=== PATIENT | female | born 1985 | race Caucasian/White ===

== ENCOUNTER 2023-08-25 20:13 | Outpatient (REF) | payer MEDICAID, SELFPAY ==
[2023-09-01 22:07] LABS: Age Gdln ACOG Testing Note (.); HPV Aptima Positive (Negative); HPV Genotype 16 Negative (Negative); HPV Genotype 18,45 Negative (Negative); IGP, Aptima HPV, rfx 16/18,45 Note (.)
== END 2023-08-25 20:14 | disposition home or self-care (01) ==
LOC: LAB 20:13
PROVIDERS: PCP Family Medicine; Visit Provider Physician Assistant
DX: Z12.4 Encounter for screening for malignant neoplasm of cervix (principal)
CPT/HCPCS: 87624; 87625; G0145

== ENCOUNTER 2023-11-19 10:16 | Outpatient (REF) | payer MEDICAID, SELFPAY ==
[2023-11-19 10:47] LABS: SARS-CoV-2 Ag POSITIVE (NEGATIVE)
== END 2023-11-19 10:17 | disposition home or self-care (01) ==
LOC: LAB 10:16
PROVIDERS: PCP Family Medicine; Visit Provider Family Medicine
DX: R09.81 Nasal congestion (principal)
CPT/HCPCS: 87811

== ENCOUNTER 2024-09-13 06:59 | Outpatient (OUT) | payer MEDICAID, SELFPAY ==
--- OUTSIDE RECORDS SUMMARY | 2024-09-13 07:02 | XMS_ITS | CCD ---
Author Organization [facility] Care Team Providers Care Mechanic Sound Technician Name Role Phone EDEL ., DR JUNE Elizabeth Admitting Unavailable HOLLINGSWORTH ., DR JUNE Elizabeth Attending Unavailable HOY ., DR ROLAND Primary Care Unavailable GARRIDO ., MESSI Consulting Unavailable HOLLINGSWORTH ., DR JUNE Elizabeth Admitting Unavailable HOLLINGSWORTH ., DR JUNE Elizabeth Attending Unavailable HOY ., DR ROLAND Primary Care Unavailable HOY ., DR ROLAND Consulting Unavailable GARRIDO ., MESSI Consulting Unavailable MARIE, JACLYN Admitting Unavailable MARIE, JACLYN Attending Unavailable HOY ., DR ROLAND Primary Care Unavailable MARIE, JACLYN Consulting Unavailable MARIE, JACLYN Admitting Unavailable MARIE, JACLYN Attending Unavailable HOY ., DR ROLAND Primary Care Unavailable MARIE, JACLYN Consulting Unavailable MARIE, JACLYN Admitting Unavailable MARIE, JACLYN Attending Unavailable HOY ., DR ROLAND Primary Care Unavailable MARIE, JACLYN Consulting Unavailable MIKESTACIEGENEVIEVE Consulting Unavailable KUCHIPUDI, LOUISE Consulting Unavailable MARIE, JACLYN Admitting Unavailable MARIE, JACLYN Attending Unavailable HOY ., DR ROLAND Primary Care Unavailable MARIE, JACLYN Consulting Unavailable Ricardo Roland Admitting Unavailable Ricardo Roland Attending Unavailable HOY ., DR ROLAND Primary Care Unavailable MARILIAY ., DR ROLAND Primary Care Unavailable ALICIA TAPIA Admitting Unavailable ALICIA TAPIA Attending Unavailable SVITLANA WRIGHT Consulting Unavailable CORINA SIDDIQUI Consulting Unavailable MD Francisco Sanches Primary Care Provider MD Tomás Rojo Emergency Provider [phone] Tomás Rojo Attending Unavailable Tomás Rojo Admitting Unavailable Francisco Sanches Primary Care Unavailable Allergies Allergy Classification Reported Allergen(s) Allergy Type Date of Onset Reaction(s) Facility (2 sources) Acetaminophen / oxyCODONE Drug Allergy [facility] Repository Medications Current Medications Medication Drug Class(es) Dates Sig (Normalized) Sig (Original) acetaminophen 325 mg / HYDROcodone bitartrate 5 mg oral tablet (2 sources) Opioid Agonist Start: 10-13-2019 take 1 tablet by mouth every six hours Hydrocodone-Aceta minophen ([place]) 5-325 mg tablet Active 1 TAB PO Q6H 8 2 October 13, 2019 Start: 06-08-2019 End: 10-13-2019 take 1 tablet by mouth every four to six hours Hydrocodone-Acetaminophen Discontinued 1 TAB PO EVERY 4-6 HOURS June 08, 2019 12:00am October 13, 2019 7:53pm cephalexin 500 mg oral capsule (1 source) Cephalosporin Antibacterial Start: 10-13-2019 take 1 capsule by mouth four times daily Cephalexin (Keflex) 500 mg capsule Active 500 MG PO Four times daily 40 October 13, 2019 1:00am Problems Active Problems Problem Classification Problem Date Documented Date Episodic/Chronic Nonspecific chest pain (2 sources) Musculoskeletal chest pain; Translations: [Other chest pain] Onset: 05-04-2023 05-04-2023 Episodic Open wounds of head; neck; and trunk (1 source) Laceration - injury; Translations: [Laceration] 10-13-2019 Episodic Spondylosis; intervertebral disc disorders; other back problems (4 sources) Spondylosis without myelopathy or radiculopathy, lumbar region; Translations: [SPONDYLS W/O MYELO-/RADICULOP LUMB] Onset: 06-13-2022 Chronic Substance-related disorders (1 source) Nicotine dependence, cigarettes, uncomplicated; Translations: [NICOTINE DEPEND CIGARETTES UNCOMP] Onset: 10-17-2022 Chronic Superficial injury; contusion (1 source) Contusion of rib; Translations: [Contusion of right front wall of thorax, initial encounter] 06-08-2019 Episodic Unclassified (1 source) CONTACT W/AND (SUSP) EXPOS COVID-19; Translations: [CONTACT W/AND (SUSP) EXPOS COVID-19] Onset: 10-07-2022 Past or Other Problems Problem Classification Problem Date Documented Da te Episodic/Chronic Abdominal pain (5 sources) Pelvic and perineal pain; Translations: [Unspecified abdominal pain] Onset: 08-18-2022 Episodic Complication of device; implant or graft (1 source) Other specified complication of genitourinary prosthetic devices, implants and grafts, initial encounter; Translations: [OTH COMP PROS DEVC IMPL GFT INIT] Onset: 08-20-2022 Episodic Contraceptive and procreative management (5 sources) Encounter for sterilization; Translations: [ENCOUNTER FOR STERILIZATION] Onset: 10-02-2022 Episodic Immunizations and screening for infectious disease (4 sources) Encounter for screening for infections with a predominantly sexual mode of transmission; Translations: [ENC SCREEN INFECTIONS SEXL TRANSMS] Onset: 08-28-2022 Episodic Other female genital disorders (1 source) Other specified conditions associated with female genital organs and menstrual cycle; Translations: [OTH SPEC COND FE GEN ORG MENST CYCL] Onset: 10-17-2022 Episodic Other female genital disorders (1 source) Other specified noninflammatory disorders of vagina; Translations: [OTH SPEC NONINFLAMMATORY D/O VAGINA] Onset: 08-29-2022 Episodic Other gastrointestinal disorders (1 source) Other ascites; Translations: [OTHER ASCITES] Onset: 08-20-2022 Episodic Spondylosis; intervertebral disc disorders; other back problems (1 source) Muscle spasm of back; Translations: [MUSCLE SPASM OF BACK] Onset: 06-19-2022 Episodic Results Test Name Value Interpretation Reference Range Facility Activated partial thrombopla stin time (aPTT) in platelet poor plasma by coagulation aOrdered By: Tomás Rojo on 05-04-2023 aPTT Coag (PPP) [Time] 29.4 s 25.1-36.5 [facility] Basic Metabolic Panelon 04-17 Anion gap [Moles/Vol] 12.1 mmol/L Normal 6.0-15.0 [facility] Comment on above: Performed By: #### C BC, CK, DDIMER, HS TROP, PT, BMP, PTT #### [facility] [address] Calcium [Mass/Vol] 9.4 mg/dL Normal 8.6-10.3 [facility] Comment on above: Performed By: #### C BC, CK, DDIMER, HS TROP, PT, BMP, PTT #### [facility] [address] Chloride [Moles/Vol] 105 mmol/L Normal 98-107 [facility] Comment on above: Performed By: #### C BC, CK, DDIMER, HS TROP, PT, BMP, PTT #### [facility] [address] CO2 [Moles/Vol] 23.5 mmol/L Normal 21.0-31.0 [facility] Comment on above: Performed By: #### C BC, CK, DDIMER, HS TROP, PT, BMP, PTT #### [facility] [address] Creatinine [Mass/Vol] 0.64 mg/dL Normal 0.60-1.20 [facility] Comment on above: Performed By: #### C BC, CK, DDIMER, HS TROP, PT, BMP, PTT #### [facility] [address] [place] [address] [place] Creatinine Clr Calc Pharmacy 120.69 [facility] Comment on above: Result Comment: PERF ORMED BY: [place] [address] PATHOLOGIST BOOM WORKER JULIETH MEJIA M.D. Performed By: #### C BC, CK, DDIMER, HS TROP, PT, BMP, PTT #### [facility] [address] GFR/1.73 sq M.predicted MDRD (S/P/Bld) [Vol rate/Area] mL/min/{1.73_m2} [facility] Comment on above: Performed By: #### C BC, CK, DDIMER, HS TROP, PT, BMP, PTT #### [facility] [address] Glucose [Mass/Vol] 90 mg/dL Normal 70-100 [facility] Comment on above: Result Comment: [place] Glucose Reference Range is dependent on time and content of last meal. Glucose of more than 200 mg/dL in a nonstressed, ambulatory subject supports the diagnosis of Diabetes Mellitus. ADA recommended reference range Performed By: #### C BC, CK, DDIMER, HS TROP, PT, BMP, PTT #### [facility] [address] Potassium [Moles/Vol] 3.6 mmol/L Normal 3.5-5.1 [facility] Comment on above: Performed By: #### C BC, CK, DDIMER, HS TROP, PT, BMP, PTT #### [facility] [address] Sodium [Moles/Vol] 137 mmol/L Normal 136-145 [facility] Comment on above: Performed By: #### C BC, CK, DDIMER, HS TROP, PT, BMP, PTT #### [facility] [address] Urea nitrogen [Mass/Vol] 14 mg/dL Normal 7-25 [facility] Comment on above: Performed By: #### C BC, CK, DDIMER, HS TROP, PT, BMP, PTT #### [facility] [address] Basophils Auto (Bld) [#/Vol] Ordered By: Tomás Rojo on 05-04-2023 Basophils (Bld) [#/Vol] 0.1 10*3/uL 0.0-0.2 [facility] Basophils/100 WBC Auto (Bld) Ordered By: Tomás Rojo on 05-04-2023 Basophils/100 WBC (Bld) 1.0 % . [facility] Calcium [Mass/volume] in Ser um or PlasmaOrdered By: Tomás Rojo on 05-04-2023 Calcium [Mass/Vol] 9.4 mg/dL 8.6-10.3 [facility] Carbon dioxide, total [Moles /volume] in Serum or PlasmaOrdered By: Tomás Rojo on 05-04-2023 CO2 [Moles/Vol] 23.5 mmol/L 21.0-31.0 [facility] Chloride [Moles/volume] in S jose or PlasmaOrdered By: Tomás Rojo on 05-04-2023 Chloride [Moles/Vol] 105 mmol/L 98-107 [facility] Complete Blood Count Auto Di ffon 05-04-2023 Basophils (Bld) [#/Vol] 0.1 10*3/uL Normal 0.0-0.2 [facility] Comment on above: Result Comment: PERF ORMED BY: [place] [address] PATHOLOGIST BOOM WORKER JULIETH MEJIA M.D. Performed By: #### C BC, CK, DDIMER, HS TROP, PT, BMP, PTT #### [address] Basophils/100 WBC (Bld) 1.0 % Normal . [facility] Comment on above: Performed By: #### C BC, CK, DDIMER, HS TROP, PT, BMP, PTT #### [address] Eosinophils (Bld) [#/Vol] 0.1 10*3/uL Normal 0.0-0.45 [facility] Comment on above: Performed By: #### C BC, CK, DDIMER, HS TROP, PT, BMP, PTT #### [address] Eosinophils/100 WBC (Bld) 0.8 % Normal . [facility] Comment on above: Performed By: #### C BC, CK, DDIMER, HS TROP, PT, BMP, PTT #### [address] Erythrocyte distribution width (RBC) [Ratio] 13.2 % Normal 11.9-15.3 [facility] Comment on above: Performed By: #### C BC, CK, DDIMER, HS TROP, PT, BMP, PTT #### [address] Hematocrit (Bld) [Volume fraction] 38.3 % Normal 34.0-46.4 [facility] Comment on above: Performed By: #### C BC, CK, DDIMER, HS TROP, PT, BMP, PTT #### [address] Hemoglobin (Bld) [Mass/Vol] 13.0 g/dL Normal 11.8-15.4 [facility] Comment on above: Performed By: #### C BC, CK, DDIMER, HS TROP, PT, BMP, PTT #### [address] Lymphocytes (Bld) [#/Vol] 2.4 10*3/uL Normal 1.00-4.8 [facility] Comment on above: Performed By: #### C BC, CK, DDIMER, HS TROP, PT, BMP, PTT #### [address] Lymphocytes/100 WBC (Bld) 22.4 % Normal . [facility] Comment on above: Performed By: #### C BC, CK, DDIMER, HS TROP, PT, BMP, PTT #### [address] MCH (RBC) [Entitic mass] 31.5 pg Normal 24.7-34.3 [facility] Comment on above: Performed By: #### C BC, CK, DDIMER, HS TROP, PT, BMP, PTT #### [address] MCV (RBC) [Entitic vol] 92.7 fL Normal 80-100 [facility] Comment on above: Performed By: #### C BC, CK, DDIMER, HS TROP, PT, BMP, PTT #### [address] Mean Corpuscular HGB Conc 33.9 g/dL Normal 32.0-35.0 [facility] Comment on above: Performed By: #### C BC, CK, DDIMER, HS TROP, PT, BMP, PTT #### [address] Monocytes (Bld) [#/Vol] 0.5 10*3/uL Normal 0.0-0.8 [facility] Comment on above: Performed By: #### C BC, CK, DDIMER, HS TROP, PT, BMP, PTT #### [address] Monocytes/100 WBC (Bld) 16.86 % Normal 0.00-20.00 [facility] Comment on above: Performed By: #### C BC, CK, DDIMER, HS TROP, PT, BMP, PTT #### [address] Monocytes/100 WBC (Bld) 4.6 % Normal . [facility] Comment on above: Performed By: #### C BC, CK, DDIMER, HS TROP, PT, BMP, PTT #### [address] Neutrophils (Bld) [#/Vol] 7.5 10*3/uL Normal 1.8-7.7 [facility] Comment on above: Performed By: #### C BC, CK, DDIMER, HS TROP, PT, BMP, PTT #### [address] Neutrophils/100 WBC (Bld) 71.2 % Normal . [facility] Comment on above: Performed By: #### C BC, CK, DDIMER, HS TROP, PT, BMP, PTT #### [address] NRBC% 0.1 /100{WBC} Normal 0-0.5 [facility] Comment on above: Performed By: #### C BC, CK, DDIMER, HS TROP, PT, BMP, PTT #### [address] Platelet mean volume (Bld) [Entitic vol] 9.3 fL Normal 6.3-10.7 [facility] Comment on above: Performed By: #### C BC, CK, DDIMER, HS TROP, PT, BMP, PTT #### [address] Platelets (Bld) [#/Vol] 188 10*3/uL Normal 150-450 [facility] Comment on above: Performed By: #### C BC, CK, DDIMER, HS TROP, PT, BMP, PTT #### [facility] [address] RBC (Bld) [#/Vol] 4.13 10*6/uL Normal 3.60-5.00 [facility] Comment on above: Performed By: #### C BC, CK, DDIMER, HS TROP, PT, BMP, PTT #### [facility] [address] WBC (Bld) [#/Vol] 10.5 10*3/uL Normal 3.8-11.6 [facility] Comment on above: Performed By: #### C BC, CK, DDIMER, HS TROP, PT, BMP, PTT #### [facility] [address] Creatine Kinaseon 05-04-2023 CK [Catalytic activity/Vol] 93 U/L Normal 30-223 [facility] Comment on above: Performed By: #### C BC, CK, DDIMER, HS TROP, PT, BMP, PTT #### [facility] [address] Creatine kinase [Enzymatic a ctivity/volume] in Serum or PlasmaOrdered By: Tomás Rojo on 05-04-2023 CK [Catalytic activity/Vol] 93 U/L 30 [facility] Creatinine [Mass/volume] in Serum or PlasmaOrdered By: Tomás Rojo on 05-04-2023 Creatinine [Mass/Vol] 0.64 mg/dL 0.60-1.20 [facility] D-Dimer High Sensitivityon 0 05-04-2023 D-Dimer High Sensitivity < 200 Normal 0-243 [facility] Comment on above: Result Comment: The reference range for D-dimer is <243 ng/mL D-dimer units. D-dimer results must be used in conjunction with a clinical pretest probability (PTP) assessment model for deep vein thrombosis (DVT) and pulmonary embolism (PE). Results <230 ng/mL d-dimer units can be used as a negative predictor in patients with low or moderate probability for DVT/PE. Results above the exclusion threshold of 230 ng/ml D-dimer units for DVT/PE may indicate the need for further diagnostic testing. D-Dimer can be increased in hospitalized patients due to co-morbid conditions. PERFORMED BY: [place] [address] PATHOLOGIST BOOM WORKER JULIETH MEJIA M.D. Performed By: #### C BC, CK, DDIMER, HS TROP, PT, BMP, PTT #### [address] ECG 12 lead ECGon 05-04-2023 ECG 12 lead ECG [facility] Main [place] [address] [place] [address] Electrocardiograph Report Signed Patient: Cynthia Wilder MR#: [id number] 432 : 1985 Acct:[id number] Age/Sex: 37 / F ADM Date: 05/04/23 Loc: ER Room: Type: [facility] ER Attending Dr: Ordering Provider: Tomás Rojo MD Date of Service: 05/04/23 ECG/ECG 12 lead ECG: Chest Pain Copies to: Test Reason : Blood Pressure : / mmHG Vent. Rate : 076 BPM Atrial Rate : 076 BPM P-R Int : 168 ms QRS Dur : 082 ms QT Int : 410 ms P-R-T Axes : 055 077 031 degrees QTc Int : 461 ms Normal sinus rhythm Normal ECG When compared with ECG of 12-JUL-2017 23:19, No significant change was found Confirmed by TOMÁS ROJO MD ([id number]) on 05/04/2023 3:45:09 PM Referred By: Electronically Signed By:TOMÁS ROJO MD Transcribed By: MUS Signed By Tomás Rojo MD 04/17 07/09 1545 Normal [facility] Eosinophils Auto (Bld) [#/Vo l]Ordered By: Tomás Rojo on 05-04-2023 Eosinophils (Bld) [#/Vol] 0.1 10*3/uL 0.0-0.45 [facility] Eosinophils/100 WBC Auto (Bl d)Ordered By: Tomás Rojo on 05-04-2023 Eosinophils/100 WBC (Bld) 0.8 % . [facility] Erythrocyte distribution wid th Auto (RBC) [Ratio]Ordered By: Tomás Rojo on 05-04-2023 Erythrocyte distribution width (RBC) [Ratio] 13.2 % 11.9-15.3 [facility] Glucose [Mass/volume] in Ser um or PlasmaOrdered By: Tomás Rojo on 05-04-2023 Glucose [Mass/Vol] 90 mg/dL 70-100 [facility] Comment on above: ADA recommended refe rence rangeRandom Glucose Reference Range is dependent on time and content of last meal. Glucose of more than 200 mg/dL in a nonstressed, ambulatory subject supports the diagnosis of Diabetes Mellitus. Hematocrit Auto (Bld) [Volum e fraction]Ordered By: Tomás Rojo on 05-04-2023 Hematocrit (Bld) [Volume fraction] 38.3 % 34.0-46.4 [facility] Hemoglobin [Mass/volume] in BloodOrdered By: Tomás Rojo on 05-04-2023 Hemoglobin (Bld) [Mass/Vol] 13.0 g/dL 11.8-15.4 [facility] Laboratory - CoagulationOrde red By: Tomás Rojo on 05-04-2023 PT Coag (PPP) [Time] 14.5 s 9.0-12.9 [facility] Leukocytes [#/volume] correc reynaldo for nucleated erythrocytes in Blood by Automated counOrdered By: Tomás Rojo on 05-04-2023 WBC corrected for nucl RBC Auto (Bld) [#/Vol] 10.5 10*3/uL 3.8-11.6 [facility] Lymphocytes Auto (Bld) [#/Vo l]Ordered By: Tomás Rojo on 05-04-2023 Lymphocytes (Bld) [#/Vol] 2.4 10*3/uL 1.00-4.8 [facility] Lymphocytes/100 WBC Auto (Bl d)Ordered By: Tomás Rojo on 05-04-2023 Lymphocytes/100 WBC (Bld) 22.4 % . [facility] MCH Auto (RBC) [Entitic mass ]Ordered By: Tomás Rojo on 05-04-2023 MCH (RBC) [Entitic mass] 31.5 pg 24.7-34.3 [facility] MCHC Auto (RBC) [Mass/Vol]Or dered By: Tomás Rojo on 05-04-2023 MCHC (RBC) [Mass/Vol] 33.9 g/dL 32.0-35.0 [facility] MCV Auto (RBC) [Entitic vol] Ordered By: Tomás Rojo on 05-04-2023 MCV (RBC) [Entitic vol] 92.7 fL 80-100 [facility] Monocyte distribution width [Entitic volume] in Blood by AutomatedOrdered By: Tomás Rojo on 05-04-2023 Monocyte distribution width Auto (Bld) [Entitic vol] 16.86 % 0.00-20.00 [facility] Monocytes Auto (Bld) [#/Vol] Ordered By: Tomás Rojo on 05-04-2023 Monocytes (Bld) [#/Vol] 0.5 10*3/uL 0.0-0.8 [facility] Monocytes/100 WBC Auto (Bld) Ordered By: Tomás Rojo on 05-04-2023 Monocytes/100 WBC (Bld) 4.6 % . [facility] Neutrophils Auto (Bld) [#/Vo l]Ordered By: Tomás Rojo on 05-04-2023 Neutrophils (Bld) [#/Vol] 7.5 10*3/uL 1.8-7.7 [facility] Neutrophils/100 WBC Auto (Bl d)Ordered By: Tomás Rojo on 05-04-2023 Neutrophils/100 WBC (Bld) 71.2 % . [facility] No Panel InformationOrdered By: Tomás Rojo on 05-04-2023 D-Dimer Quantitative (PE/DVT) < 200 ng/mL 0-243 [facility] Comment on above: The reference range for D-dimer is <243 ng/mL D-dimer units.D-dimer results must be used in conjunction with a clinicalpretest probability (PTP) assessment model for deep veinthrombosis (DVT) and pulmonary embolism (PE). Results <230ng/mL d-dimer units can be used as a negative predictor inpatients with low or moderate probability for DVT/PE.Results above the exclusion threshold of 230 ng/ml D-dimerunits for DVT/PE may indicate the need for furtherdiagnostic testing.D-Dimer can be increased in hospitalized patients due toco-morbid conditions. Estimated GFR (CKD-EPI) > 60.0 mL/Min [facility] Creatinine Clearance (Chem 120.69 [facility] Nucleated erythrocytes [Pres ence] in Blood by Automated countOrdered By: Tomás Rojo on 05-04-2023 Nucleated RBC Auto Ql (Bld) 0.1 /100{WBC} 0-0.5 [facility] Partial Thromboplastin Timeo n 05-04-2023 aPTT Coag (Bld) [Time] 29.4 s Normal 25.1-36.5 [facility] Comment on above: Performed By: #### C BC, CK, DDIMER, HS TROP, PT, BMP, PTT #### [facility] [address] Platelet mean volume Auto (B ld) [Entitic vol]Ordered By: Tomás Rojo on 05-04-2023 Platelet mean volume (Bld) [Entitic vol] 9.3 fL 6.3-10.7 [facility] Platelet poor plasma interna tional normalized ratio (INR) by coagulation assay (relatOrdered By: Tomás Rojo on 05-04-2023 INR Coag (PPP) [Relative time] 1.3 {INR} [facility] Comment on above: INR Therapeutic Rang e A) Pre- and Peroperative OAT started two weeks before surgery. NOT HIP SURGERY: 1.5 - 2.5 HIP SURGERY: 2 - 3B) Primary and secondary prevention of venous THROMBOSIS: 2 - 3C) Active venous thrombosis, pulmonary embolismand prevention of recurrent venous thrombosis: 2 - 3D) Prevention of arterial thromboembolismincluding patients with mechanical heart valves: 3 - 4.5 Platelets Auto (Bld) [#/Vol] Ordered By: Tomás Rojo on 05-04-2023 Platelets (Bld) [#/Vol] 188 10*3/uL 150-450 [facility] Potassium [Moles/volume] in Serum or PlasmaOrdered By: Tomás Rojo on 05-04-2023 Potassium [Moles/Vol] 3.6 mmol/L 3.5-5.1 [facility] Prothrombin Time INRon 05-04 INR Coag (PPP) [Relative time] 1.3 {INR} Normal [facility] Comment on above: Result Comment: INR Therapeutic Range A) Pre- and Peroperative OAT started two weeks before surgery. NOT HIP SURGERY: 1.5 - 2.5 HIP SURGERY: 2 - 3 B) Primary and secondary prevention of venous THROMBOSIS: 2 - 3 C) Active venous thrombosis, pulmonary embolism and prevention of recurrent venous thrombosis: 2 - 3 D) Prevention of arterial thromboembolism including patients with mechanical heart valves: 3 - 4.5 Performed By: #### C BC, CK, DDIMER, HS TROP, PT, BMP, PTT #### [facility] [address] PT Coag (PPP) [Time] 14.5 s High 9.0-12.9 [facility] Comment on above: Performed By: #### C BC, CK, DDIMER, HS TROP, PT, BMP, PTT #### [facility] [address] RBC Auto (Bld) [#/Vol]Ordere d By: Tomás Rojo on 05-04-2023 RBC (Bld) [#/Vol] 4.13 10*6/uL 3.60-5.00 [facility] Serum or plasma anion gap de terminationOrdered By: Tomás Rojo on 05-04-2023 Anion gap [Moles/Vol] 12.1 mmol/L 6.0-15.0 [facility] Sodium [Moles/volume] in Ser um or PlasmaOrdered By: Tomás Rojo on 05-04-2023 Sodium [Moles/Vol] 137 mmol/L 136-145 [facility] Troponin I High Sensitivityo n 05-04-2023 Troponin I High Sensitivity 4.3 pg/mL Normal 0.0-15.0 [facility] Comment on above: Result Comment: PERF ORMED BY: [place] [address] PATHOLOGIST BOOM WORKER JULIETH MEJIA M.D. Performed By: #### C BC, CK, DDIMER, HS TROP, PT, BMP, PTT #### [address] Troponin I.cardiac [Mass/vol ume] in Serum or Plasma by Detection limit <= 0.01 ng/Ordered By: Tomás Rojo on 05-04-2023 Troponin I.cardiac DL <= 0.01 ng/mL [Mass/Vol] 4.3 pg/mL 0.0-15.0 [facility] Urea nitrogen [Mass/volume] in Serum or PlasmaOrdered By: Tomás Rojo on 05-04-2023 Urea nitrogen [Mass/Vol] 14 mg/dL 06-10 [facility] WBC Auto (Bld) [#/Vol]Ordere d By: Tomás Rojo on 05-04-2023 WBC (Bld) [#/Vol] 10.5 10*3/uL 3.8-11.6 [facility] XR chest 1V portableon 05-04 XR chest 1V portable [facility] [place] [address] XRay Report Signed Patient: Cynthia Wilder MR#: [id number] 432 : 1985 Acct:[id number] Age/Sex: 37 / F ADM Date: 05/04/23 Loc: ER Room: Type: [facility] ER Attending Dr: Copies to: Tomás Rojo MD Ordering Provider: Tomás Rojo MD Date of Service: 05/04/23 XR/XR chest 1V portable: Chest Pain PORTABLE AP ERECT CHEST 2034 hours CLINICAL HISTORY: Chest pain COMPARISON: 06/08/2019 The heart is within normal limits. There is no vascular congestion. The lungs, as visualized, are clear. There is no effusion or pneumothorax. An old left rib fractures again noted. XR/XR chest 1V portable IMPRESSION: NO ACUTE FINDINGS Impression dictated by: Corina Sotelo M.D.05/04/2023 2:37 PM Dictation Location: [place] [address] Transcribed By: [facility] 05/04/23 143 Dictated By: Corina Sotelo MD 05/04/23 1437 Signed By: 05/04/23 1437 Normal [facility] CBC AUTO DIFFon 10-02-2022 BASO # 0.0 103/ul Normal 0.0-0.1 [facility] Comment on above: Performed By: #### C BC ####[facility] [address] [place] [address]Dr. Colleen Marshall Basophils/100 WBC (Bld) 0.3 % Normal 0.2-2.0 [facility] Comment on above: Performed By: #### C BC ####[facility] [address] [place], [place] [address]Dr. Colleen Marshall EO # 0.1 103/ul Normal 0.0-0.7 [facility] Comment on above: Performed By: #### C BC ####[facility] Pelbbec[address] [place], [place] [address]Dr. Colleen Marshall Eosinophils/100 WBC (Bld) 1.2 % Normal 0.9-7.0 [facility] Comment on above: Performed By: #### C BC ####[facility] [address]vq[address] [place], [place] [address]Dr. Colleen Marshall Erythrocyte distribution width (RBC) [Ratio] 12.7 % Normal 11.0-15.0 [facility] Comment on above: Performed By: #### C BC ####[facility] [address]we[address] [place], [place] [address]Dr. Colleen Marshall Hematocrit (Bld) [Volume fraction] 41.1 % Normal 36.0-48.0 [facility] Comment on above: Performed By: #### C BC ####[facility] X[address] [place], [place] [address]Dr. Colleen Marshall Hemoglobin (Bld) [Mass/Vol] 13.8 g/dL Normal 12.0-16.0 [facility] Comment on above: Performed By: #### C BC ####[facility] Bl[address]em[address] [place], [place] [address]Dr. Colleen Marshall IG # 0.02 10e3/ul Normal 0.00-0.03 [facility] Comment on above: Performed By: #### C BC ####[facility] [address] [place], [place] [address]Dr. Colleen Marshall IG % 0.3 % Normal 0.0-0.5 [facility] Comment on above: Performed By: #### C BC ####[facility] X[address] [place], [place] [address]DrLiset Marshall LYMPH # 2.2 103/ul Normal 1.2-3.8 [facility] Comment on above: Performed By: #### C BC ####[facility] [address] [place] [address]DrLiset Solgael Marshall Lymphocytes/100 WBC (Bld) 29.6 % Normal 20.5-60.0 [facility] Comment on above: Performed By: #### C BC ####[facility] [address]xx[address] [place] [address]DrLiset Marshall MANUAL DIFF REQ NO Normal [facility] Comment on above: Performed By: #### C BC ####[facility] [address]zl[address] [place] [address]DrLiset Marshall MCH (RBC) [Entitic mass] 31.3 pg Normal 26.7-34.0 [facility] Comment on above: Performed By: #### C BC ####[facility] [address] [place], [place] [address]DrLiset Marshall MCHC (RBC) [Mass/Vol] 33.6 g/dL Normal 29.9-35.2 [facility] Comment on above: Performed By: #### C BC ####[facility] Zhktejehzy[address] [place], [place] [address]DrLiset Marshall MCV (RBC) [Entitic vol] 93.2 fL Normal 81.0-99.0 [facility] Comment on above: Performed By: #### C BC ####[facility] [address] [place], [place]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 9095324, 17150744, 72593531, 46504059, 1943269, 36301466, 9578751, 9497591, 75681107 #### [facility] [address] [place] [address] Glucose mass conc 80 mg/dL Normal 55-199 [facility] Comment on above: Result Comment: If t his glucose result represents a fasting glucose, interpretation should refer to the following reference range: 55-99 mg/dL Performed By: #### 2 060332, 1720878, 98183511, 28403299, 82783995, 3203409, 56910595, 6332492, 9189121, 49402912 #### [facility] [address] [place] [address] Potassium molar conc 3.7 mmol/L Normal 3.5-5.3 [facility] Comment on above: Performed By: #### 2 571109, 5785273, 12390772, 06073321, 00299671, 9970406, 58550479, 0849587, 3917274, 05515473 #### [facility] [address] [place] [address] Sodium molar conc 138 mmol/L Normal 135-145 [facility] Comment on above: Performed By: #### 2 362544, 6875491, 91652315, 46702429, 62432109, 6241187, 97201282, 4598684, 6388259, 27353490 #### [facility] [address] [place] [address] ED Clinical Summaryon 2017 ED Clinical Summary (Inserted Image. Astrid ble to display) [address] [address] ED Clinical Summary Person Information Name: CYNTHIA WILDER [place] Age: 32 Years : 1985 12:00 AM Sex: Female Language: Cuban PCP: Luan Guerra MD Marital Status: Single Visit Id: Visit Reason: Back pain; Chest pain; CHEST PAIN Speciality: Acuity: 3 Enc Type: Emergency Med Service: Emergency Arrival: 05/28/2018 10:11 PM Discharge: 05/29/2018 12:01 AM LOS: 000 01:50 Checkin: 05/28/2018 10:11 PM Checkout: 05/29/2018 12:01 AM Dispo Type: Home (Routine DC) EVENTS: Event Name Event Status Request Date/Time Start Date/Time Complete Date/Time Arrive Complete 05/28/2018 10:11 PM 05/28/2018 10:11 PM 05/28/2018 10:11 PM Document Home Meds Complete 05/28/2018 10:11 PM 05/28/2018 11:23 PM 05/28/2018 11:23 PM Triage Complete 05/28/2018 10:11 PM 05/28/2018 10:24 PM 05/28/2018 10:24 PM Bed Assign Complete 05/28/2018 10:15 PM 05/28/2018 10:15 PM 05/28/2018 10:[address] Exam Complete 05/28/2018 10:15 PM 05/28/2018 10:16 PM 05/28/2018 10:16 PM RN Exam Complete 05/28/2018 10:15 PM 05/28/2018 10:50 PM 05/28/2018 10:50 PM EKG Complete 05/28/2018 10:15 PM 05/28/2018 10:26 PM X-Ray Cancel 05/28/2018 10:15 PM 05/28/2018 11:01 PM Registration Complete 05/28/2018 10:16 PM 05/28/2018 10:26 PM 05/28/2018 10:26 PM Pending Labs Complete 05/28/2018 10:22 PM 05/28/2018 11:16 PM Lab Complete 05/28/2018 10:22 PM 05/28/2018 11:[address] Complete 05/28/2018 10:22 PM 05/28/2018 11:15 PM 05/28/2018 11:16 PM Meds Admin Request 05/28/2018 10:24 PM Reg Complete Request 05/28/2018 10:26 PM Reg Bed Request Complete 05/28/2018 10:26 PM 05/28/2018 10:26 PM 05/28/2018 10:26 PM Pending Labs Complete 05/28/2018 10:39 PM 05/28/2018 10:39 PM 05/28/2018 11:16 PM Lab Complete 05/28/2018 10:39 PM 05/28/2018 10:39 PM 05/28/2018 11:16 PM Pending Labs Complete 05/28/2018 10:40 PM 05/28/2018 10:40 PM 05/28/2018 11:08 PM Lab Complete 05/28/2018 10:40 PM 05/28/2018 10:40 PM 05/28/2018 11:08 PM Pending Labs Complete 05/28/2018 10:44 PM 05/28/2018 10:44 PM 05/28/2018 10:44 PM Lab Complete 05/28/2018 10:44 PM 05/28/2018 10:44 PM 05/28/2018 10:44 PM Pending Labs Complete 05/28/2018 10:44 PM 05/28/2018 10:44 PM 05/28/2018 11:07 PM Discharge Complete 05/28/2018 11:46 PM 05/29/2018 12:01 AM 05/29/2018 12:01 AM Transfer Complete 05/29/2018 12:01 AM 05/29/2018 12:01 AM 05/29/2018 12:01 AM ADDRESS: [address] [place] [id number] PHYS DOC NOTES: MEDICAL INFORMATION: Prescriptions Given: PATIENT EDUCATION INFORMATION: Instructions: Chest Pain (Nonspecific) Follow up: With: Address: When: Luan Guerra [address] [place] [address], [facility] [place] [address] Business (1) In 3 days 05/31/2018 Comments: Current Diagnosis - Chest pain Results - All testing was unremarkable. Your evaluation was currently not consistent with a blood clot in the lungs, a tear in a major blood vessel, collapsed lung, heart failure, or heart attack. Given your risk factors and testing, your Heart Score is less than 4 which places you at less than a 1.8% risk of Major Adverse Cardiac Event in the next 6 weeks. Treatment - Currently the [employer] recommends that all patients who present complaining of chest pain should receive a stress test within 48-72 hours. Avoid strenuous activity while still having pain and until you see your doctor. Return to ED for - Worsening or continuing pain, shortness of breath, passing out, lightheadedness, dizzy, neck pain, sweating, fever, cough Follow up - With your primary care physician within 48-72 hours if no better or worse and for a stress test within 48-72 hours as directed by the AHA You have been seen, evaluated, treated, and reevaluated in the emergency department. Your test results and diagnoses have been explained to you . You have expressed understanding of the results, your diagnosis, and its implications. All of your questions have been answered. Please read your discharge instructions carefully and follow them as directed. You have been provided access to your imaging and lab results and had any abnormalities explained, please take them to your doctor as they may require follow up as we discussed. It is important to remember that your care does not end here and you must continue to monitor your condition closely. Please return to the emergency department for any worsening or concerning signs or symptoms as directed by our conversations and the discharge instructions. Otherwise please follow up with your doctor in 2 days if no better or worse. If you do not have a doctor please contact the hospital of your choice. Please contact any physician specialists provided in your discharge notes as it is very important to follow up with them regarding your condition. If you are unable to reach the physicians provided, please come back to the Emergency Department at any time. As always, please take medications as directed. If you have any questions at all regarding your medications, please contact the pharmacist, the emergency department, or your doctor. Before taking any medication prescribed in the Emergency Department, please review the medication side effects and drug interactions (http://www.rxlist.com/scr ipt/main/hp.asp) as they may interact with your home medications. Having trouble affording medications? Try [employer]! (This is not a hospital endorsed website, merely a recommendation based on my own personal experiences with [employer]) Questions? Contact me anytime. Saul Tate MD, TAL DIAGNOSIS: Chest pain Normal [facility] ED Note-Physicianon 05-29-20 ED Note-Physician Basic Information Time Seen: Saul Tate MD 05/28/2018 22:16 HISTORY OF PRESENT ILLNESS: Past medical history of previous CVA presents for chief complaint of left-sided chest pain and hemoptysis for the past day. Patient states she's had blood-streaked sputum. Denies any lightheadedness or dizziness or passing out. The left-sided chest pain is sharp pleuritic. Atypical Chest pain. No PE/DVT risk factors. No leg swelling. Chest pain was not of maximal intensity at onset, does not radiate to the back, is not associated with focal neurological deficits, is not of tearing sensation. Chest pain is non-exertional, not associated with diaphoresis, nausea, or significant shortness of breath. Severity is moderate. Worse with coughing. No relieving factors. Timing is one day. Course is constant. Context is no trauma ED Caveat: [none] ROS *see ED Caveat Gen: No fever, no chills CV: no palpitations Resp: No SOB, no respiratory distress GI: No V/D, no abd pain : No dysuria, no increased frequency Skin: No rash, no purulent lesions Eyes: No blurry vision, No double vision MSK: No back pain, no joint pain Neuro: No PERRY, no sensation changes Psych: No SI/HI Allergies -reviewed PMH -See HPI Social History -No daily drinking, no IV drugs PHYSICAL EXAM Gen: Alert, no acute distress Skin: Warm, no rashes Head: Normocephalic, atraumatic Neck: No midline tenderness, no nuchal rigidity Eye: EOMI, PERRLA, normal conjunctiva ENT: Mucous membranes moist, no pharyngeal erythema CV: Normal rate, no rubs Resp: Respirations unlabored, lungs clear to auscultation, bronchospastic cough GI: Soft, non distended, no large abdominal masses, non tender MSK: No midline back pain, no large joint effusions Neuro: Alert and oriented, no focal neurological deficits observed Psych: Cooperative, appropriate mood and affect MEDICAL DECISION MAKING Differential Diagnosis: - Consideration given for ACS, Dissection, Pneumothorax, Pulmonary Embolism, Impression/Plan: -Clinically patient's presentation is most consistent with bronchitis. However given her previous pulmonary embolism will evaluate for pulmonary embolus here. Patient has a bronchospastic cough on exam and bronchitis is the #1 reason for hemoptysis. Therefore think that's what's most likely at this time. However given patient's history was expand her workup. If all workup is unremarkable patient will be discharged home. We'll get two troponins. Reevaluation/Conversations on care: - I have independently reviewed and interpreted any ordered labs and/or imaging available during my shift. - w/u neg pt feeling better Dx -Chest pain Saul Tate MD, TAL Emergency Medicine Attending Questions? Please contact my cell phone anytime. *This charting supersedes any ED resident or staff charting and was written using speech recognition software Chief Complaint C/o right sided chest pain radiating to alexander that started at 1200 today progressievly getting worse. Pt sts 2 days ago she was coughing up blood. Pt reports pain in worse when taking a deep breath. Pt denies any nausea or vomiting. Pt deneis any further c Physical Exam Vitals & Measurements T: 36.4 ?C (Oral) HR: 69(Peripheral) RR: 18 BP: 124/80 SpO2: 100% Assessment/Plan Ordered: B-Type Natriuretic Peptide Beta hCG Quantitative CBC w/ Auto Diff Comprehensive Metabolic Panel CTA Chest Magnesium Level PT & PTT Troponin 0 Hr. XR Chest 2 Views Disposition Plan Discharge Prescription List Prescriptions No active prescription medications Follow-up No qualifying data available Problem List/Past Medical History Ongoing Smoker Historical DDD (degenerative disc disease) Medications Inpatient No active inpatient medications Home Naprosyn 500 mg Tab, 500 mg= 1 tab(s), Oral, BID Tylenol with Codeine #3 oral tablet, 1 tab(s), Oral, q6hr, PRN Allergies Percocet 5/325 Social History Alcohol - Denies Alcohol Use, 04/18/2014 Substance Abuse - Denies Substance Abuse, 04/18/2014 Tobacco Current Every Day Smoker, Cigarettes, 04/18/2014 Cigarettes, 07/30/2013 Lab Results No qualifying data available. Diagnostic Results No qualifying data available. Normal [facility] Comment on above: Result Comment: Elec tronically Signed By: Lea LINARES, Saul Albert\.br\Date and Time Signed: 05/29/18 00:30 EDT ED Patient Education Noteon 05-29-2018 ED Patient Education Note Family Medicine Chest Pain (Nonspecific) It is often hard to give a specific diagnosis for the cause of chest pain. There is always a chance that your pain could be related to something serious, such as a heart attack or a blood clot in the lungs. You need to follow up with your health care provider for further evaluation. CAUSES ? Heartburn. ? Pneumonia or bronchitis. ? Anxiety or stress. ? Inflammation around your heart (pericarditis) or lung (pleuritis or pleurisy). ? A blood clot in the lung. ? A collapsed lung (pneumothorax). It can develop suddenly on its own (spontaneous pneumothorax) or from trauma to the chest. ? Shingles infection (herpes zoster virus). The chest wall is composed of bones, muscles, and cartilage. Any of these can be the source of the pain. ? The bones can be bruised by injury. ? The muscles or cartilage can be strained by coughing or overwork. ? The cartilage can be affected by inflammation and become sore (costochondritis). DIAGNOSIS Lab tests or other studies may be needed to find the cause of your pain. Your health care provider may have you take a test called an ambulatory electrocardiogram (ECG). An ECG records your heartbeat patterns over a 24-hour period. You may also have other tests, such as: ? Transthoracic echocardiogram (TTE). During echocardiography, sound waves are used to evaluate how blood flows through your heart. ? Transesophageal echocardiogram (CLARISSE). ? Cardiac monitoring. This allows your health care provider to monitor your heart rate and rhythm in real time. ? Holter monitor. This is a portable device that records your heartbeat and can help diagnose heart arrhythmias. It allows your health care provider to track your heart activity for several days, if needed. ? Stress tests by exercise or by giving medicine that makes the heart beat faster. TREATMENT ? Treatment depends on what may be causing your chest pain. Treatment may include: ? Acid blockers for heartburn. ? Anti-inflammatory medicine. ? Pain medicine for inflammatory conditions. ? Antibiotics if an infection is present. ? You may be advised to change lifestyle habits. This includes stopping smoking and avoiding alcohol, caffeine, and chocolate. ? You may be advised to keep your head raised (elevated) when sleeping. This reduces the chance of acid going backward from your stomach into your esophagus. Most of the time, nonspecific chest pain will improve within 2?3 days with rest and mild pain medicine. HOME CARE INSTRUCTIONS ? If antibiotics were prescribed, take them as directed. Finish them even if you start to feel better. ? For the next few days, avoid physical activities that bring on chest pain. Continue physical activities as directed. ? Do not use any tobacco products, including cigarettes, chewing tobacco, or electronic cigarettes. ? Avoid drinking alcohol. ? Only take medicine as directed by your health care provider. ? Follow your health care provider's suggestions for further testing if your chest pain does not go away. ? Keep any follow-up appointments you made. If you do not go to an appointment, you could develop lasting (chronic) problems with pain. If there is any problem keeping an appointment, call to reschedule. SEEK MEDICAL CARE IF: ? Your chest pain does not go away, even after treatment. ? You have a rash with blisters on your chest. ? You have a fever. SEEK IMMEDIATE MEDICAL CARE IF: ? You have increased chest pain or pain that spreads to your arm, neck, jaw, back, or abdomen. ? You have shortness of breath. ? You have an increasing cough, or you cough up blood. ? You have severe back or abdominal pain. ? You feel nauseous or vomit. ? You have severe weakness. ? You faint. ? You have chills. This is an emergency. Do not wait to see if the pain will go away. Get medical help at once. Call your local emergency services (911 in [place] Do not drive yourself to the hospital. MAKE SURE YOU: ? Understand these instructions. ? Will watch your condition. ? Will get help right away if you are not doing well or get worse. Document Released: 08/13/2006 Document Revised: 11/08/2014 Document Reviewed: 06/08/2009 ExitCare? Patient Information ?2015 GLSS. This information is not intended to replace advice given to you by your health care provider. Make sure you discuss any questions you have with your health care provider. Normal [facility] ED Patient Summaryon 018 ED Patient Summary (Inserted Image. Astrid ble to display) [place] [id number] Patient Discharge Instructions Person Information Name: CYNTHIA WILDER Age: 32 Years Arrival Date: 05/28/2018 10:11 PM Discharge Diagnosis: Chest pain Primary Care Physician: Luan Guerra MD Provider Information Primary Provider: Saul Tate MD Advanced Faculty Administrator:None The exam and treatment you received in the Emergency Department were for an urgent problem and are not intended as complete care. It is important that you follow up with a doctor, nurse practitioner, or physician?s orthopedic physician assistant for ongoing care. If your symptoms become worse or you do not improve as expected and you are unable to reach your usual health care provider, you should return to the Emergency Department. We are available 24 hours a day. CYNTHIA WILDER has been given the following list of patient education materials, prescriptions and follow-up instructions: Follow-up Instructions: With: Address: When: Luan Mari [address] [place] [address], [facility] [place] [id number] [facility] () In 3 days 05/31/2018 Comments: Current Diagnosis - Chest pain Results - All testing was unremarkable. Your evaluation was currently not consistent with a blood clot in the lungs, a tear in a major blood vessel, collapsed lung, heart failure, or heart attack. Given your risk factors and testing, your Heart Score is less than 4 which places you at less than a 1.8% risk of Major Adverse Cardiac Event in the next 6 weeks. Treatment - Currently the [place] [employer] recommends that all patients who present complaining of chest pain should receive a stress test within 48-72 hours. Avoid strenuous activity while still having pain and until you see your doctor. Return to ED for - Worsening or continuing pain, shortness of breath, passing out, lightheadedness, dizzy, neck pain, sweating, fever, cough Follow up - With your primary care physician within 48-72 hours if no better or worse and for a stress test within 48-72 hours as directed by the AHA You have been seen, evaluated, treated, and reevaluated in the emergency department. Your test results and diagnoses have been explained to you . You have expressed understanding of the results, your diagnosis, and its implications. All of your questions have been answered. Please read your discharge instructions carefully and follow them as directed. You have been provided access to your imaging and lab results and had any abnormalities explained, please take them to your doctor as they may require follow up as we discussed. It is important to remember that your care does not end here and you must continue to monitor your condition closely. Please return to the emergency department for any worsening or concerning signs or symptoms as directed by our conversations and the discharge instructions. Otherwise please follow up with your doctor in 2 days if no better or worse. If you do not have a doctor please contact the hospital of your choice. Please contact any physician specialists provided in your discharge notes as it is very important to follow up with them regarding your condition. If you are unable to reach the physicians provided, please come back to the Emergency Department at any time. As always, please take medications as directed. If you have any questions at all regarding your medications, please contact the pharmacist, the emergency department, or your doctor. Before taking any medication prescribed in the Emergency Department, please review the medication side effects and drug interactions (http://www.rxlist.com/scr ipt/main/hp.asp) as they may interact with your home medications. Having trouble affording medications? Try [employer]! (This is not a hospital endorsed website, merely a recommendation based on my own personal experiences with [employer]) Questions? Contact me anytime. Saul Tate MD, TAL In the event that this physician does not participate in your insurance network, please consult with your insurance company to find a nearby participating provider. Patient Education Materials: Chest Pain (Nonspecific) A MESSAGE TO ALL PATIENTS REGARDING OPIOIDS PRESCRIPTION OPIOIDS: WHAT YOU NEED TO KNOW Prescription opioids can be used to help relieve bkxbhvpo-xc-hralsu pain and are often prescribed following a surgery or injury, or for certain health conditions. These medications can be an important part of the treatment but also come with serious risks. It is important to work with your healthcare provider to make sure you are getting the safest, most effective care. WHAT ARE THE RISKS AND SIDE EFFECTS OF OPIOID USE? Prescription opioids carry serious risks of addiction and overdose, especially with prolonged use. An opioid overdose, often marked by slowed breathing, can cause sudden . The use of prescription opioids can have a number of side effects as well, even when taken as directed: ? Tolerance?meaning you might need to take more of the medication for the same pain relief ? Physical dependence?meaning you have symptoms of withdrawal when a medication is stopped ? Increased sensitivity to pain ? Constipation ? Nausea, vomiting, and dry mouth ? Sleepiness and dizziness ? Confusion ? Depression ? Low levels of testosterone that can result in lower sex drive, energy, and strength ? Itching and sweating RISKS ARE GREATER WITH: ? History of drug misuse, substance use disorder, or overdose ? Mental health conditions (such as depression or anxiety) ? Sleep apnea ? Older age (65 years and older) ? Avoid alcohol while taking prescription opioids. Also, unless specifically advised by your health care provider, medications to avoid include: ? Benzodiazepines (such as Xanax or Valium) ? Muscle relaxants (such as Soma or Flexeril) ? Hypnotics (such as Ambien or Lunesta) ? Other prescription opioids KNOW YOUR OPTIONS Talk to your health care provider about ways to manage your pain that don?t involve prescription opioids. Some of these options may actually work better and have fewer risks and side effects. Options may include: ? Pain relievers such as acetaminophen, ibuprofen, and naproxen ? Some medication that are also used for depression or seizures ? Physical therapy and exercise ? Cognitive behavioral therapy, a psychological, goal-directed approach, in which patients learn how to modify physical, behavioral, and emotional triggers of pain and stress. IF YOU ARE PRESCRIBED OPIOIDS FOR PAIN: ? Never take opioids in greater amounts or more often than prescribed. ? Follow up with your primary health care provider. o Work together to create a plan on how to manage your pain. o Talk about ways to help manage your pain that don?t involve prescription opioids. o Talk about any and all concerns and side effects. ? Help prevent misuse and abuse o Never sell or share prescription opioids. o Never use another person?s prescription opioids. ? Store prescription opioids in a secure place and out of reach of others (this may include visitors, children, friends, and family). ? Safely dispose of unused prescription opioids: Find your community drug take-back program or your pharmacy mail-back program, or flush them down the toilet, following guidance from the Food and Drug Administration (www.fda.gov/Drugs/Resourc esForYou). ? Visit www.cdc.gov/drugoverdose to learn about the risks of opioids abuse and overdose. ? If you believe you may be struggling with addiction, tell your health cattle care worker and ask for guidance or call [facility]?S National Helpline at 4-165-441-HELP. v Source: US Department of Health and Human Services/Center for Disease Control & Prevention [facility] Medications Given: Medication Dose Route hydromorphone 0.50 mg IV Push Left Antecubital Loc Medication Information: Comment: Pharmacy Information: Thank you for choosing [facility] Patient Education Materials: Chest Pain (Nonspecific) It is often hard to give a specific diagnosis for the cause of chest pain. There is always a chance that your pain could be related to something serious, such as a heart attack or a blood clot in the lungs. You need to follow up with your health care provider for further evaluation. CAUSES ? Heartburn. ? Pneumonia or bronchitis. ? Anxiety or stress. ? Inflammation around your heart (pericarditis) or lung (pleuritis or pleurisy). ? A blood clot in the lung. ? A collapsed lung (pneumothorax). It can develop suddenly on its own (spontaneous pneumothorax) or from trauma to the chest. ? Shingles infection (herpes zoster virus). The chest wall is composed of bones, muscles, and cartilage. Any of these can be the source of the pain. ? The bones can be bruised by injury. ? The muscles or cartilage can be strained by coughing or overwork. ? The cartilage can be affected by inflammation and become sore (costochondritis). DIAGNOSIS Lab tests or other studies may be needed to find the cause of your pain. Your health care provider may have you take a test called an ambulatory electrocardiogram (ECG). An ECG records your heartbeat patterns over a 24-hour period. You may also have other tests, such as: ? Transthoracic echocardiogram (TTE). During echocardiography, sound waves are used to evaluate how blood flows through your heart. ? Transesophageal echocardiogram (CLARISSE). ? Cardiac monitoring. This allows your health care provider to monitor your heart rate and rhythm in real time. ? Holter monitor. This is a portable device that records your heartbeat and can help diagnose heart arrhythmias. It allows your health care provider to track your heart activity for several days, if needed. ? Stress tests by exercise or by giving medicine that makes the heart beat faster. TREATMENT ? Treatment depends on what may be causing your chest pain. Treatment may include: ? Acid blockers for heartburn. ? Anti-inflammatory medicine. ? Pain medicine for inflammatory conditions. ? Antibiotics if an infection is present. ? You may be advised to change lifestyle habits. This includes stopping smoking and avoiding alcohol, caffeine, and chocolate. ? You may be advised to keep your head raised (elevated) when sleeping. This reduces the chance of acid going backward from your stomach into your esophagus. Most of the time, nonspecific chest pain will improve within 2?3 days with rest and mild pain medicine. HOME CARE INSTRUCTIONS ? If antibiotics were prescribed, take them as directed. Finish them even if you start to feel better. ? For the next few days, avoid physical activities that bring on chest pain. Continue physical activities as directed. ? Do not use any tobacco products, including cigarettes, chewing tobacco, or electronic cigarettes. ? Avoid drinking alcohol. ? Only take medicine as directed by your health care provider. ? Follow your health care provider's suggestions for further testing if your chest pain does not go away. ? Keep any follow-up appointments you made. If you do not go to an appointment, you could develop lasting (chronic) problems with pain. If there is any problem keeping an appointment, call to reschedule. SEEK MEDICAL CARE IF: ? Your chest pain does not go away, even after treatment. ? You have a rash with blisters on your chest. ? You have a fever. SEEK IMMEDIATE MEDICAL CARE IF: ? You have increased chest pain or pain that spreads to your arm, neck, jaw, back, or abdomen. ? You have shortness of breath. ? You have an increasing cough, or you cough up blood. ? You have severe back or abdominal pain. ? You feel nauseous or vomit. ? You have severe weakness. ? You faint. ? You have chills. This is an emergency. Do not wait to see if the pain will go away. Get medical help at once. Call your local emergency services (911 in [place] Do not drive yourself to the hospital. MAKE SURE YOU: ? Understand these instructions. ? Will watch your condition. ? Will get help right away if you are not doing well or get worse. Document Released: 08/13/2006 Document Revised: 11/08/2014 Document Reviewed: 06/08/2009 ExitCare? Patient Information ?2014 GLSS. This information is not intended to replace advice given to you by your health care provider. Make sure you discuss any questions you have with your health care provider. TINA Odell TIFFANY B , have received the following patient education materials/instructions and have verbalized understanding: Patient Education Materials: Chest Pain (Nonspecific) Follow-up Instructions: With: Address: When: Luan Guerra [address] [place] [address], [facility] [place] [id number] [employer] () In 3 days 05/31/2018 Comments: Current Diagnosis - Chest pain Results - All testing was unremarkable. Your evaluation was currently not consistent with a blood clot in the lungs, a tear in a major blood vessel, collapsed lung, heart failure, or heart attack. Given your risk factors and testing, your Heart Score is less than 4 which places you at less than a 1.8% risk of Major Adverse Cardiac Event in the next 6 weeks. Treatment - Currently the [place] [employer] recommends that all patients who present complaining of chest pain should receive a stress test within 48-72 hours. Avoid strenuous activity while still having pain and until you see your doctor. Return to ED for - Worsening or continuing pain, shortness of breath, passing out, lightheadedness, dizzy, neck pain, sweating, fever, cough Follow up - With your primary care physician within 48-72 hours if no better or worse and for a stress test within 48-72 hours as directed by the AHA You have been seen, evaluated, treated, and reevaluated in the emergency department. Your test results and diagnoses have been explained to you . You have expressed understanding of the results, your diagnosis, and its implications. All of your questions have been answered. Please read your discharge instructions carefully and follow them as directed. You have been provided access to your imaging and lab results and had any abnormalities explained, please take them to your doctor as they may require follow up as we discussed. It is important to remember that your care does not end here and you must continue to monitor your condition closely. Please return to the emergency department for any worsening or concerning signs or symptoms as directed by our conversations and the discharge instructions. Otherwise please follow up with your doctor in 2 days if no better or worse. If you do not have a doctor please contact the hospital of your choice. Please contact any physician specialists provided in your discharge notes as it is very important to follow up with them regarding your condition. If you are unable to reach the physicians provided, please come back to the Emergency Department at any time. As always, please take medications as directed. If you have any questions at all regarding your medications, please contact the pharmacist, the emergency department, or your doctor. Before taking any medication prescribed in the Emergency Department, please review the medication side effects and drug interactions (http://www.rxlist.com/scr ipt/main/hp.asp) as they may interact with your home medications. Having trouble affording medications? Try [employer]! (This is not a hospital endorsed website, merely a recommendation based on my own personal experiences with [employer]) Questions? Contact me anytime. Saul Tate MD, TAL Prescriptions: Patient Signature __ Date Clinician/Nurse Signature Date 05/29/18 00:01:41 Normal [facility] Magnesiumon 05-29-2018 Magnesium mass conc 2.0 mg/dL Normal 1.3-2.4 [facility] Comment on above: Performed By: #### 2 [id number], [id number], [id number], 35971882, 40005571, 9176225, 22378104, 0736291, 0165772, [id number] #### [facility] [address] [place] [address] Morphon 05-29-2018 Anisocytosis Ql (Bld) Present Normal [facility] Comment on above: Order Comment: Order Added by Discern Expert. Performed By: #### 2 836247, 9123860, 56153844, [id number], 07819053, 9896675, 95647785, 4830037, 8180089, 10105954 #### [facility] [address] [place] [address] Hypochromia Auto Ql (Bld) Present Normal [facility] Comment on above: Order Comment: Order Added by Discern Expert. Performed By: #### 2 704451, 9848602, 52124368, 37530939, 61471809, 9789378, 92021280, 7620388, 8957665, [id number] #### [facility] [address] [place] [address] Microcytes Ql (Bld) Present Normal [facility] Comment on above: Order Comment: Order Added by Discern Expert. Performed By: #### 2 295501, 7065666, 34576019, 60072813, 64480063, 2551999, 91418485, 6640013, 4175840, 33200249 #### [facility] [address] [place] [address] Morphology Interp Godfrey (Bld) See Morphology Normal [facility] Comment on above: Order Comment: Order Added by Discern Expert. Performed By: #### 2 972015, 9202031, 36584353, 22633597, 95640933, 9868456, 90918051, 9281525, 3452536, 35536363 #### [facility] [address] [place] [address] Polychromasia LM Ql (Bld) Present Normal [facility] Comment on above: Order Comment: Order Added by Discern Expert. Performed By: #### 2 715176, 6006796, 31686959, 03710985, 86879075, 7201981, 56875348, 4809485, 7788260, 69335508 #### [facility] [address] [place] [address] PT & PTTon 05-29-2018 aPTT Coag time (PPP) 27.5 second(s) Normal 25.1-36.5 [facility] Comment on above: Result Comment: Hepa rin therapeutic range (represented by Anti-Factor Xa activity of 0.2 - 0.4 U/mL) corresponds to PTT of 53.9 - 87.4 sec. Performed By: #### 2 534768, 2137829, 15015145, 01457878, 53981915, 1278153, 40282823, 3929184, 1894530, 64517434 #### [facility] [address] [place] [address] INR Coag RelTime (PPP) 1.3 {INR} [facility] Comment on above: Result Comment: INR results are specifically intended to assess patients stabilized on long-term Anticoagulation therapy suggested INR?s ?Less Intensive Anticoagulation? 2.0 ? 3.0 Conventional Range 3.0 ? 4.5 Performed By: #### 2 820109, 0736062, 53870491, 39959562, 28781245, 7399738, 05114347, 8466574, 5268029, 01505457 #### [facility] [address] [place] [address] Prothrombin time (PT) Coag time (PPP) 14.4 second(s) High 10.2-12.9 [facility] Comment on above: Performed By: #### 2 404081, 3320478, 10344097, 61618501, 70934551, 3742152, 09818803, 0475643, 2205100, 05183189 #### [facility] [address] [place] [address] Troponin 0 Hr.on 05-29-2018 Troponin I.cardiac mass conc ng/mL Normal <=0.03 [facility] Comment on above: Result Comment: New Troponin Assay 03/31/14 [place]FF[place] Cutoff value > or = 0.03 ng/mL in conjunction with clinical conditions of myocardial infarction. (www.escardio.org/guidelines) Performed By: #### 2 231161, 8615585, 08385440, 68090463, 21867638, 7280313, 78664292, 7473121, 4875925, 19022684 #### [facility] [address] [place] [address] eGFRon 05-29-2018 GFR/1.73 sq M predicted among blacks MDRD vol rate/area (S/P/Bld) mL/min/{1.73_m2} Normal >=59 [facility] Comment on above: Order Comment: Order added by Discern Expert. Result Comment: eGFR is race adjusted. AA=. Performed By: #### 2 113016, 0760441, 90646769, 09783411, 46006536, 8435596, 93354859, 1090412, 9283013, 76300201 #### [facility] [address] [place] [address] GFR/1.73 sq M predicted among non-blacks MDRD vol rate/area (S/P/Bld) mL/min/{1.73_m2} Normal >=59 [facility] Comment on above: Order Comment: Order added by Discern Expert. 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 Kidney failure is indicated at less than 15 mL/min/1.73m2. Performed By: #### 2 300223, 2406314, 88784192, 68772007, 16799291, 8731688, 06996787, 2594466, 2540848, 59856568 #### [facility] [address] [place] [address] Vital Signs Date Time Vital Sign Value Performing Clinician Binta henderson 05-04-2023 15:35-0400 Diastolic blood pressure 63 mm[Hg] MD Francisco Sanches Work Phone: [facility] 05-04-2023 15:35-0400 Heart rate 63 /min MD Francisco Sanches Work Phone: [facility] 05-04-2023 15:35-0400 Respiratory rate 20 /min MD Francisco Sanches Work Phone: [facility] 05-04-2023 15:35-0400 SaO2% (BldA) [Mass fraction] 97 % MD Francisco Sanches Work Phone: [facility] 05-04-2023 15:35-0400 Systolic blood pressure 99 mm[Hg] MD Francisco Sanches Work Phone: [facility] 05-04-2023 14:10-0400 Body height 168.91 cm MD Francisco Sanches Work Phone: [facility] 05-04-2023 14:10-0400 Body temperature 97.6 [degF] MD Francisco Sanches Work Phone: [facility] 05-04-2023 14:10-0400 Body weight 73 kg MD Francisco Sanches Work Phone: [facility] Encounters Encounter Date Encounter Type Care Provider Facility Start: 05-04-2023 End: 05-04-2023 Emergency department patient visit Tomás Rojo Facility:[facility] Start: 05-04-2023 End: 05-04-2023 Emergency department patient visit MD Francisco Sanches Work Phone: [facility] Work Phone: Start: 10-07-2022 Encounter for preprocedural laboratory examination JACLYN MARIE [facility] Start: 10-02-2022 End: 10-02-2022 ambulatory JACLYN MARIE Facility:[facility] Start: 09-30-2022 ambulatory JACLYN MARIE Facility:[facility] Start: 09-25-2022 End: 09-26-2022 ambulatory JACLYN MARIE Facility:[facility] Start: 09-25-2022 End: 09-26-2022 [facility]cedural [facility] Start: 08-28-2022 End: 08-28-2022 ambulatory JACLYN MARIE Facility:[facility] Start: 08-18-2022 End: 08-18-[address] LUAN GUERRA . Facility:[facility] Start: 06-20-[address] JUNE HOLLINGSWORTH . Faci lity:[facility] Start: 06-13-2022 End: 06-14-[address] JUNE HOLLINGSWORTH . Facility:[facility] Start: 04-08-[address] [facility] Facility:[facility] Procedures Date Procedure Procedure Detail Performing Clinician Start: 05-04-2023 Plain chest X-ray MD Candido Sanches Work Phone: Plan of Treatment Date Care Activity Detail Author Patient Education Muscle and Bone Pain (D C) [facility] Work Phone: Patient referral [facility] Work Phone: Payers Date Payer Category Payer Medicaid [id number] 2023 Self-pay [id number] 1985 Unknown [id number] 2.16.84 0.1.608012.3.579.2.593 1983 Unknown [id number] 2.16.84 0.1.891199.3.579.2.593 1983 Unknown [id number] 2.16.84 0.1.784397.3.579.2.593 1983 Unknown [id number] 2.16.84 0.1.807215.3.579.2.593 1983 Unknown [id number] 2.16.84 0.1.661238.3.579.2.593 1983 Unknown [id number] 2.16.84 0.1.701080.3.579.2.593 1983 Unknown [id number] 2.16.84 0.1.742077.3.579.2.593 1983 Unknown [id number] 2.16.84 0.1.737855.3.579.2.593 1959 Unknown [id number] Medicaid [place] [employer] [id number] Unknown [id number] 2.16.8 40.1.374083.3.579.2.531 Social History Date Type Detail Facility Start: 05-04-2023 [facility] Start: 1985 Sex Assigned At Female [facility] Clinical Note 10-02-2022 Note Date & Type Note Facility 10-02-2022 Note OPERATIVE NOTE OPERATION DATE: 10/02/2022 PROCEDURE: Bilateral laparoscopic salpingectomy with removal of Filshie clip. PREOPERATIVE DIAGNOSIS: Pelvic pain, desires removal of tubes. POSTOPERATIVE DIAGNOSIS: Pelvic pain, desires removal of tubes, pelvic vascular congestion. ANESTHESIA: General. SURGEON: Jaclyn Soriano D.O. ELECTRICAL INSTRUMENTATION TECHNICIAN: JOSEY Brown URINE OUTPUT: Yellow and clear. BLOOD LOSS: 5 mL. SPECIMEN: Bilateral tubes along with Filshie clip. FINDINGS: Normal appearing uterus and ovaries. Evidence of bilateral ligation with Filshie clips; however, only one Filshie clip could be found. Normal appearing appendix. PROCEDURE: The patient was taken back to the Operating Room where she was given general anesthesia without difficulty. She was then prepped and draped in the normal sterile fashion after being placed in a dorsal lithotomy position. A wet sponge stick was placed into the patient's vagina. Attention was then turned to the patient's abdomen, where a scalpel was used to make a small infraumbilical incision. The S retractors were then used to dissect the underlying layers until the fascia could be seen. The fascia was then grasped with Lisa clamps and tented up. A knife was then used to make a small incision to the fascia. The muscle was identified, at that time two sutures of #0 Vicryl on a GI needle was then used and placed through the fascia. The peritoneum was then identified and entered bluntly. The 10-4 Deepali was then placed into the patient's abdomen. This was confirmed with direct visualization of the bowel, using the laparoscope. The patient's abdomen was then insufflated using approximately 4 liters of CO2 gas. Survey of the patient's abdomen demonstrated ovaries were normal in appearance as well as both tubes and uterus. A second and third rt and lt lateral ports which were 7-8 and 5 mm in size, was then placed after the skin incision was made under direct visualization The patient's tube on the patient's right side was identified and tented up using a grasper, the LigaSure apparatus was then used to come across the mesosalpinx from the fimbriated end to the insertion site at the uterus, the tube was then amputated and removed in its entirety. This was done on the contralateral side. The tubes were the removed from the patient's abdomen. Excellent hemostasis was noted. The lateral ports were then moved under direct visualization with excellent hemostasis. All instruments were removed from the patient's abdomen. The fascia was closed using the #0 Vicryl on GI needle. The skin was closed using 4-0 Vicryl subcuticularly. All instruments were removed from the patient's vagina as well. The patient was taken out of the dorsal lithotomy position and placed in the supine position and taken to recovery in stable condition. Sponge, lap and needle counts were correct x2. [facility] Consultation note 06-13-2022 Note Date & Type Note Facility 06-13-2022 Note CONSULTATION CONSULTATION DATE: 06/13/2022 HISTORY OF PRESENT ILLNESS: This is a 36-year-old female who requested this appointment for increased lower back pain. She had bilateral lower lumbar RFAs in January of 2022. Overall, they have decreased her pain, but as of two weeks ago, she denies injury, but she has been having increased lower back pain, described as pulling and burning. She had areas of swelling over her lower paravertebral area, to the point that her shorts were tight on her. Due to no one being in the office last week, she called her PCP, Dr. Guerra, and he did a Kenalog injection bilaterally. The patient states it slightly decreased the pain and took the edge off, but is still having a significant amount of pain. She needs help getting out of bed and her functionality is decreased in lateral rotation to her back. Medications include Mobic 15 mg daily, Zanaflex 8 mg q.h. s. and she does use Icy Hot. She has been using thermal patches and heat which very minimally help the pain. Twisting, turning, pushing, pulling, walking, transitioning positions and stairs greatly aggravate her pain. Patient's REVIEW OF SYSTEMS / PAST MEDICAL HISTORY / ALLERGIES and IMAGES have been reviewed and they are noted on the chart. PHYSICAL EXAM: VITAL SIGNS: Blood pressure 113/71, heart rate is 76. Temperature is 98.2. She is 5'7 and weighs 74 kg. GENERAL APPEARANCE: Pleasant, appropriate, in no acute distress, but uncomfortable in certain sitting positions in the room. FOCUSED EXAM - BACK: Range of motion is guarded in lateral rotation and flexion/extension. Paravertebral muscles are taut with trigger points identified to bilateral lower lumbar area. Upon compression of the lumbar facets, no spinal axial pain reproduces, concordant with successful RFA. Alisha's point is non-tender. Significant anterior gluteal spasming as well. MUSCULOSKELETAL: Motor is intact to bilateral lower extremities, 5/5. NEUROLOGICAL: Allodynia present diffusely across her lower back region. Radicular sensory is intact. IMPRESSION: Bilateral paravertebral spasms, allodynia and lumbar spondylosis. PLAN: Due to the increased level of patient's pain pattern and duration of it, I will give her a seven day course of Tylenol #3 to be taken b.i.d. No repeat trigger points will be done in the office today; however, I will put her on a course of oral prednisone to decrease her flare up. Following activity and long days at work, I instructed her to use ice instead of heat at this time. She will follow up in the clinic in one week's time with me for re-evaluation. Patient does agree with this plan of care. [facility] Evaluation note Note Date & Type Note Facility Evaluation note No assessment information availa [facility] Work Phone: Summary Purpose Family History No Family History Records FoundNo Family History Records FoundNo Family History Records FoundNo Family History Records Found Advance Directives No Advanced Directives Records Found Advance Directive Response Recorded Date/ Time Advance Directives No June 08 11:20am Chief Complaint and Reason for Visit Chief Complaint chest pain Additional Source Comments INFORMATION SOURCE (unrecogn ized section and content) DATE CREATED AUTHOR 04/07/2019 [employer] [facility] DATE CREATED AUTHOR AUTHOR'S ORGANIZ ATION 07/12/2021 [facility] DATE CREATED AUTHOR AUTHOR'S ORGANIZ ATION 04/01/2023 [facility] DATE CREATED AUTHOR AUTHOR'S ORGANIZ ATION 05/21/2023 [facility] Care Teams (unrecognized sec tion and content) Team Status: Active Member Role Status Dates Francisco Sanches MD Primary Care Provider Active Team Status: Inactive Member Role Status Dates Francisco Sanches MD Primary Care Provider Active Tomás Rojo MD Emergency Provider Active Goals (unrecognized section and content) Goals may be documented in a n alternate section FOR RECORDS PERTAINING TO PATIENTS WHO ARE OR HAVE BEEN ENROLLED IN A CHEMICAL DEPENDENCY/SUBSTANCEABUSE PROGRAM, SOME INFORMATION MAY BE OMITTED. This clinical summary was aggregated from multiple sources. Caution should be exercised in using it in the provision of clinical care. This summary normalizes information from multiple sources, and as a consequence, information in this document may materially change the coding, format and clinical context of patient data. In addition, data may be omitted in some cases. CLINICAL DECISIONS SHOULD BE BASED ON THE PRIMARY CLINICAL RECORDS. [employer] provides no warranty or guarantee of the accuracy or completeness of information in this document.
--- NOTE | 2024-09-13 07:03 | MR_ITS ---
The [place] [id number] Patient Name: BONILLA WILDER MRN: [facility]:[id number] date: 1985 Sex: F Assigned Patient Location: MRI Current Patient Location: MRI Accession/Order Number: [id number] Exam Date: 09/13/2024 07:10 Report Date: 09/13/2024 08:21 At the request of: LUAN CADE Procedure: MR lumbar spine wo con MR lumbar spine wo con, 09/13/2024 7:10 AM EDT INDICATION: lumbar radiculopathy M54.16 COMPARISON: Prior MRI of the lumbar spine dated 05/29/2021 TECHNIQUE: Multiplanar, multisequential MRI images of lumbar spine were obtained without contrast. FINDINGS: For dictation purposes, the lowest complete disc space in the lumbar spine considered as L5-S1. There is loss of normal physiologic lumbar lordosis. The vertebral height is preserved. The conus medullaris is at the level of L1. No signal abnormality within the visualized spinal cord is noted. Level of L1-L2 is unremarkable. At the level of L2-L3, there are disc bulge with superimposed left lateral annular fissure and protrusion with no neuroforaminal narrowing and no canal stenosis. At the level of L3-4, there are disc bulge with no neuroforaminal narrowing and no canal stenosis. At the level of L4-5, there are disc bulge with superimposed central protrusion with mild bilateral neuroforaminal narrowing and no canal stenosis. At the level of L5-S1, there are disc bulge with central and right lateral disc protrusion with mild right neuroforaminal narrowing and no canal stenosis. The paraspinal muscles show moderate atrophy at the level of L5-S1, otherwise it is unremarkable. MR/MR lumbar spine wo con IMPRESSION: Mild degenerative changes of lumbar spine in particular at L4-L5 and L5-S1. Electronically authenticated by: NOLAN MEDEIROS Date: 09/13/2024 08:21
--- NOTE | 2024-09-13 07:04 | XR_ITS ---
The [address] [address] Patient Name: BONILLA WILDER MRN: [id number] date: 1985 Sex: F Assigned Patient Location: MRI Current Patient Location: Accession/Order Number: [id number] Exam Date: 09/13/2024 07:45 Report Date: 09/14/2024 10:21 At the request of: LUAN CADE Procedure: XR lumbar spine min 4V EXAMINATION: XR lumbar spine min 4V HISTORY: lumbar radiculopathy M54.16 COMPARISON: No relevant comparison available. FINDINGS: BONES: Slight left convex curvature of lumbar spine and multilevel mild degenerative facet arthropathy. DISC SPACES: L4-5 moderate narrowing. L5-S1 marked narrowing. PARASPINOUS: Negative. No paraspinous abnormality is seen. OTHER: Negative. XR/XR lumbar spine min 4V IMPRESSION: 1. Moderate to marked degenerative disc disease of lower lumbar spine. 2. No appreciable acute abnormality. Electronically authenticated by: SATHISH STEINER Date: 09/14/2024 10:21
== END 2024-09-13 07:00 | disposition home or self-care (01) ==
LOC: MRI 07:00
PROVIDERS: PCP Family Medicine; Visit Provider Family Medicine
DX: M54.16 Radiculopathy, lumbar region (principal); M51.369 Other intervertebral disc degeneration, lumbar region without mention of lumbar back pain or lower extremity pain
CPT/HCPCS: 72110; 72148

== ENCOUNTER 2024-09-21 07:57 | Outpatient (OUT) | payer MEDICAID, SELFPAY ==
[2024-09-21 08:32] LABS: Basophils Percent Auto 0.4 % (0.2-2.0); Eosinophils Absolute Auto 0.1 10^3/uL (0.0-0.7); Hematocrit 42.7 % (36.0-48.0); Immature Granulocytes Abs Auto 0.07 10^3/uL (0.00-0.03); Immature Granulocytes Pct Auto 0.8 % (0.0-0.5); Lymphocytes Absolute Auto 2.4 10^3/uL (1.2-3.8); Lymphocytes Percent Auto 26.6 % (20.5-60.0); Mean Corpuscular HGB Conc 32.8 g/dL (29.9-35.2); Mean Corpuscular Volume 97.5 fL (81.0-99.0); Mean Platelet Volume 10.3 fL (9.5-13.5); Monocytes Absolute Auto 0.4 10^3/uL (0.3-0.8); Monocytes Percent Auto 4.6 % (1.7-12.0); Neutrophils Absolute Auto 6.1 10^3/uL (1.4-6.5); Neutrophils Percent Auto 66.6 % (43.0-75.0); Platelet Count 252 10^3/uL (150-450); Red Blood Count 4.38 10^6/uL (4.20-5.40); Red Cell Distribution Width 13.3 % (11.0-15.0); White Blood Count 9.2 10^3/uL (4.0-11.0)
[2024-09-21 12:03] LABS: Alanine Aminotransferase 32 U/L (14-59); Albumin Globulin Ratio 0.9; Albumin Level 3.6 g/dL (3.4-5.0); Alkaline Phosphatase 80 U/L (46-116); Anion Gap 14.9; Aspartate Amino Transferase 15 U/L (15-37); BUN Creatinine Ratio 16.4; Bilirubin Total 0.4 mg/dL (0.2-1.0); Calcium 9.4 mg/dL (8.5-10.1); Carbon Dioxide 24.7 mmol/L (21.0-32.0); Chloride 105 mmol/L (98-107); Chol HDL Ratio 3.5; Cholesterol 261 mg/dL (<=200); Estimated GFR (African America >60 (>=60 mL/min/1.73m^2); Estimated GFR (Non-African Ame >60 (>=60 mL/min/1.73m^2); Free T3 2.39 pg/mL (2.18-3.98); Globulin 4.2 g/dL; Glucose 75 mg/dL (74-106); HDL Cholesterol 75 mg/dL (40-60); Potassium 3.6 mmol/L (3.5-5.1); Sodium 141 mmol/L (136-145); Thyroid Stimulating Hormone 1.718 uIU/mL (0.358-3.740); Total Protein 7.8 g/dL (6.4-8.2); Triglycerides 113 mg/dL (<=150); VLDL CHOLESTEROL 22.6 mg/dL
[2024-09-22 02:15] LABS: Estimated Average Glucose 97 mg/dL
[2024-09-22 04:16] LABS: FSH 2.5 mIU/mL (.)
[2024-09-22 08:13] LABS: Insulin 13.4 uIU/mL (2.6-24.9)
== END 2024-09-21 07:58 | disposition home or self-care (01) ==
LOC: LAB 08:00
PROVIDERS: PCP Family Medicine; Visit Provider Family Medicine
DX: Z00.00 Encounter for general adult medical examination without abnormal findings (principal); M51.9 Unspecified thoracic, thoracolumbar and lumbosacral intervertebral disc disorder
CPT/HCPCS: 36415; 80053; 80061; 83001; 83036; 83525; 84436; 84443; 84481; 85025

== ENCOUNTER 2025-01-05 22:02 | Outpatient (REF) | payer MEDICAID, SELFPAY ==
--- OUTSIDE RECORDS SUMMARY | 2025-01-05 22:05 | XMS_ITS | CCD ---
Author Organization [facility] Care Team Providers Care Electric Meter Repairer Helper Name Role Phone EDEL ., DR JUNE [...] HOY ., DR ROLAND Primary Care Unavailable MRAIE, JACLYN Consulting Unavailable MARIE, JACLYN Admitting Unavailable MARIE, JACLYN Attending Unavailable HOY ., DR ROLAND Primary Care Unavailable MARIE, JACLYN Consulting Unavailable GENEVIEVE MCKEON Consulting Unavailable KUCHIPUDI, LOUISE Consulting Unavailable MARIE, JACLYN Admitting Unavailable MARIE, JACLYN Attending Unavailable HOY ., DR ROLAND Primary Care Unavailable MARIE, JACLYN Consulting Unavailable Ricardo Roland Admitting Unavailable Ricardo Roland Attending Unavailable HOY ., DR ROLAND Primary Care Unavailable HOY ., DR ROLAND Primary Care Unavailable ALICIA TAPIA Admitting Unavailable ALICIA TAPIA Attending Unavailable SVITLANA WRIGHT Consulting Unavailable CORINA SIDDIQUI Consulting Unavailable MD Francisco Sanches Primary Care Provider [phone] MD Tomás Rojo Emergency Provider Tomás Rojo Attending Unavailable Tomás Rojo Admitting Unavailable Francisco Sanches Primary Care Unavailable Luan Guerra MD Primary Care Provider [phone] SHARLENE COOK Attending Unavailable Allergies Allergy Classification Reported Allergen(s) Allergy Type Date of Onset Reaction(s) Facility (2 sources) Acetaminophen / oxyCODONE Drug Allergy [facility] Repository (3 sources) Acetaminophen / oxyCODONE Drug Allergy 08-05-2023 Unknown [facility] Healthcare (3 sources) levoFLOXacin Drug Allergy 08-07-2023 [facility] Work Phone: Medications Current Medications Medication Drug Class(es) Dates Sig (Normalized) Sig (Original) acetaminophen 325 mg / HYDROcodone bitartrate 5 mg oral tablet (2 sources) Opioid Agonist Start: 10-13-2019 take 1 tablet by mouth every six hours Hydrocodone-Aceta minophen ([place]) 5-325 mg tablet Active 1 TAB PO [...] times daily 40 October 13, 2019 1:00am methylPREDNISolone (3 sources) Corticosteroid Start: 08-28-2023 End: 11-23-2024 methylPREDNISolone (Medrol Dospak) 4 MG tablets Indications: Lateral epicondylitis of left elbow As directed 21 tablet 08/28/2023 11/23/2024 Discontinued (Therapy completed) Start: 08-28-2023 methylPREDNISo lone (Medrol Dospak) 4 MG tablets Indications: Lateral epicondylitis of left elbow As directed 21 tablet 08/28/2023 Active Problems Active Problems Problem Classification Problem Date Documented Date Episodic/Chronic Menstrual disorders (2 sources) Amenorrhea; Translations: [Amenorrhea, unspecified] 11-23-2024 Chronic Nonspecific chest pain (2 sources) Musculoskeletal chest pain; Translations: [Other chest pain] Onset: 05-04-2023 05-04-2023 Episodic Open wounds of head; neck; and trunk (1 source) Laceration - injury; Translations: [Laceration] 10-13-2019 Episodic Other endocrine disorders (4 sources) Disorder of endocrine system; Translations: [Endocrine disorder, unspecified] 11-23-2024 Episodic Other skin disorders (2 sources) Night sweats; Translations: [Generalized hyperhidrosis] 11-23-2024 Episodic Spondylosis; intervertebral disc disorders; other back [...] Test Name Value Interpretation Reference Range Facility HCG ( test) Ql (U)o n 11-23-2024 Interpretation and review of laboratory results Normal [facility] Preg Test, Ur Negative Negative [facility] Activated partial thrombopla stin time (aPTT) in platelet poor plasma by coagulation aOrdered By: Tomás Rojo on 05-04-2023 aPTT Coag (PPP) [Time] 29.4 s 25.1-36.5 [facility] Basic Metabolic Panelon 04-17 Anion gap [Moles/Vol] 12.1 mmol/L Normal 6.0-15.0 [facility] Comment on above: Performed By: #### C BC, CK, DDIMER, HS TROP, PT, BMP, PTT #### [facility] [address] Calcium [Mass/Vol] 9.4 mg/dL Normal 8.6-10.3 [facility] Comment on above: Performed By: #### C BC, CK, DDIMER, HS TROP, PT, BMP, PTT #### [facility] [address] Chloride [Moles/Vol] 105 mmol/L Normal 98-[address] [facility] Comment on above: Performed By: #### C BC, CK, DDIMER, HS TROP, PT, BMP, PTT #### [facility] [address] CO2 [Moles/Vol] 23.5 mmol/L Normal 21.0-31.0 [facility] Comment on above: Performed By: #### C BC, CK, DDIMER, HS TROP, PT, BMP, PTT #### [facility] [address] Creatinine [Mass/Vol] 0.64 mg/dL Normal 0.60-1.20 [facility] Comment on above: Performed By: #### C BC, CK, DDIMER, HS TROP, PT, BMP, PTT #### [facility] [address] [place] [address] [place] Creatinine Clr Calc Pharmacy 120.69 [facility] Comment on above: Result Comment: PERF ORMED BY: [place] [address] PATHOLOGIST METAL TANK BUILDER JULIETH MEJIA M.D. Performed By: #### C BC, CK, DDIMER, HS TROP, PT, BMP, PTT #### [facility] [address] [place] [address] [place] GFR/1.73 sq M.predicted MDRD (S/P/Bld) [Vol rate/Area] mL/min/{1.73_m2} [facility] Comment on above: Performed By: #### C BC, CK, DDIMER, HS TROP, PT, BMP, PTT #### [facility] [address] Glucose [Mass/Vol] 90 mg/dL Normal 70-100 [facility] Comment on above: Result Comment: [facility] Glucose Reference Range is dependent on time and content of last meal. Glucose of more than 200 mg/dL in a nonstressed, ambulatory subject supports the diagnosis of Diabetes Mellitus. ADA recommended reference range Performed By: #### C BC, CK, DDIMER, HS TROP, PT, BMP, PTT #### [facility] [address] [place] [address] [place] Potassium [Moles/Vol] 3.6 mmol/L Normal 3.5-5.1 [facility] Comment on above: Performed By: #### C BC, CK, DDIMER, HS TROP, PT, BMP, PTT #### [facility] [address] [place] [address] [place] Sodium [Moles/Vol] 137 mmol/L Normal 136-145 [facility] Comment on above: Performed By: #### C BC, CK, DDIMER, HS TROP, PT, BMP, PTT #### [facility] [address] [place] [address] [place] Urea nitrogen [Mass/Vol] 14 mg/dL Normal 7-25 [facility] Comment on above: Performed By: #### C BC, CK, DDIMER, HS TROP, PT, BMP, PTT #### [facility] [address] [place] [address] [place] Basophils Auto (Bld) [#/Vol] Ordered By: Tomás Rojo on 05-04-2023 Basophils (Bld) [#/Vol] 0.1 10*3/uL 0.0-0.2 [facility] Basophils/100 WBC Auto (Bld) Ordered By: Tomás Rojo on 05-04-2023 Basophils/100 WBC (Bld) 1.0 % . [facility] Calcium [Mass/volume] in Ser um or PlasmaOrdered By: Tomás Rojo on 05-04-2023 Calcium [Mass/Vol] 9.4 mg/dL 8.6-10.3 [facility] Carbon dioxide, total [Moles /volume] in Serum or PlasmaOrdered By: Tomás Rojo on 05-04-2023 CO2 [Moles/Vol] 23.5 mmol/L 21.0-31.0 [facility] Chloride [Moles/volume] in S jose or PlasmaOrdered By: Tomás Rojo on 05-04-2023 Chloride [Moles/Vol] 105 mmol/L 98-[address] [facility] Complete Blood Count Auto Di ffon 05-04-2023 Basophils (Bld) [#/Vol] 0.1 10*3/uL Normal 0.0-0.2 [facility] Comment on above: Result Comment: PERF ORMED BY: [facility] [address] [place] [address] PATHOLOGIST METAL TANK BUILDER JULIETH MEJIA M.D. Performed By: #### C BC, CK, DDIMER, HS TROP, PT, BMP, PTT #### [facility] [address] [place] [address] [place] Basophils/100 WBC (Bld) 1.0 % Normal . [facility] Comment on above: Performed By: #### C BC, CK, DDIMER, HS TROP, PT, BMP, PTT #### [facility] [address] [place] [address] [place] Eosinophils (Bld) [#/Vol] 0.1 10*3/uL Normal 0.0-0.45 [facility] Comment on above: Performed By: #### C BC, CK, DDIMER, HS TROP, PT, BMP, PTT #### [address] Eosinophils/100 WBC (Bld) 0.8 % Normal . [facility] Comment on above: Performed By: #### C BC, CK, DDIMER, HS TROP, PT, BMP, PTT #### [address] Erythrocyte distribution width (RBC) [Ratio] 13.2 % Normal 11.9-15.3 [facility] Comment on above: Performed By: #### C BC, CK, DDIMER, HS TROP, PT, BMP, PTT #### [address] Hematocrit (Bld) [Volume fraction] 38.3 % Normal 34.0-46.4 [facility] Comment on above: Performed By: #### C BC, CK, DDIMER, HS TROP, PT, BMP, PTT #### [address] Hemoglobin (Bld) [Mass/Vol] 13.0 g/dL Normal 11.8-15.4 [facility] Comment on above: Performed By: #### C BC, CK, DDIMER, HS TROP, PT, BMP, PTT #### [address] Lymphocytes (Bld) [#/Vol] 2.4 10*3/uL Normal 1.00-4.8 [facility] Comment on above: Performed By: #### C BC, CK, DDIMER, HS TROP, PT, BMP, PTT #### [address] Lymphocytes/100 WBC (Bld) 22.4 % Normal . [facility] Comment on above: Performed By: #### C BC, CK, DDIMER, HS TROP, PT, BMP, PTT #### [address] MCH (RBC) [Entitic mass] 31.5 pg Normal 24.7-34.3 [facility] Comment on above: Performed By: #### C BC, CK, DDIMER, HS TROP, PT, BMP, PTT #### [address] MCV (RBC) [Entitic vol] 92.7 fL Normal 80-100 [facility] Comment on above: Performed By: #### C BC, CK, DDIMER, HS TROP, PT, BMP, PTT #### [address] Mean Corpuscular HGB Conc 33.9 g/dL Normal 32.0-35.0 [facility] Comment on above: Performed By: #### C BC, CK, DDIMER, HS TROP, PT, BMP, PTT #### [address] Monocytes (Bld) [#/Vol] 0.5 10*3/uL Normal 0.0-0.8 [facility] Comment on above: Performed By: #### C BC, CK, DDIMER, HS TROP, PT, BMP, PTT #### [address] Monocytes/100 WBC (Bld) 16.86 % Normal 0.00-20.00 [facility] Comment on above: Performed By: #### C BC, CK, DDIMER, HS TROP, PT, BMP, PTT #### [address] Monocytes/100 WBC (Bld) 4.6 % Normal . [facility] Comment on above: Performed By: #### C BC, CK, DDIMER, HS TROP, PT, BMP, PTT #### [address] Neutrophils (Bld) [#/Vol] 7.5 10*3/uL Normal 1.8-7.7 [facility] Comment on above: Performed By: #### C BC, CK, DDIMER, HS TROP, PT, BMP, PTT #### [facility] [address] Neutrophils/100 WBC (Bld) 71.2 % Normal . [facility] Comment on above: Performed By: #### C BC, CK, DDIMER, HS TROP, PT, BMP, PTT #### [facility] [address] NRBC% 0.1 /100{WBC} Normal 0-0.5 [facility] Comment on above: Performed By: #### C BC, CK, DDIMER, HS TROP, PT, BMP, PTT #### [address] Platelet mean volume (Bld) [Entitic vol] 9.3 fL Normal 6.3-10.7 [facility] Comment on above: Performed By: #### C BC, CK, DDIMER, HS TROP, PT, BMP, PTT #### [address] Platelets (Bld) [#/Vol] 188 10*3/uL Normal 150-450 [facility] Comment on above: Performed By: #### C BC, CK, DDIMER, HS TROP, PT, BMP, PTT #### [address] RBC (Bld) [#/Vol] 4.13 10*6/uL Normal 3.60-5.00 [facility] Comment on above: Performed By: #### C BC, CK, DDIMER, HS TROP, PT, BMP, PTT #### [address] WBC (Bld) [#/Vol] 10.5 10*3/uL Normal 3.8-11.6 [facility] Comment on above: Performed By: #### C BC, CK, DDIMER, HS TROP, PT, BMP, PTT #### [address] Creatine Kinaseon 05-04-2023 CK [Catalytic activity/Vol] 93 U/L Normal 30-223 [facility] Comment on above: Performed By: #### C BC, CK, DDIMER, HS TROP, PT, BMP, PTT #### [facility] [address] [place], [place] [id number] [facility] Creatine kinase [Enzymatic a ctivity/volume] in Serum or PlasmaOrdered By: Tomás Rojo on 05-04-2023 CK [Catalytic activity/Vol] 93 U/L 30-223 [facility] Creatinine [Mass/volume] in Serum or PlasmaOrdered By: Tomás Rojo on 05-04-2023 Creatinine [Mass/Vol] 0.64 mg/dL 0.60-1.20 [facility] D-Dimer High Sensitivityon 0 05-04-2023 D-Dimer High Sensitivity < 200 Normal 0-243 [facility] Comment on above: Result Comment: The [...] patients due to co-morbid conditions. PERFORMED BY: [place] [address] PATHOLOGIST METAL TANK BUILDER JULIETH MEJIA M.D. Performed By: #### C BC, CK, DDIMER, HS TROP, PT, BMP, PTT #### [place] [id number] [facility] ECG 12 lead ECGon 05-04-2023 ECG 12 lead ECG [place] [address] Electrocardiograph Report Signed Patient: Cynthia Wilder MR#: [id number] 432 : 1985 Acct:[id number] Age/Sex: 37 / F ADM Date: 05/04/23 Loc: ER Room: Type: [facility] ER Attending Dr: Ordering Provider: Tomás Rojo [...] Tomás Rojo MD 04/17 07/09 1545 Normal [facility] Eosinophils Auto (Bld) [#/Vo l]Ordered By: Tomás Rojo on 05-04-2023 Eosinophils (Bld) [#/Vol] 0.1 10*3/uL 0.0-0.45 [facility] Eosinophils/100 WBC Auto (Bl d)Ordered By: Tomás Rojo on 05-04-2023 Eosinophils/100 WBC (Bld) 0.8 % . [facility] Erythrocyte distribution wid th Auto (RBC) [Ratio]Ordered By: Tomás Rojo on 05-04-2023 Erythrocyte distribution width (RBC) [Ratio] 13.2 % 11.9-15.3 [facility] Glucose [Mass/volume] in Ser um or PlasmaOrdered By: Tomás Rojo on 05-04-2023 Glucose [Mass/Vol] 90 mg/dL 70-100 [facility] Comment on above: ADA recommended refe rence rangeRandom Glucose Reference Range is dependent on time and content of last meal. Glucose of more than 200 mg/dL in a nonstressed, ambulatory subject supports the diagnosis of Diabetes Mellitus. Hematocrit Auto (Bld) [Volum e fraction]Ordered By: Tomás Rojo on 05-04-2023 Hematocrit (Bld) [Volume fraction] 38.3 % 34.0-46.4 [facility] Hemoglobin [Mass/volume] in BloodOrdered By: Tomás Rojo on 05-04-2023 Hemoglobin (Bld) [Mass/Vol] 13.0 g/dL 11.8-15.4 [facility] - CoagulationOrde red By: Tomás Rojo on 05-04-2023 PT Coag (PPP) [Time] 14.5 s 9.0-12.[address] [facility] Leukocytes [#/volume] correc reynaldo for nucleated erythrocytes in Blood by Automated counOrdered By: Tomás Rojo on 05-04-2023 WBC corrected for nucl RBC Auto (Bld) [#/Vol] 10.5 10*3/uL 3.8-11.6 [facility] Lymphocytes Auto (Bld) [#/Vo l]Ordered By: Tomás Rojo on 05-04-2023 Lymphocytes (Bld) [#/Vol] 2.4 10*3/uL 1.00-4.8 [facility] Lymphocytes/100 WBC Auto (Bl d)Ordered By: Tomás Rojo on 05-04-2023 Lymphocytes/100 WBC (Bld) 22.4 % . [facility] MCH Auto (RBC) [Entitic mass ]Ordered By: Tomás Rojo on 05-04-2023 MCH (RBC) [Entitic mass] 31.5 pg 24.7-34.3 [facility] MCHC Auto (RBC) [Mass/Vol]Or dered By: Tomás Rojo on 05-04-2023 MCHC (RBC) [Mass/Vol] 33.9 g/dL 32.0-35.0 [facility] MCV Auto (RBC) [Entitic vol] Ordered By: Tomás Rojo on 05-04-2023 MCV (RBC) [Entitic vol] 92.7 fL 80-100 [facility] Monocyte distribution width [Entitic volume] in Blood by AutomatedOrdered By: Tomás Rojo on 05-04-2023 Monocyte distribution width Auto (Bld) [Entitic vol] 16.86 % 0.00-20.00 [facility] Monocytes Auto (Bld) [#/Vol] Ordered By: Tomás Rojo on 05-04-2023 Monocytes (Bld) [#/Vol] 0.5 10*3/uL 0.0-0.8 [facility] Monocytes/100 WBC Auto (Bld) Ordered By: Tomás Rojo on 05-04-2023 Monocytes/100 WBC (Bld) 4.6 % . [facility] Neutrophils Auto (Bld) [#/Vo l]Ordered By: Tomás Rojo on 05-04-2023 Neutrophils (Bld) [#/Vol] 7.5 10*3/uL 1.8-7.7 [facility] Neutrophils/100 WBC Auto (Bl d)Ordered By: Tomás Rojo on 05-04-2023 Neutrophils/100 WBC (Bld) 71.2 % . [facility] No Panel InformationOrdered By: Tomás Rojo on 05-04-2023 D-Dimer Quantitative (PE/DVT) < 200 ng/mL 0-243 [facility] Comment on above: The reference range [...] conditions. Estimated GFR (CKD-EPI) > 60.0 mL/Min [facility] Creatinine Clearance (Chem 120.69 [facility] Nucleated erythrocytes [Pres ence] in Blood by Automated countOrdered By: Tomás Rojo on 05-04-2023 Nucleated RBC Auto Ql (Bld) 0.1 /100{WBC} 0-0.5 [facility] Partial Thromboplastin Timeo n 05-04-2023 aPTT Coag (Bld) [Time] 29.4 s Normal 25.1-36.5 [facility] Comment on above: Performed By: #### C BC, CK, DDIMER, HS TROP, PT, BMP, PTT #### [facility] [address] Platelet mean volume Auto (B ld) [Entitic vol]Ordered By: Tomás Rojo on 05-04-2023 Platelet mean volume (Bld) [Entitic vol] 9.3 fL 6.3-10.7 [facility] Platelet poor plasma interna tional normalized ratio (INR) by coagulation assay (relatOrdered By: Tomás Rojo on 05-04-2023 INR Coag (PPP) [Relative time] 1.3 {INR} [facility] Comment on above: INR Therapeutic Rang [...] 05-04-2023 Platelets (Bld) [#/Vol] 188 10*3/uL 150-450 [facility] Potassium [Moles/volume] in Serum or PlasmaOrdered By: Tomás Rojo on 05-04-2023 Potassium [Moles/Vol] 3.6 mmol/L 3.5-5.1 [facility] Prothrombin Time INRon 05-04 INR Coag (PPP) [Relative time] 1.3 {INR} Normal [facility] Comment on above: Result Comment: INR [...] DDIMER, HS TROP, PT, BMP, PTT #### [facility] [address] PT Coag (PPP) [Time] 14.5 s High 9.0-12.[address] [facility] Comment on above: Performed By: #### C BC, CK, DDIMER, HS TROP, PT, BMP, PTT #### [facility] [address] RBC Auto (Bld) [#/Vol]Ordere d By: Tomás Rojo on 05-04-2023 RBC (Bld) [#/Vol] 4.13 10*6/uL 3.60-5.00 [facility] Serum or plasma anion gap de terminationOrdered By: Tomás Rojo on 05-04-2023 Anion gap [Moles/Vol] 12.1 mmol/L 6.0-15.0 [facility] Sodium [Moles/volume] in Ser um or PlasmaOrdered By: Tomás Rooj on 05-04-2023 Sodium [Moles/Vol] 137 mmol/L 136-145 [facility] Troponin I High Sensitivityo n 05-04-2023 Troponin I High Sensitivity 4.3 pg/mL Normal 0.0-15.0 [facility] Comment on above: Result Comment: PERF ORMED BY: [place] [address] PATHOLOGIST [employer]AL TANK BUILDER JULIETH MEJIA M.D. Performed By: #### C BC, CK, DDIMER, HS TROP, PT, BMP, PTT #### [address] Troponin I.cardiac [Mass/vol ume] in Serum or Plasma by Detection limit <= 0.01 ng/Ordered By: Tomás Rojo on 05-04-2023 Troponin I.cardiac DL <= 0.01 ng/mL [Mass/Vol] 4.3 pg/mL 0.0-15.0 [facility] Urea nitrogen [Mass/volume] in Serum or PlasmaOrdered By: Tomás Rojo on 05-04-2023 Urea nitrogen [Mass/Vol] 14 mg/dL 7-25 [facility] WBC Auto (Bld) [#/Vol]Ordere d By: Tomás Rojo on 05-04-2023 WBC (Bld) [#/Vol] 10.5 10*3/uL 3.8-11.6 [facility] XR chest 1V portableon 05-04 XR chest 1V portable [facility] [place] [id number] XRay Report Signed Patient: Cynthia Wilder MR#: [id number] 432 : 1985 Acct:[id number] Age/Sex: 37 / F ADM Date: 05/04/23 Loc: ER Room: Type: [facility] ER Attending Dr: Copies to: Tomás Rojo [...] Corina Sotelo M.D.05/04/2023 2:37 PM Dictation Location: [place] [address] Transcribed By: [facility] 05/04/23 143 Dictated By: Corina Sotelo MD 05/04/231436 Signed By: 05/04/23 143 [facility] CBC AUTO DIFFon 10-02-2022 BASO # 0.0 103/ul Normal 0.0-0.1 [facility] Comment on above: Performed By: #### C BC ####[facility] [address] [place] [address]Dr. Colleen Marshall Basophils/100 WBC (Bld) 0.3 % Normal 0.2-2.0 [facility] Comment on above: Performed By: #### C BC ####[facility] [address] [place] [address]Dr. Colleen Marshall EO # 0.1 103/ul Normal 0.0-0.7 [facility] Comment on above: Performed By: #### C BC ####[facility] [address] [place] [id number]. Colleen Marshall Eosinophils/100 WBC (Bld) 1.2 % Normal 0.9-7.0 [facility] Comment on above: Performed By: #### C BC ####[facility] [address] [place] [address]Dr. Colleen Marshall Erythrocyte distribution width (RBC) [Ratio] 12.7 % Normal 11.0-15.0 [facility] Comment on above: Performed By: #### C BC ####[facility] [address] [place] [address]Dr. Colleen Marshall Hematocrit (Bld) [Volume fraction] 41.1 % Normal 36.0-48.0 [facility] Comment on above: Performed By: #### C BC ####[facility] [address] [place] [address]Dr. Colleen Marshall Hemoglobin (Bld) [Mass/Vol] 13.8 g/dL Normal 12.0-16.0 [facility] Comment on above: Performed By: #### C BC ####[facility] [address] [place], [place] [address]Dr. Colleen Marshall IG # 0.02 10e3/ul Normal 0.00-0.03 [facility] Comment on above: Performed By: #### C BC ####[facility] [address] [place], [place] [address]Dr. Solgael Marshall IG % 0.3 % Normal 0.0-0.5 [facility] Comment on above: Performed By: #### C BC ####[facility] [address] [place], [place] [address]DrLiset Colleen Rolando LYMPH # 2.2 103/ul Normal 1.2-3.8 [facility] Comment on above: Performed By: #### C BC ####[facility] [address] [place], [place] [address]DrLiset Solgael Marshall Lymphocytes/100 WBC (Bld) 29.6 % Normal 20.5-60.0 [facility] Comment on above: Performed By: #### C BC ####[facility] [address] [place], [place] [address]DrLiset Solgael Marshall MANUAL DIFF REQ NO Normal [facility] Comment on above: Performed By: #### C BC ####[facility] [address] [place], [place] [address]DrLiset Solgael Marshall MCH (RBC) [Entitic mass] 31.3 pg Normal 26.7-34.0 [facility] Comment on above: Performed By: #### C BC ####[facility] [address] [place] [id number]. Colleen Marshall MCHC (RBC) [Mass/Vol] 33.6 g/dL Normal 29.9-35.2 [facility] Comment on above: Performed By: #### C BC ####[facility] [address] [place] [id number]. Colleen Marshall MCV (RBC) [Entitic vol] 93.2 fL Normal 81.0-99.0 [facility] Comment on above: Performed By: #### C BC ####[facility] [address] [place], [place] [address]Dr. Colleen Marshall MONO # 0.3 103/ul Normal 0.3-0.8 [facility] Comment on above: Performed By: #### C BC ####[facility] [address] [place], [place] [address]Dr. Colleen Marshall Monocytes/100 WBC (Bld) 4.4 % Normal 1.7-12.0 [facility] Comment on above: Performed By: #### C BC ####[facility] [address] [place], [place] [address]Dr. Colleen Marshall NEUT # 4.7 103/ul Normal 1.4-6.5 [facility] Comment on above: Performed By: #### C BC ####[facility] [address] [place], [place] [address]Dr. Colleen Marshall Neutrophils/100 WBC (Bld) 64.2 % Normal 43.0-75.0 [facility] Comment on above: Performed By: #### C BC ####[facility] [address] [place], [place] [id number]. Colleen Marshall Platelet mean volume (Bld) [Entitic vol] 10.5 fL Normal 9.5-13.5 [facility] Comment on above: Performed By: #### C BC ####[facility] [address] [place], [place] [address]Dr. Colleen Marshall PLT 230 103/ul Normal 150-450 [facility] Comment on above: Performed By: #### C BC ####[facility] [address] [place], [place] [address]Sg. Colleen Marshall RBC 4.41 106/ul Normal 4.20-5.40 [facility] Comment on above: Performed By: #### C BC ####[facility] [address] [place], [place] [address]OmLiset Colleen Marshall WBC 7.3 103/ul Normal 4.0-11.0 [facility] Comment on above: Performed By: #### C BC ####[facility] [address] [place], [place] [address]RbLiset Colleen Rolando PREG HCG QUALon 10-02-2022 , QUAL Negative Normal NEGATIVE [facility] Comment on above: Performed By: #### P REG #### [facility] [address] [place], [place] [address] Dr. Colleen Marshall Covid-19 PCR (CVDTBH)on SARS-CoV-2 (COVID-19) RNA MARGOT+probe Ql (Unsp spec) Not detected Normal NOT DETECTED [facility] [facility] Comment on above: Result Comment: This test is not yet approved or cleared by the [place] FDA. When there are no FDA-approved or cleared tests available, and other criteria are met, FDA can make tests available under an emergency access mechanism called an Emergency Use Authorization (EUA). The EUA for this test is supported by the Building Contractor of Health and Human Service's (HHS's) declaration [...] with SARS-CoV-2. Performed By: #### C VDTBH ####[facility] [address] [place], [place] [address]KhLiset Marshall CHLAMYDIA/GONOCOCCUS MARGOT (SW AB/URINE/PAPon 08-31-2022 Chlamydia trachomatis, MARGOT Negative Normal Negative [facility] Comment on above: Performed By: #### C T/NGNA #### [facility] [address] [place] [address] Dr. Colleen Marshall Neisseria gonorrhoeae, MARGOT Negative Normal Negative [facility] Comment on above: Performed By: #### C T/NGNA #### [facility] [address] [address] [address] Colleen Marshall VAGINITIS/VAGINOSIS DNA PROB Dawson 08-30-2022 Reina species Negative Normal Negative [facility] Comment on above: Performed By: #### V AGINT ####[facility] [address] [place] [address]Dr. Colleen Marshall Gardnerella vaginalis Negative Normal Negative [facility] Comment on above: Performed By: #### V AGINT ####[facility] [address] [place] [address]Dr. Colleen Marshall Trichomonas vaginalis Negative Normal Negative [facility] Comment on above: Performed By: #### V AGINT ####[facility] [address] [place] [address]Dr. Colleen Marshall AMYLASEon 08-18-2022 Amylase [Catalytic activity/Vol] 47 U/L Normal 25-115 [facility] Comment on above: Performed By: #### C MP, SHARLENE, LIPA #### [facility] [address] [place] [address] Dr. Colleen Marshall CBC AUTO DIFFon 08-18-2022 BASO # 0.0 103/ul Normal 0.0-0.1 [facility] Comment on above: Performed By: #### C BC #### [facility] [address] [place] [address] Dr. Colleen Marshall Basophils/100 WBC (Bld) 0.4 % Normal 0.2-2.0 [facility] Comment on above: Performed By: #### C BC #### [facility] [address] [place] [address] Dr. Colleen Marshall EO # 0.1 103/ul Normal 0.0-0.7 [facility] Comment on above: Performed By: #### C BC #### [facility] [address] [place] [address] Dr. Colleen Marshall Eosinophils/100 WBC (Bld) 0.7 % Critically low 0.9-7.0 [facility] Comment on above: Performed By: #### C BC #### [facility] [address] [place] [address] Dr. Colleen Marshall Erythrocyte distribution width (RBC) [Ratio] 13.3 % Normal 11.0-15.0 [facility] Comment on above: Performed By: #### C BC #### [facility] [address] [place] [address] Dr. Colleen Marshall Hematocrit (Bld) [Volume fraction] 44.7 % Normal 36.0-48.0 [facility] Comment on above: Performed By: #### C BC #### [facility] [address] [place] [address] Dr. Colleen Marshall Hemoglobin (Bld) [Mass/Vol] 14.6 g/dL Normal 12.0-16.0 [facility] Comment on above: Performed By: #### C BC #### [facility] [address] [place] [address] Dr. Colleen Marshall IG # 0.03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 Performed By: #### 2 606026, 4241345, 73552354, 35614748, 53762563, 4071379, 72903148, 2789346, 4309408, 15593984 #### [facility] [address] [place] [address] ALT No additional P-5'-P enzyme act/vol 24 Int._Unit/L Normal 6-46 [facility] Comment on above: Performed By: #### 2 274225, 9048299, 74552196, 40571254, 95433064, 6800436, 72635475, 2717925, 0403293, 35494884 #### [facility] [address] [place] [address] AST enzyme act/vol 26 Int._Unit/L Normal 5-43 [facility] Comment on above: Performed By: #### 2 343774, 2405323, 93204918, 77766890, 57275591, 4783536, 31996924, 4921820, 8555188, 86585207 #### [facility] [address] [place] [address] Bilirubin mass conc 0.4 mg/dL Normal 0.0-1.1 [facility] Comment on above: Performed By: #### 2 715113, 4185803, 97519374, 00623266, 71144197, 4594379, 31162242, 8905060, 5666203, 39881955 #### [facility] [address] [place] [address] Creatinine mass conc 0.8 mg/dL Normal 0.5-1.3 [facility] Comment on above: Performed By: #### 2 574211, 4082757, 23021751, 49195305, 97970874, 4437869, 05440864, 6032773, 8865204, 18880175 #### [facility] [address] [place] [address] Globulin mass conc (S) 3.3 g/dL Normal 1.4-4.0 [facility] Comment on above: Performed By: #### 2 385178, 4708657, 83048119, 02271595, 32223805, 9024031, 05697586, 9668375, 6884082, 45769228 #### [facility] [address] [place] [address] Protein mass conc 7.7 g/dL Normal 6.0-7.8 [facility] Comment on above: Performed By: #### 2 075749, 3643706, 42843189, 39012062, 45886531, 5917107, 22862289, 5844964, 7126545, 19463438 #### [facility] [address] [place] [address] Urea nitrogen mass conc 17 mg/dL Normal 5-21 [facility] Comment on above: Performed By: #### 2 757330, 6159899, 31326297, 61021234, 01279590, 0278020, 19596746, 7212855, 0286515, 61206233 #### [facility] [address] [place] [address] Urea nitrogen/Creatinine mass ratio 21 No Units High 10-20 [facility] Comment on above: Performed By: #### 2 457076, 8711674, 58182506, 60450546, 12955557, 3826508, 91620398, 0488054, 0758025, 77180324 #### [facility] [address] [place] [address] Anion gap molar conc 14 mmol/L Normal 6-16 [facility] Comment on above: Performed By: #### 2 566321, 8490689, 84946995, 57868037, 00190710, 6339849, 15723460, 3691956, 2801968, 32739750 #### [facility] [address] [place] [address] Calcium mass conc 9.4 mg/dL Normal 8.9-11.1 [facility] Comment on above: Performed By: #### 2 942203, 8394504, 19748649, 68242557, 75288138, 0355119, 52157662, 8066179, 4303545, 42695352 #### [facility] [address] [place] [address] Chloride molar conc 104 mmol/L Normal 101-111 [facility] Comment on above: Performed By: #### 2 656658, 4241200, 49452194, 66612408, 71123591, 9686105, 78511445, 0101318, 8050854, 02661710 #### [facility] [address] [place] [address] CO2 molar conc 24 mmol/L Normal 21-31 [facility] Comment on above: Performed By: #### 2 129617, 5750270, 41609009, 66871311, 10039644, 5560150, 06476556, 7043454, 8822484, 12683033 #### [facility] [address] [place] [address] Glucose mass conc 80 mg/dL Normal 55-199 [facility] Comment on above: Result Comment: If t his glucose result represents a fasting glucose, interpretation should refer to the following reference range: 55-99 mg/dL Performed By: #### 2 325982, 3733138, 12945397, 98534702, 15976640, 2529447, 61680402, 2826636, 2745929, 70637556 #### [facility] [address] [place] [address] Potassium molar conc 3.7 mmol/L Normal 3.5-5.3 [facility] Comment on above: Performed By: #### 2 169341, 0481809, 48403319, 71113778, 16859373, 2973400, 74356223, 2398123, 6548366, 99111062 #### [facility] [address] [place] [address] Sodium molar conc 138 mmol/L Normal 135-145 [facility] Comment on above: Performed By: #### 2 606907, 3245059, 89614676, 85920304, 31615698, 2877527, 98264574, 7259618, 8291439, 85897528 #### [facility] [address] [place] [address] ED Clinical Summaryon 2017 ED Clinical Summary (Inserted Image. Astrid ble to display) [address] [address] ED Clinical Summary Person Information Name: CYNTHIA WILDER [facility] Age: 32 Years : 1985 12:00 AM Sex: Female Language: Mongolian PCP: Luan Guerra MD Marital Status: Single [...] 05/29/2018 12:01 AM 05/29/2018 12:01 AM ADDRESS: [address] [place] [id number] PHYS DOC NOTES: MEDICAL INFORMATION: Prescriptions Given: PATIENT EDUCATION INFORMATION: Instructions: Chest Pain (Nonspecific) Follow up: With: Address: When: Luan Guerra [address] [place] [address], [facility] [address] [place] [id number] evidanza (1) In 3 days 05/31/2018 Comments: Current [...] next 6 weeks. Treatment - Currently the [place] [employer] recommends that all patients who [...] home medications. Having trouble affording medications? Try [employer]! (This is not a hospital endorsed website, merely a recommendation based on my own personal experiences with [employer]) Questions? Contact me anytime. Saul Tate MD, TAL DIAGNOSIS: Chest pain Normal [facility] ED Note-Physicianon 05-29-20 18 ED Note-Physician Basic Information Time Seen: Saul [...] Diagnostic Results No qualifying data available. Normal [facility] Comment on above: Result Comment: Elec tronically Signed By: Lae LINARES, Saul Albert\.br\Date and Time Signed: 05/29/18 [...] Document Reviewed: 06/08/2009 ExitCare? Patient Information ?2015 [employer]. This information is not intended to replace advice given to you by your health care provider. Make sure you discuss any questions you have with your health care provider. Normal [facility] ED Patient Summaryon 018 ED Patient Summary (Inserted Image. Astrid ble to display) [place] [id number] Patient Discharge Instructions Person Information Name: CYNTHIA WILDER Age: 32 Years Arrival Date: 05/28/2018 10:11 PM Discharge Diagnosis: Chest pain Primary Care Physician: Luan Guerra MD Provider Information Primary Provider: Saul Tate MD Advanced Clinical Dental Technician:None The exam and treatment you received in the Emergency Department were for an urgent problem and are not intended as complete care. It is important that you follow up with a doctor, nurse practitioner, or physician?s administrative assistant front desk for ongoing care. If your symptoms become worse or you do not improve as expected and you are unable to reach your usual health care provider, you should return to the Emergency Department. We are available 24 hours a day. CYNTHIA WILDER has been given the following list of patient education materials, prescriptions and follow-up instructions: Follow-up Instructions: With: Address: When: Luan Guerra [address] [facility], [address] [place] [phone] Business (1) In 3 days 05/31/2018 Comments: [...] next 6 weeks. Treatment - Currently the [place] [employer] recommends that all patients who [...] home medications. Having trouble affording medications? Try [employer]! (This is not a hospital endorsed website, merely a recommendation based on my own personal experiences with [employer]) Questions? Contact me anytime. Saul Tate MD, TAL In the event that this physician does not participate in your insurance network, please consult with your insurance company to find a nearby participating provider. Patient Education Materials: Chest Pain (Nonspecific) A MESSAGE TO ALL PATIENTS REGARDING OPIOIDS PRESCRIPTION OPIOIDS: WHAT YOU NEED TO KNOW Prescription opioids can be used to help relieve xcmngaif-eg-wehjqi pain and are often prescribed following a [...] be struggling with addiction, tell your health career coordinator and ask for guidance or call [facility] National Helpline at 4-074-254-XCBT. v Source: [place] Department of Health and Human Services/Center for Disease Control & Prevention [facility] Medications Given: Medication Dose Route hydromorphone 0.50 mg IV Push Left Antecubital Reform Medication Information: Comment: Pharmacy Information: Thank you for choosing [facility] Patient Education Materials: Chest Pain (Nonspecific) [...] Document Reviewed: 06/08/2009 ExitCare? Patient Information ?2015 [employer]. This information is not intended to replace advice given to you by your health care provider. Make sure you discuss any questions you have with your health care provider. TINA Odell TIFFANY B , have received the following patient education materials/instructions and have verbalized understanding: Patient Education Materials: Chest Pain (Nonspecific) Follow-up Instructions: With: Address: When: Luan Guerra [address] [facility], [address] [place] [phone] Business (1) In 3 days 05/31/2018 Comments: [...] next 6 weeks. Treatment - Currently the [place] [employer] recommends that all patients who [...] home medications. Having trouble affording medications? Try [facility]! (This is not a hospital endorsed website, merely a recommendation based on my own personal experiences with [employer]) Questions? Contact me anytime. Saul Tate MD, TAL Prescriptions: Patient Signature __ Date Clinician/Nurse Signature Date 05/29/18 00:01:41 Normal [facility] Magnesiumon 05-29-2018 Magnesium mass conc 2.0 mg/dL Normal 1.3-2.4 [facility] Comment on above: Performed By: #### 2 431139, 7504471, 50061643, 07163138, 63261787, 2487891, 21349431, 5670265, 7032274, 29007175 #### [facility] [address] [place] [address] Morphon 05-29-2018 Anisocytosis Ql (Bld) Present Normal [facility] Comment on above: Order Comment: Order Added by Discern Expert. Performed By: #### 2 719800, 5513242, 22746040, 48264776, 60696575, 6816671, 12331174, 8999956, 5470513, 49130772 #### [facility] [address] [place] [address] Hypochromia Auto Ql (Bld) Present Normal [facility] Comment on above: Order Comment: Order Added by Discern Expert. Performed By: #### 2 057213, 9908224, 48570359, 32632546, 41282954, 7849321, 86373317, 0009936, 7740842, 06358883 #### [facility] [address] [place] [address] Microcytes Ql (Bld) Present Normal [facility] Comment on above: Order Comment: Order Added by Discern Expert. Performed By: #### 2 895493, 6386243, 82250271, 01592229, 37903588, 8695185, 15659065, 5529253, 3050140, 86138494 #### [facility] [address] [place] [address] Morphology Interp Godfrey (Bld) See Morphology Normal [facility] Comment on above: Order Comment: Order Added by Discern Expert. Performed By: #### 2 137604, 2371885, 79327590, 60926580, 78877509, 3402336, 78254174, 4926178, 4251428, 64455473 #### [facility] [address] [place] [address] Polychromasia LM Ql (Bld) Present Normal [facility] Comment on above: Order Comment: Order Added by Discern Expert. Performed By: #### 2 505781, 7282062, 28532476, 00512771, 78132168, 9277573, 64567186, 0722383, 3037629, 47306830 #### [facility] [address] [place] [address] PT & PTTon 05-29-2018 aPTT Coag time (PPP) 27.5 second(s) Normal 25.1-36.5 [facility] Comment on above: Result Comment: Hepa rin therapeutic range (represented by Anti-Factor Xa activity of 0.2 - 0.4 U/mL) corresponds to PTT of 53.9 - 87.4 sec. Performed By: #### 2 905554, 6211185, 80379674, 30729548, 95367285, 8866460, 16449552, 9799517, 6771776, 44961384 #### [facility] [address] [place] [address] INR Coag RelTime (PPP) 1.3 {INR} [facility] Comment on above: Result Comment: INR results are specifically intended to assess patients stabilized on long-term Anticoagulation therapy suggested INR?s ?Less Intensive Anticoagulation? 2.0 ? 3.0 Conventional Range 3.0 ? 4.5 Performed By: #### 2 540717, 9694667, 37041431, 72807022, 93027403, 6809515, 20134905, 7760393, 7366669, 24260676 #### [facility] [address] [place] [address] Prothrombin time (PT) Coag time (PPP) 14.4 second(s) High 10.2-12.9 [facility] Comment on above: Performed By: #### 2 819673, 9017041, 40815764, 08735306, 40929452, 9601623, 60169441, 6307382, 0644356, 10219207 #### [facility] [address] [place] [address] Troponin 0 Hr.on 05-29-2018 Troponin I.cardiac mass conc ng/mL Normal <=0.03 [facility] Comment on above: Result Comment: New Troponin Assay 03/31/14 [place] Cutoff value > or = 0.03 ng/mL in conjunction with clinical conditions of myocardial infarction. (www.[email or web address].org/guidelines) Performed By: #### 2 987224, 9628451, 61657437, 55443950, 36924665, 2938264, 35615642, 3504666, 5654612, 71763096 #### [facility] [address] [place] [address] eGFRon 05-29-2018 GFR/1.73 sq M predicted among blacks MDRD vol rate/area (S/P/Bld) mL/min/{1.73_m2} Normal >=59 [facility] Comment on above: Order Comment: Order added by Discern Expert. Result Comment: eGFR is race adjusted. AA=. Performed By: #### 2 381112, 2287291, 39555856, 31190569, 03592928, 9340145, 55998338, 8314734, 7308002, 14480348 #### [facility] [address] [place] [address] GFR/1.73 sq M predicted among non-blacks MDRD vol rate/area (S/P/Bld) mL/min/{1.73_m2} Normal >=59 [facility] Comment on above: Order Comment: Order added by Discern Expert. Result Comment: Wood Boat[employer] gina kidney disease could be indicated at eGFR's of less than 60 mL/min/1.73m2. Kidney failure is indicated at less than 15 mL/min/1.73m2. Performed By: #### 2 818499, 2908791, 41402083, 11252562, 20692236, 3686875, 96432069, 7244519, 7589963, 07568576 #### [facility] [address] [place] [address] Vital Signs Date Time Vital Sign Value Performing Clinician Facility 11-23-2024 10:16-0500 Body mass index (BMI) [Ratio] 25.77 kg/m2 Sharlene Cook PA Work Phone: [facility] 11-23-2024 10:16-0500 Body weight 75.75 kg Sharlene Springfield PA Work Phone: [facility] 11-23-2024 10:16-0500 Diastolic blood pressure 72 mm[Hg] Sharlene Alvarez PA Work Phone: [facility] 11-23-2024 10:16-0500 Systolic blood pressure 124 mm[Hg] Sharlene Alvarez PA Work Phone: [facility] 05-04-2023 15:35-0400 Diastolic blood pressure 63 mm[Hg] MD Francisco Sanches Work Phone: [facility] 05-04-2023 15:35-0400 Heart rate 63 /min MD Francisco Sanches Work Phone: [facility] 05-04-2023 15:35-0400 Respiratory rate 20 /min MD Francisco Sanches Work Phone: [facility] 05-04-2023 15:35-0400 SaO2% (BldA) [Mass fraction] 97 % MD Francisco Sanches Work Phone: [facility] 05-04-2023 15:35-0400 Systolic blood pressure 99 mm[Hg] MD Francisco Sanches Work Phone: [facility] 05-04-2023 14:10-0400 Body height 168.91 cm MD Francisco Sanches Work Phone: [facility] 05-04-2023 14:10-0400 Body temperature 97.6 [degF] MD Francisco Sanches Work Phone: [facility] 05-04-2023 14:10-0400 Body weight 73 kg MD Francisco Sanches Work Phone: [facility] Encounters Encounter Date Encounter Type Care Provider Facility Start: 11-23-2024 End: 11-23-2024 Bamboo flowsheet Sharlene CASTRO Work Phone: [facility] Start: 11-23-2024 End: 11-23-2024 Bamboo flowsheet Sharlene CASTRO Work Phone: [facility] Start: 11-23-2024 End: 11-23-2024 Office outpatient visit 15 minutes Sharlene CASTRO Work Phone: [facility] Comment on above: Amenorrhea; Hormone imbalance; Night sweats; Hormone disorder Start: 11-23-2024 End: 11-23-2024 ambulatory SHARLENE COOK Not Available Start: 05-04-2023 End: 05-04-2023 Emergency department patient visit Tomás Rojo Facility:[facility] Start: 05-04-2023 End: 05-04-2023 Emergency department patient visit MD Francisco Sanches Work Phone: [facility] Work Phone: Start: 10-07-2022 [facility]: 10-02-2022 End: 10-02-2022 ambulatory JACLYN SORIANO Facility:H1 Start: 09-30-2022 ambulatory JACLYN LANEO Facility:H 1 Start: 09-25-2022 End: 09-26-2022 ambulatory JACLYN LANEO Facility:H1 Start: 09-25-2022 End: 09-26-2022 Encounter for preprocedural laboratory examination JACLYN HERNANDEZZIO Facility:H1 Start: 08-28-2022 End: 08-28-2022 ambulatory JACLYN LANEO Facility:H1 Start: 08-18-2022 End: 08-18-[address] LUAN GUERRA . Facility:H1 Start: 06-20-[address] JUNE HOLLINGSWORTH . Faci lity:H1 Start: 06-13-2022 End: 06-14-[address] JUNE HOLLINGSWORTH . Facility: Start: 04-08-2022 ambulatory [facility] Facility:H 1 Procedures Date Procedure Procedure Detail Performing Clinician Start: 11-23-2024 Urine test visual color cmprsn meths Sharlene CASTRO Work Phone: Start: 05-04-2023 Plain chest X-ray MD Candido Sanches Work Phone: Plan of Treatment Date Care Activity Detail Author Start: 01-05-2025 End: 01-05-2025 Patient encounter procedure 01/05/2025 3:00 PM EST Office Visit [facility] [address] [place] [id number] Sharlene Cook PA [address] [place] [address] [facility] Start: 11-23-2024 End: 11-23-2025 C-peptide C-peptide Lab Routine Hormone disorder Expected: 11/23/2024 (Approximate), Expires: 11/23/2025 [facility] Comment on above: Expected: 11/23/2024 (Approximate), Expires: 11/23/2025 Start: 11-23-2024 End: 11-23-2025 Cortisol free Cortisol, free Lab Routine Hormone disorder Expected: 11/23/2024 (Approximate), Expires: 11/23/2025 [facility] Comment on above: Expected: 11/23/2024 (Approximate), Expires: 11/23/2025 Start: 11-23-2024 End: 11-23-2025 Glucose [Mass/volume] in Serum or Plasma Glucose, random Lab Routine Hormone disorder Expected: 11/23/2024 (Approximate), Expires: 11/23/2025 [facility] Comment on above: Expected: 11/23/2024 (Approximate), Expires: 11/23/2025 Start: 11-23-2024 End: 11-23-2025 Insulin, total Insulin, total Lab Routine Hormone disorder Expected: 11/23/2024 (Approximate), Expires: 11/23/2025 [facility] Comment on above: Expected: 11/23/2024 (Approximate), Expires: 11/23/2025 Start: 11-23-2024 End: 11-23-2025 Serotonin serum Serotonin serum Lab Routine Hormone disorder Expected: 11/23/2024 (Approximate), Expires: 11/23/2025 [facility] Comment on above: Expected: 11/23/2024 (Approximate), Expires: 11/23/2025 Start: 11-23-2024 End: 11-23-2025 Thyroglobulin Thyroglobulin Lab Routine Hormone disorder Expected: 11/23/2024 (Approximate), Expires: 11/23/2025 [facility] Comment on above: Expected: 11/23/2024 (Approximate), Expires: 11/23/2025 Start: 11-23-2024 End: 11-23-2025 Thyroglobulin Antibody Thyroglobulin Antibody Lab Routine Hormone disorder Expected: 11/23/2024 (Approximate), Expires: 11/23/2025 [facility] Comment on above: Expected: 11/23/2024 (Approximate), Expires: 11/23/2025 Start: 11-23-2024 End: 11-23-2025 Thyrotropin [Units/volume] in Serum or Plasma [facility] Comment on above: Ordered: 11/23/2024 Expected: 11/23/2024 (Approximate), Expires: 11/23/2025 Start: 11-23-2024 End: 11-23-2025 US Pelvis US Pelvis w/ TV Imaging Routine Amenorrhea Expected: 11/23/2024, Expires: 11/23/2025 [facility] Comment on above: Expected: 11/23/2024 , Expires: 11/23/2025 Start: 11-23-2024 End: 11-23-2024 Patient encounter procedure 11/23/2024 10:10 AM EST Office Visit [facility] [address] [place] [place] [phone] Sharlene Cook PA [address] [place] [address] Arrived [facility] Comment on above: Arrived CBC W Auto Different ial panel - Blood CBC and differential Lab Routine Amenorrhea Ordered: 11/23/2024 [facility] Work Phone: Comment on above: Ordered: 11/23/2024 DHEA-sulfate DHEA-sulfate Lab Routine Hormone disorder Ordered: 11/23/2024 [facility] Comment on above: Ordered: 11/23/2024 Estradiol Estradiol Lab Ro utine Hormone disorder Ordered: 11/23/2024 [facility] Comment on above: Ordered: 11/23/2024 Estrone Estrone Lab Rout ine Hormone disorder Ordered: 11/23/2024 [facility] Comment on above: Ordered: 11/23/2024 Ferritin [Mass/volum e] in Serum or Plasma Ferritin Lab Routine Hormone disorder Ordered: 11/23/2024 [facility] Comment on above: Ordered: 11/23/2024 Hemoglobin A1c/Hemoglobin.total in Blood Hemoglobin A1c Lab Routine Hormone disorder Ordered: 11/23/2024 [facility] Comment on above: Ordered: 11/23/2024 Patient Education Muscle and Bon e Pain (DC) [facility] Work Phone: Patient referral [facility] Work Phone: Progesterone Progesterone Lab Routine Hormone disorder Ordered: 11/23/2024 [facility] Comment on above: Ordered: 11/23/2024 Prolactin Prolactin Lab Ro utine Amenorrhea Ordered: 11/23/2024 [facility] Comment on above: Ordered: 11/23/2024 Sex hormone binding globulin Sex hormone binding globulin Lab Routine Hormone disorder Ordered: 11/23/2024 [facility] Comment on above: Ordered: 11/23/2024 T3, reverse T3, reverse Lab Routine Hormone disorder Ordered: 11/23/2024 [facility] Comment on above: Ordered: 11/23/2024 TESTOSTERONE, FREE TESTOSTERONE, FREE Lab Routine Hormone disorder Ordered: 11/23/2024 [facility] Comment on above: Ordered: 11/23/2024 Testosterone, free, total Testos terone, free, total Lab Routine Hormone disorder Ordered: 11/23/2024 [facility] Comment on above: Ordered: 11/23/2024 Thyroid peroxidase antibody Thyroid peroxidase antibody Lab Routine Hormone disorder Ordered: 11/23/2024 [facility] Comment on above: Ordered: 11/23/2024 Thyroxine (T4) free [Mass/volume] in Serum or Plasma T4, free Lab Routine Hormone disorder Ordered: 11/23/2024 [facility] Comment on above: Ordered: 11/23/2024 Triiodothyronine (T3 ) Free [Mass/volume] in Serum or Plasma T3, free Lab Routine Hormone disorder Ordered: 11/23/2024 [facility] Comment on above: Ordered: 11/23/2024 Vitamin D 1,25 dihydroxy Vitamin D 1,25 dihydroxy Lab Routine Hormone disorder Ordered: 11/23/2024 [facility] Comment on above: Ordered: 11/23/2024 Payers Date Payer Category Payer Self-pay [id number] 2022 Medicaid [employer] [place] [id number] 2022 Medicaid [id number] 1985 Unknown [id number] 1985 Unknown [id number] 1983 Unknown [id number] 1983 Unknown [id number] 1983 Unknown [id number] 1983 Unknown [id number] 1983 Unknown [id number] 1983 Unknown [id number] 1983 Unknown [id number] 1959 Unknown [id number] Medicaid [place] [employer] [id number] Unknown [id number] Social History Date Type Detail Facility Start: 05-04-2023 Tobacco smoking stat [facility] Smoker (finding) [facility] Start: 1985 Sex Assigned At Female F [facility] Start: 07-23-2023 [facility] History of tobacco use Cigarette Smoker [facility] Start: 08-25-2023 End: 11-23-2024 Alcoholic beverage intake Lifetime non-drinker (finding) [facility] Start: 08-25-2023 End: 11-23-2024 History of Social function [facility] Start: 08-25-2023 End: 11-23-2024 Tobacco use panel [facility] Start: 1985 Sex assigned at Not on file N [facility] History of Present illness Narrative 11-23-2024 GLORIA Campoverde - 11/23/2024 10:10 AM EST Note Date & Type Note Facility 11-23-2024 History of Presen t illness Narrative Reason for Appointment: Patient ID: Cynthia Wilder is a 38 y.o. female who presents for Menstrual Problem (Pt present today due to not having a menstrual cycle for 3 months. ) Patient presents today for Amenorrhea visit and hormonal imbalance issues. MEDICATIONS No current outpatient medications ALLERGIES Allergies Allergen Reactions Levofloxacin Other Reaction(s): Not available Oxycodone-Acetaminophen Unknown Other Reaction(s): Not available PROBLEMS Active Ambulatory Problems Diagnosis Date Noted No Active Ambulatory Problems Resolved Ambulatory Problems Diagnosis Date Noted No Resolved Ambulatory Problems Past Medical History: Diagnosis Date Depression ([facility]) Family history of breast cancer Genital warts Gonorrhea History of medical problems HPV (human papilloma virus) infection LGSIL on Pap smear of cervix Phlebitis HISTORY PAST MEDICAL HISTORY SOCIAL HISTORY Past Medical History: Diagnosis Date Depression ([facility]) Family history of breast cancer Genital warts Gonorrhea History of medical problems herniated disc HPV (human papilloma virus) infection LGSIL on Pap smear of cervix Phlebitis Social History Tobacco Use Smoking status: Every Day Types: Cigarettes Smokeless tobacco: Not on file Substance Use Topics Alcohol use: Never Drug use: Not on file FAMILY HISTORY Family History Problem Relation Name Age of Onset Hypertension Father SURGICAL HISTORY Past Surgical History: Procedure Laterality Date BREAST BIOPSY HM MAMMOGRAPHY 01/24/2017 negative OTHER SURGICAL HISTORY 2014 Discectomy - herniated disc PAP SMEAR 07/17/2021 negaitve TUBAL LIGATION 2019 REVIEW OF SYSTEMS Review of Systems: Review of Systems Constitutional: Negative. HENT: Negative. Eyes: Negative. Respiratory: Negative. Cardiovascular: Negative. Gastrointestinal: Negative. Genitourinary: Negative. Musculoskeletal: Negative. Skin: Negative. Neurological: Negative. All other systems reviewed and are negative. Hematological: Negative. Endocrine: Negative. Allergic/Immunologic: Negative. OBJECTIVE Objective: Physical Exam Constitutional: Appearance: Normal appearance. She is normal weight. HENT: Head: Normocephalic. Cardiovascular: Rate and Rhythm: Normal rate. Pulses: Normal pulses. Pulmonary: Effort: Pulmonary effort is normal. Breath sounds: Normal breath sounds. Abdominal: Palpations: Abdomen is soft. Musculoskeletal: General: Normal range of motion. Neurological: General: No focal deficit present. Mental Status: She is alert and oriented to person, place, and time. Psychiatric: Mood and Affect: Mood normal. Behavior: Behavior normal. Thought Content: Thought content normal. Judgment: Judgment normal. Vitals and nursing note reviewed. Vitals: Estimated body mass index is 25.77 kg/m as calculated from the following: Height as of 08/25/23: 5' 7.5 . Weight as of this encounter: 167 lb. BP: 124/72 No LMP recorded. (Menstrual status: No Periods). ASSESSMENT & PLAN ICD-10-CM 1. Amenorrhea N91.2 TSH CBC and differential Prolactin hCG, quantitative, Hemoglobin A1c US Pelvis w/ TV 2. Hormone imbalance E34.9 3. Night sweats R61 4. Hormone disorder E34.9 Estradiol Estrone Cortisol, free DHEA-sulfate Sex hormone binding globulin Insulin, total Serotonin serum TSH T4, free T3, reverse Progesterone Vitamin D 1,25 dihydroxy Ferritin T3, free Thyroglobulin Thyroglobulin Antibody Thyroid peroxidase antibody T4 TESTOSTERONE, FREE Testosterone, free, total Hemoglobin A1c Glucose, random C-peptide Cortisol, free Insulin, total Serotonin serum Thyroglobulin Thyroglobulin Antibody T4 Glucose, random C-peptide Patient presents for 3 months of abnormal cycles. She states she has had only spotting and no real cycle. Patient states she is also ortiz with night sweats, facial hair and weight gain. Patient given orders for hormone labs, ultrasound and samples of veozah. Patient to schedule follow up annual exam and will review labs at that time. Documented by Conchis Fair MA on behalf of: GLORIA Campoverde documented in this encounter [facility] Clinical Note 10-02-2022 Note Date & Type Note Facility 10-02-2022 Note OPERATIVE NOTE OPERATION DATE: 10/02/2022 PROCEDURE: Bilateral laparoscopic salpingectomy with removal of Filshie clip. PREOPERATIVE DIAGNOSIS: Pelvic pain, desires removal of tubes. POSTOPERATIVE DIAGNOSIS: Pelvic pain, desires removal of tubes, pelvic vascular congestion. ANESTHESIA: General. SURGEON: Jaclyn Soriano D.O. COMMERCIAL ELECTRICIAN: JOSEY Brown URINE OUTPUT: Yellow and clear. [...] and needle counts were correct x2. [facility] Consultation note 06-13-2022 Note Date & Type [...] agree with this plan of care. [facility] Evaluation note Note Date & Type Note Facility Evaluation note [facility] Work Phone: Evaluation note Note Date & Type Note Facility Evaluation note Diagnosis Amenorrhea Absence of menstruation Hormone imbalance Night sweats Generalized hyperhidrosis Hormone disorder Unspecified endocrine disorder documented in this encounter [facility] Summary Purpose Family History No Family History [...] section and content) DATE CREATED AUTHOR 04/07/[address] [facility] DATE CREATED AUTHOR AUTHOR'S ORGANIZ ATION 07/12/2021 [facility] DATE CREATED AUTHOR AUTHOR'S ORGANIZ ATION 04/01/2023 [facility] DATE CREATED AUTHOR AUTHOR'S ORGANIZ ATION 05/21/2023 [facility] DATE CREATED AUTHOR AUTHOR'S ORGANIZ ATION 11/29/2024 [facility] Care Teams (unrecognized sec tion and content) Team Status: Active Member Role Status Dates Francisco Sanches MD Primary Care Provider Active Team Status: Inactive Member Role Status Dates Francisco Sanches MD Primary Care Provider Active Tomás Rojo MD Emergency Provider Active Electric Meter Repairer Helper Relationship Specialty Start Date End Date Luan Guerra MD [address] [place] [phone] PCP - General Family Medicine 08/07/23 Electric Meter Repairer Helper Relationship Specialty Start Date End Date Luan Guerra MD [address] [facility] [place] [address] [phone] PCP - General Family Medicine 08/07/23 Goals (unrecognized section and content) Goals may be documented in a n alternate section Reason for Visit (unrecogniz ed section and content) Reason Comments Menstrual Problem Pt present today due to not having a menstrual cycle for 3 months. FOR RECORDS PERTAINING TO PATIENTS WHO ARE [...] BE BASED ON THE PRIMARY CLINICAL RECORDS. [facility] [employer] [facility]. provides no warranty or guarantee of the accuracy or completeness of information in this document.
== END 2025-01-05 22:03 | disposition home or self-care (01) ==
LOC: LAB 22:02
PROVIDERS: PCP Family Medicine; Visit Provider Physician Assistant
DX: Z01.419 Encounter for gynecological examination (general) (routine) without abnormal findings (principal)
CPT/HCPCS: 87624; 88175

== ENCOUNTER 2025-03-07 09:53 | Emergency (ER) | payer MEDICAID, SELFPAY ==
[2025-03-07 09:58] VITALS: BP 123/79; PULSE 70; TEMP 36.6; O2SAT 99; BMI 24.9
--- NOTE | 2025-03-07 10:06 | ED_ITS ---
HPI HPI - General Adult General Chief complaint: Upper Respiratory Infection Stated complaint: CHEST PAINS SOB CONJESTION Time Seen by Provider: 03/07/25 09:58 Source: patient Mode of arrival: walk-in History of Present Illness HPI narrative: 39-year-old female presents for cough that she has had for a week. She has been coughing up some green phlegm. She has not had hemoptysis or fever. She used her daughter's albuterol and then took some prednisone and took an antibiotic that was leftover. She ran out of the albuterol. Related Data Previous Rx's ?Medication ?Instructions ?Recorded albuterol sulfate 90 mcg/actuation 2 inh inhalation Q4H PRN shortness 03/07/25 aerosol inhaler of breath or wheezing #8.5 grams azithromycin 250 mg tablet See Rx Instructions PO .COMPLEX #6 03/07/25 (Zithromax Z-Kobi) tabs benzonatate 100 mg capsule 100 mg PO TID PRN cough #20 caps 03/07/25 prednisone 10 mg tablet See Rx Instructions .Route 03/07/25 .COMPLEX #30 tabs Allergies Allergy/AdvReac Type Severity Reaction Status Date / Time No Known Drug Allergies Allergy Verified 03/07/25 10:02 Opioid HPI Opioid Management Most Recent Opioid Data: No Data to Display Review of Systems ROS Narrative A ten point review of systems is negative except as noted above. PFSH PFSH Social History Little interest or pleasure in doing things: not at all Feeling down, depressed, or hopeless: not at all Exam Narrative Exam Narrative: Nurses note and vital signs reviewed and patient is not hypoxic. General: The patient appears in no acute respiratory distress. She coughs occasionally. Skin: Warm, dry, no pallor noted. There is no rash noted. Head: Normocephalic, atraumatic Eye: Normal conjunctiva, no drainage Ears, Nose, Mouth, and Throat: oral mucosa is moist. Nares patent. Cardiovascular: Regular Rate and Rhythm Respiratory: Some rhonchi present bilaterally. Breath sounds are equal Back: non-tender GI: Soft and nontender Musculoskeletal: The patient has no evidence of calf tenderness, no pitting edema, symmetrical pulses noted bilaterally Neurological: A&O, normal speech Psychiatric: Cooperative Constitutional Vital Signs, click to edit/add: Last Vital Signs Temp 97.8 F 03/07/25 09:58 Pulse 91 H 03/07/25 10:29 Resp 18 03/07/25 09:58 BP 123/79 03/07/25 09:58 Pulse Ox 97 03/07/25 10:29 O2 Del Method Room Air 03/07/25 10:29 Course Vital Signs Vital signs: Vital Signs Temperature 97.8 F 03/07/25 09:58 Pulse Rate 70 03/07/25 09:58 Respiratory Rate 18 03/07/25 09:58 Blood Pressure 123/79 03/07/25 09:58 Pulse Oximetry 99 03/07/25 09:58 Oxygen Delivery Method Room Air 03/07/25 09:58 Temperature 97.8 F 03/07/25 09:58 Pulse Rate 91 H 03/07/25 10:29 Respiratory Rate 18 03/07/25 09:58 Blood Pressure 123/79 03/07/25 09:58 Pulse Oximetry 97 03/07/25 10:29 Oxygen Delivery Method Room Air 03/07/25 10:29 Medical Decision Making MDM Narrative Medical decision making narrative: Chest x-ray does not show an infiltrate. She was offered COVID and influenza test but does not feel she needs them. She was given an albuterol treatment and prescribed albuterol, Tessalon, prednisone, and Zithromax. Treatment diagnosis and follow-up were discussed with the patient. Differential Diagnosis Differential Diagnosis: URI, pneumonia Imaging Data Chest x-ray: My impression: No infiltrate Discharge Plan Discharge Chief Complaint: Upper Respiratory Infection Clinical Impression: Upper respiratory infection Patient Disposition: Home, Self-Care Time of Disposition Decision: 10:58 Condition: Good Mode of Transportation: Private Vehicle Prescriptions / Home Meds: New prednisone 10 mg tablet See Rx Instructions .ROUTE .COMPLEX Qty: 30 0RF Rx Instructions: 4 by mouth daily for three days then 3 by mouth daily for three days then 2 by mouth daily for three days then 1 by mouth daily for three days azithromycin [Zithromax Z-Kobi] 250 mg tablet See Rx Instructions .ROUTE .COMPLEX Qty: 6 0RF Rx Instructions: For 250 mg dose pack: take 500 mg today (day 1), then 250 mg for 4 days (days 2-5) benzonatate 100 mg capsule 100 mg PO TID PRN (Reason: cough) Qty: 20 0RF albuterol sulfate 90 mcg/actuation HFA aerosol inhaler 2 inh inhalation Q4H PRN (Reason: shortness of breath or wheezing) Qty: 8.5 0RF Print Language: Vietnamese Instructions: Upper Respiratory Infection (ED) Referrals: Luis Daniel Guerra MD [Primary Care Provider] - 1 week
[2025-03-07] MEDS: ALBUTEROL SULFATE 2.5 MG/3 ML VIAL NEB IH (10:28)
[2025-03-07 10:29] VITALS: PULSE 91; O2SAT 97
== END 2025-03-07 11:06 | disposition home or self-care (01) ==
PROVIDERS: Emergency Provider Emergency Medicine; PCP Family Medicine
DX: J06.9 Acute upper respiratory infection, unspecified (principal)
CPT/HCPCS: 71045; 94640; 99283

== ENCOUNTER 2025-09-20 10:38 | Outpatient (OUT) | payer MEDICAID, SELFPAY ==
--- OUTSIDE RECORDS SUMMARY | 2025-09-20 10:45 | XMS_ITS | Clinical Summary ---
Author Organization [facility] Address [address] [place] [address] Care Team Providers Care Cosmetic Account Coordinator Name Role Phone Unavailable Primary Care Provider Unavailabl e Social History Tobacco UseTypesPacks/DayYears UsedDateSmoking Tobacco: Never Assessed CommentsUnknownSex and Gender InformationValueDate RecordedSex Assigned at Not on fileLegal MrrDixjgp37/30/2022 12:21 AM EDTGender IdentityNot on file Sexual OrientationNot on file Last Filed Vital Signs Vital SignReadingTime TakenCommentsBlood Efaivbyu651/7108 10:19 AM EDT Bkezz515507/10/2021 10:19 AM FBVYjlrannagwv26.9 ??C (98.5 ??F)07/10/2021 10:19 AM EDTRespiratory Rate--Oxygen Saturation--Inhaled Oxygen Concentration--Xgfgis58.5 kg (166 lb 6.4 oz)07/10/2021 10:12 AM JEIOamibe152.5 cm (5' 7.5 )07/10/2021 10:12 AM EDTBody Mass Index25.68007/10/2021 10:12 AM EDT Plan of Treatment Not on file
--- OUTSIDE RECORDS SUMMARY | 2025-09-20 10:45 | XMS_ITS | Clinical Summary ---
Author Organization [facility] Address [address] [place] [address] Care Team Providers Care Director Epidemiology Name Role Phone Luis Daniel Guerra MD Primary Care Provider [phone] Allergies Active AllergyReactionsCriticalityNoted SufgVcxjoxlaTqykoglkfcam78/21/2023 Other Reaction(s): Not available Oxycodone-ZonzlgpnguhnnGsbdmsp78/19/2023 Other Reaction(s): Not available Medications MedicationSigDispense QuantityRefillsLast FilledStart DateEnd DateStatus ibuprofen 800 MG tablet TAKE 1 TABLET BY MOUTH WITH FOOD OR MILK EVERY 8 HOURS [id number] tiZANidine (Zanaflex) 4 MG tablet 4 mg every 6 (six) hours if neededActive albuterol HFA 90 mcg/act inhaler INHALE 2 PUFFS BY MOUTH EVERY 4 HOURS NEEDED FOR SHORTNESS OF BREATH OR SVHJTRIG73/21/2025Active albuterol HFA (Ventolin HFA) 90 mcg/act inhaler Indications:Acute bronchitis, unspecified organismInhale 2 puffs every 6 (six) hours if needed for wheezing or shortness of breath 8 g 5Active predniSONE (Deltasone) 20 MG tablet Indications:Acute bronchitis, unspecified organismTake 2 tabs orally by mouth once daily for 5 days. 10 tablet 5Active Active Problems ProblemNoted DateDiagnosed DateSciatica of right side04/18/2025 Family History Medical HistoryRelationNameCommentsHypertensionFatherRelationNameStatusComments Daughter 1AliveDaughter 2AliveFatherAliveMaternal GrandfatherDeceasedMaternal GrandmotherDeceasedMotherAlivePaternal GrandfatherDeceasedPaternal Grandmother DeceasedSonAlive Social History Tobacco UseTypesPacks/DayYears UsedDateSmoking Tobacco: Every DayCigarettes Tobacco Cessation:Ready to Q uit: Not Asked; Counseling Given: Not Answered Alcohol UseStandard Drinks/WeekCommentsNever0 (1 standard drink = 0.6 oz pure alcohol)CommentsNoSex and Gender InformationValueDate RecordedSex Assigned at BirthNot on fileLegal WykDxkwgp94/15/2023 6:52 PM EDTGender Identity Not on fileSexual OrientationNot on file Last Filed Vital Signs Vital SignReadingTime TakenCommentsBlood Wzjfaffg687/76005/03/2025 11:54 AM EDT Nzemj930405/03/2025 11:54 AM LDMOovbqvwufrx06.4 ??C (97.6 ??F)05/03/2025 11:54 AM EDTRespiratory Rate--Oxygen Oznzfpkzve18%05/03/2025 11:54 AM EDTInhaled Oxygen Concentration--Oymqqi25.3 kg (166 lb)05/03/2025 11:54 AM CSIGeqatr196.5 cm (5' 7.5 )08/25/2023 2:09 PM EDTBody Mass Index25.6208/25/2023 2:09 PM EDT Plan of Treatment Not on file Insurance Care Teams Team MemberRelationshipSpecialtyStart DateEnd Luis Daniel Guerra MD PCP - GeneralFamily Medicine08/07/23
--- OUTSIDE RECORDS SUMMARY | 2025-09-20 10:53 | XMS_ITS | CCD ---
Author Organization [facility] Care Team Providers Care Newspaper Columnist Name Role Phone EDEL ., DR JUNE Elizabeth Admitting Unavailable HOLLINGSWORTH ., DR JUNE Elizabeth Attending Unavailable HOY ., DR ROLAND Primary Care Unavailable GARRIDO ., MESSI Consulting Unavailable HOLLINGSWORTH ., DR JUNE Elizabeth Admitting Unavailable HOLLINGSWORTH ., DR JUNE Elizabeth Attending Unavailable HOY ., DR ROLAND Primary Care Unavailable HOY ., DR ROLAND Consulting Unavailable GARRIDO ., MESSI Consulting Unavailable MARIE, ADEN Admitting Unavailable MARIE, ADEN Attending Unavailable HOY ., DR ROLAND Primary Care Unavailable MARIE, ADEN Consulting Unavailable MARIE, ADEN Admitting Unavailable MARIE, ADEN Attending Unavailable HOY ., DR ROLAND Primary Care Unavailable MARIE, ADEN Consulting Unavailable MARIE, ADEN Admitting Unavailable MARIE, ADEN Attending Unavailable HOY ., DR ROLAND Primary Care Unavailable MARIE, ADEN Consulting Unavailable GENEVIEVE MCKEON Consulting Unavailable KUCHIPUDI, LOUISE Consulting Unavailable MARIE, ADEN Admitting Unavailable MARIE, ADEN Attending Unavailable HOY ., DR ROLAND Primary Care Unavailable MARIE, ADEN Consulting Unavailable Ricardo Roland Admitting Unavailable Ricardo Roland Attending Unavailable HOY ., DR ROLAND Primary Care Unavailable HOY ., DR ROLAND Primary Care Unavailable ALICIA TAPIA Admitting Unavailable ALICIA TAPIA Attending Unavailable SVITLANA WRIGHT Consulting Unavailable DELROY SIDDIQUI Consulting Unavailable MD Francisco Sanches Primary Care Provider MD Sunil Trevizo Emergency Provider [phone] Luan Cade MD Primary Care Provider [phone] Luan Cade MD Primary Care Provider SHARLENE PINO Attending Unavailable HYACINTH HUNT Attending Unavailable LILLY BENNETT Attending Unavailable LILLY BENNETT Referring Unavailable SHARLENE PINO Attending Unavailable Sunil Trevizo Attending Unavailable Sunil Trevizo Admitting Unavailable Francisco Sanches Primary Care Unavailable Allergies Allergy ClassificationReported Allergen(s)Allergy TypeDate of OnsetReaction(s) Facility (2 sources)Acetaminophen / oxyCODONEDrug [facility]Sam[facility] (13 sources)Acetaminophen / oxyCODONEDrug Iyakrsm56-96-8964KjccukeIE[facility] (13 sources)levoFLOXacinDrug Mwlcmfw11-28-3421[facility] Work Phone: Medications Current Medications MedicationDrug Class(es)DatesSig (Normalized)Sig (Original)acetaminophen 325 mg / HYDROcodone bitartrate 5 mg oral tablet (2 sources)Opioid AgonistStart: 11-45-6202zypw 1 tablet by mouth every six hours Hydrocodone-Acetaminophen ([place]) 5-325 mg tablet Active 1 TAB PO Q6H 8 2 October 13, 2019Start: 06-08-2019 End: 06-94-2932abfr 1 tablet by mouth every four to six hoursHydrocodone- Acetaminophen Discontinued 1 TAB PO EVERY 4-6 HOURS June 08, 2019 12:00am October 13, 2019 7:[id number] 200 actuat albuterol 0.09 mg/actuat metered dose inhaler (10 sources)beta2-Adrenergic AgonistStart: 04-18-2025 End: 98-82-5961tydv 2 puff(s) by inhalation every six hours for wheezing albuterol HFA (Ventolin HFA) 90 mcg/act inhaler Indications: Acute bronchitis, unspecified organismInhale 2 puffs every 6 (six) hours if needed for wheezing or shortness of breath 8 g 04/18/2025 ActiveStart: 06-12-6889fzfq 2 puff(s) by mouth every four hours as needed for wheezingalbuterol HFA 90 mcg/act inhaler INHALE 2 PUFFS BY MOUTH EVERY 4 HOURS NEEDED FOR SHORTNESS OF BREATH OR WHEEZING 03/07/2025 Activeamoxicillin 875 mg / clavulanate 125 mg oral tablet (2 sources)Penicillin-class AntibacterialStart: 04-18-2025 End: 63-05-1025mkim 1 tablet by mouth in the morningamoxicillin-clavulanate (Augmentin) 875-125 MG tablet Indications: Acute bronchitis, unspecified org anism Take 1 tablet (875 mg) by mouth in the morning and 1 tablet (875 mg) before bedtime. Do all this for 7 days. 14 tablet 04/18/2025 04/25/2025 Active cephalexin 500 mg oral capsule (1 source)Cephalosporin AntibacterialStart: 70-76-3919khoo 1 capsule by mouth four times dailyCephalexin (Keflex) 500 mg capsule Active 500 MG PO Four times daily October 13, 2019 1:00amibuprofen 800 mg oral tablet (9 sources)Nonsteroidal Anti-inflammatory DrugStart: 11-95-7952lbuw 1 tablet by mouth every eight hours at mealtime as neededibuprofen 800 MG tablet TAKE 1 TABLET BY MOUTH WITH FOOD OR MILK EVERY 8 HOURS NEEDED 08/17/2024ctive methylPREDNISolone (3 sources)CorticosteroidStart: 08-28-2023 End: 27-01-0040lojkzvUMQCXCRltdju (Medrol Dospak) 4 MG tablets Indications: Lateral epicondylitis of left elbow Asdirected 21 tablet 08/28/2023 11/23/2024 Discontinued (Therapy completed)Start: 75-22-2876iabeinVJADAQIrhwks (Medrol Dospak) 4 MG tablets Indications: Lateral epicondylitis of left elbow Asdirected 21 tablet 08/28/2023 ActivepredniSONE 20 mg oral tablet (5 sources)Start: 11-91-8056gxnp 2 tablets by mouth once dailypredniSONE (Deltasone) 20 MG tablet Indications: Acute bronchitis, unspecified organism Take 2 tabsorally by mouth once daily for 5 days. 10 tablet 04/18/2025 Active tiZANidine 4 mg oral tablet (9 sources)Central alpha-2 Adrenergic Agonisttake 1 tablet by mouth every six hours as neededtiZANidine (Zanaflex) 4 MG tablet 4 mg every 6 (six) hours if needed Active Problems Active Problems Problem ClassificationProblemDateDocumented DateEpisodic/ChronicAcute bronchitis (2 sources)Acute bronchitis; Translations: [Acute bronchitis, unspecified] 71-33-2248LmssfaveVehlcqgmvcjjo and screening for infectious disease (6 sources)Encounter for screening for infections with a predominantly sexual mode of transmission; Translations: [Patient encounter status]Onset: 08-28-2022 EpisodicMenstrual disorders (2 sources)Amenorrhea; Translations: [Amenorrhea, unspecified]51-75-2347Thnjefp Open wounds of head; neck; and trunk (1 source)Laceration - injury; Translations: [Laceration]73-86-7155OvpkswpsIazdl connective tissue disease (2 sources)Pain in right hand; Translations: [Pain in right hand]05-03-2025 EpisodicOther endocrine disorders (4 sources)Disorder of endocrine system; Translations: [Endocrine disorder, unspecified]66-01-3505JbhvdwvbPyseo screening for suspected conditions (not mental disorders or infectious disease) (2 sources)Patient encounter status; Translations: [Encounter for screening mammogram for malignant neoplasm of breast]39-13-7250KqvxulmjBmapd skin disorders (2 sources)Night sweats; Translations: [Generalized hyperhidrosis]11-23-2024 EpisodicSpondylosis; intervertebral disc disorders; other back problems (4 sources)Spondylosis without myelopathy or radiculopathy, lumbar region; Translations: [SPONDYLS W/O MYELO-/RADICULOP LUMB]Onset: 94-89-1814Uwomuta Spondylosis; intervertebral disc disorders; other back problems (6 sources)Muscle spasm of back; Translations: [Disorder of right sciatic nerve] Onset: 116979-25-3494AotpnukgBxtifda and strains (2 sources)Unspecified sprain of right ring finger, initial encounter; Translations: [Sprain of hand, unspecified site]76-10-1933IselqezbTmyajajiv- related disorders (1 source)Nicotine dependence, cigarettes, uncomplicated; Translations: [NICOTINE DEPEND CIGARETTES UNCOMP]Onset: 06-55-6922WffkpfxYbtspiumixn injury; contusion (3 sources)Contusion of rib; Translations: [Contusion of right front wall of thorax, initial encounter]43-87-0413LsqgrgijAkjnsknikhcl (1 source)CONTACT W/AND (SUSP) EXPOS COVID-19; Translations: [CONTACT W/AND (SUSP) EXPOS COVID-19]Onset: 11-21-2022 Past or Other Problems Problem ClassificationProblemDateDocumented DateEpisodic/ChronicAbdominal pain (5 sources)Pelvic and perineal pain; Translations: [Unspecified abdominal pain] Onset: 29-47-1576HlqnucxlElvsdlxhtizq of device; implant or graft (1 source)Other specified complication of genitourinary prosthetic devices, implants and grafts, initial encounter; Translations: [OTH COMP PROS DEVC IMPL GFT INIT]Onset: 11-85-0733QfrvguxyYijiwbthqgmdv and procreative management (5 sources)Encounter for sterilization; Translations: [ENCOUNTER FOR STERILIZATION]Onset: 74-49-2808ElpnnbnpSgzicqvatso chest pain (2 sources)Musculoskeletal chest pain; Translations: [Other chest pain]Onset: 723010-73-6823UhunuucsZukbs female genital disorders (1 source)Other specified conditions associated with female genital organs and menstrual cycle; Translations:[OTH SPEC COND FE GEN ORG MENST CYCL]Onset: 62-88-5954KpcjknteBhane female genital disorders (1 source)Other specified noninflammatory disorders of vagina; Translations: [OTH SPEC NONINFLAMMATORY D/O VAGINA]Onset: 03-35-4663XrvkeyorRzekg gastrointestinal disorders (1 source)Other ascites; Translations: [OTHER ASCITES]Onset: 36-78-2471Vfjfslox Results Test NameValueInterpretationReference RangeFacilityNo Panel Informationon 27-95-8232Bkcpvstephenie Nj MA 05/25/2025 12:50 PM Splint Application Date/Time: 05/03/2025 12:52 PM Performed by: Azucena Nj MA Authorized by: Lilly Bennett NP Consent: Consent obtained: Verbal Consent given by: Patient [place] protocol: Patient identity confirmed: Verbally with patient Procedure details: Location: Finger Finger location: R ring finger Splint type: Finger Supplies: Aluminum splint Attestation: Splint applied and adjusted personally by me Post-procedure details: Procedure completion: Tolerated well, no immediate complications Comments: Alumafoam applied to pts R ring finger then wrapped with a 2in dirk wrap. Pt tolerated well.[facility] CountyXR [facility]+ VIEWS RIGHTon 34-80-2764ON HAND 3+ VIEWS RIGHTTITLE OF EXAM: XR HAND 3+ VIEWS RIGHT REASON FOR EXAM: Right hand pain and swelling. TECHNIQUE: 3 radiographs of the right hand COMPARISONS: None. FINDINGS: No fracture. Anatomic alignment of the bones. Morphologically normal osseous structures. No appreciable soft tissue abnormality. No radiopaque foreign body. IMPRESSION: No fracture or dislocation. DICTATED ON: 05/03/2025 2:58 PM This report has been electronically signed and approved by the interpreting radiologist.NormalNot AvailableXR Hand - right 3 Viewson [id number] OF EXAM: XR HAND 3+ VIEWS RIGHT REASON FOR EXAM: Right hand pain and swelling. TECHNIQUE: 3 radiographs of the right hand COMPARISONS: None. FINDINGS: No fracture. Anatomic alignment of the bones. Morphologically normal osseous structures. No appreciable soft tissue abnormality. No radiopaque foreign body. IMPRESSION: No fracture or dislocation. DICTATED ON: 05/03/2025 2:58 PM This report has been electronically signed and approved by the interpreting radiologist. Renzo Patel MD - 05/03/2025 TITLE OF EXAM: XR HAND 3+ VIEWS RIGHT REASON FOR EXAM: Right hand pain and swelling. TECHNIQUE: 3 radiographs of the right hand COMPARISONS: None. FINDINGS: No fracture. Anatomic alignment of the bones. Morphologically normal osseous structures. No appreciable soft tissue abnormality. No radiopaque foreign body. IMPRESSION: No fracture or dislocation. DICTATED ON: 05/03/2025 2:58 PM This report has been electronically signed and approved by the interpreting radiologist. [facility] HealthcareRadiology Study observation (narrative)[facility] CenterXR Hand - right 3 ViewsOrdered By: Renzo Ordonez on 97-21-0330[facility] Work Phone: IGP,APTIMA HPV,AGE GDLNon 31-11-5643FSY GDLN ACOG TESTINGNote.[facility] HealthcareComment on above:TESTS RESULT FLAG UNITS REF RANGE LAB Clinician Provided Cytology Information Source.............Cervix;Endocervix No. of containers..01 ThinPrep Vial Age See LEWIS Anay... 3065 FLAG LEGEND: L-Low Normal,H-High Normal,LL-Alert Low,HH-Alert High <-Panic Low,>-Panic High,A-Abnormal,AA-Critical Abnormal Performed at: 01 =[address] [address] Ree Huynh MD, HPV APTIMANegativeNegativeNOMS HealthcareComment on above:This nucleic acid amplification test detects fourteen high- risk HPV types (16,18,31,33,35,39,45,51,52,56,58,59,66,68) without differentiation. Performed at: =[address] [id number] Insole And Heel Stiffener: Ree Huynh MD, Phone: [phone] Performed at: [address] [id number] Insole And Heel Stiffener: Ree Huynh MD, Phone: [phone] IGP, APTIMA HPV, RFX 16/18,45Note.NOMS HealthcareComment on above:TESTS RESULT FLAG UNITS REF RANGE LAB DIAGNOSIS: 02 NEGATIVE FOR INTRAEPITHELIAL LESION OR MALIGNANCY. THIS SPECIMEN WAS RESCREENED PART OF OUR DOT COMPLIANCE SPECIALIST PROGRAM. Specimen adequacy: 02 Satisfactory for evaluation. Endocervical and/or squamous metaplastic cells (endocervical component) are present. Performed by: 02 Alice Browne, Sled Maker ([facility]) QC reviewed by: 02 Rm Mccoy, Sled Maker ([facility]) . 02 Note: Note 02 The Pap smear is a screening test designed to aid in the detection of premalignant and malignant conditions of the uterine cervix. It is not a diagnostic procedure and should not be used as the sole means of detecting cervical cancer. Both false-positive and false-negative reports do occur. Test Methodology: Note 02 This liquid based ThinPrep(R) pap test was screened with the use of an image guided system. HPV Genotype Reflex Note 02 Criteria not met, HPV Genotype not performed. FLAG LEGEND: L-Low Normal,H-High Normal,LL-Alert Low,HH-Alert High <-Panic Low,>-Panic High,A-Abnormal,AA-Critical Abnormal Performed at: [address] [address] Ree Huynh MD, BRUSH-SPATULA CERVIX ENDOCERVIX CLINISYNCNOMS HealthcareRECURRENT VAGINITIS (HTRX)on 14-81-8502PYJOUFTPR VAGINAE 30.745AbnormalNOMS HealthcareATOPOBIUM VAGINAEDetectedAbnormalNOSC Healthcare BVAB 2,3 (BACTERIAL VAGINOSIS ASSOCIATED BACTERIA 2, 3); MOBILUNCUS ICB9SIRX HealthcareBVAB 2,3 (BACTERIAL VAGINOSIS ASSOCIATED BACTERIA 2, 3); MOBILUNCUS SPPNot detectedNOSC HealthcareCANDIDA ALBICANS, PARAPSILOSIS, [id number] HealthcareCANDIDA ALBICANS, PARAPSILOSIS, TROPICALISNot detectedNOMS Healthcare FREDIS VNUZSFVG1ELVS HealthcareCANDIDA GLABRATANot detectedNOMS Healthcare FREDIS [id number] HealthcareCANDIDA KRUSEINot detectedNOMS HealthcareCHLAMYDIA EGRYJGRCISL6MWVQ HealthcareCHLAMYDIA TRACHOMATISNot detectedNOMS Healthcare GARDNERELLA INJLEHWND8UDUC HealthcareGARDNERELLA VAGINALISNot detectedNOMS HealthcareInterpretation and review of laboratory resultsAbnormalNOMS Healthcare MEGASPHAERA (TYPES 1, 2)0NOMS HealthcareMEGASPHAERA (TYPES 1, 2)Not detectedNOMS HealthcareMYCOPLASMA LDODOZYJNO3HCBO HealthcareMYCOPLASMA GENITALIUMNot detected NOMS HealthcareNEISSERIA QFZBYEAOZXI8RXAH HealthcareNEISSERIA GONORRHOEAENot detectedNOMS HealthcareTRICHOMONAS VICTANEBN8MESI HealthcareTRICHOMONAS VAGINALISNot detectedNOMS HealthcareNOMS HealthcareHCG ( test) Ql (U)on 07-43-9748Wdfvphcpqbfozb and review of laboratory resultsNormalNOMS Healthcare Preg Test, UrNegativeNegativeNOMS HealthcareNOMS HealthcareActivated partial thromboplastin time (aPTT) in platelet poor plasma by coagulation aOrdered By: Sunil Trevizo on 03-25-7303gCXP Coag (PPP) [Time]29.4 s25.1-36.5FOhioHealth Hardin Memorial HospitalBasophils Auto (Bld) [#/Vol]Ordered By: Sunil Trevizo on 81-44-3381Yqchzvjhg (Bld) [#/Vol]0.1 10*3/uL0.0-0.2FOhioHealth Hardin Memorial HospitalBasophils/100 WBC Auto (Bld)Ordered By: Sunil Trevizo on 05-04-2023 Basophils/100 WBC (Bld)1.0 %.[facility] HospitalCalcium [Mass/volume] in Serum or PlasmaOrdered By: Sunil Trevizo on 04-10-6763Hoithmp [Mass/Vol]9.4 mg/dL8.6-10.3FOhioHealth Hardin Memorial HospitalCarbon dioxide, total [Moles/volume] in Serum or PlasmaOrdered By: Sunil Trevizo on 05-04-2023 CO2 [Moles/Vol]23.5 mmol/L21.0-31.0[facility] HospitalChloride [Moles/volume] in Serum or PlasmaOrdered By: Sunil Trevizo on 05-04-2023 Chloride [Moles/Vol]105 mmol/F51-635HdpczyxedSelect Medical Ohiohealth Rehabilitation HospitalCreatine kinase [Enzymatic activity/volume] in Serum or PlasmaOrdered By: Sunil Trevizo on 62-27-6316EM [Catalytic activity/Vol]93 U/T47-345GoecwkhmkSelect Medical Ohiohealth Rehabilitation HospitalCreatinine [Mass/volume] in Serum or PlasmaOrdered By: Sunil Trevizo on 68-57-0986Qnemiuposc [Mass/Vol]0.64 mg/dL0.60-1.20[facility] HospitalEosinophils Auto (Bld) [#/Vol]Ordered By: Sunil Trevizo on 05-04-2023 Eosinophils (Bld) [#/Vol]0.1 10*3/uL0.0-0.45[facility] Eosinophils/100 WBC Auto (Bld)Ordered By: Sunil Trevizo on 05-04-2023 Eosinophils/100 WBC (Bld)0.8 %.[facility] HospitalErythrocyte distribution width Auto (RBC) [Ratio]Ordered By: Sunil Trevizo on 05-04-2023 Erythrocyte distribution width (RBC) [Ratio]13.2 %11.9-15.3FOhioHealth Hardin Memorial HospitalGlucose [Mass/volume] in Serum or PlasmaOrdered By: Sunil Trevizo on 47-16-1782Godcejj [Mass/Vol]90 mg/mN81-715FwsuncpqjSelect Medical [facility]health Rehabilitation Hospital Comment on above:ADA recommended reference rangeRandom Glucose Reference Range is dependent on time and content of last meal. Glucose of more than 200 mg/dL in a nonstressed, ambulatory subject supports the diagnosisof Diabetes Mellitus. Hematocrit Auto (Bld) [Volume fraction]Ordered By: Sunil Trevizo on 05-04-2023 Hematocrit (Bld) [Volume fraction]38.3 %34.0-46.4FOhioHealth Hardin Memorial HospitalHemoglobin [Mass/volume] in BloodOrdered By: Sunil Trevizo on 05-04-2023 Hemoglobin (Bld) [Mass/Vol]13.0 g/dL11.8-15.4FOhioHealth Hardin Memorial Hospital Laboratory - CoagulationOrdered By: Sunil Trevizo on 38-47-6178UZ Coag (PPP) [Time]14.5 s9.0-12.9[facility] HospitalLeukocytes [#/volume] corrected for nucleated erythrocytes in Blood by Automated counOrdered By: Sunil Trevizo on 69-48-2936YWD corrected for nucl RBC Auto (Bld) [#/Vol]10.5 10*3/uL3.8-11.6FOhioHealth Hardin Memorial HospitalLymphocytes Auto (Bld) [#/Vol] Ordered By: Sunil Trevizo on 10-28-4692Yvtteleefok (Bld) [#/Vol]2.4 10*3/uL 1.00-4.8[facility] HospitalLymphocytes/100 WBC Auto (Bld)Ordered By: Sunil Trevizo on 66-20-9212Fbhqtkahbhe/100 WBC (Bld)22.4 %.[facility] Auto (RBC) [Entitic mass]Ordered By: Sunil Trevizo on 83-74-2136CFC (RBC) [Entitic mass]31.5 pg24.7-34.3FOhioHealth Hardin Memorial HospitalMCHC Auto (RBC) [Mass/Vol]Ordered By: Sunil Trevizo on 36-32-1648WANI (RBC) [Mass/Vol]33.9 g/dL32.0-35.0[facility] HospitalMCV Auto (RBC) [Entitic vol]Ordered By: Sunil Trevizo on 76-09-7965FQE (RBC) [Entitic vol]92.7 xM95-677QgldzfmvySelect Medical Ohiohealth Rehabilitation HospitalMonocyte distribution width [Entitic volume] in Blood by AutomatedOrdered By: Sunil Trevizo on 05-04-2023 Monocyte distribution width Auto (Bld) [Entitic vol]16.86 %0.00-20.00[facility] HospitalMonocytes Auto (Bld) [#/Vol]Ordered By: Sunil Trevizo on 53-87-3808Uajfoykrd (Bld) [#/Vol]0.5 10*3/uL0.0-0.8[facility] HospitalMonocytes/100 WBC Auto (Bld)Ordered By: Sunil Trevizo on 05-04-2023 Monocytes/100 WBC (Bld)4.6 %.[facility] HospitalNeutrophils Auto (Bld) [#/Vol]Ordered By: Sunil Trevizo on 19-17-7805Bgbwehzcxxi (Bld) [#/Vol] 7.5 10*3/uL1.8-7.7FOhioHealth Hardin Memorial HospitalNeutrophils/100 WBC Auto (Bld)Ordered By: Sunil Trevizo on 47-12-3698Kesakvxnytd/100 WBC (Bld)71.2 %. [facility] HospitalNo Panel InformationOrdered By: Sunil Trevizo on 93-87-0817B-Dimer Quantitative (PE/DVT)< 200 ng/mL0-243[facility] HospitalComment on above:The reference range for D-dimer is <243 ng/mL D- dimer units.D-dimer results must be used in conjunction [...] be increased in hospitalized patients due toco-morbid conditions.Estimated GFR (CKD-EPI)> 60.0 mL/Min [facility] HospitalPharmacy Creatinine Clearance (Ywny849.69 [facility] HospitalNucleated erythrocytes [Presence] in Blood by Automated countOrdered By: Sunil Trevizo on 68-90-0945Rdbfdlvas RBC Auto Ql (Bld)0.1 /100{WBC}0-0.5FOhioHealth Hardin Memorial HospitalPlatelet mean volume Auto (Bld) [Entitic vol]Ordered By: Sunil Trevizo on 63-34-1559Wlsnjrua mean volume (Bld) [Entitic vol]9.3 fL6.3-10.7FOhioHealth Hardin Memorial Hospital Platelet poor plasma international normalized ratio (INR) by coagulation assay (relatOrdered By: Sunil Trevizo on 33-53-2334TBV Coag (PPP) [Relative time]1.3 {INR}[facility] HospitalComment on above:INR Therapeutic Range A) Pre- and Peroperative OAT started two weeks before surgery. NOT HIP SURGERY: 1.5 - 2.5 HIP SURGERY: 2 - 3B) Primary and secondary prevention of venous THROMBOSIS: 2 - 3C) Active venous thrombosis, pulmonary embolismand prevention of recurrent venous thrombosis: 2 - 3D) Prevention of arterial thromboembolismincluding patients with mechanical heart valves: 3 - 4.5Platelets Auto (Bld) [#/Vol]Ordered By: Sunil Trevizo on 94-81-6110Rnxlygeti (Bld) [#/Vol]188 10*3/pJ402-972HdfowevgqSelect Medical Ohiohealth Rehabilitation HospitalPotassium [Moles/volume] in Serum or PlasmaOrdered By: Sunil Trevizo on 05-04-2023 Potassium [Moles/Vol]3.6 mmol/L3.5-5.1FOhioHealth Hardin Memorial HospitalRBC Auto (Bld) [#/Vol]Ordered By: Sunil Trevizo on 20-07-7036FNZ (Bld) [#/Vol]4.13 10*6/uL3.60-5.00[facility] Hospitalerum or plasma anion gap determinationOrdered By: Sunil Trevizo on 25-16-8903Jlyzu gap [Moles/Vol]12.1 mmol/L6.0-15.0[facility] Hospitalodium [Moles/volume] in Serum or PlasmaOrdered By: Sunil Trevizo on 07-41-5382Dzvvim [Moles/Vol]137 mmol/L 136-145[facility] HospitalTroponin I.cardiac [Mass/volume] in Serum or Plasma by Detection limit <= 0.01 ng/Ordered By: Sunil Trevizo on 60-88-5083Gcxptuij I.cardiac DL <= 0.01 ng/mL [Mass/Vol]4.3 pg/mL0.0-15.0 [facility] HospitalUrea nitrogen [Mass/volume] in Serum or Plasma Ordered By: Sunil Trevizo on 07-91-6735Wfac nitrogen [Mass/Vol]14 mg/dL7-25 [facility] HospitalWBC Auto (Bld) [#/Vol]Ordered By: Sunil Trevizo on 07-03-9152BNS (Bld) [#/Vol]10.5 10*3/uL3.8-11.6FOhioHealth Hardin Memorial HospitalCBC AUTO DIFFon 70-91-3045ACNG #0.0 103/ulNormal0.0-0.1The [facility] HospitalComment on above:Performed By: #### CBC ####[facility] Qivlywygte[address] [place], [place] [address]Dr.Colleen ChangBasophils/100 WBC (Bld)0.3 %Normal0.2-2.0[facility] HospitalComment on above:Performed By: #### CBC ####[facility] Ltwhrcontp[address] [place], [place] [address]Dr.Yilan ChangEO #0.1 103/ulNormal0.0-0.7The [facility] HospitalComment on above:Performed By: #### CBC ####[facility] Vivuzdfxxt[address] [place], [place] [address]Dr.Colleen ChangEosinophils/100 WBC (Bld)1.2 %Normal 0.9-7.0[facility] HospitalComment on above:Performed By: #### CBC ####[facility] Yclkrbsoha[address] [place], [place] [address]Dr.Solgael Marshall Erythrocyte distribution width (RBC) [Ratio]12.7 %Wrlrjf55.0-15.0[facility] HospitalComment on above:Performed By: #### CBC ####[facility] Emrcvvvtqz[address] [place], [place] [address]Dr.Colleen ChangHematocrit (Bld) [Volume fraction]41.1 %Sfluro86.0-48.0[facility] HospitalComment on above:Performed By: #### CBC ####[facility] Sxrvmatlci[address] [place], [place] [address]Dr.Colleen ChangHemoglobin (Bld) [Mass/Vol]13.8 g/dL Ulkrwj06.0-16.0[facility] HospitalComment on above:Performed By: #### CBC ####[facility] Nkfuucvctl[address] [place], [place] [address]Dr. Sollan ChangIG #0.02 10e3/ulNormal0.00-0.03The [facility] HospitalComment on above: Performed By: #### CBC ####[facility] Itstqtpoui[address] [place], [place] [address]Dr.Colleen ChangIG %0.3 %Normal0.0-0.5The [facility] Island HospitalComment on above:Performed By: #### CBC ####[facility] [address] [address]Dr.Colleen RolandoLYMPH #2.2 103/ulNormal1.2-3.8The [facility] HospitalComment on above:Performed By: #### CBC ####[facility] Nadykalpgm[address] [place], [place] [address]Dr. Colleen MarshallLymphocytes/100 WBC (Bld)29.6 %Fwfulf06.5-60.0[facility] Comment on above:Performed By: #### CBC ####[facility] Abblzfsvrj[address] [place], [place] [address]Dr.Colleen MarshallMANUAL DIFF REQNONormalThe [facility] HospitalComment on above:Performed By: #### CBC ####[facility] Hbuxzrwyll969[address] [place], [place] [address]Dr.Solgael MarshallH (RBC) [Entitic mass]31.3 swWcktnc65.7-34.0The [facility] HospitalComment on above: Performed By: #### CBC ####[facility] Nnooopamxv[address] [place], [place] [address]Dr.Colleen MarshallMCHC (RBC) [Mass/Vol]33.6 g/dLNormal 29.9-35.2The [facility] HospitalComment on above:Performed By: #### CBC ####[facility] Qfpjwegeyr040[address] [place], [place] [address]Dr. Solgael MarshallV (RBC) [Entitic vol]93.2 oHPmjque69.0-99.0[facility] Comment on above:Performed By: #### CBC ####[facility] Oniroyemjc[address] [place], [place] [address]Dr.Solgael RolandoMONO #0.3 103/ulNormal0.3-0.8 The [facility] HospitalComment on above:Performed By: #### CBC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 may be struggling with addiction, tell your health care technician and ask for guidance or call SAMHSA?S National Helpline at 7-399-132-SMQV. v Source: US Department of Health and Human Services/Center for Disease Control & Prevention [facility] Medications Given: Medication Dose Route hydromorphone 0.50 mg IV Push Left Antecubital Loc Medication Information: Comment: Pharmacy Information: Thank you for choosing [facility] Patient Education Materials: Chest Pain (Nonspecific) It is often hard to give a specific diagnosis for the cause of chest pain. There is always a chancethat your pain could be related to something serious, such as a heart attack or a blood clot in thelungs. You need to follow up with your health care provider for further evaluation. CAUSES ? Heartburn. ? Pneumonia or bronchitis. ? Anxiety or stress. ? Inflammation around your heart (pericarditis) or lung (pleuritis or pleurisy). ? A blood clot in the lung. ? A collapsed lung (pneumothorax). It can develop suddenly on its own (spontaneous pneumothorax) orfrom trauma to the chest. ? Shingles infection [...] ambulatory electrocardiogram (ECG). An ECG records your heartbeatpatterns over a 24-hour period. You may also have other tests, such as: ? Transthoracic echocardiogram (TTE). During echocardiography, sound waves are used to evaluate howblood flows through your heart. ? Transesophageal echocardiogram (CLARISSE). ? Cardiac monitoring. This allows your health care provider to monitor your heart rate and rhythm in real time. ? Holter monitor. This is a portable device that records your heartbeat and can help diagnose heartarrhythmias. It allows your health care provider to [...] testing if your chest pain does not goaway. ? Keep any follow-up appointments you made. [...] Document Reviewed: 06/08/2009 ExitCare? Patient Information ?2015 el?. This information is not intended to replace advice given to you by your health care provider. Make sure you discuss any questions you have with yourhealth care provider. TINA Odell TIFFANY B , have received the following patient education materials/instructions and haveverbalized understanding: Patient Education Materials: Chest Pain (Nonspecific) Follow-up Instructions: With: Address: When: Luan Cade [address] [facility] [address] [place] [phone] Business (1) In 3 days 05/31/2018 Comments: [...] next 6 weeks. Treatment - Currently the [place] [employer] recommends that all patients who present complaining of chest pain should receive a stress test within 48-72 hours. Avoid strenuous activity whilestill having pain and until you see your doctor. Return to ED for - Worsening or continuing pain, shortness of breath, passing out, lightheadedness,dizzy, neck pain, sweating, fever, cough Follow up [...] You have expressed understanding of the results, yourdiagnosis, and its implications. All of your questions have been answered. Please read your discharge instructions carefully and follow them as directed. You have been provided access to your imagingand lab results and had any abnormalities explained, [...] emergency department, or your doctor. Before taking anymedication prescribed in the Emergency Department, please review the medication side effects and drug interactions (http://www.rxlist.com/script/main/hp.asp) as they may interact with your home medications. Having trouble affording medications? Try Bapul! (This is not a hospital endorsed website, merely a recommendation based on my own personal experiences with CR2) Questions? Contact me anytime. Saul Tate MD, TAL Prescriptions: Patient Signature Date Clinician/Nurse Signature Date 05/29/18 00:01:41[facility] CenterMagnesiumon 05-29-2018 Magnesium mass conc2.0 mg/dLNormal1.3-2.4[facility] MarylandComment on above:Performed By: #### [id number], [id number], [id number], 10384175, 16579129, 2731002, 57684926, 9054210, 7018289, 63266619 #### [facility] [address] [place], [place] [address]Rpuzciv 41-89-7651Thlwgjpvoorm Ql (Bld)PresentNoCorey HospitalComment on above:Order Comment: Order Added by Discern Expert.Performed By: #### [id number], 7343559, 62317941, 36554018, 58357591, 1988598, 09237566, 7969933, 8115958, 58428893 #### [facility] [address] [place], [place] [address]Agwatxijybg Auto Ql (Bld)[facility] HospitalComment on above:Order Comment: Order Added by Discern Expert.Performed By: #### [id number], 3335286, 86381149, 48735280, 76825817, 4065293, 40822999, 1425130, 4336271, 13258059 #### [facility] [address] [place], [place] [address]Nirzednsdz Ql (Bld)[facility] Comment on above:Order Comment: Order Added by Discern Expert.Performed By: #### [id number], 8325447, 80387575, 17254877, 92586945, 9024160, 40633374, 2625099, 8207483, 97672225 #### [facility] [address] [place] [address]Dmgvlysdub Interp Godfrey (Bld)See MorphologyHighland District HospitalComment on above:Order Comment: Order Added by Discern Expert. Performed By: #### [id number], 6153880, 12782783, 83351798, 06767549, 3690526, 58813909, 9242714, 5806384, 90191834 #### [facility] [address] [place], [place] [address]Lnlupbrjxckpl LM Ql (Bld)[facility] HospitalComment on above:Order Comment: Order Added by Discern Expert.Performed By: #### 5730538, 3898276, 50506662, 49183143, 19445464, 7334466, 28625844, 5511132, 2320848, 28400644 #### [facility] [address] [place], [place] [address]ER & PTTon 82-48-7324pUVM Coag time (PPP)27.5 second(s)Normal 25.1-36.5[facility] MarylandComment on above:Result Comment: Heparin therapeutic range (represented by Anti-Factor Xa activity of 0.2 - 0.4 U/mL) corresponds to PTT of 53.9 - 87.4 sec.Performed By: #### 1037514, 4458358, 77884349, 43512915, 96667976, 2061415, 46185571, 9928961, 3949973, 06989953 #### [facility] [address] [place], [place] [address]GEG Coag RelTime (PPP)1.3 {INR}[facility] Comment on above:Result Comment: INR results are specifically intended to assess patients stabilized on long-term Anticoagulation therapy suggested INR?s ?Less Intensive Anticoagulation? 2.0 ? 3.0 Conventional Range 3.0 ? 4.5Performed By: #### 0088325, 0402102, 73331423, 36995910, 76126186, 7369179, 98042775, 4857891, 1612025, 61256381 #### [facility] [address] [place], [place] [address]Mjwxsuqqdlq time (PT) Coag time (PPP)14.4 second(s)High 10.2-12.9[facility]erry HospitalComment on above:Performed By: #### 2592369, 6252597, 66521805, 55301432, 27130225, 0774080, 21135267, 0864215, 1760370, 00205333 #### [facility] [address] [place], [place] [address]Wqiqolku 0 Hr.on 82-09-4655Qoojveeu I.cardiac mass concng/mL Normal<=0.03[facility] Ferry HospitalComment on above:Result Comment: New Troponin Assay 03/31/14 [facility] [place] Cutoff value > or = 0.03 ng/mL in conjunction with clinical conditions of myocardial infarction. (www.escardio.org/guidelines)Performed By: #### 7091294, 1689841, 34581944, 78532202, 25405069, 3788071, 80421096, 8483731, 0221198, 06621112 #### [facility] [address] [place], [place] [address]dKTOfz 43-82-5468TLG/1.73 sq M predicted among blacks MDRD vol rate/area (S/P/Bld)mL/min/{1.73_m2}Normal>=59[facility] Ferry HospitalComment on above:Order Comment: Order added by Discern Expert.Result Comment: eGFR is race adjusted. AA=.Performed By: #### 5073701, 0917838, 46624941, 38493954, 32422660, 6351419, 12068819, 3658568, 5512682, 64413128 #### [facility] [address] [place], [place] [address]IZS/1.73 sq M predicted among non-blacks MDRD vol rate/area (S/P/Bld)mL/min/{1.73_m2}Normal>=59[facility] HospitalComment on above: Order Comment: Order added by Discern Expert.Result Comment: Chronic kidney disease could be indicated at eGFR's of less than 60 mL/min/1.73m2. Kidney failure is indicated at less than 15 mL/min/1.73m2.Performed By: #### 4623963, 5004520, 18938515, 11710317, 55429005, 1640376, 21794296, 1503835, 6117739, 23244878 #### [facility] [address] [place] [address] Vital Signs Date TimeVital SignValuePerforming JnijdapkmYyrzpzdl88-58-5090 11:54-0400Body mass index (BMI) [Ratio]25.62 kg/r5MhwldueLilly Bennett DIGITAL MARKETING PROGRAM MANAGER Work Phone: [facility] CenterIrfhcqfgjr96-30-8939 11:54-0400Body temperature 97.59 [degF]Lilly Bennett DIGITAL MARKETING PROGRAM MANAGER Work Phone: [facility] CenterYziwnwtilw58-04-8953 11:54-0400Body myhgbu44.3 kg Lilly Bennett DIGITAL MARKETING PROGRAM MANAGER Work Phone: [facility] CenterYyqjmbdgmy74-22-1938 11:54-0400Diastolic blood hugoghvo14 mm[Hg]Lilly Bennett DIGITAL MARKETING PROGRAM MANAGER Work Phone: [facility] CenterJpqrcuzvgj64-53-4023 11:54-0400Heart rate75 /min Lilly Donald DIGITAL MARKETING PROGRAM MANAGER Work Phone: [facility] CenterRqkynxngus83-45-5583 11:54-5007XmS6% (BldA) [Mass fraction]97 %Lilly Peraltarubina DIGITAL MARKETING PROGRAM MANAGER Work Phone: [facility] CenterRrhbywwnxe36-76-0452 11:54-0400Systolic blood hmtlkbdu147 mm[Hg]Lilly Cardosojazmyne DIGITAL MARKETING PROGRAM MANAGER Work Phone: [facility] CenterObaznkgtfa49-42-4019 09:18-0400Body mass index (BMI) [Ratio]25.62 kg/q9Lwmmrd Workman PA Work Phone: [facility] CenterWhbhriihpk88-96-0168 09:18-0400Body temperature 97.7 [degF]Summer Workman PA Work Phone: [facility] CenterZogaoryfox80-56-5700 09:18-0400Body qofgnn70.3 kg Summer Workman PA Work Phone: [facility] CenterRcokearokc65-28-9649 09:18-0400Diastolic blood czougjlh65 mm[Hg]Summer Workman PA Work Phone: [facility] CenterIgxkkwqndl47-45-4466 09:18-0400Heart rate76 /min Summer Workman PA Work Phone: [facility] CenterIjjdlrwrsy82-69-9257 09:18-8071DrH9% (BldA) [Mass fraction]97 %Summer Workman PA Work Phone: [facility] CenterJwqgjayydx77-62-5432 09:18-0400Systolic blood folxldjo242 mm[Hg]Summer Workman PA Work Phone: [facility] CenterWtnokfpivs68-74-6988 15:20-0500Body mass index (BMI) [Ratio]25.62 kg/m2Sharlene Pino PA Work Phone: noDeaconess Incarnate Word Health SystemCyrslwnblp86-42-8536 15:20-0500Body ffxyxv88.3 kg Sharlene Pino PA Work Phone: [facility] CenterKrdgeqbjfu65-58-4803 15:20-0500Diastolic blood apbagzgr27 mm[Hg]Sharlene Pino PA Work Phone: [facility] CenterCskowtufci35-96-8169 15:20-0500Systolic blood mm[Hg]Sharlene Pino PA Work Phone: [phone]-[facility] CenterOwhughuaox59-15-5460 10:16-0500Body mass index (BMI) [Ratio]25.77 kg/m2Sharlene Edwardey PA Work Phone: [phone] [place], [place] [address]Aqmynnwmbg92-85-5312 10:16-0500Body sjbohx95.75 kgAmy Newell PA Work Phone: [phone] [place], [place] [address]Rrlipxrzgn36-24-0768 10:16-0500Diastolic blood qorzcwyo84 mm[Hg]Sharlene Alvarez PA Work Phone: [phone] [place], [place] [address]Gzagxtzxkv66-91-7723 10:16-0500Systolic blood guqdktyr107 mm[Hg]Sharlene Pino PA Work Phone: [phone] [place], [place] [address]Xrdkffhbac96-03-4207 15:35-0400Diastolic blood cpkvyfgn20 mm[Hg]MD Francisco Sanches Work Phone: 1([phone])[address]06-18-2023 15:35-0400 Heart rate63 /minMD Francisco Sanches Work Phone: [phone])[address]06-18-2023 15:35-0400 Respiratory rate20 /minMD Francisco Sanches Work Phone: [phone]06-18-2023 15:35-0400 SaO2% (BldA) [Mass fraction]97 %MD Francisco Sanches Work Phone: [phone] [place], [place] [address]06-18-2023 15:35-0400 Systolic blood qtoydxda37 mm[Hg]MD Francisco Sanches Work Phone: [phone]06-18-2023 14:10-0400 Body ycouos398.91 cmMD Francisco Sanches Work Phone: [phone]06-18-2023 14:10 Body amyzlmdpizo58.6 [degF]MD Francisco Sanches Work Phone: [facility]06-18-2023 14:10 Body qijenl91 kg Francisco Myron Work Phone: [facility] Encounters Encounter DateEncounter [facility] ProviderFacilityStart: 05-03-2025 End: 11-54-5911Wrtofseqe encounterLinqi Bennett NP Work Phone: noms SWS UCStart: 05-03-2025 End: 72-31-9084Lymbcf outpatient visit 25 minutesLilly Bennett NP Work Phone: [facility] SWS UCComment on above:Right hand pain (Primary Dx); Contusion of right hand, initial encounter; Sprain of right ring finger, unspecified site of digit, initial encounterStart: 05-03-2025 End: 71-60-0341noioidviypVTREXUH R LACONISNot AvailableStart: 04-18-2025 End: 37-92-7855Engbpn outpatient visit 25 minutesSuwendy CASTRO Work Phone: n[facility] SWS UCComment on above:Acute bronchitis, unspecified organism (Primary Dx)Start: 04-18-2025 End: 53-16-1266jxjnaujcpuWRRJNI M WORKMANNot AvailableStart: 01-05-2025 End: 56-13-6182Lbtwvne encounter Leslie CASTRO Work Phone: noMS HealthcareStart: 01-05-2025 End: 17-34-5167Vlmfpwkq preventive med est patient 40-64yrsAmy Alvarez CASTRO Work Phone: [facility] BCP OBComment on above:Well woman exam with routine gynecological exam; Breast cancer screening by mammogram; Screening examination for STIStart: 01-05-2025 End: 26-32-6249apijxfmlljNZQ RAMEYNot AvailableStart: 01-05-2025 End: 34-38-2525Gjidib kiannaheetSharlene CASTRO Work Phone: [facility] OBStart: 01-05-2025 End: 79-58-8734Vrcmkh flowsheetSharlene CASTRO Work Phone: [facility] OBStart: 01-05-2025 End: 94-81-1795Sxvuwrjdn Result EncounterSharlene Alvarez CASTRO Work Phone: noMS External Department UnsolicitedStart: 01-05-2025 End: 79-50-3459Etapoayz Result EncounterSharlene Alvarez CASTRO Work Phone: [facility] External Department UnsolicitedStart: 11-23-2024 End: 57-97-9502Mqkryr flowsheetSharlene CASTRO Work Phone: [facility] BCP OBStart: 11-23-2024 End: 40-46-7081Ztgcjx flowsheetSharlene CASTRO Work Phone: [facility] BCP OBStart: 11-23-2024 End: 10-93-6639Bsmknf outpatient visit 15 minutesAmy Alvarez CASTRO Work Phone: [facility] B[facility] OBComment on above:Amenorrhea; Hormone imbalance; Night sweats; Hormone disorderStart: 11-23-2024 End: 23-95-1708jsbiufrllrTRP RAMEYNot AvailableStart: 05-04-2023 End: 23-68-7932Idvfurvsu department patient visitMD Duranen Myron Work Phone: [facility] Work Phone: Start: 59-75-2041Zbfokxgyo for preprocedural laboratory examinationCOREY [facility] Community Hospitaltart: 10-02-2022 End: 41-66-1107wgxrajrjslPUKFU FAZIOFacility:J1Cfxnd: 31-38-1285anfdzozwshPTSOI FAZIOFacility:B6Tepjh: 09-25-2022 End: 01-04-8347xvnubphyslLVTAY FAZIOFacility:M1Msipx: 09-25-2022 End: 75-67-5152Qcwnxbeyd for preprocedural laboratory examinationCOREY [facility] Facility:J7Lwlfq: 08-28-2022 End: 57-31-0367axuvzxrnmqNNFLG FAZIOFacility:D7Uzdap: 08-18-2022 End: 22-38-4028dsdbknijyyJH LUAN CADE .Facility:R6Vyitk: 48-19-8906hidmcmlqxb DR JUNE [place] .Facility:L9Miaxv: 06-13-2022 End: 96-88-9372foapkcihguVT VIMAL S KUMAR .Facility:B1Xkmzy: 04-08-2022 ambulatoryDavid WestFacility:H1 Procedures DateProcedureProcedure DetailPerforming ClinicianStart: 07-32-7464XC SPLINTING / CASTING / STRAPPINGCamry Nj MAStart: 30-54-7878Fufwf hand minimum 3 views Lilly Bennett NP Work Phone: Start: 70-11-4896SGIIXMOSF VAGINITIS (HTRX)Sharlene CASTRO Work Phone: Start: 67-57-2957EME,APTIMA HPV,AGE GDLNAmy Alvarez CASTRO Work Phone: Start: 86-08-3524Vjbvm test visual color cmprsn methsAmy Alvarez CASTRO Work Phone: Start: 05-03-5646Zcgjz chest X-rayMD Francisco Myron Work Phone: Plan of Treatment DateCare ActivityDetailAuthorStart: 01-05-2025 End: 93-09-2795Wrjwrkp encounter procedureNOMS BCP OBComment on above:Arrived Start: 01-05-2025 End: 05-64-6360HV Breast - bilateral ScreeningBilateral screening mammogram Imaging Routine Breast cancer screening by mammogram Expected: 01/05/2025 (Approximate), Expires: 03/05/2026[facility] Work Phone: comment on above:Expected: 01/05/2025 (Approximate), Expires: 03/05/2026Start: 11-23-2024 End: 18-03-7397T-peptideC-peptide Lab Routine Hormone disorder Expected: 11/23/2024 (Approximate), Expires: 11/23/2025[facility] HealthcareComment on above: Expected: 11/23/2024 (Approximate), Expires: 11/23/2025Start: 11-23-2024 End: 94-82-5041Zvikjwpr freeCortisol, free Lab Routine Hormone disorder Expected: 11/23/2024 (Approximate), Expires: 11/23/2025[facility] HealthcareComment on above:Expected: 11/23/2024 (Approximate), Expires: 11/23/2025Start: 11-23-2024 End: 39-35-2120Htddvxh [Mass/volume] in Serum or PlasmaGlucose, random Lab Routine Hormone disorder Expected: 11/23/2024 (Approximate), Expires: 11/23/2025 [facility] HealthcareComment on above:Expected: 11/23/2024 (Approximate), Expires: 11/23/2025Start: 11-23-2024 End: 28-35-7371Lbnhimn, totalInsulin, total Lab Routine Hormone disorder Expected: 11/23/2024 (Approximate), Expires: 11/23/2025[facility] HealthcareComment on above:Expected: 11/23/2024 (Approximate), Expires: 11/23/2025Start: 11-23-2024 End: 83-15-7705Mhzalwifs serumSerotonin serum Lab Routine Hormone disorder Expected: 11/23/2024 (Approximate), Expires: 11/23/2025[facility] HealthcareComment on above:Expected: 11/23/2024 (Approximate), Expires: 11/23/2025Start: 11-23-2024 End: 23-28-5740NjhyihlwrsiojZolrplbggapio Lab Routine Hormone disorder Expected: 11/23/2024 (Approximate), Expires: 11/23/2025[facility] HealthcareComment on above: Expected: 11/23/2024 (Approximate), Expires: 11/23/2025Start: 11-23-2024 End: 39-06-2849Ljqivxuromsih AntibodyThyroglobulin Antibody Lab Routine Hormone disorder Expected: 11/23/2024 (Approximate), Expires: 11/23/2025[facility] Comment on above:Expected: 11/23/2024 (Approximate), Expires: 11/23/2025Start: 11-23-2024 End: 05-40-5273Ywkiauhjeat [Units/volume] in Serum or PlasmaLDS HOSPITAL [facility] Comment on above:Ordered: 11/23/2024Expected: 11/23/2024 (Approximate), Expires: 11/23/2025Start: 11-23-2024 End: 56-86-7439NM PelvisUS Pelvis w/ TV Imaging Routine Amenorrhea Expected: 11/23/2024, Expires: 11/23/2025[facility] HealthcareComment on above:Expected: 11/23/2024, Expires: 11/23/2025Start: 11-23-2024 End: 91-51-0203Cmdhvmu encounter zlitgmvgb08/07/2025 10:10 AM EST Office Visit [facility] [address] [place] [phone] Sharlene Pino PA [address] [place] [address] [facility] OBComment on above:ArrivedCBC W Auto Differential panel - BloodCBC and differential Lab Routine Amenorrhea Ordered: 11/23/2024[facility] Work Phone: comment on above:Ordered: 11/23/2024HLAMYDIA TRACHOMATIS (GENITO/STI)CHLAMYDIA TRACHOMATIS (GENITO/STI) Lab Routine Screening examination for STI Ordered: 01/05/2025[facility] HealthcareComment on above:Ordered: 01/05/20257777QRVY-bimmdetGRUL-bwvpalb Lab Routine Hormone disorder Ordered: 11/23/2024[facility] HealthcareComment on above:Ordered: 11/23/2024EstradiolEstradiol Lab Routine Hormone disorder Ordered: 11/23/2024[facility] HealthcareComment on above: Ordered: 11/23/2024EstroneEstrone Lab Routine Hormone disorder Ordered: 11/23/2024[facility] HealthcareComment on above:Ordered: 11/23/2024Ferritin [Mass/volume] in Serum or PlasmaFerritin Lab Routine Hormone disorder Ordered: 11/23/2024[facility] HealthcareComment on above:Ordered: 11/23/2024Hemoglobin A1c/Hemoglobin.total in BloodHemoglobin A1c Lab Routine Hormone disorder Ordered: 11/23/2024[facility] HealthcareComment on above:Ordered: 11/23/2024Neisseria gonorrhoeae DNA [Presence] in Unspecified specimen by MARGOT with probe detection Neisseria gonorrhea DNA probe, direct Lab Routine Screening examination for STI Ordered: 01/05/2025[facility] HealthcareComment on above:Ordered: 01/05/2025Patient EducationMuscle and Bone Pain (DC)[facility] Work Phone: [facility] referralWay[facility] Work Phone: ProgesteroneProgesterone Lab Routine Hormone disorder Ordered: 11/23/2024[facility] HealthcareComment on above:Ordered: 11/23/2024Prolactin Prolactin Lab Routine Amenorrhea Ordered: 11/23/2024[facility] HealthcareComment on above:Ordered: 11/23/2024Sex hormone binding globulinSex hormone binding globulin Lab Routine Hormone disorder Ordered: 11/23/2024[facility] HealthcareComment on above:Ordered: 11/23/2024SURESWAB(R) ADVANCED VAGINITIS PLUS, TMASURESWAB(R) ADVANCED VAGINITIS PLUS, TMA Pathology and Cytology Routine Screening examination for STI Ordered: 01/05/2025[facility] HealthcareComment on above:Ordered: 01/05/2025T3, reverseT3, reverse Lab Routine Hormone disorder Ordered: 11/23/2024[facility] HealthcareComment on above:Ordered: 11/23/2024TESTOSTERONE, FREE TESTOSTERONE, FREE Lab Routine Hormone disorder Ordered: 11/23/2024[facility] HealthcareComment on above:Ordered: 11/23/2024Testosterone, free, total Testosterone, free, total Lab Routine Hormone disorder Ordered: 11/23/2024[facility] HealthcareComment on above:Ordered: 11/23/2024THIN PREP TIS PAP AND HR HPV DNA THIN PREP TIS PAP AND HR HPV DNA Pathology and Cytology Routine Well woman exam with routine gynecological exam Ordered: 01/05/2025[facility] HealthcareComment on above:Ordered: 01/05/2025Thyroid peroxidase antibodyThyroid peroxidase antibody Lab Routine Hormone disorder Ordered: 11/23/2024[facility] HealthcareComment on above: Ordered: 11/23/2024Thyroxine (T4) free [Mass/volume] in Serum or PlasmaT4, free Lab Routine Hormone disorder Ordered: 11/23/2024[facility] HealthcareComment on above: Ordered: 11/23/2024Triiodothyronine (T3) Free [Mass/volume] in Serum or Plasma T3, free Lab Routine Hormone disorder Ordered: 11/23/2024[facility] HealthcareComment on above:Ordered: 11/23/2024Vitamin D 1,25 dihydroxyVitamin D 1,25 dihydroxy Lab Routine Hormone disorder Ordered: 11/23/2024[facility] HealthcareComment on above: Ordered: 11/23/2024 Payers DatePayer CategoryPayerPoly [id number] MedicaidANTHEM BCBS [place]ICAID [place] [id number] 2023Medicaid [id number] [id number] .1.106164.3.57[id number] 1.009520.3.57[id number] 2.840.1.119543.3.57[id number] 2.16840.1.661263.3.57[id number] 2.840.1.020771.3.57[id number] 2.840.1.269508.3.57[id number] 2.840.1.443266.3.57[id number] 2.840.1.092909.3.57[id number] 2.0.1.372309.3.57[id number] 2.840.1.538689.3.57[id number] 2.0.1.614358.3.57[id number] 2.0.1.216748.3.579.2.1259 [id number] [id number] 2.0.1.258648.3.579.2.531 Social History DateTypeDetailFacilityStart: 50-96-1703Zzardxi smoking status NHISSmoker (finding)[facility] CenterStart: 74-87-4624Yld Assigned At FemaleWayne Healthcare Main Campus CenterStart: 65-62-0227Rmrgqvy smoking status NHISSmokes tobacco dailyNOMS HealthcareHistory of tobacco useCigarette Smoker [facility] HealthcareStart: 08-25-2023 End: 51-86-6080Srvojojvz beverage intakeLifetime non-drinker (finding)[facility] HealthcareStart: 08-25-2023 End: 21-99-2223Teytjkz of Social functionCameron Regional Medical CenterStart: 08-25-2023 End: 09-99-1274Dmvxevp use panelCameron Regional Medical CenterStart: 20-69-3510Evc assigned at birthNot on [facility] Clinical Notes 06-13-2022 to 05-03-2025 Note Date & [id number] Telephone encounter Note* Telephone Encounter - Santo Fleming MA - 05/03/2025 6:36 PM EDT Contacted pt went over results above, pt understood and had no further questions at the time of call. [facility] [id number] Miscellaneous Notes* Telephone Encounter - Santo Fleming MA - 05/03/2025 6:36 PM EDT Contacted pt went over results above, pt understood and had no further questions at the time of call. * Telephone Encounter - Jie Deutsch NP - 05/03/2025 6:34 PM EDT Please let the patient know the final read on her hand xray states: No fracture or dislocation. * Telephone Encounter - Lilly Bennett NP - 05/03/2025 4:53 PM EDT Please let pt know we are still waiting on final read from radiologist on xray of her hand. This provider has contacted [facility] multiple times informing them the read has not be finalized. They state they are in contact with the radiology group. Please check on final reading tonight and have provider working sign off on report. If not available tonight, please have provider working 05/04/25 check on final read and contact Pt. It was recommended pt follow up with ortho either way, but if posfor fx will need to see ortho JOSE F. documented in this encounterCameron Regional Medical CenterAzsdkhcxmw07-26-1680 Telephone encounter Note* Telephone Encounter - Jie Deutsch NP - 05/03/2025 6:34 PM EDT Please let the patient know the final read on her hand xray states: No fracture or dislocation. [facility] Work Phone: 1(716) 935-903406-17-2025 Telephone encounter Note* Telephone Encounter - Lilly Bennett NP - 05/03/2025 4:53 PM EDT Please let pt know we are still waiting on final read from radiologist on xray of her hand. This provider has contacted [facility] imaging multiple times informing them the read has not be finalized. They state they are in contact with the radiology group. Please check on final reading tonight and have provider working sign off on report. If not available tonight, please have provider working 05/04/25 check on final read and contact Pt. It was recommended pt follow up with ortho either way, but if posfor fx will need to see ortho JOSE F. [facility] Work Phone: 1(734) 301-752606-17-2025 History of Present illness Narrative* Lilly Bennett NP - 05/03/2025 11:50 AM EDT HPI: Historian of HPI: patient Bonilla Stoner is a 39 y.o. female who presents today to the Urgent Care with the following complaints and denials due right hand pain which have been present for about a week and a half C/O Denies Symptom Comments [x] [] swelling [] [x] ecchymosis [] [x] erythema [] [x] tingling [] [x] numbness [x] [] Pain radiation Into middle finger [x] [] Weakness [x] [] Decreased ROM [x] [] Trauma unsure Additional Comments: pt has taken motrin OTC medication with relief Pt denies heat application to the affected area Pt denies cold application to the affected area Pt states she hit her hand along a metal table and had an abrasion that healed but the area has remained swollen and deformed. ROS: A complete system ROS was performed and negative aside from the pertinent positives noted in the HPI and PE. Examination General Examination: General Examination: Alert, oriented, normal affect, well appearing, in no acute distress, well developed, well nourished Head: normocephalic, atraumatic Eyes: sclera non-icteric Neck/Thyroid: neck supple, FROM Skin: normal right hand. 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 2 pt pinch intact Swelling: dorsal aspect MCP joint of index and middle fingers. Palpable tenderness: MCP joint of index and middle fingers. Limited ROM fingers 3 and 4 secondary to tenderness Extremities: no cyanosis Peripheral pulses: 2+ radial, 2+ ulnar, nail praful intact right Neurologic: sensory exam intact RUE Psych: alert, oriented, cognitive function intact, cooperative with exam 1. Right hand pain (Primary) See 2. - XR hand 3+ views right 2. Contusion of right hand, initial encounter Xray right hand obtained; prelim interp pos for STS and questionable irregularity to proximal phalanx of ring finger. Alumafoam splint placed to ring finger and DIRK placed to hand. Will contact pt with final xray reading today. Elevate, rest and ice affected area. Immediate eval if new or worseningsx otherwise recommend follow up with orthopedics. 3. Sprain of right ring finger, unspecified site of digit, initial encounter See 1 * Azucena Nj MA - 05/03/2025 11:50 AM EDTAssociated Order(s): Splint Application Post-Procedure Diagnose(s): Sprain of right ring finger, unspecified site of digit, initial encounter Images from the original note were not included. Patient ID: Bonilla Stoner is a 39 y.o. female. Splint Application Date/Time: 05/03/2025 12:52 PM Performed by: Azucena Nj MA Authorized by: Lilly Bennett NP Consent: Consent obtained: Verbal Consent given by: Patient [place] protocol: Patient identity confirmed: Verbally with patient Procedure details: Location: Finger Finger location: R ring finger Splint type: Finger Supplies: Aluminum splint Attestation: Splint applied and adjusted personally by me Post-procedure details: Procedure completion: Tolerated well, no immediate complications Comments: Alumafoam applied to pts R ring finger then wrapped with a 2in dirk wrap. Pt tolerated well. documented in this encounterCameron Regional Medical [id number] History of Present illness Narrative* GLORIA Chang - 04/18/2025 9:20 AM EDT [address] , [address] [facility], [address] P: [phone] F: [phone] HPI Historian of HPI: patient Bonilla Stoner is a 39 y.o. female who presents today to the Urgent Care with the following complaints and denials which have been present for 3 day(s) C/O Denies Symptom Comments [x] [] Runny Nose [] [x] Difficulty Swallowing [] [x] Sore Throat [x] [] Cough Wheezy, productive, thick green mucus [] [x] Ear Pain [x] [] Fever subjective [x] [] Chills [x] [] Nasal Congestion [] [x] Myalgia [x] [] Sinus Pain PERRY [] [x] Sinus Pressure Additional Comments: pt has taken theraflu OTC medication without relief Pt stated she is having night sweats. Pt stated the last time this happened she ended up in the hospital with a severe URI, this was about a month ago. Pt stated she was given z-sharon, tessalon and steroids. Pt stated she does not have her inhaler anymore, but wants a new one. Denies sob, chest pain,hemoptysis. She is a current smoker. ROS A complete system ROS was performed and negative aside from the pertinent positives noted in the HPI and PE. IH Testing: PHYSICAL EXAM General Examination: alert, oriented, normal affect, well-appearing, in no acute distress, well developed, well nourished. Head: normocephalic, atraumatic Eyes: sclera non-icteric Ears: auditory canal clear, tympanic membrane intact, clear Nose: congestion noted Oral Cavity: no lesions, mucosa moist Throat: clear, symmetrical rise of soft palate and uvula, no erythema or exudate Lymph Nodes: no cervical adenopathy Heart: regular rate and rhythm, S1, S2 normal Lungs: clear to auscultation bilaterally. No wheezes, rales, rhonchi. Harsh cough noted. Extremities: no edema, no cyanosis Psych: alert, oriented, cognitive function intact, cooperative with exam. TREATMENT PLAN 1. Acute bronchitis, unspecified organism (Primary) Discussed differential diagnosis and treatment with patient. Start prednisone, albuterol and augmentin, common se ds. Yogurt or probiotic daily while on antibiotic. Advised symptomatic therapy with OTC Mucinex DM, tylenol, push fluids, cool mist humidifier. Advised if new, worsening, or persistent symptoms to return for immediate re-eval. Advised follow up with PCP in 5 days or sooner if needed. Patient voiced understanding and agreement with the plan. All questions/concerns addressed. - albuterol HFA (Ventolin HFA) 90 mcg/act inhaler; Inhale 2 puffs every 6 (six) hours if needed forwheezing or shortness of breath Dispense: 8 g; Refill: 0 - predniSONE (Deltasone) 20 MG tablet; Take 2 tabs orally by mouth once daily for 5 days. Dispense:10 tablet; Refill: 0 - amoxicillin-clavulanate (Augmentin) 875-125 MG tablet; Take 1 tablet (875 mg) by mouth in the morning and 1 tablet (875 mg) before bedtime. Do all this for 7 days. Dispense: 14 tablet; Refill: 0 documented in this encounterCameron Regional Medical [id number] History of Present illness Narrative* GLORIA Campoverde - 01/05/2025 3:00 PM EST Reason for Appointment: Patient ID: Bonilla Stoner is a 39 y.o. female who presents for Gynecologic Exam Patient presents today for Annual Exam. MEDICATIONS Current Outpatient Medications Medication Instructions ibuprofen 800 MG tablet TAKE 1 TABLET BY MOUTH WITH FOOD OR MILK EVERY 8 HOURS NEEDED tiZANidine (ZANAFLEX) 4 mg, Every 6 hours PRN ALLERGIES Allergies Allergen Reactions Levofloxacin Other Reaction(s): Not available Oxycodone-Acetaminophen Unknown Other Reaction(s): Not available PROBLEMS Active Ambulatory Problems Diagnosis Date Noted No Active Ambulatory Problems Resolved Ambulatory Problems Diagnosis Date Noted No Resolved Ambulatory Problems Past Medical History: Diagnosis Date Depression ([facility]) Family history of breast cancer Genital warts Gonorrhea History of medical problems HPV (human papilloma virus) infection LGSIL on Pap smear of cervix Phlebitis HISTORY PAST MEDICAL HISTORY SOCIAL HISTORY Past Medical History: Diagnosis Date Depression ([facility]) Family history of breast cancer Genital warts [...] Exam Constitutional: Appearance: Normal appearance. She is well-developed. Genitourinary: Vulva normal. Right Adnexa: not tender and no mass present. Left Adnexa: not tender and no mass present. No cervical discharge. Breasts: Breasts are soft. Right: Normal. Left: Normal. HENT: Head: Normocephalic. Nose: Nose normal. Mouth/Throat: Mouth: Mucous membranes are moist. Cardiovascular: Rate and Rhythm: Normal rate and regular rhythm. Pulmonary: Effort: Pulmonary effort is normal. Breath sounds: Normal breath sounds. Abdominal: General: Bowel sounds are normal. There is no distension. Palpations: Abdomen is soft. Tenderness: There is no abdominal tenderness. There is no guarding or rebound. Musculoskeletal: General: No swelling. Normal range of motion. Cervical back: Normal range of motion. Right lower leg: No edema. Left lower leg: No edema. Neurological: General: No focal deficit present. Mental Status: She is alert and oriented to person, place, and time. Skin: General: Skin is warm and dry. Psychiatric: Mood and Affect: Mood normal. Behavior: Behavior normal. Vitals and nursing note reviewed. Exam conducted with a assistant store manager present. Vitals: Estimated body mass index is 25.62 kg/m as calculated from the following: Height as of 08/25/23: 5' 7.5 . Weight as of this encounter: 166 lb. BP: 122/74 No LMP recorded (lmp unknown). (Menstrual status: No Periods). ASSESSMENT & PLAN ICD-10-CM 1. Well woman exam with routine gynecological exam Z01.419 THIN PREP TIS PAP AND HR HPV DNA 2. Breast cancer screening by mammogram Z12.31 Bilateral screening mammogram Bilateral screening mammogram 3. Screening examination for STI Z11.3 SURESWAB(R) ADVANCED VAGINITIS PLUS, TMA CHLAMYDIA TRACHOMATIS (GENITO/STI) Neisseria gonorrhea DNA probe, direct Annual: Patient presents today for an annual/cx's exam. Patient states she is doing well and has no complaints. Pap/cx's was obtained without difficulty and patient given mammogram order to have scheduled/obtained. Pt is aware cx's will be sent out and results will be back in 1-2 days. Someone will reach out if cx's come back abnormal. Orders Placed This Encounter Procedures Bilateral screening mammogram CHLAMYDIA TRACHOMATIS (GENITO/STI) Neisseria gonorrhea DNA probe, direct Follow Up: Patient is to return in one year for annual unless needed otherwise. Documented by Conchis Fair MA on behalf of: GLORIA Campoverde documented in this encounterCameron Regional Medical [id number] History of Present illness Narrative* GLORIA Campoverde - 11/23/2024 10:10 AM EST Reason for Appointment: Patient ID: Bonilla Stoner is a 38 y.o. female who presents [...] Problems Past Medical History: Diagnosis Date Depression ([facility]) Family history of breast cancer Genital warts Gonorrhea History of medical problems HPV (human papilloma virus) infection LGSIL on Pap smear of cervix Phlebitis HISTORY PAST MEDICAL HISTORY SOCIAL HISTORY Past Medical History: Diagnosis Date Depression ([facility]) Family history of breast cancer Genital warts [...] behalf of: GLORIA Campoverde documented in this encounterCameron Regional Medical CenterHlfzcfbcld08-73-6603 NoteOPERATIVE NOTE OPERATION DATE: 10/02/2022 PROCEDURE: Bilateral laparoscopic salpingectomy with removal of Filshie clip. PREOPERATIVE DIAGNOSIS: Pelvic pain, desires removal of tubes. POSTOPERATIVE DIAGNOSIS: Pelvic pain, desires removal of tubes, pelvic vascular congestion. ANESTHESIA: General. SURGEON: Aden Soriano D.O. RAILROAD COOK: JOSEY Brown URINE OUTPUT: Yellow and clear. [...] Sponge, lap and needle counts were correct x2.[facility] 06-13-2022 NoteCONSULTATION CONSULTATION DATE: 06/13/2022 HISTORY OF PRESENT ILLNESS: [...] last week, she called her PCP, Dr. Cade, and he did a Kenalog injection bilaterally. [...] Patient does agree with this plan of care.[facility]Evaluation noteNo assessment information availableLima City Hospital Work Phone: Evaluation note* Diagnosis Amenorrhea Absence of menstruation Hormone imbalance Night sweats Generalized hyperhidrosis Hormone disorder Unspecified endocrine disorder documented [facility] this encounter [facility] HealthcareEvaluation note* Diagnosis Well woman exam with routine gynecological exam Routine gynecological examination Breast cancer screening by mammogram Screening examination for STI documented in this encounter [facility] HealthcareEvaluation note* Diagnosis Acute bronchitis, unspecified organism- Primary documented in this encounter [facility] HealthcareEvaluation note* Diagnosis Right hand pain- Primary Pain in soft tissues of limb Contusion of right hand, initial encounter Sprain of right ring finger, unspecified site of digit, initial encounter documented in this encounter [facility] Summary Purpose Family History No Family [...] section and content) DATE CREATED AUTHOR 04/07/2019 [facility] DATE CREATED AUTHOR AUTHOR'S ORGANIZ ATION 07/12/2021 [facility] DATE CREATED AUTHOR AUTHOR'S ORGANIZ ATION 04/01/2023 [facility] DATE CREATED AUTHOR AUTHOR'S ORGANIZ ATION 05/09/2025 [facility] DATE CREATED AUTHOR AUTHOR'S ORGANIZ ATION 06/25/2025 [facility] Care Teams (unrecognized sec tion and content) Team Status: Active Member Role Status Dates Francisco Sanches MD Primary Care Provider Active Team Status: Inactive Member Role Status Dates Francisco Sanches MD Primary Care Provider Active Sunil Trevizo MDEmergency ProviderActiveTeam MemberRelationshipSpecialtyStart DateEnd Date Luan Cade MD [address] [place] [address] PCP - GeneralFamily Medicine08/07/23Team MemberRelationshipSpecialtyStart DateEnd Date Luan Cade MD [address] [place] [facility] [place] [address] PCP - GeneralFamily Medicine08/07/23Team MemberRelationshipSpecialtyStart DateEnd Date Luan Cade MD [address] [place] [facility] [place] [address] PCP - GeneralFamily Medicine08/07/23Team MemberRelationshipSpecialtyStart DateEnd Date Luan Cade MD [address] [place] [facility] [place] [address] PCP - GeneralFamily Medicine08/07/23Team MemberRelationshipSpecialtyStart DateEnd Date Luan Cade MD PCP - GeneralFamily Medicine08/07/23Team MemberRelationshipSpecialtyStart DateEnd Date Luan Cade MD PCP - GeneralFamily Medicine08/07/23Team MemberRelationshipSpecialtyStart DateEnd Date Luan Cade MD PCP - GeneralFamily Medicine08/07/23 Goals (unrecognized section and content) Goals may be documented in a n alternate section Reason for Visit (unrecogniz ed section and content) ReasonCommentsMenstrual ProblemPt present today due to not having a menstrual cycle for 3 months.ReasonCommentsGynecologic Exam FOR RECORDS PERTAINING TO PATIENTS WHO ARE [...] BE BASED ON THE PRIMARY CLINICAL RECORDS. [facility] [employer] [facility]. provides no warranty or guarantee of the accuracy or completeness of information in this document.
--- NOTE | 2025-09-20 10:57 | XR_ITS ---
The [address] [address] Patient Name: BONILLA WILDER MRN: [id number] date: 1985 Sex: F Assigned Patient Location: LAB Current Patient Location: LAB Accession/Order Number: [id number] Exam Date: 09/20/2025 11:00 Report Date: 09/20/2025 14:31 At the request of: LUAN CADE MD Procedure: XR hand RT min 3V XR hand RT min 3V 09/20/2025 11:15 AM SIGNS AND SYMPTOMS: ^Right Hand Pain PROTOCOL: 3 views of the right hand COMPARISON: None FINDINGS: The joint spaces are preserved. There is a flexion deformity of the proximal interphalangeal joint of the right fifth digit. There is no evidence of fracture or dislocation. No significant soft tissue swelling. XR/XR hand RT min 3V IMPRESSION: There is no evidence of fracture or dislocation. There is a flexion deformity of the proximal interphalangeal joint of the right fifth digit. Impression dictated by: Jose Carrington M.D. 09/20/2025 2:31 PM Dictation Location: [place] [address] Electronically authenticated by: [id number] Y Date: 09/20/2025 14:31
[2025-09-20 11:06] LABS: Hematocrit 43.2 % (36.0-48.0); Hemoglobin 14.3 g/dL (12.0-16.0); Immature Granulocytes Abs Auto 0.02 10^3/uL (0.00-0.03); Immature Granulocytes Pct Auto 0.3 % (0.0-0.5); Lymphocytes Absolute Auto 1.9 10^3/uL (1.2-3.8); Mean Corpuscular HGB Conc 33.1 g/dL (29.9-35.2); Mean Corpuscular Hemoglobin 31.6 pg (26.7-34.0); Mean Corpuscular Volume 95.4 fL (81.0-99.0); Platelet Count 276 10^3/uL (150-450); Red Blood Count 4.53 10^6/uL (4.20-5.40); White Blood Count 7.9 10^3/uL (4.0-11.0)
[2025-09-20 11:45] LABS: Iron 67.0 ug/dL (50.0-170.0)
[2025-09-20 11:46] LABS: Alanine Aminotransferase 29 U/L (14-59); Albumin Globulin Ratio 1.0; Albumin Level 3.9 g/dL (3.4-5.0); Alkaline Phosphatase 69 U/L (46-116); Anion Gap 15.2; Aspartate Amino Transferase 18 U/L (15-37); Blood Urea Nitrogen 15.0 mg/dL (7.0-18.0); Calcium 9.1 mg/dL (8.5-10.1); Carbon Dioxide 25.7 mmol/L (21.0-32.0); Chloride 106 mmol/L (98-107); Cholesterol 213 mg/dL (<=200); Estimated GFR (African America >60 (>=60 mL/min/1.73m^2); Estimated GFR (Non-African Ame >60 (>=60 mL/min/1.73m^2); Free T3 2.19 pg/mL (2.18-3.98); Globulin 3.9 g/dL; Glucose 91 mg/dL (74-106); HDL Cholesterol 51 mg/dL (40-60); Potassium 3.9 mmol/L (3.5-5.1); Sodium 143 mmol/L (136-145); Thyroid Stimulating Hormone 0.768 uIU/mL (0.358-3.740); Total Protein 7.8 g/dL (6.4-8.2); Triglycerides 90 mg/dL (<=150); VLDL CHOLESTEROL 18.0 mg/dL
[2025-09-21 04:09] LABS: CA 19-9 2 U/mL (0-35); CEA 5.5 ng/mL (0.0-4.7)
== END 2025-09-20 10:39 | disposition home or self-care (01) ==
LOC: LAB 10:42
PROVIDERS: PCP Family Medicine; Visit Provider Family Medicine
DX: M79.641 Pain in right hand (principal); R63.5 Abnormal weight gain; F32.A Depression, unspecified; E78.5 Hyperlipidemia, unspecified; R73.09 Other abnormal glucose; D64.9 Anemia, unspecified; E03.9 Hypothyroidism, unspecified; E55.9 Vitamin D deficiency, unspecified; I10 Essential (primary) hypertension; D50.9 Iron deficiency anemia, unspecified
CPT/HCPCS: 36415; 73130; 80053; 80061; 82306; 82378; 83036; 83525; 83540; 84436; 84443; 84481; 85025; 86301; 86304

== ENCOUNTER 2025-10-10 07:06 | Outpatient (OUT) | payer MEDICAID, SELFPAY ==
--- OUTSIDE RECORDS SUMMARY | 2024-09-13 10:40 | XMS_ITS ---
Author Organization [facility] Address [address] [place] [address] Care Team Providers Care Composite Assembler Name Role Phone Dr. Fredo Hussein Primary Care Provider [phone] Chivo Diamond Unavailable [phone] REASON FOR VISIT NEEDS UPDATED EXAM Encounters Encounter Location Date Provider Diagnosis [place] [address] [facility] [place] [address] 09/13/2024 Chivo Knapp Plan Of Treatment Next Appt Details Provider Name:Isabelle Hickey , 02/09/2026 09:15:00 AM, [address], [place], [address], Progress Notes * JONATHAN WILDEROB:1985 (39 yo F)Acc No.[id number]:09/13/2024 Patient:?BONILLA WILDER :?Chivo Knapp DDSDOB:1985???Age:38 Y ???Sex:FemaleDate:09/13/2024hone:[phone]:[address] [place], [place]-[address]Pcp:Dr. Fredo Hussein Subjective: * Chief Complaints: * N EEDS UPDATED EXAM * Electronic signature of Chivo Knapp DDS on 10/10/2025 at 07:09 AM ESTSign off status: Pending * Provider: Willem Knapp DDS Date: Generated for Printing/Faxing/eTransmitting on:?10/10/2025 07:09 AM EST
--- OUTSIDE RECORDS SUMMARY | 2024-12-02 09:00 | XMS_ITS ---
Author Organization [facility] Address [address] [place] [address] Care Team Providers Care Clinical Rehabilitation Liaison Name Role Phone Dr. Fredo Hussein Primary Care Provider [phone] Wilda Rose Unavailable [phone] REASON FOR VISIT FILLING Encounters Encounter Location Date Provider Diagnosis [facility] [address] [place] [address] 12/02/2024 Wilda Mendez Plan Of Treatment Next Appt Details Provider Name:Isabelle Hickey , 02/09/2026 09:15:00 AM, [address] [place], [address], Progress Notes * JONATHAN WILDEROB:1985 (39 yo F)Acc No.[id number]:12/02/2024 Patient:BONILLA SOTELO :?Wilda MendezDOB:1985???Age:38 Y???Sex: FemaleDate:12/02/2024Phone:[phone]:[address] [place], [place]Jin:Dr. Fredo Hussein Subjective: * Chief Complaints: * F ILLING * Electronic signature of Wilda Mendez DMD on 10/10/2025 at 07:08 AM ESTSign off status: Pending * Provider: Sita Mendez Date: 0 12/02/2024 Generated for Printing/Faxing/eTransmitting on:?10/10/2025 07:08 AM EST
--- OUTSIDE RECORDS SUMMARY | 2024-12-20 10:30 | XMS_ITS ---
Author Organization [facility] Address [address] [place] [address] Care Team Providers Care Industrial X Ray Operator Name Role Phone Dr. Fredo Hussein Primary Care Provider [phone] Isabelle May Darrius [phone] REASON FOR VISIT SRP Encounters Encounter Location Date Provider Diagnosis [facility] [address] [place] [address] 12/20/2024 Isabelle Hickey Plan Of Treatment Next Appt Details Provider Name:Isabelle Hickey , 02/09/2026 09:15:00 AM, [address] [place], [address], Progress Notes * JONATHAN WILDEROB:1985 (39 yo F)Acc No.[id number]:12/20/2024 Patient:BONILLA SOTELO :?Isabelle HickeyDOB:1985???Age:38 Y???Sex: FemaleDate:12/20/2024Phone:[phone]:[address] [place]Mzi:Dr. Fredo Hussein Subjective: * Chief Complaints: * S RP * Electronic signature of Isabelle Hickey on 10/10/2025 at 07:09 AM ESTSign off status: Pending * Provider: Jennifer Hickey Date: 0 12/20/2024 Generated for Printing/Faxing/eTransmitting on:?10/10/2025 07:09 AM EST
--- OUTSIDE RECORDS SUMMARY | 2025-03-31 09:00 | XMS_ITS ---
Author Organization [facility] Address [address] [place] [address] Care Team Providers Care Or Manager Name Role Phone Dr. Fredo Hussein Primary Care Provider [phone] Wilda Rose Unavailable [phone] REASON FOR VISIT FILLING Encounters Encounter Location Date Provider Diagnosis [facility] [address] [place] [address] 03/31/2025 Wilda Mendez Plan Of Treatment Next Appt Details Provider Name:Isabelle Hickey , 02/09/2026 09:15:00 AM, [address] [place], [address], Progress Notes * JONATHAN WILDEROB:1985 (39 yo F)Acc No.[id number]:03/31/2025 Patient:BONILLA SOTELO :?Wilda MendezDOB:1985???Age:39 Y???Sex: FemaleDate:03/31/2025Phone:[phone]:[address] [facility], [place]Ttg:Dr. Fredo Hussein Subjective: * Chief Complaints: * F ILLING * Electronic signature of Wilda Mendez DMD on 10/10/2025 at 07:09 AM ESTSign off status: Pending * Provider: Sita Mendez Date: 0 03/31/2025 Generated for Printing/Faxing/eTransmitting on:?10/10/2025 07:09 AM EST
--- OUTSIDE RECORDS SUMMARY | 2025-07-25 03:30 | XMS_ITS ---
Author Organization [facility] Address [address] [place] [address] Care Team Providers Care Hospital Carrier Name Role Phone Dr. Fredo Hussein Primary Care Provider [phone] Wilda Rose Unavailable [phone] REASON FOR VISIT FILLING Encounters Encounter Location Date Provider Diagnosis [facility] [address] [place] [address] 07/25/2025 Wilda Mendez Plan Of Treatment Next Appt Details Provider Name:Isabelle Hickey , 02/09/2026 09:15:00 AM, [address] [place], [address], Progress Notes * JONATHAN WILDEROB:1985 (39 yo F)Acc No.[id number]:07/25/2025 Patient:BONILLA SOTELO :?Wilda MendezDOB:1985???Age:39 Y???Sex: FemaleDate:07/25/2025Phone:[phone]:[address], [place]Qnh:Dr. Fredo Hussein Subjective: * Chief Complaints: * F ILLING * Electronic signature of Wilda Mendez DMD on 10/10/2025 at 07:09 AM ESTSign off status: Pending * Provider: Sita Mendez Date: 0 07/25/2025 Generated for Printing/Faxing/eTransmitting on:?10/10/2025 07:09 AM EST
--- OUTSIDE RECORDS SUMMARY | 2025-09-26 10:05 | XMS_ITS | Encounter Summary ---
Author Organization [facility] Address [address] [place] [address] Care Team Providers Care Branch Maker Name Role Phone Luis Daniel Guerra MD Primary Care Provider [phone] Encounter Details DateTypeDepartmentCare Team (Latest Contact Info)Wexdnrfjqdm85/10/2025 10:05 AM ESTOffice Visit [facility] [address] [phone] Wendy Ely, [employer] [address] [place] [address] Unexplained weight loss (Primary Dx); Hair loss; Generalized muscle ache; Medication reaction, initial encounter; Nausea Social History Tobacco UseTypesPacks/DayYears UsedDateSmoking Tobacco: Every DayCigarettes Alcohol UseStandard Drinks/WeekCommentsNever0 (1 standard drink = 0.6 oz pure alcohol)CommentsNoSex and Gender InformationValueDate RecordedSex Assigned at BirthNot on fileLegal FutBdsmfm34/15/2023 6:52 PM EDTGender Identity Not on fileSexual OrientationNot on filedocumented as of this encounter Last Filed Vital Signs Vital SignReadingTime TakenCommentsBlood Opgziawz657/7209/26/2025 10:05 AM EST Lkigc881209/26/2025 10:05 AM ETDYzygaeijrzy96.7 ??C (98 ??F)09/26/2025 10:05 AM ESTRespiratory Bznj1963 10:05 AM ESTOxygen Sagocjalhe21%09/26/2025 10:05 AM ESTInhaled Oxygen Concentration--Weight--Height--Body Mass Index--documented in this encounter Progress Notes * Wendy Ely, [employer] - 09/26/2025 10:05 AM EST Images from the original note were not included. Pt states she has been dealing with body aches, muscle fatigue, muscle swelling, and full body aches for at least 6 months . She has had appointments with her family PCP and states, I feel like nobody is listening to me . She did have some lab work drawn, but is unsure what. She admits she did have a cancer marker lab done and they told me it was really high so now they are checking me for cancer . She was put on Baclofen for her muscle spasms. This was one week ago. Pt states she has been puking every day since she started it. Pt states her kidneys feel so sore and is having sharp pains up to over an hour . Pt states it is not a UTI and it is from the Baclofen. She is unsure if these symptoms are related to the medication or if something else is going on. She states she just needs help and does not know what is going on. Visit Vitals BP 104/72 Pulse 66 Temp 98 ??F Resp 20 SpO2 98% OB Status No Periods Smoking Status Every Day Physical Exam Vitals reviewed. Constitutional: General: She is not in acute distress. Appearance: Normal appearance. HENT: Head: Normocephalic and atraumatic. Nose: Nose normal. Mouth/Throat: Mouth: Mucous membranes are moist. Pharynx: Oropharynx is clear. Eyes: Extraocular Movements: Extraocular movements intact. Conjunctiva/sclera: Conjunctivae normal. Pupils: Pupils are equal, round, and reactive to light. Cardiovascular: Rate and Rhythm: Normal rate and regular rhythm. Pulses: Normal pulses. Heart sounds: Normal heart sounds. Pulmonary: Effort: Pulmonary effort is normal. No respiratory distress. Breath sounds: Normal breath sounds. No wheezing, rhonchi or rales. Abdominal: General: Abdomen is flat. Bowel sounds are normal. Palpations: Abdomen is soft. Musculoskeletal: General: Normal range of motion. Arms: Cervical back: Normal range of motion and neck supple. Comments: All over body aches and muscle swelling Skin: General: Skin is warm and dry. Capillary Refill: Capillary refill takes less than 2 seconds. Findings: No rash. Neurological: General: No focal deficit present. Mental Status: She is alert and oriented to person, place, and time. Psychiatric: Mood and Affect: Mood normal. Behavior: Behavior normal. Thought Content: Thought content normal. Judgment: Judgment normal. 1. Unexplained weight loss (Primary) Pt presents today for a possible medication reaction. states she has been dealing with body aches, muscle fatigue, muscle swelling, and full body aches for at least 6 months . She also admits hair loss and weight loss of 30 lbs in 6 months . She has had appointments with her family PCP and states, I feel like nobody is listening to me . She did have some lab work drawn, but is unsure what. Sheadmits she did have a cancer lab marker done and they told me it was really high so now they are checking me for cancer . She was put on Baclofen for her muscle spasms. This was one week ago. Pt states she has been puking every day since she started it. Pt states her kidneys feel so sore and is having sharp pains up to over an hour . Pt states it is not a UTI and it is from the Baclofen. She isunsure if these symptoms are related to the medication or if something else is going on. 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 She states she just needs help and does not know what is going on . She is in no acute distress today in urgent care. Advised that can prescr rosette meds for symptom mgmt, but she needs full lab work up with potential imaging to determine root cause of symptoms. She was given Dr. Manzanares's to follow up as she wishes to establish with a new PCP. Signs/symptoms and red flags of when to seek emergent medical attention. She expressed an understanding. 2. Hair loss See 1. 3. Generalized muscle ache See 1. - predniSONE (Deltasone) 20 MG tablet; Take 3 tabs for 2 days, 2 tabs for 2 days, 1 tab for 2 days,1/2 tab for 2 days then stop Dispense: 13 tablet; Refill: 0 4. Medication reaction, initial encounter Pt believes she is having a reaction to the Baclofen prescribed by her PCP one week ago. She has stopped the medication. - predniSONE (Deltasone) 20 MG tablet; Take 3 tabs for 2 days, 2 tabs for 2 days, 1 tab for 2 days,1/2 tab for 2 days then stop Dispense: 13 tablet; Refill: 0 5. Nausea See 1. - ondansetron (Zofran) 8 MG tablet; Take 1 tablet (8 mg) by mouth every 8 (eight) hours if needed for nausea or vomiting for up to 5 days Dispense: 15 tablet; Refill: 0 documented in this encounter Plan of Treatment DateTypeDepartmentCare Team (Latest Contact Info)Wryzaeedomg85/08/2025 8:40 AM ESTProcedure Visit [facility] [address], [address] [place] [phone] Alistair Manzanares DO [address] [place] [address] 10/31/2025 6:30 PM ESTAncillary Procedure [facility] [address] [place] [phone] documented as of this encounter Visit Diagnoses Diagnosis Unexplained weight loss- Primary Loss of weight Hair loss Unspecified alopecia Generalized muscle ache Medication reaction, initial encounter Nausea Nausea alone documented in this encounter Care Teams Team MemberRelationshipSpecialtyStart DateEnd Date Luis Daniel Guerra MD PCP - GeneralFamily Medicine08/07/2311documented as of this encounter
--- OUTSIDE RECORDS SUMMARY | 2025-09-29 14:20 | XMS_ITS | Encounter Summary ---
Author Organization [facility] Address [address] [place] [address] Care Team Providers [employer] Fundraising Director Name Role Phone Alistair Manzanares DO Primary Care Provider [phone] Reason for Referral * Consultation (Routine) - AuthorizedSpecialtyDiagnoses / ProceduresReferred By ContactReferred To ContactGenetics Diagnoses Family history of breast cancer Procedures AK OFFICE/OUTPATIENT NEW HIGH MDM 60 MINUTES Alistair Manzanares DO [address] [address] Phone: tel: fax: Mayco Garcia MD [address] [place] [address] [place] [address] Phone: tel: fax: Referral IDStatusReasonStart DateExpiration DateVisits RequestedVisits [id number] Specialty Services Required / Reason for Visit * ReasonCommentsEstablish Care Encounter Details DateTypeDepartmentCare Team (Latest Contact Info)Ooykfteczva68/13/2025 2:20 PM ESTOffice Visit [facility] [address], [facility] [address] [place] [id number] Alistair Manzanares DO [address] [facility] [address] [place] [address] Unintentional weight loss (Primary Dx); Hair loss; Other fatigue; Insomnia, unspecified type; Swelling of right hand; Hand swelling; Right hand pain; Polyarthralgia; Somatic dysfunction of cervical region; Somatic dysfunction of thoracic region; Family history of breast cancer; Encounter for screening mammogram for malignant neoplasm of breast; Encounter for hepatitis C screening test for low risk patient; Screening for lipid disorders; Right ear pain; Right serous otitis media, unspecified chronicity Social History Tobacco UseTypesPacks/DayYears UsedDateSmoking Tobacco: Every DayCigarettes Alcohol UseStandard Drinks/WeekCommentsNever0 (1 standard drink = 0.6 oz pure alcohol)PHQ-2AnswerDate RecordedPatient Health Questionnaire-2 Cndjm46711/29/2024 AUDIT-CAnswerDate RecordedQ1: How often do you have a drink containing alcohol? Never09/29/2025Q2: How many drinks containing alcohol do you have on a typical day when you are drinking?Patient does not drink09/29/2025Q3: How often do you have six or more drinks on one occasion?Never09/29/2025CommentsNoSex and Gender InformationValueDate RecordedSex Assigned at BirthNot on fileLegal Sex Fkhmtb6901/29/2023 6:52 PM EDTGender IdentityNot on fileSexual OrientationNot on filedocumented as of this encounter Last Filed Vital Signs Vital SignReadingTime TakenCommentsBlood Kfskppgi011/8209/29/2025 2:45 PM EST Tzxdq832009/29/2025 2:45 PM XWEAlxpvcydfna30 ??C (98.6 ??F)09/29/2025 2:45 PM EST Respiratory Pllo048611/29/2024 2:45 PM ESTOxygen Wxljdmqxvm50%09/29/2025 2:45 PM ESTInhaled Oxygen Concentration--Zqjrhc64.2 kg (146 lb)09/29/2025 2:45 PM EST Ohiwrq474.5 cm (5' 7.5 )09/29/2025 2:45 PM ESTBody Mass Index22.5309/29/2025 2:45 PM ESTdocumented in this encounter Functional Status * AUDIT-C ScoreAnswerDate of LwjwzisuzwKvbrlm640/13/2025 2:38 PM Karin Veronica MA * QuestionAnswerDate of AssessmentAuthorQ1: How often do you have a drink containing alcohol?Never09/29/2025 2:38 PM Karin Veronica MAQ2: How many drinks containing alcohol do you have on a typical day when you are drinking? Patient does not drink09/29/2025 2:38 PM Karin Veronica MAQ3: How often do you have six or more drinks on one occasion?Never09/29/2025 2:38 PM Karin Veronica MA * Over the past 2 weeks, how often have you been bothered by any of the following problems?QuestionAnswerDate of AssessmentAuthorLittle interest or pleasure in doing thingsNot at all09/29/2025 2:38 PM Karin Veronica MA Feeling down, depressed, or hopelessNot at all09/29/2025 2:38 PM Karin Veronica MAPatient Health Questionnaire-2 Mtfjy40111/29/2024 2:38 PM Karin Veronica MA documented as of this encounter Progress Notes * Alistair Manzanares, DO - 09/29/2025 2:20 PM EST Images from the original note were not included. FAMILY MEDICINE NOTE Chief Complaint: Establish Care HPI: Pt is a 39 y.o. female presents to the office today to establish care. Patient's previous PCP: Dr. Guerra- was seeing for 22years. Patient's current other providers: Dr.Ramey Yang. Most recent labs: 08/2023 Pt wanted to discuss the following today: To Establish. Polyarthralgia and Muscle Spasms For several years, recurrent episodes of muscle swelling and spasms affecting multiple joints, including hands, neck, elbows, and hips. Symptoms include joint swelling, pain, loss of strength, and occasional locking of the body. Flare-ups occur frequently, sometimes two to three times per month. Hand symptoms have persisted for approximately two months, with swelling, pain, loss of maneuverability, and numbness/tingling in fingers. History of arthritis in hips and disc space narrowing in the low back. Past treatments include frequent short courses of steroids (prednisone injections), muscle relaxants (baclofen), and Xanax for sleep. Baclofen caused adverse psychiatric effects. Uses ice, heat, Biofreeze, Icy Hot patches, and topical heat wraps for symptom relief. Regular chiropractic visits for musculoskeletal symptoms. Weight Loss and Hair Loss Reported significant, ongoing weight loss and hair loss over an unspecified period. Associated withfrequent episodes of feeling sick and nausea. Sleep Disturbance Chronic difficulty sleeping, unable to get comfortable due to pain and muscle spasms. Typically unable to sleep for more than two hours at a time, with frequent tossing and turning. One-time use of Xanax resulted in deep sleep but caused morning hangover and was discontinued. Ear Pain Recent onset of constant right ear pain for several days, described as sore. No improvement with steroids. Breast Lump and Lumpectomy History of right breast lump removed approximately four to five years ago. Mammograms performed in the past, with last one around the time of lumpectomy. Reports recurrent breast lumps described as fatty tissue. Misc No known family history of autoimmune disease or rheumatoid arthritis. Sister has history of triplenegative breast cancer. Eating and drinking normally, but reports feeling dehydrated. Pt denies any other acute complaints or concerns at this time. SUBJECTIVE: Past Medical History SURGICAL/SOCIAL/FAMILY HX ALLERGIES: Medical History[1] Surgical History[2] Social History[3] Family History[4] Allergies[5] OBJECTIVE: 09/29/2025 2:45 PM 09/26/2025 10:05 AM 05/03/2025 11:54 AM Vitals BMI 22.53 kg/m2 25.62 kg/m2 BSA (m2) 1.78 m2 1.89 m2 Systolic 134 104 118 Diastolic 82 72 76 Heart Rate 86 66 75 SpO2 98 % 98 % 97 % Temp 98.6 ??F 98 ??F 97.6 ??F Resp 20 20 Height (in) 5' 7.5 Weight (lb) 146 166 Visit Report Report Report Report Physical Exam Constitutional: Appearance: Normal appearance. HENT: Right Ear: Ear canal normal. A middle ear effusion is present. Left Ear: Ear canal normal. A middle ear effusion is present. Nose: Nose normal. Mouth/Throat: Pharynx: Oropharynx is clear. Uvula midline. Cardiovascular: Rate and Rhythm: Normal rate and regular rhythm. Heart sounds: No murmur heard. No friction rub. No gallop. Pulmonary: Breath sounds: Normal breath sounds. No wheezing, rhonchi or rales. Abdominal: General: Abdomen is flat. Bowel sounds are normal. There is no distension. Palpations: Abdomen is soft. There is no mass. Tenderness: There is no abdominal tenderness. There is no guarding. Musculoskeletal: General: Normal range of motion. Cervical back: Spasms and tenderness present. Thoracic back: Spasms and tenderness present. 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 Neurological: General: No focal deficit present. Mental Status: She is alert. Mental status is at baseline. Psychiatric: Mood and Affect: Mood and affect normal. Behavior: Behavior normal. ASSESSMENT AND PLAN: Assessment & Plan Unintentional weight loss Hair loss Other fatigue Insomnia, unspecified type - Weight loss and hair loss possibly related to underlying autoimmune process or effects of chronicsteroid use. - Included in the ordered blood work for further evaluation. - Sleep disturbance likely multifactorial, related to pain and discomfort from musculoskeletal symptoms. - Recommended daily neck and shoulder stretches. Scheduled OMT session to address musculoskeletal pain. Orders: CBC and differential; Future Comprehensive metabolic panel; Future Cortisol AM; Future C-reactive protein; Future Sedimentation rate, automated; Future Ferritin; Future Iron + transferrin + TIBC; Future Magnesium; Future TSH; Future Vitamin B12; Future Vitamin D 25 hydroxy Total; Future VICKIE; Future Cyclic citrul peptide antibody, IgG; Future Rheumatoid factor; Future Uric acid; Future Swelling of right hand Hand swelling Right hand pain Polyarthralgia Somatic dysfunction of cervical region Somatic dysfunction of thoracic region - Polyarthralgia and muscle spasms possibly related to underlying autoimmune disease, chronic steroid use, or other etiologies such as gout or tendinitis. Concern for possible suppression of endogenous steroid production due to frequent exogenous steroid administration. - Ordered blood work to evaluate thyroid function, autoimmune markers (including lupus and rheumatoid arthritis), and gout. Will check cortisol function to assess adrenal suppression. Recommended daily neck and shoulder stretches. Scheduled appointment for osteopathic manipulation therapy (OMT) next week. Orders: CBC and differential; Future Comprehensive metabolic panel; Future Cortisol AM; Future C-reactive protein; Future Sedimentation rate, automated; Future Ferritin; Future Iron + transferrin + TIBC; Future Magnesium; Future TSH; Future Vitamin B12; Future Vitamin D 25 hydroxy Total; Future VICKIE; Future Cyclic citrul peptide antibody, IgG; Future Rheumatoid factor; Future Uric acid; Future Family history of breast cancer - Increased risk for breast cancer due to family history (sister with triple negative breast cancer). - Ordered screening mammogram at [facility]. Referred to genetic counseling for BRCA mutation assessment and genetic risk counseling. Advised to expect contact from genetic counselor within 7-10 days and to follow up if not contacted. Orders: Ambulatory referral to Genetics; Future Encounter for screening mammogram for malignant neoplasm of breast Discussed risks and benefits of mammogram with patient and she is due for mammogram, patient amenable to plan and I ordered it to [facility] Orders: Bilateral screening mammogram with tomosynthesis; Future Encounter for hepatitis C screening test for low risk patient Screening for lipid disorders Orders: Hcv antibody rfx to quant pcr; Future Lipid panel; Future Right ear pain Right serous otitis media, unspecified chronicity - Ear pain possibly due to fluid behind the ear or TMJ syndrome. - Recommended Flonase nasal spray, one puff per nostril twice daily for two weeks. Advised monitoring for jaw clenching or teeth grinding, use of [id number] mouth guard at night if grinding suspected, jaw massage, and application of warm moist compresses. Advised avoidance of chewy foods and gum. Patient's Medications New Prescriptions No medications on file Previous Medications No medications on file Modified Medications No medications on file Discontinued Medications ALBUTEROL HFA (VENTOLIN HFA) 90 MCG/ACT INHALER Inhale 2 puffs every 6 (six) hours if needed for wheezing or shortness of breath ALBUTEROL HFA 90 MCG/ACT INHALER INHALE 2 PUFFS BY MOUTH EVERY 4 HOURS NEEDED FOR SHORTNESS OF BREATH OR WHEEZING BACLOFEN (LIORESAL) 10 MG TABLET Take 10 mg by mouth in the morning and 10 mg in the evening and 10 mg before bedtime. IBUPROFEN 800 MG TABLET TAKE 1 TABLET BY MOUTH WITH FOOD OR MILK EVERY 8 HOURS NEEDED ONDANSETRON (ZOFRAN) 8 MG TABLET Take 1 tablet (8 mg) by mouth every 8 (eight) hours if needed for nausea or vomiting for up to 5 days PREDNISONE (DELTASONE) 20 MG TABLET Take 3 tabs for 2 days, 2 tabs for 2 days, 1 tab for 2 days, 1/2 tab for 2 days then stop Follow Up: Follow up in about 1 week (around 10/06/2025) for omt. This note was prepared in part with the assistance of dictation and AI technologies; minor errors or omissions may be present. Alistair Manzanares DO [1] Past Medical History: Diagnosis Date Depression Family history of breast cancer Genital warts Gonorrhea History of medical problems herniated disc HPV (human papilloma virus) infection LGSIL on Pap smear of cervix Phlebitis [2] Past Surgical History: Procedure Laterality Date BREAST BIOPSY HM MAMMOGRAPHY 01/24/2017 negative OTHER SURGICAL HISTORY 2013 Discectomy - herniated disc PAP SMEAR 07/17/2021 negaitve TUBAL LIGATION 2018 [3] Social History Tobacco Use Smoking status: Every Day Types: Cigarettes Substance Use Topics Alcohol use: Never [4] Family History Problem Relation Name Age of Onset Hypertension Father Breast cancer Sister [5] Allergies Allergen Reactions Baclofen Other Suicidal ideation Levofloxacin Other Reaction(s): Not available Oxycodone-Acetaminophen Unknown Other Reaction(s): Not available documented in this encounter Miscellaneous Notes * [facility] Education - Alistair Manzanares DO - 09/30/2025 8:06 AM EST Images from the original note were not included. [id number] Neck: Exercises Introduction Here are some examples of exercises for you to try. The exercises may be suggested for a condition or for rehabilitation. Start each exercise slowly. Ease off the exercises if you start to have pain. You will be told when to start these exercises and which ones will work best for you. How to do the exercises Neck stretch to the side (upper trap stretch) 1. Sit in a firm chair, or stand up straight. Keep your shoulder down as you lean away from it. To help you remember to do this, start by relaxing your shoulders and lightly holding on to your thighsor your chair. 2. Look straight ahead. Tilt your head toward one shoulder and hold for 15 to 30 seconds. Relax andlet the weight of your head stretch your muscles. 3. Slowly return your head to the starting position. 4. Repeat 2 to 4 times toward each shoulder. If you would like a little added stretch, place your arm behind your back. Use the arm opposite of the direction you are tilting your head. For example, if you are tilting your head to the left, place your right arm behind your back. You can also add more stretch by using one hand to pull your head toward your shoulder. For example, keeping your right shoulder down, lean your head to the left and use your left hand to gently and steadily pull your head toward your shoulder. Neck stretch to the diagonal 1. Sit in a firm chair, or stand up straight. Look straight ahead. If you're standing, keep your feet about hip-width apart. 2. Turn your head slightly toward the direction you will be stretching. Tip your head diagonally, bringing your chin toward your chest. Relax and let the weight of your head stretch your muscles. Hold this position for 15 to 30 seconds. 3. If you would like a little added stretch, use your hand to gently and steadily pull your head forward on the diagonal. For example, to stretch toward the left, use your left hand. 4. Repeat 2 to 4 times. 5. It's a good idea to repeat these steps toward the other side. Dorsal glide stretch 1. Sit up straight in a firm chair, or stand up straight. If you're standing, keep your feet about hip-width apart. 2. Keep your neck straight, and look straight ahead. 3. Slowly tuck your chin as you glide your head backward over your body. 4. Hold for a count of 6, and then relax for up to 10 seconds. 5. Repeat 2 to 4 times. Chest and shoulder stretch 1. Sit or stand tall. You can also stand against a wall. Junction your head backward over your body (dorsal glide). 2. Raise both arms with your palms facing forward and your elbows out to the sides. 3. Bend your elbows and slowly lower your arms while squeezing your shoulder blades down and back. Keep your elbows back and your hands up throughout the exercise. If you're using a wall, keep your arms and hands against the wall. You will feel your shoulder blades slide down and together. At the same time, you will feel a stretch across your chest and the front of your shoulders. 4. Hold for about 6 seconds. Then relax for up to 10 seconds. 5. Repeat 8 to 12 times. Neck side flexion (isometric) 1. Sit in a chair, or stand up straight. If you're standing, keep your feet about hip-width apart. 2. Keep your neck straight, and look straight ahead. 3. Put your right hand against the right side of your head above your ear. 4. As you press against the side of your head with your hand, also press your head back against your hand. You should feel the muscles at the side of your neck tighten, but your head should not move to either side. Press firmly, but not as hard as you can. 5. Hold for about 6 seconds. 6. Repeat 8 to 12 times. 7. Repeat these steps using your left hand against the left side of your head. Neck extension (isometric) 1. Sit in a chair, or stand up straight. If you're standing, keep your feet about hip-width apart. 2. Keep your neck straight, and look straight ahead. 3. Lace your fingers together or put one hand over the other, and place your hands at the back of your head. 4. Press your hands against your head at the same time you press your head straight back against your hands. Press firmly, but not as hard as you can. Do not tip your head back. 5. Hold for about 6 seconds. 6. Repeat 8 to 12 times. Neck flexion (isometric) 1. Sit in a chair, or stand up straight. If you're standing, keep your feet about hip-width apart. 2. Keep your neck straight, and look straight ahead. 3. Put the heels of your hands against your forehead just above your eyebrows. 4. Press your hands against your forehead at the same time you press your head against your hands. Press firmly, but not as hard as you can. Do not tip your head forward. 5. Hold for about 6 seconds. 6. Repeat 8 to 12 times. Follow-up care is a sierra part of your treatment and safety. Be sure to make and go to all appointments, and call your doctor if you are having problems. It's also a good idea to know your test resultsand keep a list of the medicines you take. Current as of: June 02, 2023 Content Version: 14.0 Care instructions adapted under license by your healthcare professional. If you have questions about a medical condition or this instruction, always ask your healthcare professional. [employer] disclaims any warranty or liability for your use of this information. ?? [id number] [employer]. * [facility] Education - Alistair Manzanares DO - 09/30/2025 8:06 AM EST Images from the original note were not included. [id number] Neck: Exercises Introduction Here are some examples of exercises for you to try. The exercises may be suggested for a condition or for rehabilitation. Start each exercise slowly. Ease off the exercises if you start to have pain. You will be told when to start these exercises and which ones will work best for you. How to do the exercises Neck stretch to the side (upper trap stretch) 1. Sit in a firm chair, or stand up straight. Keep your shoulder down as you lean away from it. To help you remember to do this, start by relaxing your shoulders and lightly holding on to your thighsor your chair. 2. Look straight ahead. Tilt your head toward one shoulder and hold for 15 to 30 seconds. Relax andlet the weight of your head stretch your muscles. 3. Slowly return your head to the starting position. 4. Repeat 2 to 4 times toward each shoulder. If you would like a little added stretch, place your arm behind your back. Use the arm opposite of the direction you are tilting your head. For example, if you are tilting your head to the left, place your right arm behind your back. You can also add more stretch by using one hand to pull your head toward your shoulder. For example, keeping your right shoulder down, lean your head to the left and use your left hand to gently and steadily pull your head toward your shoulder. Neck stretch to the diagonal 1. Sit in a firm chair, or stand up straight. Look straight ahead. If you're standing, keep your feet about hip-width apart. 2. Turn your head slightly toward the direction you will be stretching. Tip your head diagonally, bringing your chin toward your chest. Relax and let the weight of your head stretch your muscles. Hold this position for 15 to 30 seconds. 3. If you would like a little added stretch, use your hand to gently and steadily pull your head forward on the diagonal. For example, to stretch toward the left, use your left hand. 4. Repeat 2 to 4 times. 5. It's a good idea to repeat these steps toward the other side. Dorsal glide stretch 1. Sit up straight in a firm chair, or stand up straight. If you're standing, keep your feet about hip-width apart. 2. Keep your neck straight, and look straight ahead. 3. Slowly tuck your chin as you glide your head backward over your body. 4. Hold for a count of 6, and then relax for up to 10 seconds. 5. Repeat 2 to 4 times. Chest and shoulder stretch 1. Sit or stand tall. You can also stand against a wall. Junction your head backward over your body (dorsal glide). 2. Raise both arms with your palms facing forward and your elbows out to the sides. 3. Bend your elbows and slowly lower your arms while squeezing your shoulder blades down and back. Keep your elbows back and your hands up throughout the exercise. If you're using a wall, keep your arms and hands against the wall. You will feel your shoulder blades slide down and together. At the same time, you will feel a stretch across your chest and the front of your shoulders. 4. Hold for about 6 seconds. Then relax for up to 10 seconds. 5. Repeat 8 to 12 times. Neck side flexion (isometric) 1. Sit in a chair, or stand up straight. If you're standing, keep your feet about hip-width apart. 2. Keep your neck straight, and look straight ahead. 3. Put your right hand against the right side of your head above your ear. 4. As you press against the side of your head with your hand, also press your head back against your hand. You should feel the muscles at the side of your neck tighten, but your head should not move to either side. Press firmly, but not as hard as you can. 5. Hold for about 6 seconds. 6. Repeat 8 to 12 times. 7. Repeat these steps using your left hand against the left side of your head. Neck extension (isometric) 1. Sit in a chair, or stand up straight. If you're standing, keep your feet about hip-width apart. 2. Keep your neck straight, and look straight ahead. 3. Lace your fingers together or put one hand over the other, and place your hands at the back of your head. 4. Press your hands against your head at the same time you press your head straight back against your hands. Press firmly, but not as hard as you can. Do not tip your head back. 5. Hold for about 6 seconds. 6. Repeat 8 to 12 times. Neck flexion (isometric) 1. Sit in a chair, or stand up straight. If you're standing, keep your feet about hip-width apart. 2. Keep your neck straight, and look straight ahead. 3. Put the heels of your hands against your forehead just above your eyebrows. 4. Press your hands against your forehead at the same time you press your head against your hands. Press firmly, but not as hard as you can. Do not tip your head forward. 5. Hold for about 6 seconds. 6. Repeat 8 to 12 times. Follow-up care is a sierra part of your treatment and safety. Be sure to make and go to all appointments, and call your doctor if you are having problems. It's also a good idea to know your test resultsand keep a list of the medicines you take. Current as of: June 02, 2023 Content Version: 14.0 Care instructions adapted under license by your healthcare professional. If you have questions about a medical condition or this instruction, always ask your healthcare professional. [employer] disclaims any warranty or liability for your use of this information. ?? [id number] [employer]. documented in this encounter Plan of Treatment DateTypeDepartmentCare Team (Latest Contact Info)Dpwizuyqffh20/08/2025 8:40 AM ESTProcedure Visit [facility] [address], [address] [place] [address] Alistair Manzanares DO [address] [place] [address] 10/31/2025 6:30 PM ESTAncillary Procedure [facility] [address] [place] [address] NameTypePriorityAssociated DiagnosesOrder ScheduleBilateral screening mammogram with tomosynthesisImagingRoutine Encounter for screening mammogram for malignant neoplasm of breast Expected: 09/29/2025, Expires: 03/29/2026BC and differentialLabRoutine Unintentional weight loss Polyarthralgia Right hand pain Swelling of right hand Hand swelling Hair loss Other fatigue Insomnia, unspecified type Expected: 09/29/2025 (Approximate), Expires: 09/29/2026omprehensive metabolic panelLabRoutine Unintentional weight loss Polyarthralgia Right hand pain Swelling of right hand Hand swelling Hair loss Other fatigue Insomnia, unspecified type Expected: 09/29/2025 (Approximate), Expires: 09/29/2026ortisol AMLabRoutine Unintentional weight loss Polyarthralgia Right hand pain Swelling of right hand Hand swelling Hair loss Other fatigue Insomnia, unspecified type Expected: 09/29/2025 (Approximate), Expires: 09/29/2026-reactive proteinLab Routine Unintentional weight loss Polyarthralgia Right hand pain Swelling of right hand Hand swelling Hair loss Other fatigue Insomnia, unspecified type Expected: 09/29/2025 (Approximate), Expires: 09/29/2026Sedimentation rate, automatedLabRoutine Unintentional weight loss Polyarthralgia Right hand pain Swelling of right hand Hand swelling Hair loss Other fatigue Insomnia, unspecified type Expected: 09/29/2025 (Approximate), Expires: 09/29/2026FerritinLabRoutine Unintentional weight loss Polyarthralgia Right hand pain Swelling of right hand Hand swelling Hair loss Other fatigue Insomnia, unspecified type Expected: 09/29/2025 (Approximate), Expires: 09/29/2026Hcv antibody rfx to quant pcrLabRoutine Encounter for hepatitis C screening test for low risk patient Expected: 09/29/2025 (Approximate), Expires: 09/29/2026Iron + transferrin + TIBC LabRoutine Unintentional weight loss Polyarthralgia Right hand pain Swelling of right hand Hand swelling Hair loss Other fatigue Insomnia, unspecified type Expected: 09/29/2025 (Approximate), Expires: 09/29/2026Lipid panelLabRoutine Screening for lipid disorders Expected: 09/29/2025 (Approximate), Expires: 09/29/2026MagnesiumLabRoutine Unintentional weight loss Polyarthralgia Right hand pain Swelling of right hand Hand swelling Hair loss Other fatigue Insomnia, unspecified type Expected: 09/29/2025 (Approximate), Expires: 09/29/2026TSHLabRoutine Unintentional weight loss Polyarthralgia Right hand pain Swelling of right hand Hand swelling Hair loss Other fatigue Insomnia, unspecified type Expected: 09/29/2025 (Approximate), Expires: 09/29/2026Vitamin B00UskYcmtwmy Unintentional weight loss Polyarthralgia Right hand pain Swelling of right hand Hand swelling Hair loss Other fatigue Insomnia, unspecified type Expected: 09/29/2025 (Approximate), Expires: 09/29/2026Vitamin D 25 hydroxy TotalLabRoutine Unintentional weight loss Polyarthralgia Right hand pain Swelling of right hand Hand swelling Hair loss Other fatigue Insomnia, unspecified type Expected: 09/29/2025 (Approximate), Expires: 09/29/2026NALabRoutine Unintentional weight loss Polyarthralgia Right hand pain Swelling of right hand Hand swelling Hair loss Other fatigue Insomnia, unspecified type Expected: 09/29/2025 (Approximate), Expires: 09/29/2026yclic citrul peptide antibody, IgGLabRoutine Unintentional weight loss Polyarthralgia Right hand pain Swelling of right hand Hand swelling Hair loss Other fatigue Insomnia, unspecified type Expected: 09/29/2025 (Approximate), Expires: 09/29/2026Rheumatoid factorLab Routine Unintentional weight loss Polyarthralgia Right hand pain Swelling of right hand Hand swelling Hair loss Other fatigue Insomnia, unspecified type Expected: 09/29/2025 (Approximate), Expires: 09/29/2026Uric acidLabRoutine Unintentional weight loss Polyarthralgia Right hand pain Swelling of right hand Hand swelling Hair loss Other fatigue Insomnia, unspecified type Expected: 09/29/2025 (Approximate), Expires: 09/29/2026NameTypePriority Associated DiagnosesOrder ScheduleAmbulatory referral to GeneticsOutpatient ReferralRoutine Family history of breast cancer Expected: 09/29/2025 (Approximate), Expires: 03/29/2026documented as of this encounter Visit Diagnoses Diagnosis Unintentional weight loss- Primary Loss of weight Hair loss Unspecified alopecia Other fatigue Insomnia, unspecified type Swelling of right hand Hand swelling Swelling of limb Right hand pain Pain in soft tissues of limb Polyarthralgia Pain in joint, multiple sites Somatic dysfunction of cervical region Nonallopathic lesion of cervical region, not elsewhere classified Somatic dysfunction of thoracic region Nonallopathic lesion of thoracic region, not elsewhere classified Family history of breast cancer Family history of malignant neoplasm of breast Encounter for screening mammogram for malignant neoplasm of breast Encounter for hepatitis C screening test for low risk patient Screening for lipid disorders Right ear pain Unspecified otalgia Right serous otitis media, unspecified chronicity documented in this encounter Care Teams Team MemberRelationshipSpecialtyStart DateEnd Date Alistair Manzanares DO [address] [place] [address] PCP - GeneralFamily Hhlsobbz70/13/25documented as of this encounter
--- OUTSIDE RECORDS SUMMARY | 2025-10-03 08:00 | XMS_ITS | Encounter Summary ---
Author Organization [facility] Address [address] [place] [address] Care Team Providers Care Dot Net Architect Name Role Phone Alistair Manzanares DO Primary Care Provider [phone] Reason for Visit * ReasonCommentsOMT Encounter Details DateTypeDepartmentCare Team (Latest Contact Info)Xhxiwpnzahx15/17/2025 8:00 AM ESTProcedure Visit [facility] [address] , [facility] [address] [place] [address] Alistair Manzanares DO [address] [facility] [address] [place] [address] Segmental and somatic dysfunction of head region (Primary Dx); Somatic dysfunction of cervical region; Somatic dysfunction of thoracic region; Somatic dysfunction of lumbar region; Somatic dysfunction of sacral region; Somatic dysfunction of pelvis region; Somatic dysfunction of lower extremities; Somatic dysfunction of upper extremities; Rib cage region somatic dysfunction; Spasm of right piriformis muscle; Cervical paraspinal muscle spasm Social History Tobacco UseTypesPacks/DayYears UsedDateSmoking Tobacco: Every DayCigarettes Alcohol UseStandard Drinks/WeekCommentsNever0 (1 standard drink = 0.6 oz pure alcohol)PHQ-2AnswerDate RecordedPatient Health Questionnaire-2 Wxiqc74312/03/2024 AUDIT-CAnswerDate RecordedQ1: How often do you have a drink containing alcohol? Never09/29/2025Q2: How many drinks containing alcohol do you have on a typical day when you are drinking?Patient does not drink09/29/2025Q3: How often do you have six or more drinks on one occasion?Never09/29/2025CommentsNoSex and Gender InformationValueDate RecordedSex Assigned at BirthNot on fileLegal Sex Kvvegs5301/29/2023 6:52 PM EDTGender IdentityNot on fileSexual OrientationNot on filedocumented as of this encounter Last Filed Vital Signs Vital SignReadingTime TakenCommentsBlood Jzpxyjxt476/8610/03/2025 8:01 AM EST Hkkcb323110/03/2025 8:01 AM UUOXfgsvhzdekw81.3 ??C (97.3 ??F)10/03/2025 8:01 AM ESTRespiratory Rate--Oxygen Mzzveyvorf49%10/03/2025 8:01 AM ESTInhaled Oxygen Concentration--Mpuuld98 kg (143 lb 6.4 oz)10/03/2025 8:01 AM DWUXswobf287.5 cm (5' 7.5 )10/03/2025 8:01 AM ESTBody Mass Index22.13112/03/2024 8:01 AM EST documented in this encounter Functional Status * Over the past 2 weeks, how often have you been bothered by any of the following problems?QuestionAnswerDate of AssessmentAuthorLittle interest or pleasure in doing thingsNot at all10/03/2025 8:28 AM Alistair Reed DO Feeling down, depressed, or hopelessNot at all10/03/2025 8:28 AM Alistair Reed DOPatient Health Questionnaire-2 Mevdg31712/03/2024 8:28 AM Alistair Reed DO documented as of this encounter Progress Notes * Alistair Manzanares DO - 10/03/2025 8:00 AM EST Images from the original note were not included. FAMILY MEDICINE NOTE Chief Complaint: OMT HPI: Patient presents to the office today for OMT with complaints of neck/shoulder pain. History of Rheumatoid Arthritis: No. See below for surgical history. SUBJECTIVE: Past Medical History SURGICAL/SOCIAL ALLERGIES: Medical History[1] Surgical History[2] Social History[3] Allergies[4] OBJECTIVE: 10/03/2025 8:01 AM 09/29/2025 2:45 PM 09/26/2025 10:05 AM Vitals BMI 22.13 kg/m2 22.53 kg/m2 BSA (m2) 1.76 m2 1.78 m2 Systolic 134 104 Diastolic 82 72 Heart Rate 86 66 SpO2 98 % 98 % Temp 98.6 ??F 98 ??F Resp 20 20 Height (in) 5' 7.5 5' 7.5 Weight (lb) 143.4 146 Visit Report Report Report MSK: Hypertonicity and TART changes in the following regions: cervical: worse on right thoracic: worse on left lumbar: worse on right restriction to internal rotation of right hip OBJECTIVE: Cynthia was seen today for omt. Diagnoses and all orders for this visit: Segmental and somatic dysfunction of head region (Primary) Somatic dysfunction of cervical region Somatic dysfunction of thoracic region Somatic dysfunction of lumbar region Somatic dysfunction of sacral region Somatic dysfunction of pelvis region Somatic dysfunction of lower extremities Somatic dysfunction of upper extremities Rib cage region somatic dysfunction Somatic Dysfunction: Patient was educated about the risks and benefits of OMT and verbally consented to the procedure. HVLA was performed to cervical, thoracic, and b/l tibiotalar joints with resolution of dysfunction on recheck. Direct inhibition to b/l trapezius muscles with resolution of hyperonicity. MFR was performed to cervical, thoracic, and lumbar region with good resolution of hypertonicity and tissue texture changes on recheck. Still technique and FPR performed to b/l sacrum, b/l pelvis, and b/l 1st ribs Subocciptial release performed with good resolution of hypertonicity. Articulatory technique of b/l carpal bones. ME was performed to cervical, trapezius, and right piriformis region with good resolution of hypertonicity and improved ROM on recheck. Soft tissue stretches were performed to cervical, thoracic, and lumbar regions with good resolutionof hypertonicity and tissue texture changes on recheck. Patient tolerated the procedure well. Patient was instructed on post OMT care including increasing daily water intake over the next few days. Also advised patient to use OTC pain relievers for any pain/discomfort over the next few days as some is to be expeted after an OMT treatment. Patient reported understanding. Spasm of Cervical and Right piriformis region: -Patient had spasm of Cervical and right piriformis region/s. This was somewhat corrected with OMT today but I did give handout on stretches to do for those regions. Patient's Medications No medications on file Follow up in about 3 weeks (around 10/24/2025) for omt. This note was prepared in [...] PAP SMEAR 07/17/2021 negaitve TUBAL LIGATION 2019 [3] Social History Tobacco Use Smoking status: Every Day Types: Cigarettes Substance Use Topics Alcohol use: Never [4] Allergies Allergen Reactions Baclofen Other Suicidal ideation Levofloxacin Other Reaction(s): Not available Oxycodone-Acetaminophen Unknown Other Reaction(s): Not available documented in this encounter Miscellaneous Notes * [facility] Education - Alistair Manzanares DO - 10/03/2025 8:24 AM EST Images from the original note were not included. [id number] Piriformis Syndrome: Exercises Introduction Here are some examples of exercises for you to try. The exercises may be suggested for a condition or for rehabilitation. Start each exercise slowly. Ease off the exercises if you start to have pain. You will be told when to start these exercises and which ones will work best for you. How to do the exercises Hip internal rotator stretch 1. Lie on your back with both knees bent and your feet flat on the floor. 2. Put the ankle of your affected leg on your opposite thigh near your knee. 3. Use your hand to gently push your knee away from your body until you feel a gentle stretch around your hip. 4. Hold the stretch for 15 to 30 seconds. 5. Repeat 2 to 4 times. 6. It's a good idea to repeat these steps with your other leg. Piriformis stretch (from legs straight) 1. Lie on your back with your legs straight. 2. Lift your affected leg and bend your knee. With your opposite hand, gently pull your knee towardyour opposite shoulder. You should feel the stretch in your buttock and hip. 3. Hold the stretch for 15 to 30 seconds. 4. Repeat 2 to 4 times. 5. It's a good idea to repeat these steps with your other leg. Lower abdominal strengthening 1. Lie on your back with your knees bent and your feet flat on the floor. 2. Tighten your belly muscles by pulling your belly button in toward your spine. Keep breathing normally and don't hold your breath. 3. Lift one foot off the floor and bring your knee toward your chest, so that your knee is straightabove your hip and your leg is bent like the letter L. 4. Lift the other knee up to the same position. 5. Lower one leg at a time to the starting position. 6. Keep alternating legs until you have lifted each leg 8 to 12 times. Keep your belly muscles tight and your back still as you are moving your legs. Keep breathing normally. Follow-up care is a sierra part of [...] this instruction, always ask your healthcare professional. [employer] disclaims any warranty or liability for your use of this information. ?? [phone] [employer]. documented in this encounter Plan of Treatment DateTypeDepartmentCare Team (Latest Contact Info)Pwefiklxujw56/08/2025 8:40 AM ESTProcedure Visit [facility] [address], [address] [place] [address] Alistair Manzanares DO [address] [place] [address] 10/31/2025 6:30 PM ESTAncillary Procedure [facility] [address] [place] [address] documented as of this encounter Visit Diagnoses Diagnosis Segmental and somatic dysfunction of head region- Primary Somatic dysfunction of cervical region Nonallopathic lesion of cervical region, not elsewhere classified Somatic dysfunction of thoracic region Nonallopathic lesion of thoracic region, not elsewhere classified Somatic dysfunction of lumbar region Nonallopathic lesion of lumbar region, not elsewhere classified Somatic dysfunction of sacral region Nonallopathic lesion of sacral region, not elsewhere classified Somatic dysfunction of pelvis region Nonallopathic lesion of pelvic region, not elsewhere classified Somatic dysfunction of lower extremities Nonallopathic lesion of lower extremities, not elsewhere classified Somatic dysfunction of upper extremities Nonallopathic lesion of upper extremities, not elsewhere classified Rib cage region somatic dysfunction Nonallopathic lesion of rib cage, not elsewhere classified Spasm of right piriformis muscle Cervical paraspinal muscle spasm Spasm of muscle documented in this encounter Care Teams Team MemberRelationshipSpecialtyStart DateEnd Date Alistair Manzanares DO [address] [address] PCP - GeneralFamily Pipnzhqs33/13/25documented as of this encounter
--- OUTSIDE RECORDS SUMMARY | 2025-10-10 07:08 | XMS_ITS | Clinical Summary ---
Author Organization [facility] Address [address] [place] [address] Care Team Providers Care Enterprise Mobility Architect Name Role Phone Alistair Manzanares Primary Care Provider Allergies No known active allergies Medications MedicationSigDispense QuantityRefillsLast FilledStart DateEnd DateStatus acetaminophen-codeine (TYLENOL-COD #2) 300-15 mg per tablet Take 1 tablet by mouth every 4 hours as needed.Active ibuprofen (MOTRIN) 800 mg tablet Take 800 mg by mouth every 6 hours as needed.Active Active Problems ProblemNoted DateDiagnosed DateSUI (stress urinary incontinence, female) 09/08/2014S/P moojpemghn04/23/2014Right leg pain09/08/2014Meralgia paresthetica of right side09/08/2014Smoker Social History Tobacco UseTypesPacks/DayYears UsedDateSmoking Tobacco: Every DayCigarettes0.311 Alcohol UseStandard Drinks/WeekCommentsNo0 (1 standard drink = 0.6 oz pure alcohol)CommentsNoSex and Gender InformationValueDate RecordedSex Assigned at BirthNot on fileLegal FufWknafh05/21/2014 12:17 PM EDTGender IdentityNot on fileSexual OrientationNot on fileOccupationIndustryJob Start Date Job 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 DateserverNot on fileNot on fileNot on file Last Filed Vital Signs Vital SignReadingTime TakenCommentsBlood Zzwokooy091/7209/08/2014 2:09 PM EDT Ddozl720209/08/2014 2:09 PM EDTTemperature--Respiratory Itzh8444 2:09 PM EDTOxygen Saturation--Inhaled Oxygen Concentration--Zxrohr32.9 kg (185 lb) 09/08/2014 2:09 PM BNDHgdecm486.2 cm (5' 7 )09/08/2014 2:09 PM EDTBody Mass Index28.9809/08/2014 2:09 PM EDT Plan of Treatment Health MaintenanceDue DateLast DoneCommentsAnxiety Ztecijaym41/06/2002Depression Sfodkflwc93/06/2002HIV Fxnethbdq09/06/2002Hepatitis C Tirgrwkbh39/06/2002 DTaP,Tdap,Td Vaccine (1 - Tdap)2002Hepatitis B Vaccine (1 of 3 - 19+ 3- dose series)2002Cervical Cancer Wwiokdqkn63/06/2005HPV Vaccine (1 - 3-dose SCDM series)2010Mammogram Ehzasoybl58/06/2024Covid-19 Vaccine ( - 2024- season)2025Influenza Vaccine (#1)2025 Insurance Care Teams Team MemberRelationshipSpecialtyStart DateEnd Date Alistair Manzanares DO [address] [address] PCP - GeneralFamily Jdaruwaw60/14/25
--- OUTSIDE RECORDS SUMMARY | 2025-10-10 07:08 | XMS_ITS | Encounter Summary ---
Author Organization [facility] Address [address] [place] [address] Care Team Providers Care Top Spotter Name Role Phone Alistair Manzanares DO Primary Care Provider [phone] Encounter Details DateTypeDepartmentCare Team (Latest Contact Info)Gmndpjitril46/17/2025Orders Only [facility] [address], [facility] [address] [place] [address] Unallocated, [facility], [address] [place] [address] Social History Tobacco UseTypesPacks/DayYears UsedDateSmoking Tobacco: Every DayCigarettes Alcohol UseStandard Drinks/WeekCommentsNever0 (1 standard drink = 0.6 oz pure alcohol)PHQ-2AnswerDate RecordedPatient Health Questionnaire-2 Yokjx41212/03/2024 AUDIT-CAnswerDate RecordedQ1: How often do you have a drink containing alcohol? Never09/29/2025Q2: How many drinks containing alcohol do you have on a typical day when you are drinking?Patient does not drink09/29/2025Q3: How often do you have six or more drinks on one occasion?Never09/29/2025CommentsNoSex and Gender InformationValueDate RecordedSex Assigned at BirthNot on fileLegal Sex Xzwozb3101/29/2023 6:52 PM EDTGender IdentityNot on fileSexual OrientationNot on filedocumented as of this encounter Functional Status * Over the past 2 weeks, how often have you been bothered by any of the following problems?QuestionAnswerDate of AssessmentAuthorLittle interest or pleasure in doing thingsNot at all11/ 8:28 AM Alistair Reed DO Feeling down, depressed, or hopelessNot at all10/03/2025 8:28 AM Alistair Reed DOPatient Health Questionnaire-2 Kzdpq21012/03/2024 8:28 AM Alistair Reed DO documented as of this encounter Plan of Treatment DateTypeDepartmentCare Team (Latest Contact Info)Odtbbgehkpx03/08/2025 8:40 AM ESTProcedure Visit [facility] [address], [place] [address] [place] [address] Alistair Manzanares DO [address] [place] [address] [place] [address] 10/31/2025 6:30 PM ESTAncillary Procedure [facility] [address] [address] [place] [address] documented as of this encounter Procedures Procedure NamePriorityDate/TimeAssociated DiagnosisCommentsINSULINRoutine 09/20/2025 3:31 PM ESTCA 19-3Wafwrir25/04/2025 3:31 PM ZFHSEJGhvpcqy83/04/2025 3:31 PM ESTXR HAND 3+ VIEWS GKRXERkarqnh62/04/2025 10:15 AM ESTdocumented in this encounter Results * CEA (09/20/2025 3:31 PM EST)Specimen (Source)Anatomical Location / Laterality Collection Method / VolumeCollection TimeReceived TimeBloodVenous blood specimen / Unknown Narrative Authorizing ProviderResult TypeResult StatusNoms Provider Unallocated MDLAB BLOOD ORDERABLESFinal Result * Cancer antigen 19-9 (09/20/2025 3:31 PM EST)Specimen (Source)Anatomical Location / LateralityCollection Method / VolumeCollection TimeReceived Time BloodVenous blood specimen / Unknown Narrative Authorizing ProviderResult TypeResult StatusNoms Provider Unallocated MDLAB BLOOD ORDERABLESFinal Result * Insulin, fasting (09/20/2025 3:31 PM EST)Specimen (Source)Anatomical Location / LateralityCollection Method / VolumeCollection TimeReceived TimeBloodVenous blood specimen / Unknown Narrative Authorizing ProviderResult TypeResult StatusNoms Provider Unallocated MDLAB BLOOD ORDERABLESFinal Result * XR hand 3+ views right (09/20/2025 10:15 AM EST)Anatomical RegionLaterality ModalityUpper Extremities, HandRightRadiographic Imaging Narrative Authorizing ProviderResult TypeResult StatusNoms Provider Unallocated MDIMG XR PROCEDURESFinal Result documented in this encounter Visit Diagnoses Not on filedocumented in this encounter Care Teams Team MemberRelationshipSpecialtyStart DateEnd Date Alistair Manzanares DO [address] [address] PCP - GeneralFamily Gzpjgxqf50/13/25documented as of this encounter
--- OUTSIDE RECORDS SUMMARY | 2025-10-10 07:09 | XMS_ITS | Patient Health Record ---
Author Organization 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 Fredo Hussein Primary Care Provider [phone] Isabelle Hickey Unavailable [phone] Wilda Mendez Unavailable [phone] Reason For Referral No Information Encounters Encounter Location Date Provider Diagnosis [facility] [address] [place] [address] 05/24/[address] [facility] [address] [place] [address]/31/2025 Isabelle HickeyChronic periodontitis, generalized, slight K05.321[facility] [address] [place] [address]Isabelle Hickey Chronic periodontitis, generalized, slight K05.321[facility] [place] [address]/24/2025Jasmhenrietta MendezDental caries on pit and fissure surface penetrating into dentin K02.52 Assessments Encounter Date Diagnosis (ICD Code) Assessment Notes Treatment Notes Treatment Clinical Notes Section Notes 12/17/2024 Chronic periodontitis, generaliz ed, slight (ICD-10 - K05.321) 01/10/2025Dental caries on pit and fissure surface penetrating into dentin (ICD- 10 - K02.52)05/24/2025hronic periodontitis, generalized, slight (ICD-10 - K05.321) Plan Of Treatment Next Appt Details Provider Name:Isabelle Hickey , 02/09/2026 09:15:00 AM, [address], [place], [address], Insurance Providers Payer Name Payer Address Payer Phone Subscriber Number Group Number Insured Name Patient Relationship to Insured Coverage Start Date Coverage End Date zDENTAL DQ [employer] -termed 12/17/22 [address] [place] [address] [id number] BONILLA WILDER Self - patient is the insured 1 3 zDental MEDICAID CFC after [employer] -termed 12/17/22 [address] [place] [address] [phone] [id number] BONILLA WILDER Self - patient is the insured 1 3 z[place] T ADVANTAGE -termed 12/17/22 [address] [place] [address] [id number] BONILLA WILDER Self - patient is the insured 1 3 zMEDICAID CFC after [employer] -termed 12/17/22 [address] [place] [address] [id number] BONILLA WILDER Self - patient is the insured 1 3 Dental [place] DQ Terminated 11/16/24 [address] [place] [address] [id number] Reji WILDER - patient is the /01/2023Dental Wrap CFC [place] BCBS Termed [address] [place] [id number] Reji WILDER - patient is the oidbewl95/01/2023[facility]AL [facility] [address]CIAL[address] [address] [place] [id number], TIFFANYSelf - patient is the ganubqw0511/17/2024Dental Anthem [place] MedicaidPO [address] [address] [place] [id number], TIFFANYSelf - patient is the aqxaaog0011/17/2024
--- OUTSIDE RECORDS SUMMARY | 2025-10-10 07:09 | XMS_ITS | CCD ---
Author Organization [facility] Care Team Providers Care Paper Guillotine Operator Name Role Phone EDEL ., DR JUNE [...] MARIE, ADEN Attending Unavailable HOY ., DR ROALND Primary Care Unavailable MARIE, ADEN Consulting Unavailable MARIE, ADEN Admitting Unavailable MARIE, ADEN Attending Unavailable HOY ., DR ROLAND Primary Care Unavailable MARIE, ADEN Consulting Unavailable MIKE, GENEVIEVE Consulting Unavailable KUCHIPUDI, LOUISE Consulting Unavailable MARIE, [...] Care Provider MD Sunil Trevizo Emergency Provider Luan Guerra MD Primary Care Provider [phone] Luan Guerra MD Primary Care Provider [phone] Sunil Trevizo Attending Unavailable Sunil Trevizo Admitting Unavailable Francisco Sanches Primary Care Unavailable SHARLENE COOK Attending Unavailable KIMBERLYYASMANIHYACINTH Attending Unavailable LILLY BENNETT Attending Unavailable LILLY BENNETT Referring Unavailable VIRAJ CARIAS Attending Unavailable SHARLENE COOK Attending Unavailable Allergies Allergy ClassificationReported Allergen(s)Allergy TypeDate of OnsetReaction(s) Facility (2 sources)Acetaminophen / oxyCODONEDrug [facility]ergy[facility] (15 sources)Acetaminophen / oxyCODONEDrug Vedqvwv79-10-0946HkqjmplPHZK [facility] (15 sources)levoFLOXacinDrug Rfmdfgq32-64-5271IX[facility] Work Phone: (1 source)Acetaminophen / oxyCODONE; Translations: [Percocet 5/325]Drug Allergy [facility] Repository (1 source)Penicillin; Translations: [penicillin][facility] ([facility] source)No Known Medication Allergies; Translations: [No Known Medication Allergies]Propensity to adverse reactions (disorder)[facility] Repository Medications Current Medications MedicationDrug Class(es)DatesSig (Normalized)Sig (Original)acetaminophen 325 mg / HYDROcodone bitartrate 5 mg oral tablet (2 sources)Opioid AgonistStart: 84-65-3732ntoy 1 tablet by mouth every six hours Hydrocodone-Acetaminophen (Climax) 5-325 mg tablet Active 1 TAB PO Q6H 8 2 October 13, 2019Start: 06-08-2019 End: 70-46-5928ptkm 1 tablet by mouth every four to six hoursHydrocodone- Acetaminophen Discontinued 1 TAB PO EVERY 4-6 HOURS June 08, 2019 12:00am October 13, 2019 7:22bvabt433758 200 actuat albuterol 0.09 mg/actuat metered dose inhaler (14 sources)beta2-Adrenergic AgonistStart: 04-18-2025 End: 93-90-4353hcgx 2 puff(s) by inhalation every six hours for wheezing albuterol HFA (Ventolin HFA) 90 mcg/act inhaler Indications: Acute bronchitis, unspecified organismInhale 2 puffs every 6 (six) hours if needed for wheezing or shortness of breath 8 g 04/18/2025 ActiveStart: 39-49-5414uapo 2 puff(s) by mouth every four hours as needed for wheezingalbuterol HFA 90 mcg/act inhaler INHALE 2 PUFFS BY MOUTH EVERY 4 HOURS NEEDED FOR SHORTNESS OF BREATH OR WHEEZING 03/07/2025 Activeamoxicillin 875 mg / clavulanate 125 mg oral tablet (2 sources)Penicillin-class AntibacterialStart: 04-18-2025 End: 33-98-8577faes 1 tablet by mouth in the morningamoxicillin-clavulanate (Augmentin) 875-125 MG tablet Indications: Acute bronchitis, unspecified org anism Take 1 tablet (875 mg) by mouth in the morning and 1 tablet (875 mg) before bedtime. Do all this for 7 days. 14 tablet 04/18/2025 04/25/2025 Active baclofen 10 mg oral tablet (2 sources)gamma-Aminobutyric Acid-ergic Agonisttake 1 tablet by mouth in the morning, then take 1 tablet by mouth in the evening, then take 1 tablet by mouth at bedtimebaclofen (Lioresal) 10 MG tablet Take 10 mg by mouth in the morning and 10 mg in the evening and 10mg before bedtime. Activecephalexin 500 mg oral capsule (1 source)Cephalosporin AntibacterialStart: 98-18-5226rwyc 1 capsule by mouth four times dailyCephalexin (Keflex) 500 mg capsule Active 500 MG PO Four times daily October 13, 2019 1:00amibuprofen 800 mg oral tablet (11 sources)Nonsteroidal Anti-inflammatory DrugStart: 81-40-4855kelu 1 tablet by mouth every eight hours at mealtime as neededibuprofen 800 MG tablet TAKE 1 TABLET BY MOUTH WITH FOOD OR MILK EVERY 8 HOURS NEEDED 08/17/2024ctive methylPREDNISolone (3 sources)CorticosteroidStart: 08-28-2023 End: 84-76-5986gtjbgaNVZBHKEukubv (Medrol Dospak) 4 MG tablets Indications: Lateral epicondylitis of left elbow Asdirected 21 tablet 08/28/2023 11/23/2024 Discontinued (Therapy completed)Start: 38-80-8769jxnmgbMAAANQPetgzd (Medrol Dospak) 4 MG tablets Indications: Lateral epicondylitis of left elbow Asdirected 21 tablet 08/28/2023 Activeondansetron 8 mg oral tablet (2 sources)Serotonin-3 Receptor AntagonistStart: 09-26-2025 End: 08-19-4020dxbs 1 tablet by mouth every eight hours as needed for nausea and vomiting and nausea and nauseaondansetron (Zofran) 8 MG tablet Indications: Nausea Take 1 tablet (8 mg) by mouth every 8 (eight) hours if needed for nausea or vomiting for up to 5 days 15 tablet 09/26/2025 10/01/2025 ActivepredniSONE 20 mg oral tablet (9 sources)Start: 79-18-7143vkkhqtVQNG (Deltasone) 20 MG tablet Indications: Generalized muscle ache , Medication reaction, initial encounter Take 3 tabs for 2 days, 2 tabs for 2 days, 1 tab for 2 days, 1/2 tab for 2 days then stop 13 tablet 09/26/2025 ActiveStart: 04-18-2025 End: 54-90-3859fxvs 2 tablets by mouth once dailypredniSONE (Deltasone) 20 MG tablet Indications: Acute bronchitis, unspecified organism Take 2 tabsorally by mouth once daily for 5 days. 10 tablet 04/18/2025 09/26/2025 Discontinued (Therapy completed) Completed/Discontinued Medications MedicationDrug Class(es)DatesSig (Normalized)Sig (Original)tiZANidine 4 mg oral tablet (11 sources)Central alpha-2 Adrenergic Agonist End: 38-80-6190xakx 1 tablet by mouth every six hours as neededtiZANidine (Zanaflex) 4 MG tablet 4 mg every 6 (six) hours if needed 09/26/2025 Discontinued (Therapy completed) Problems Active Problems Problem ClassificationProblemDateDocumented DateEpisodic/ChronicAcute bronchitis (2 sources)Acute bronchitis; Translations: [Acute bronchitis, unspecified] 62-60-7010ObwhtvmzG Codes: Adverse effects of medical drugs (2 sources)Adverse reaction to drug; Translations: [Adverse effect of unspecified drugs, medicaments and biological substances, initial encounter] 60-16-3460KnnmjlxjIdithsnmzafjg and screening for infectious disease (6 sources)Encounter for screening for infections with a predominantly sexual mode of transmission; Translations: [Patient encounter status]Onset: 08-28-2022 EpisodicMenstrual disorders (2 sources)Amenorrhea; Translations: [Amenorrhea, unspecified]35-54-2320Rlkyuaw Nausea and vomiting (2 sources)Nausea; Translations: [Nausea]36-69-8953HlkshznyFmut wounds of head; neck; and trunk (1 source)Laceration - injury; Translations: [Laceration]62-21-3821EzxlajfuMicvj connective tissue disease (2 sources)Pain in right hand; Translations: [Pain in right hand]05-03-2025 EpisodicOther connective tissue disease (2 sources)Muscle pain; Translations: [Myalgia, unspecified site]09-26-2025 EpisodicOther endocrine disorders (4 sources)Disorder of endocrine system; Translations: [Endocrine disorder, unspecified]56-23-0044DhybnumfVoeaa nutritional; endocrine; and metabolic disorders (2 sources)Unexplained weight loss ; Translations: [Abnormal weight loss] 32-42-8681DzsrfgedEqwtk screening for suspected conditions (not mental disorders or infectious disease) (2 sources)Patient encounter status; Translations: [Encounter for screening mammogram for malignant neoplasm of breast]10-57-1097GsctscmtHxabs skin disorders (2 sources)Night sweats; Translations: [Generalized hyperhidrosis]11-23-2024 EpisodicOther skin disorders (2 sources)Loss of hair; Translations: [Nonscarring hair loss, unspecified] 11-23-9000OwscbuauUblvtboekql; intervertebral disc disorders; other back problems (4 sources)Spondylosis without myelopathy or radiculopathy, lumbar region; Translations: [SPONDYLS W/O MYELO-/RADICULOP LUMB]Onset: 48-53-6793Qzaxrvp Sprains and strains (2 sources)Unspecified sprain of right ring finger, initial encounter; Translations: [Sprain of hand, unspecified site]72-36-9081ArvaiclnNyxkadlzw- related disorders (1 source)Nicotine dependence, cigarettes, uncomplicated; Translations: [NICOTINE DEPEND CIGARETTES UNCOMP]Onset: 73-57-1574KftvhbuBcxqsfxmumx injury; contusion (3 sources)Contusion of rib; Translations: [Contusion of right front wall of thorax, initial encounter]36-36-2813NywaspwxOfgoteqxwnlz (1 source)CONTACT W/AND (SUSP) EXPOS COVID-19; Translations: [CONTACT W/AND (SUSP) EXPOS COVID-19]Onset: 10-07-2022 Past or Other Problems Problem ClassificationProblemDateDocumented DateEpisodic/ChronicAbdominal pain (5 sources)Pelvic and perineal pain; Translations: [Unspecified abdominal pain] Onset: 35-88-4534EvokefceFftkllqmyyri of device; implant or graft (1 source)Other specified complication of genitourinary prosthetic devices, implants and grafts, initial encounter; Translations: [OTH COMP PROS DEVC IMPL GFT INIT]Onset: 63-95-8139YcwtrcpeIsmnqvpsafjcw and procreative management (5 sources)Encounter for sterilization; Translations: [ENCOUNTER FOR STERILIZATION]Onset: 00-96-1603UfvmncfoHnoggyuwqtx chest pain (2 sources)Musculoskeletal chest pain; Translations: [Other chest pain]Onset: 693693-12-7787RrvnvucuIchht female genital disorders (1 source)Other specified conditions associated with female genital organs and menstrual cycle; Translations:[OTH SPEC COND FE GEN ORG MENST CYCL]Onset: 06-54-5482StaohzvuKrggw female genital disorders (1 source)Other specified noninflammatory disorders of vagina; Translations: [OTH SPEC NONINFLAMMATORY D/O VAGINA]Onset: 41-58-8119TdtswublUziei gastrointestinal disorders (1 source)Other ascites; Translations: [OTHER ASCITES]Onset: 64-10-6744Ljuojaqa Spondylosis; intervertebral disc disorders; other back problems (8 sources)Muscle spasm of back; Translations: [Disorder of right sciatic nerve] Onset: 135927-07-5252Wgkvtvua Results Test NameValueInterpretationReference RangeFacilityNo Panel Informationon 38-38-3929Azagmstephenie Nj MA 05/25/2025 12:50 PM Splint Application Date/Time: 05/03/2025 12:52 PM Performed by: Azucena Nj MA Authorized by: Lilly Bennett NP Consent: Consent obtained: Verbal Consent given by: Patient [place] protocol: Patient identity confirmed: Verbally with patient Procedure details: Location: Finger Finger location: R ring finger Splint type: Finger Supplies: Aluminum splint Attestation: Splint applied and adjusted personally by me Post-procedure details: Procedure completion: Tolerated well, no immediate complications Comments: Alumafoam applied to pts R ring finger then wrapped with a 2in dirk wrap. Pt tolerated well.[facility]+ VIEWS RIGHTon 03-83-0142HD HAND 3+ VIEWS RIGHTTITLE OF EXAM: XR [...] radiologist.NormalNot AvailableXR Hand - right 3 Viewson 05-38-7132UZMZL OF EXAM: XR HAND 3+ VIEWS RIGHT [...] signed and approved by the interpreting radiologist. [facility] HealthcareRadiology Study observation (narrative)[facility] Hand - right 3 ViewsOrdered By: Renzo Ordonez on 02-91-9947DCKD [employer] Work Phone: IGP,APTIMA HPV,AGE GDLNon 84-85-1405PGC GDLN ACOG TESTINGNote.[facility] HealthcareComment on above:TESTS RESULT FLAG UNITS REF RANGE LAB Clinician Provided Cytology Information Source.............Cervix;Endocervix No. of containers..01 ThinPrep Vial Age Sachino ACOG Anay... 3065 01 FLAG LEGEND: L-Low Normal,H-High Normal,LL-Alert Low,HH-Alert High <-Panic Low,>-Panic High,A-Abnormal,AA-Critical Abnormal Performed at: 01 =[address] [address] Ree Huynh MD, HPV APTIMANegativeNegativeNOMS HealthcareComment on above:This nucleic acid amplification test detects fourteen high- risk HPV types (16,18,31,33,35,39,45,51,52,56,58,59,66,68) without differentiation. Performed at: =[address] [id number] Journalism Instructor: Ree Huynh MD, Phone: [phone] Performed at: [address] [id number] Journalism Instructor: Ree Huynh MD, Phone: [phone] IGP, APTIMA HPV, RFX 16/18,45Note.NOMS HealthcareComment on above:TESTS RESULT FLAG UNITS REF RANGE LAB DIAGNOSIS: 02 NEGATIVE FOR INTRAEPITHELIAL LESION OR MALIGNANCY. THIS SPECIMEN WAS RESCREENED PART OF OUR RIG SITE ENGINEER PROGRAM. Specimen adequacy: 02 Satisfactory for evaluation. Endocervical and/or squamous metaplastic cells (endocervical component) are present. Performed by: 02 Alice Browne, Form [employer] ([facility]) QC reviewed by: 02 Rm Mccoy, Form [employer] ([facility]) . 02 Note: Note 02 The Pap [...] <-Panic Low,>-Panic High,A-Abnormal,AA-Critical Abnormal Performed at: 02 [facility] [address] [place] [address] Ree Huynh MD, BRUSH-SPATULA CERVIX ENDOCERVIX CLINISYNCNONY HealthcareRECURRENT VAGINITIS (HTRX)on 35-19-5506ECZRNFKIH VAGINAE 30.745AbnormalNONY HealthcareATOPOBIUM VAGINAEDetectedAbnormalNONY Healthcare BVAB 2,3 (BACTERIAL VAGINOSIS ASSOCIATED BACTERIA 2, 3); MOBILUNCUS EAO7LHUY HealthcareBVAB 2,3 (BACTERIAL VAGINOSIS ASSOCIATED BACTERIA 2, 3); MOBILUNCUS SPPNot detectedNOMS HealthcareCANDIDA ALBICANS, PARAPSILOSIS, YBGDJFOTMQ2RBYX HealthcareCANDIDA ALBICANS, PARAPSILOSIS, TROPICALISNot detectedNOMS Healthcare FREDIS YOFBIHFR7AHEJ HealthcareCANDIDA GLABRATANot detectedNOMS Healthcare FREDIS HAAETX2SUFA HealthcareCANDIDA KRUSEINot detectedNOMS HealthcareCHLAMYDIA CHWDOWZEFXS0RUOJ HealthcareCHLAMYDIA TRACHOMATISNot detectedNOMS Healthcare GARDNERELLA CSXWNMQNT0SMLJ HealthcareGARDNERELLA VAGINALISNot detectedNOMS HealthcareInterpretation and review of laboratory resultsAbnormalNOMS Healthcare MEGASPHAERA (TYPES 1, 2)0NOMS HealthcareMEGASPHAERA (TYPES 1, 2)Not detectedNOMS HealthcareMYCOPLASMA EKQJPRXDYA6QJNH HealthcareMYCOPLASMA GENITALIUMNot detected NOMS HealthcareNEISSERIA VPSXTDFTAHB3IODX HealthcareNEISSERIA GONORRHOEAENot detectedNOMS HealthcareTRICHOMONAS LCFEQMFEH8IZAU HealthcareTRICHOMONAS VAGINALISNot detectedNOMS HealthcareNOMS HealthcareHCG ( test) Ql (U)on 10-35-5746Tuotsbgaixdezk and review of laboratory resultsNormalNOMS Healthcare Preg Test, UrNegativeNegativeNOMS HealthcareNOMS HealthcareActivated partial thromboplastin time (aPTT) in platelet poor plasma by coagulation aOrdered By: Sunil Trevizo on 26-58-6434vLYZ Coag (PPP) [Time]29.4 s25.1-36.5FCleveland Clinic Euclid HospitalBasophils Auto (Bld) [#/Vol]Ordered By: Sunil Trevizo on 34-69-8130Ncwvknzft (Bld) [#/Vol]0.1 10*3/uL0.0-0.2FCleveland Clinic Euclid HospitalBasophils/100 WBC Auto (Bld)Ordered By: Sunil Trevizo on 05-04-2023 Basophils/100 WBC (Bld)1.0 %.[facility] CenterCalcium [Mass/volume] in Serum or PlasmaOrdered By: Sunil Trevizo on 15-39-2561Hqrxryz [Mass/Vol]9.4 mg/dL8.6-10.3FCleveland Clinic Euclid HospitalCarbon dioxide, total [Moles/volume] in Serum or PlasmaOrdered By: Sunil Trevizo on 05-04-2023 CO2 [Moles/Vol]23.5 mmol/L21.0-31.0[facility] CenterChloride [Moles/volume] in Serum or PlasmaOrdered By: Sunil Trevizo on 05-04-2023 Chloride [Moles/Vol]105 mmol/V05-864VvkuzhcdlLakehealth Tripoint Medical CenterCreatine kinase [Enzymatic activity/volume] in Serum or PlasmaOrdered By: Sunil Trevizo on 22-08-2786KH [Catalytic activity/Vol]93 U/Y63-016EhtpjplsyLakehealth Tripoint Medical CenterCreatinine [Mass/volume] in Serum or PlasmaOrdered By: Sunil Trevizo on 03-15-2598Wlirsimtrg [Mass/Vol]0.64 mg/dL0.60-1.20[facility] CenterEosinophils Auto (Bld) [#/Vol]Ordered By: Sunil Trevizo on 05-04-2023 Eosinophils (Bld) [#/Vol]0.1 10*3/uL0.0-0.45[facility] Eosinophils/100 WBC Auto (Bld)Ordered By: Sunil Trevizo on 05-04-2023 Eosinophils/100 WBC (Bld)0.8 %.[facility] CenterErythrocyte distribution width Auto (RBC) [Ratio]Ordered By: Sunil Trevizo on 05-04-2023 Erythrocyte distribution width (RBC) [Ratio]13.2 %11.9-15.3FCleveland Clinic Euclid HospitalGlucose [Mass/volume] in Serum or PlasmaOrdered By: Sunil Trevizo on 14-89-4950Frrudwn [Mass/Vol]90 mg/bG86-637GhorigvzjLakehealth Tripoint Medical Center Comment on above:ADA recommended reference rangeRandom Glucose Reference Range is dependent on time and content of last meal. Glucose of more than 200 mg/dL in a nonstressed, ambulatory subject supports the diagnosisof Diabetes Mellitus. Hematocrit Auto (Bld) [Volume fraction]Ordered By: Sunil Trevizo on 05-04-2023 Hematocrit (Bld) [Volume fraction]38.3 %34.0-46.4FCleveland Clinic Euclid HospitalHemoglobin [Mass/volume] in BloodOrdered By: Sunil Trevizo on 05-04-2023 Hemoglobin (Bld) [Mass/Vol]13.0 g/dL11.8-15.4FC[facility] Hospital Laboratory - CoagulationOrdered By: Sunil Trevizo on 66-42-9939KO Coag (PPP) [Time]14.5 s9.0-12.9[facility] CenterLeukocytes [#/volume] corrected for nucleated erythrocytes in Blood by Automated counOrdered By: Sunil Trevizo on 58-93-1144SZJ corrected for nucl RBC Auto (Bld) [#/Vol]10.5 10*3/uL3.8-11.6FCleveland Clinic Euclid HospitalLymphocytes Auto (Bld) [#/Vol] Ordered By: Sunil Trevizo on 29-40-5005Dlcunjbdovc (Bld) [#/Vol]2.4 10*3/uL 1.00-4.8[facility] CenterLymphocytes/100 WBC Auto (Bld)Ordered By: Sunil Trevizo on 18-17-0668Cehylbdaabc/100 WBC (Bld)22.4 %.[facility] CampusH Auto (RBC) [Entitic mass]Ordered By: Sunil Trevizo on 91-68-8015FXS (RBC) [Entitic mass]31.5 pg24.7-34.3FCleveland Clinic Euclid HospitalMCHC Auto (RBC) [Mass/Vol]Ordered By: Sunil Trevizo on 61-90-1982TSQD (RBC) [Mass/Vol]33.9 g/dL32.0-35.0[facility] CenterMCV Auto (RBC) [Entitic vol]Ordered By: Sunil Trevizo on 89-79-1560IEA (RBC) [Entitic vol]92.7 nE57-712LoldxenhhLakehealth Tripoint Medical CenterMonocyte distribution width [Entitic volume] in Blood by AutomatedOrdered By: Sunil Trevizo on 05-04-2023 Monocyte distribution width Auto (Bld) [Entitic vol]16.86 %0.00-20.00[facility] CenterMonocytes Auto (Bld) [#/Vol]Ordered By: Sunil Trevizo on 13-69-6905Tbtzsztjr (Bld) [#/Vol]0.5 10*3/uL0.0-0.8[facility] CenterMonocytes/100 WBC Auto (Bld)Ordered By: Sunil Trevizo on 05-04-2023 Monocytes/100 WBC (Bld)4.6 %.[facility] CenterNeutrophils Auto (Bld) [#/Vol]Ordered By: Sunil Trevizo on 56-65-0455Fucmfaflwvc (Bld) [#/Vol] 7.5 10*3/uL1.8-7.7FCleveland Clinic Euclid HospitalNeutrophils/100 WBC Auto (Bld)Ordered By: Sunil Trevizo on 19-64-8823Xisuwanayaw/100 WBC (Bld)71.2 %. [facility] CenterNo Panel InformationOrdered By: Sunil Trevizo on 50-10-7814R-Dimer Quantitative (PE/DVT)< 200 ng/mL0-243L[facility] Medical CenterComment on above:The reference range for D-dimer is [...] due toco-morbid conditions.Estimated GFR (CKD-EPI)> 60.0 mL/Min [facility] CenterPharmacy Creatinine Clearance (Kdat975.69 [facility] CenterNucleated erythrocytes [Presence] in Blood by Automated countOrdered By: Sunil Trevizo on 44-40-4783Ufuxddkkb RBC Auto Ql (Bld)0.1 /100{WBC}0-0.5FCleveland Clinic Euclid HospitalPlatelet mean volume Auto (Bld) [Entitic vol]Ordered By: Sunil Trevizo on 47-24-6472Dhqxszfv mean volume (Bld) [Entitic vol]9.3 fL6.3-10.7FC[facility] Platelet poor plasma international normalized ratio (INR) by coagulation assay (relatOrdered By: Sunil Trevizo on 64-60-4646MCJ Coag (PPP) [Relative time]1.3 {INR}[facility] CenterComment on above:INR Therapeutic Range A) Pre- and [...] Auto (Bld) [#/Vol]Ordered By: Sunil Trevizo on 06-91-9240Lqgwfntxt (Bld) [#/Vol]188 10*3/hV119-769QylmsqswlLakehealth Tripoint Medical CenterPotassium [Moles/volume] in Serum or PlasmaOrdered By: Sunil Trevizo on 05-04-2023 Potassium [Moles/Vol]3.6 mmol/L3.5-5.1FCleveland Clinic Euclid HospitalRBC Auto (Bld) [#/Vol]Ordered By: Sunil Trevizo on 71-24-8543AEB (Bld) [#/Vol]4.13 10*6/uL3.60-5.00UC Medical Centererum or plasma anion gap determinationOrdered By: Sunil Trevizo on 03-81-9875Gqwbu gap [Moles/Vol]12.1 mmol/L6.0-15.0UC Medical Centerodium [Moles/volume] in Serum or PlasmaOrdered By: Sunil Trevizo on 09-26-2107Lartol [Moles/Vol]137 mmol/L 136-145[facility] CenterTroponin I.cardiac [Mass/volume] in Serum or Plasma by Detection limit <= 0.01 ng/Ordered By: Sunil Trevizo on 64-25-3284Yflpbuhf I.cardiac DL <= 0.01 ng/mL [Mass/Vol]4.3 pg/mL0.0-15.0 [facility] CenterUrea nitrogen [Mass/volume] in Serum or Plasma Ordered By: Sunil Trevizo on 64-59-6596Sslz nitrogen [Mass/Vol]14 mg/dL7-25 [facility] CenterWBC Auto (Bld) [#/Vol]Ordered By: Sunil Trevizo on 28-25-2322DMM (Bld) [#/Vol]10.5 10*3/uL3.8-11.6FCleveland Clinic Euclid HospitalCBC AUTO DIFFon 00-64-7739TVFC #0.0 103/ulNormal0.0-0.1The [facility] HospitalComment on above:Performed By: #### CBC ####[facility] Tzuhxsf[address] [place], [place] [address]Dr.Colleen ChangBasophils/100 WBC (Bld)0.3 %Normal0.2-2.0The [facility] HospitalComment on above:Performed By: #### CBC ####[facility] Rgfm[address]wp[address] [place], [place] [address]Dr.Sollan ChangEO #0.1 103/ulNormal0.0-0.7The [facility] HospitalComment on above:Performed By: #### CBC ####[facility] Cvjn[address]hz[address] [place], [place] [address]Dr.Colleen ChangEosinophils/100 WBC (Bld)1.2 %Normal 0.9-7.0The [facility] HospitalComment on above:Performed By: #### CBC ####[facility] [address]cv[address]jv[address] [place], [place] [address]Dr.Colleen Marshall Erythrocyte distribution width (RBC) [Ratio]12.7 %Tyaogu81.0-15.0The [facility] HospitalComment on above:Performed By: #### CBC ####[facility] J[address]zerfxz[address] [place], [place] [address]Dr.Colleen MarshallHematocrit (Bld) [Volume fraction]41.1 %Nrnpyu96.0-48.0The [facility] HospitalComment on above:Performed By: #### CBC ####[facility] [address] [place], [place] [address]Dr.Colleen MarshallHemoglobin (Bld) [Mass/Vol]13.8 g/dL Sakolm16.0-16.0The [facility] HospitalComment on above:Performed By: #### CBC ####[facility] [address]rl[address]ib[address] [place], [place] [address]Dr. Colleen ChangIG #0.02 10e3/ulNormal0.00-0.03The [facility] HospitalComment on above: Performed By: #### CBC ####[facility] [address] [place] [place] [address]Dr.Colleen MarshallIG %0.3 %Normal0.0-0.5The [facility] HospitalComment on above:Performed By: #### CBC ####[facility] [address] [place], [place] [address]Dr.Colleen MarshallLYMPH #2.2 103/ulNormal1.2-3.8The [facility] HospitalComment on above:Performed By: #### CBC ####[facility] M[address] [place], [place] [address]Dr. Colleen MarshallLymphocytes/100 WBC (Bld)29.6 %Chinwb04.5-60.0[facility] Comment on above:Performed By: #### CBC ####[facility] Rlxznfcxue[address] [place], [place] [address]Dr.Colleen MarshallMANUAL DIFF REQNONormalThe [facility] HospitalComment on above:Performed By: #### CBC ####[facility] [address] [place], [place] [address]Dr.Colleen MarshallMANHATTAN PSYCH[facility]ATR[facility] (RBC) [Entitic mass]31.3 vvRvmvih38.7-34.0[facility] CampusComment on above: Performed By: #### CBC ####[facility] [address] [place], [place] [address]Dr.Colleen MarshallHC (RBC) [Mass/Vol]33.6 g/dLNormal 29.9-35.2The [facility] HospitalComment on above:Performed By: #### CBC ####[facility] [address]fr[address]qdsr[address] [place], [place] [address]Dr. Colleen MarshallV (RBC) [Entitic vol]93.2 vRVaajge11.0-99.0[facility] Comment on above:Performed By: #### CBC ####[facility] W[address]etfwo[address] [place], [place] [address]Dr.Colleen MarshallMONO #0.3 103/ulNormal0.3-0.8 The [facility] HospitalComment on above:Performed By: #### CBC ####[facility] [address]ue[address] [place], [place] [address]Dr.Colleen Marshall Monocytes/100 WBC (Bld)4.4 %Normal1.7-12.0The [facility] HospitalComment on above: Performed By: #### CBC ####[facility] Nsooskusxf[address] [place], [place] [address]Dr.Sollan ChangNEUT #4.7 103/ulNormal1.4-6.5The [facility] HospitalComment on above:Performed By: #### CBC ####[facility] Wxdkevtweb[address] [place], [place] [address]Dr.Colleen MarshallNeutrophils/100 WBC (Bld)64.2 %Qiblkg83.0-75.0The [facility] HospitalComment on above:Performed By: #### CBC ####[facility] Ahwifjtsjc[address] [place], [place] [address]Dr.Colleen MarshallPlatelet mean volume (Bld) [Entitic vol]10.5 fLNormal9.5-13.5 The [facility] HospitalComment on above:Performed By: #### CBC ####[facility] Btqlr[address] [place], [place] [address]Dr.Colleen WjwudNTA722 103/fuGrlcqi714-443Kkh [facility] HospitalComment on above:Performed By: #### CBC ####[facility] Sesivxyvnx[address] [place], [place] [address]Dr. Colleen ChangRBC4.41 106/ulNormal4.20-5.40The [facility] HospitalComment on above: Performed By: #### CBC ####[facility] Qcsbnebhwj[address] [place], [place] [address]Dr.Sollan ChangWBC7.3 103/ulNormal4.0-11.0The [facility] HospitalComment on above:Performed By: #### CBC ####[facility] Dwlonvmrzc[address] [place], [place] [address]Dr.Yilan ChangPREG HCG QUALon 62-68-7116OWXRESDBH, QUALNegativeNormalNEGATIVESumma Health Akron CampusComment on above:Performed By: #### PREG #### [facility] [address] [address] [address] Colleen MarshallCovid-19 PCR ([facility])on 95-95-4268HZZL-CoV-2 (COVID-19) RNA MARGOT+probe Ql (Unsp spec)Not detectedNormalNOT DETECTEDSumma Health Akron Campus Comment on above:Result Comment: This test is not yet approved or cleared by the [place] FDA. When there are no FDA-approved or cleared tests available, and other criteria are met, FDA can make tests available under an emergency access mechanism called an Emergency Use Authorization (EUA). The EUA for this test is supported by the [place] of Health and Human Service's (HHS's) declaration [...] symptoms consistent with SARS-CoV-2.Performed By: #### CVDTBH ####[facility] [address] [address]Dr. Colleen Marshall CHLAMYDIA/GONOCOCCUS MARGOT (SWAB/URINE/PAPon 99-14-8577Bhbkarily trachomatis, MARGOT NegativeNormalNegativeThe [facility] HospitalComment on above:Performed By: #### CT/NGNA #### [facility] [address] [place] [address] Dr. Colleen MarshallNeisseria gonorrhoeae, NAANegativeNormalNegativeThe [facility] HospitalComment on above:Performed By: #### CT/NGNA #### [facility] [address] [place] [address] Dr. Colleen MarshallVAGINITIS/VAGINOSIS DNA PROBEon 11-78-0423Xsvfsjt speciesNegative NormalNegativeSumma Health Akron CampusComment on above:Performed By: #### VAGINT ####[facility] [address] [address]Dr. Colleen MarshallGardnerella vaginalisNegativeNormalNegativeSumma Health [facility] Campus Comment on above:Performed By: #### VAGINT ####[facility] [address] [address]Dr. Colleen MarshallTrichomonas vaginalisNegative NormalNegativeSumma Health Akron CampusComment on above:Performed By: #### VAGINT ####[facility] F[address]awe[address] [place], [place] [address]DrLiset MarshallAMYLASEon 04-06-5779Loqpgqa [Catalytic activity/Vol]47 U/LNormal 25-115The [facility] HospitalComment on above:Performed By: #### CMP, SHARLENE, LIPA #### [facility] [address] [place] [address] Dr. Colleen Alva AUTO DIFFon 38-77-6395PEQM #0.0 103/ulNormal0.0-0.1Sum[facility] CampusComment on above:Performed By: #### CBC #### [facility] [address] [place] [address] Dr. Colleen MarshallBasophils/100 WBC (Bld)0.4 %Normal0.2-2.0[facility] Comment on above:Performed By: #### CBC #### [facility] [address] [place] [address] Dr. Colleen Arrieta #0.1 103/ulNormal0.0-0.7The [facility] HospitalComment on above: Performed By: #### CBC #### [facility] [address] [place] [address] Dr. Colleen Carrollosinophils/100 WBC (Bld)0.7 %Critically low0.9-7.0The [facility] HospitalComment on above:Performed By: #### CBC #### [facility] [address] [place] [address] Dr. Colleen Carrollrythrocyte distribution width (RBC) [Ratio]13.3 %Rfwvkt97.0-15.0 The [facility] HospitalComment on above:Performed By: #### CBC #### [facility] [address] [place] [address] Dr. Colleen MarshallHematocrit (Bld) [Volume fraction]44.7 %Jvcnwe76.0-48.0The [facility] HospitalComment on above:Performed By: #### CBC #### [facility] [address] [place] [address] Dr. Colleen MasrhallHemoglobin (Bld) [Mass/Vol]14.6 g/yCKtauzk13.0-16.0The [facility] HospitalComment on above:Performed By: #### CBC #### [facility] [address] [place] [address] Dr. Colleen Yepez #0.03 10e3/ulNormal0.00-0.03The [facility] HospitalComment on above:Performed By: #### CBC #### [facility] [address] [place] [address] Dr. Colleen Yepez %0.3 %Normal0.0-0.5The [facility] HospitalComhuron [facility] on above: Performed By: #### CBC #### [facility] [address] [place] [address] Dr. Colleen QuispeH #2.2 103/ulNormal1.2-3.8The [facility] HospitalComment on above:Performed By: #### CBC #### [facility] [address] [place] [address] Dr. Colleen Saundersmphocytes/100 WBC (Bld)19.7 %Critically low20.5-60.0The [facility] HospitalComment on above:Performed By: #### CBC #### [facility] [address] [place] [address] Dr. Colleen RivasUAL DIFF REQNONormalThe [facility] HospitalComment on above: Performed By: #### CBC #### [facility] [address] [address] [address] Colleen Michaud (RBC) [Entitic mass]31.4 clGqzysc54.7-34.0The [facility] HospitalComment on above:Performed By: #### CBC #### [facility] [address] [place] [address] Dr. Colleen Michaud (RBC) [Mass/Vol]32.7 g/mQZlcyzl40.9-35.2The [facility] HospitalComment on above:Performed By: #### CBC #### [facility] [address] [place] [address] Dr. Colleen Michaud (RBC) [Entitic vol]96.1 cSUjxxzf61.0-99.0The [facility] HospitalComment on above:Performed By: #### CBC #### [facility] [address] [place] [address] Dr. Colleen Bobo #0.6 103/ulNormal0.3-0.8The [facility] HospitalComment on above:Performed By: #### CBC #### [facility] [address] [place] [address] Dr. Colleen Babcockocytes/100 WBC (Bld)5.5 %Normal1.7-12.0[facility] Comment on above:Performed By: #### CBC #### [facility] [address] [place] [address] Dr. Colleen Orr #8.3 103/ulCritically high1.4-6.5The [facility] Comment on above:Performed By: #### CBC #### [facility] [address] [place] [address] Dr. Colleen Willisutrophils/100 WBC (Bld)73.4 %Mamwvi39.0-75.0The [facility] HospitalComment on above:Performed By: #### CBC #### [facility] [address] [place] [address] Dr. Colleen Schulz mean volume (Bld) [Entitic vol]10.4 fLNormal9.5-13.5The [facility] HospitalComment on above:Performed By: #### CBC #### [facility] [address] [address] [address] Colleen MarshallPLT212 103/nkFchbsq548-384Gya [facility] HospitalComhuron valley-sinai hospital on above: Performed By: #### CBC #### [facility] [address] [address] [address] Colleen MarshallRBC4.65 106/ulNormal4.20-5.40The [facility] HospitalComment on above:Performed By: #### CBC #### [facility] [address] [address] [address] Colleen MarshallWBC11.2 103/ulCritically high4.0-11.0The [facility] HospitalComment on above:Performed By: #### CBC #### [facility] [address] [place] [address] Dr. Colleen MarshallCT ABD/PELV W CONon 00-63-3224BI ABD/PELV W CONEXAMINATION: CT ABD/PELV W CON [...] Electronically authenticated by: DELROY SIDDIQUI Date: 2022-08-18 08:57[facility] URINE PROFILEon 86-44-7040Qhfvlnwck Ql (U)NegativeNormal NEGATIVESumma Health Akron CampusComment on above:Performed By: #### ERUR, PREGU #### [facility] [address] [address] [address] Colleen MarshallClarity (U)CLEARNormalCLEARSumma Health Akron CampusComment on above: Performed By: #### ERUR, PREGU #### [facility] [address] [address] [address] Colleen Jurado (U)YELLOWNormalYELLOWSumma Health Akron CampusComment on above: Performed By: #### ERUR, PREGU #### [facility] [address] [address] [address] Colleen Baumann micrscopic examination will be performed if indicated. NormalSumma Health Akron CampusComment on above:Performed By: #### ERUR, PREGU #### [facility] [address] [address] [address] Colleen MarshallGlucose Ql (U)NegativeNormalNEGATIVESumma Health Akron CampusComment on above:Performed By: #### ERUR, PREGU #### [facility] [address] [address] [address] Colleen MarshallHemoglobin Ql (U)NegativeNormalNEGATIVESumma Health [facility] Comment on above:Performed By: #### ERUR, PREGU #### [facility] [address] [address] [address] Colleen MarshallKetones Ql (U)NegativeNormalNEGATIVESumma Health Akron CampusComment on above:Performed By: #### ERUR, PREGU #### [facility] [address] [address] [address] Colleen MarshallLEUKOCYTESNegativeNormalNEGATIVEThe [facility] HospitalComment on above:Performed By: #### ERUR, PREGU #### [facility] [address] [place] [address] Dr. Colleen Pooletrcooper Ql (U)NegativeNormalNEGATIVEThe [facility] HospitalComment on above:Performed By: #### ERUR, PREGU #### [facility] [address] [place] [address] Dr. Colleen MarshallpH (U)7.0 [pH]Normal5-9The [facility] HospitalComment on above: Performed By: #### FREDYR, PREGU #### [facility] [address] [place] [address] Dr. Colleen MarshallSPEC GRAVITY1.389Vsorzl8.005-<=1.025The [facility] HospitalComment on above:Performed By: #### FREDYR, PREGU #### [facility] [address] [place] [address] Dr. Colleen Oseguera PROTEINNegativeNormalNEGATIVE/ TRACEThe [facility] Comment on above:Performed By: #### FREDYR, PREGU #### [facility] [address] [place] [address] Dr. Colleen Nicole MICRO INDNOT INDICATEDNormalThe [facility] HospitalComment on above:Performed By: #### FREDYR, PREGU #### [facility] [address] [place] [address] Dr. Colleen Neil Qn (U)0.2 {Konrad'U}/dLNormal0.2 - 1.0The [facility] HospitalComment on above:Performed By: #### ERUR, PREGU #### [facility] [address] [place] [address] Dr. Colleen MarshallLIPASEon 99-70-3892Eeoizt [Catalytic activity/Vol]242.0 U/LNormal 73.0-393.0The [facility] HospitalComment on above:Performed By: #### CMP, SHARLENE, LIPA #### [facility] [address] [address] [address] Colleen MarshallPREGNANCY URon 46-64-5900DADXLZDOO, QUALNegativeNormalNEGATIVEThe [facility] HospitalComment on above:Performed By: #### ERUR, PREGU #### [facility] [address] [address] [address] Colleen MarshallPROF 14(COMP METB)on 35-88-4181Ldanogb [Mass/Vol]3.9 g/dLNormal 3.4-5.0The [facility] HospitalComment on above:Performed By: #### CMP, SHARLENE, LIPA ####[facility] [address] [address]Dr. Colleen ChangAlbumin/Globulin [Mass ratio]1.1 {ratio}NormalSumma Health Akron Campus Comment on above:Performed By: #### CMP, SHARLENE, LIPA ####[facility] [address] [address]Dr. Colleen ChangALP [Catalytic activity/Vol]74 U/AIzklij13-714Fwf [facility] Barberton Campusment on above:Performed By: #### CMP, SHARLENE, LIPA ####[facility] [address] [address]Dr. Colleen ChangALT [Catalytic activity/Vol]33 U/L Boawpz02-66Nbe [facility] HospitalComment on above:Performed By: #### CMP, SHARLENE, LIPA ####[facility] [address] [address]Dr. Colleen ChangAnion gap [Moles/Vol]7.8 mmol/LNormalThe [facility] Comment on above:Performed By: #### CMP, SHARLENE, LIPA ####[facility] [address] [address]Dr. Sollan ChangAST [Catalytic activity/Vol]18 U/WLmdnvn67-56Odb [facility] Campusment on above:Performed By: #### CMP, SAHRLENE, LIPA ####[facility] [address] [address]Dr. Colleen ChangBilirubin [Mass/Vol]0.4 mg/dLNormal 0.2-1.0The [facility] HospitalComment on above:Performed By: #### CMP, SHARLENE, LIPA ####[facility] [address] [address]Dr. Yilan ChangCalcium [Mass/Vol]8.9 mg/dLNormal8.5-10.1The [facility] HospitalComment on above:Performed By: #### CMP, SHARLENE, LIPA ####[facility] [address] [place], [place] [address]Dr. Yilan ChangChloride [Moles/Vol]102 mmol/WQiwjqe94-357Fpu [facility] HospitalComment on above:Performed By: #### CMP, SHARLENE, LIPA ####[facility] [address] [place], [place] [address]Dr. Yilan ChangCO2 [Moles/Vol]29.0 mmol/WXprkrf04.0-32.0The [facility] HospitalComment on above:Performed By: #### CMP, SHARLENE, LIPA ####[facility] [address] [place], [place] [address]Dr. Yilan ChangCreatinine [Mass/Vol]0.67 mg/dLNormal0.55-1.02The [facility] HospitalComment on above: Performed By: #### CMP, SHARLENE, LIPA ####[facility] [address] [place], [place] [address]Dr. Yilan ChangEGFR-AF CHILEAN>60Normal>=60The [facility] HospitalComment on above:Performed By: #### CMP, SHARLENE, LIPA ####[facility] [address] [place], [place] [address]Dr. Yilan Marshall EGFR-NON AF CHILEAN>60Normal>=60The [facility] HospitalComment on above:Performed By: #### CMP, SHARLENE, LIPA ####[facility] [address] [place], [place] [address]Dr. Yilan ChangGlobulin (S) [Mass/Vol]3.7 g/dLNormal The [facility] HospitalComment on above:Performed By: #### CMP, SHARLENE, LIPA ####[facility] [address] [address]Dr. Yilan ChangGlucose [Mass/Vol]65 mg/dLCritically ycz09-114Hfb [facility] Comment on above:Performed By: #### CMP, SHARLENE, LIPA ####[facility] [address] [address]Dr. Yilan ChangPotassium [Moles/Vol]3.8 mmol/LNormal3.5-5.1The [facility] HospitalComment on above: Performed By: #### CMP, SHARLENE, LIPA ####[facility] [address] [address]Dr. Yilan ChangProtein [Mass/Vol]7.6 g/dLNormal 6.4-8.2The [facility] HospitalComment on above:Performed By: #### CMP, SHARLENE, LIPA ####[facility] [address] [address]Dr. Yilan ChangSodium [Moles/Vol]135 mmol/LCritically ujt050-578Ncg [facility] HospitalComment on above:Performed By: #### CMP, SHARLENE, LIPA ####[facility] [address] [address]Dr. Yilan ChangUrea nitrogen [Mass/Vol]13.0 mg/dLNormal7.0-18.0The [facility] HospitalComment on above: Performed By: #### CMP, SHARLENE, LIPA ####[facility] [address] [address]Dr. Yilan ChangUrea nitrogen/Creatinine [Mass ratio] 19.4 mg/mgNormalThe [facility] HospitalComment on above:Performed By: #### CMP, SHARLENE, LIPA ####[facility] [address] [place], [place] [address]Dr. Yilan ChangLUMBAR SPINE 4 OR 5 [facility] 95-79-1548PZFBUK SPINE 4 OR 5 [facility] Department of Radiology [address] [place] [id number] Patient Name: BONILLA WILDER : 1985 Sex: F Age: Race: [...] , Ordering Provider - A ALISHA MUÑOZ SENIOR DESIGN ENGINEERING SPECIALIST , Exam: LUMBAR SPINE 4 OR 5 [...] , Ordering Provider - A ALISHA MSN SENIOR DESIGN ENGINEERING SPECIALIST , PROTOCOL: AP, Lateral and L5-S1 spot [...] report. Electronically signed: Adrian Caruso. Transcribed by: [id number], User Resident: DARREL MANNING Electronically Signed by: ADRIAN CARUSO @ 07/11/2021 10:55 AM I personally read this/these film(s) with this residentTriHealth Good Samaritan HospitalComment on above:Order Comment: evaluate, please do flexion and extension x rays to rule out instability-chronic back pain , Views (X-RAY, LUMBAR SPINE): Radiologic Protocol , please do flexion and extension x rays to rule out instability-chronic back pain , Views (X-RAY, LUMBAR SPINE): Radiologic Protocol , , , Ordering Provider - A ALISHA MUÑOZ SENIOR DESIGN ENGINEERING SPECIALIST , Vital Signs Date TimeVital SignValuePerforming CtbvowtwyDbqeffiq81-21-3663 10:05-0500Body rygptwekklx22.01 [degF]Viraj Carias DISH PERSON Work Phone: [address] [place], [place] [address]Rbjgtmwxkt19-98-3024 10:05-0500Diastolic blood rqoklgyf96 mm[Hg]Viraj Carias DISH PERSON Work Phone: [address] [place], [place] [address]Htafgweyae57-56-7928 10:05-0500Heart rate66 /min Viraj Carias DISH PERSON Work Phone: [address] [place], [place] [address]Qosibenshr27-01-6660 10:05-0500Respiratory rate20 /minViraj Carias DISH PERSON Work Phone: [phone] [place] [address]-10-2025 10:05-3410StH1% (BldA) [Mass fraction]98 %Viraj Carias DISH PERSON Work Phone: [address] [place], [place] [address]Owgxbabqlh53-12-9826 10:05-0500Systolic blood otwbbidg490 mm[Hg]Viraj Carias DISH PERSON Work Phone: [phone] [place], [place] [address]06-17-2025 11:54-0400Body mass index (BMI) [Ratio]25.62 kg/m4Ndxoxqd Donald DISH PERSON Work Phone: [phone])[facility]2251[facility] HospitalAemumndith53-38-9992 11:54-0400Body temperature 97.59 [degF]Lilly Bennett DISH PERSON Work Phone: [phone])[facility]-4644[facility] HospitalRuxoeqogzq87-74-3489 11:54-0400Body inxzdx48.3 kg Lilly Bennett DISH PERSON Work Phone: [phone])[facility] [place], [place] [address]Kmxwsxpuof30-73-3414 11:54-0400Diastolic blood uehiqdjk09 mm[Hg]Lilly Bennett DISH PERSON Work Phone: [phone])[facility]-[address] [place], [place] [address]Vufqoobozr04-15-9351 11:54-0400Heart rate75 /min Lilly Bennett DISH PERSON Work Phone: [phone])[facility]-5911[facility] HospitalIyfhfahuev97-68-7621 11:54-6121TqR4% (BldA) [Mass fraction]97 %Lilly Bennett DISH PERSON Work Phone: [phone])[facility]-8705[facility] HospitalPyaneamsog49-31-2684 11:54-0400Systolic blood gdrcoids565 mm[Hg]Lilly Bennett DISH PERSON Work Phone: [facility] HospitalZvhsldygnv08-99-4308 09:18-0400Body mass index (BMI) [Ratio]25.62 kg/w1Ojjkho Workman PA Work Phone: noMer[facility] Hospital WashingtonWvbyahkfls78-47-0916 09:18-0400Body temperature 97.7 [degF]Summer Workman PA Work Phone: [facility] HospitalBzllyebwox05-31-7671 09:18-0400Body gfxjay08.3 kg Summer Workman PA Work Phone: noMer[facility] Hospital WashingtonPksixpxhxo41-98-9967 09:18-0400Diastolic blood xerzsdfs82 mm[Hg][facility] Workman PA Work Phone: noMercy Hospital WashingtonSmlrabiiwo42-86-7341 09:18-0400Heart rate76 /min Summer Workman PA Work Phone: [facility] HospitalZhplnjohbg91-63-1734 09:18-9732MxY2% (BldA) [Mass fraction]97 %Summer Workman PA Work Phone: noMercy Hospital WashingtonHrayohapci28-04-1123 09:18-0400Systolic blood mm[Hg][facility] Workman PA Work Phone: noMercy Hospital WashingtonIrvdgawkvq13-30-8617 15:20-0500Body mass index (BMI) [Ratio]25.62 kg/m2Sharlene Cook PA Work Phone: noMercy Hospital WashingtonOorezjjicf90-94-1522 15:20-0500Body .3 kg Sharlene Cook PA Work Phone: noMercy Hospital WashingtonKbfwopfczn78-96-2786 15:20-0500Diastolic blood vzumsqkc50 mm[Hg]Sharlene Cook PA Work Phone: noMercy Hospital WashingtonJavaoomeag28-64-6672 15:20-0500Systolic blood wdaksxhw588 mm[Hg]Sharlene Cook PA Work Phone: noMercy Hospital WashingtonOmtbolakor92-55-4550 10:16-0500Body mass index (BMI) [Ratio]25.77 kg/m2Amy Alvarez PA Work Phone: [facility] HospitalKownmadcpo42-18-7119 10:16-0500Body ckvsum45.75 kgSharlene Cook PA Work Phone: [facility] HospitalRcuvlywezp29-18-8140 10:16-0500Diastolic blood uljyfoye62 mm[Hg]Sharlene Cook PA Work Phone: [facility] HospitalPejapdapdj92-83-3149 10:16-0500Systolic blood sfotacaq308 mm[Hg]Sharlene Cook PA Work Phone: [facility] HospitalQaxbqukeor99-12-1210 15:35-0400Diastolic blood rxbcxgin47 mm[Hg]MD Francisco Sanches Work Phone: 1(205)[address]06-18-2023 15:35-0400 Heart rate63 /minMD Francisco Sanches Work Phone: 1(151)[address] [place], [place] 2103606-18-2023 15:35-0400 Respiratory rate20 /minMD Francisco Sanches Work Phone: [phone])[address] [place], [place] 2103606-18-2023 15:35-0400 SaO2% (BldA) [Mass fraction]97 %MD Francisco Sanches Work Phone: [phone])[address]06-18-2023 15:35-0400 Systolic blood wiewgxwt83 mm[Hg]MD Francisco Sanches Work Phone: 1(292)[address]06-18-2023 14:10-0400 Body qyerqb828.91 cmMD Francisco Sanches Work Phone: 1(004)[address]06-18-2023 14:10-0400 Body sgilnlnjbeh08.6 [degF]MD Francisco Sanches Work Phone: 1(315)[address]06-18-2023 14:10-0400 Body nasvai31 kgMD Francisco Sanches Work Phone: [phone] [place] [address] Encounters Encounter DateEncounter TypeCare ProviderFacilityStart: 09-26-2025 End: 88-62-9768Abaedh outpatient visit 25 minutesViraj Carias DISH PERSON Work Phone: [facility] CareComment on above:Unexplained weight loss (Primary Dx); Hair loss; Generalized muscle ache; Medication reaction, initial encounter; NauseaStart: 09-26-2025 End: 45-77-9696wvibfgktdtYAAKBUD N AUSTINNot AvailableStart: 09-22-2025 ambulatoryFacility: [place]vueStart: 05-03-2025 End: 59-34-4231Jizhrygqa encounterLinqi Benentt DISH PERSON Work Phone: [facility] UCStart: 05-03-2025 End: 60-27-7108Xjguqa outpatient visit 25 minutesLinqi Bennett DISH PERSON Work Phone: [facility] UCComment on above:Right hand pain (Primary Dx); Contusion of right hand, initial encounter; Sprain of right ring finger, unspecified site of digit, initial encounterStart: 05-03-2025 End: 96-48-3497gxwynklaqaQCTCEMG R LACONISNot AvailableStart: 04-18-2025 End: 31-76-9250Eklgvm outpatient visit 25 minutesSuwendy CASTRO Work Phone: [facility] UCComment on above:Acute bronchitis, unspecified organism (Primary Dx)Start: 04-18-2025 End: 28-69-1799hyjsmsgffaDRENJD M WORKMANNot AvailableStart: 01-05-2025 End: 53-31-2182Dbcyvhw encounter Leslie CASTRO Work Phone: [facility] HealthcareStart: 01-05-2025 End: 53-31-4879Ogcxpvbt preventive med est patient 40-62yrsAmy Alvarez CASTRO Work Phone: noms BCP OBComment on above:Well woman exam with routine gynecological exam; Breast cancer screening by mammogram; Screening examination for STIStart: 01-05-2025 End: 91-42-0871kqxxvdrnlxWGJ RAMEYNot AvailableStart: 01-05-2025 End: 73-21-4602Ymuhew flowsCatherine CASTRO Work Phone: [facility]S BCP OBStart: 01-05-2025 End: 37-79-5533Rzhkal flowsheetSharlene CASTRO Work Phone: [facility] BCP OBStart: 01-05-2025 End: 55-31-0502Eynqagtvy Result EncounterSharlene Alvarez CASTRO Work Phone: NOMS External Department UnsolicitedStart: 01-05-2025 End: 90-58-4991Faqbvjoe Result EncounterAmy Alvarez CASTRO Work Phone: NOMS External Department UnsolicitedStart: 11-23-2024 End: 86-60-5579Zrczbk flowsheetSharlene CASTRO Work Phone: [facility] BCP OBStart: 11-23-2024 End: 19-92-3494Utpffu kiannaCatherine CASTRO Work Phone: [facility] BCP OBStart: 11-23-2024 End: 12-91-1727Oemqhi outpatient visit 15 minutesAmy Alvarez CASTRO Work Phone: NOMS BCP OBComment on above:Amenorrhea; Hormone imbalance; Night sweats; Hormone disorderStart: 11-23-2024 End: 53-71-2916rbkiewndwoYLS RAMEYNot AvailableStart: 05-04-2023 End: 98-86-9317Ngtgbvcku department patient visit Francisco Myron Work Phone: [facility] Work Phone: Start: 85-20-3147Pdczpgabw for preprocedural laboratory examinationCOREY [facility] Hospitaltart: 10-02-2022 End: 42-34-1129ofbsrnafxzDETLX FAZIOFacility:U6Edeng: 05-03-7453rimgjwazfoIPLFW FAZIOFacility:M1Uxwex: 09-25-2022 End: 99-51-3886zbczsxfhwnGINDC FAZIOFacility:I4Tqqqn: 09-25-2022 End: 00-36-6995Trvscvwfp for preprocedural laboratory examinationCOREY MARIE Facility:Q3Vctfr: 08-28-2022 End: 33-07-4565gfsmfdbrxuPKCPG FAZIOFacility:S3Ktogr: 08-18-2022 End: 34-65-5182dzotpnyucrMF LUAN GUERRA .Facility:T1Zgvdt: 84-40-7581rtypmrhgyn DR JUNE HOLLINGSWORTH .Facility:Z2Cflbs: 06-13-2022 End: 03-71-7100qnyvupadxlBS VIMAL S KUMAR .Facility:E2Ojezx: 04-08-2022 ambulatoryDavid WestFacility:H1 Procedures DateProcedureProcedure DetailPerforming ClinicianStart: 29-98-7851NA SPLINTING / CASTING / STRAPPINGCamry Clem MAStart: 31-81-3775Ewlvr hand minimum 3 views Lilly Bennett NP Work Phone: Start: 09-45-0258VRXOPYFLA VAGINITIS (HTRX)Sharlene CASTRO Work Phone: Start: 91-25-1909TYX,APTIMA HPV,AGE GDLNAmy Alvarez CATSRO Work Phone: Start: 37-18-1725Jqdbq test visual color cmprsn methsAlenka Alvarez CASTRO Work Phone: Start: 00-29-9912Vectn chest X-rayMD Francisco Sanches Work Phone: Plan of Treatment DateCare ActivityDetailAuthorStart: 09-29-2025 End: 43-22-7020Oyfpvtd encounter ixkzxtunp97/13/2025 2:20 PM EST Office Visit [facility] [address], [address] [place] [address] Alistair Manzanares DO [address] [place] [address] [facility] 340Start: 01-05-2025 End: 31-31-6673Bihtapm encounter procedureNOMS BCP OBComment on above:Arrived Start: 01-05-2025 End: 35-86-0326UP Breast - bilateral ScreeningBilateral screening mammogram Imaging Routine Breast cancer screening by mammogram Expected: 01/05/2025 (Approximate), Expires: 03/05/2026[facility] Work Phone: comment on above:Expected: 01/05/2025 (Approximate), Expires: 03/05/2026Start: 11-23-2024 End: 08-92-3200X-peptideC-peptide Lab Routine Hormone disorder Expected: 11/23/2024 (Approximate), Expires: 11/23/2025NONY HealthcareComment on above: Expected: 11/23/2024 (Approximate), Expires: 11/23/2025Start: 11-23-2024 End: 84-45-9539Fboqsiyd freeCortisol, free Lab Routine Hormone disorder Expected: 11/23/2024 (Approximate), Expires: 11/23/2025[facility] HealthcareComment on above:Expected: 11/23/2024 (Approximate), Expires: 11/23/2025Start: 11-23-2024 End: 12-28-0262Ekvrcfa [Mass/volume] in Serum or PlasmaGlucose, random Lab Routine Hormone disorder Expected: 11/23/2024 (Approximate), Expires: 11/23/2025 [facility] HealthcareComment on above:Expected: 11/23/2024 (Approximate), Expires: 11/23/2025Start: 11-23-2024 End: 22-66-8495Kegkxwp, totalInsulin, total Lab Routine Hormone disorder Expected: 11/23/2024 (Approximate), Expires: 11/23/2025[facility] HealthcareComment on above:Expected: 11/23/2024 (Approximate), Expires: 11/23/2025Start: 11-23-2024 End: 18-49-6570Zyhubpwym serumSerotonin serum Lab Routine Hormone disorder Expected: 11/23/2024 (Approximate), Expires: 11/23/2025[facility] HealthcareComment on above:Expected: 11/23/2024 (Approximate), Expires: 11/23/2025Start: 11-23-2024 End: 06-37-7841QnasdkmwwkdhiCswwcmhmgtjnm Lab Routine Hormone disorder Expected: 11/23/2024 (Approximate), Expires: 11/23/2025[facility] HealthcareComment on above: Expected: 11/23/2024 (Approximate), Expires: 11/23/2025Start: 11-23-2024 End: 21-72-3725Xttilvqdqmpgb AntibodyThyroglobulin Antibody Lab Routine Hormone disorder Expected: 11/23/2024 (Approximate), Expires: 11/23/2025[facility] Comment on above:Expected: 11/23/2024 (Approximate), Expires: 11/23/2025Start: 11-23-2024 End: 29-22-9051Dthflhxkuym [Units/volume] in Serum or PlasmaSalem Memorial District Hospital Comment on above:Ordered: 11/23/2024Expected: 11/23/2024 (Approximate), Expires: 11/23/2025Start: 11-23-2024 End: 49-93-7787BH PelvisUS Pelvis w/ TV Imaging Routine Amenorrhea Expected: 11/23/2024, Expires: 11/23/2025[facility] HealthcareComment on above:Expected: 11/23/2024, Expires: 11/23/2025Start: 11-23-2024 End: 70-96-9858Hgwflmn encounter cjngnuibh85/07/2025 10:10 AM EST Office Visit [facility] [address] [place] [phone] Sharlene Cook PA [address] [place] [address] [facility] OBComment on above:ArrivedCBC W Auto Differential panel - BloodCBC and differential Lab Routine Amenorrhea Ordered: 11/23/2024[facility] Work Phone: comment on above:Ordered: 11/23/2024HLAMYDIA TRACHOMATIS (GENITO/STI)CHLAMYDIA TRACHOMATIS (GENITO/STI) Lab Routine Screening examination for STI Ordered: 01/05/2025[facility] HealthcareComment on above:Ordered: 01/05/20252021XJQG-jdrtolqYDIY-blmwoju Lab Routine Hormone disorder Ordered: 11/23/2024[facility] HealthcareComment on above:Ordered: 11/23/2024EstradiolEstradiol Lab Routine Hormone disorder Ordered: 11/23/2024[facility] HealthcareComment on above: Ordered: 11/23/2024EstroneEstrone Lab Routine Hormone disorder Ordered: 11/23/2024[facility] HealthcareComment on above:Ordered: 11/23/2024Ferritin [Mass/volume] in Serum or PlasmaFerritin Lab Routine Hormone disorder Ordered: 11/23/2024[facility] HealthcareComment on above:Ordered: 11/23/2024Hemoglobin A1c/Hemoglobin.total in BloodHemoglobin A1c Lab Routine Hormone disorder Ordered: 11/23/2024[facility] HealthcareComment on above:Ordered: 11/23/2024Neisseria gonorrhoeae DNA [Presence] in Unspecified specimen by MARGOT with probe detection Neisseria gonorrhea DNA probe, direct Lab Routine Screening examination for STI Ordered: 01/05/2025[facility] HealthcareComment on above:Ordered: 01/05/2025Patient EducationMuscle and Bone Pain (DC)[facility] Work Phone: [facility] referralSelect [facility] Work Phone: ProgesteroneProgesterone Lab Routine Hormone disorder Ordered: 11/23/2024[facility] HealthcareComment on above:Ordered: 11/23/2024Prolactin Prolactin Lab Routine Amenorrhea Ordered: 11/23/2024[facility] HealthcareComment on above:Ordered: 11/23/2024Sex hormone binding globulinSex hormone binding globulin Lab Routine Hormone disorder Ordered: 11/23/2024[facility] HealthcareComment on above:Ordered: 11/23/2024SURESWAB(R) ADVANCED VAGINITIS PLUS, TMASURESWAB(R) ADVANCED VAGINITIS PLUS, TMA Pathology and Cytology Routine Screening examination for STI Ordered: 01/05/2025[facility] HealthcareComment on above:Ordered: 01/05/2025T3, reverseT3, reverse Lab Routine Hormone disorder Ordered: 11/23/2024[facility] HealthcareComment on above:Ordered: 11/23/2024TESTOSTERONE, FREE TESTOSTERONE, FREE Lab Routine Hormone disorder Ordered: 11/23/2024[facility] HealthcareComment on above:Ordered: 11/23/2024Testosterone, free, total Testosterone, free, total Lab Routine Hormone disorder Ordered: 11/23/2024[facility] HealthcareComment on above:Ordered: 11/23/2024THIN PREP TIS PAP AND HR HPV DNA THIN PREP TIS PAP AND HR HPV DNA Pathology and Cytology Routine Well woman exam with routine gynecological exam Ordered: 01/05/2025[facility] HealthcareComment on above:Ordered: 01/05/2025Thyroid peroxidase antibodyThyroid peroxidase antibody Lab Routine Hormone disorder Ordered: 11/23/2024[facility] HealthcareComment on above: Ordered: 11/23/2024Thyroxine (T4) free [Mass/volume] in Serum or PlasmaT4, free Lab Routine Hormone disorder Ordered: 11/23/2024[facility] HealthcareComment on above: Ordered: 11/23/2024Triiodothyronine (T3) Free [Mass/volume] in Serum or Plasma T3, free Lab Routine Hormone disorder Ordered: 11/23/2024[facility] HealthcareComment on above:Ordered: 11/23/2024Vitamin D 1,25 dihydroxyVitamin D 1,25 dihydroxy Lab Routine Hormone disorder Ordered: 11/23/2024[facility] HealthcareComment on above: Ordered: 11/23/2024 Payers DatePayer CategoryPayerHoly [facility] [id number] MedicaidANTHEM BCBS [place]ICAID [place] [id number] 2023Medicaid [id number] [id number] [id number] 2.16.840.1.169497.3.57[id number] 2.16840.1.248322.3.57[id number] 2.16840.1.933454.3.57[id number] 2.16840.1.230675.3.57[id number] 2.840.1.698701.3.57[id number] 2.16840.1.961011.3.57[id number] 2.16840.1.026694.3.57[id number] 2.840.1.360948.3.57[id number] 2.16840.1.071850.3.579.2.54[id number] 2.16840.1.190476.3.57[id number] 2.16840.1.762244.3.579.[id number] 2.16840.1.228185.3.579.[id number] 2.16840.1.463258.3.57[id number] 2..0.1.868431.3.57[id number] 2.16840.1.793527.3.57[id number] 2.840.1.962759.3.579.2.531 Social History DateTypeDetailFacilityStart: 39-35-0298Jmwdtbl smoking status NHISSmoker (finding)[facility]: 84-11-9585Rim Assigned At FemaleUC Medical Centertart: 92-42-1941Ecqfaxx smoking status NHISSmokes tobacco dailyNOMS HealthcareHistory of tobacco useCigarette Smoker [facility] HealthcareStart: 08-25-2023 End: 92-99-3662Gkgucqttb beverage intakeLifetime non-drinker (finding)[facility] HealthcareStart: 08-25-2023 End: 76-10-6254Amtmlpw of Social functionNOMS HealthcareStart: 08-25-2023 End: 95-40-2818Mualvuv use panelNONY HealthcareStart: 18-48-6674Smv assigned at birthNot on fileMCKAY[facility]DEE [facility]ITAL [facility] HealthcareStart: 92-11-2841PjgMdfzufELGP Healthcare Clinical Notes 06-13-2022 to 09-26-2025 Note Date & NlzqOogjCkbkhclp98-75-8985 History of Present illness Narrative* Viraj Carias NP - 09/26/2025 10:05 AM EST Images from [...] Vitals BP 104/72 Pulse 66 Temp 98 F Resp 20 SpO2 98% OB Status No [...] 15 tablet; Refill: 0 documented in this encounterSalem Memorial District HospitalOenisrafbj20-18-2339 Telephone encounter Note* Telephone Encounter - Santo Fleming MA - 05/03/2025 6:36 PM EDT Contacted pt went over results above, pt understood and had no further questions at the time of call. [facility] HospitalIkgvtguevx15-57-9656 Miscellaneous Notes* Telephone Encounter - Santo Fleming [...] or dislocation. * Telephone Encounter - Lilly Bnenett NP - 05/03/2025 4:53 PM EDT Please let pt know we are still waiting on final read from radiologist on xray of her hand. This provider has contacted [facility] imaging multiple times informing them the read [...] see ortho JOSE F. documented in this encounterSalem Memorial District HospitalQsmscslnrz84-24-1975 Telephone encounter Note* Telephone Encounter - Jie Deutsch NP - 05/03/2025 6:34 PM EDT Please let the patient know the final read on her hand xray states: No fracture or dislocation. [facility] Work Phone: 1(432) 542-624206-17-2025 Telephone encounter Note* Telephone Encounter - Lilly Bennett NP - 05/03/2025 4:53 PM EDT Please let pt know we are still waiting on final read from radiologist on xray of her hand. This provider has contacted [facility] imaging multiple times informing them the read [...] will need to see ortho JOSE F. [facility] Work Phone: 1(660) 228-432706-17-2025 History of Present illness Narrative* Lilly Bennett NP - 05/03/2025 11:50 AM EDT HPI: Historian of HPI: patient Bonilla Wilder is a 39 y.o. female who presents [...] Skin: normal right hand. Musculoskeletal: right Hand: Corn Miller diminished Opposition of thumb and small finger [...] note were not included. Patient ID: Bonilla Wilder is a 39 y.o. female. Splint Application Date/Time: 05/03/2025 12:52 PM Performed by: Azucena Nj MA Authorized by: Lilly Bennett NP Consent: Consent obtained: Verbal Consent given by: Patient [place] protocol: Patient identity confirmed: Verbally with patient Procedure details: Location: Finger Finger location: R ring finger Splint type: Finger Supplies: Aluminum splint Attestation: Splint applied and adjusted personally by me Post-procedure details: Procedure completion: Tolerated well, no immediate complications Comments: Alumafoam applied to pts R ring finger then wrapped with a 2in dirk wrap. Pt tolerated well. documented in this encounterSalem Memorial District HospitalPaasnpvtlt86-46-6592 History of Present illness Narrative* GLORIA Chang - 04/18/2025 9:20 AM EDT [address], [address] [facility], [address] P: [phone] F: [phone] HPI Historian of HPI: patient Bonilla Wilder is a 39 y.o. female who presents [...] 14 tablet; Refill: 0 documented in this encounterSalem Memorial District HospitalOconsaupaf47-42-0148 History of Present illness Narrative* GLORIA Campoverde - 01/05/2025 3:00 PM EST Reason for Appointment: Patient ID: Bonilla Wilder is a 39 y.o. female who presents [...] Problems Past Medical History: Diagnosis Date Depression (CMS/HCC) Family history of breast cancer Genital warts Gonorrhea History of medical problems HPV (human papilloma virus) infection LGSIL on Pap smear of cervix Phlebitis HISTORY PAST MEDICAL HISTORY SOCIAL HISTORY Past Medical History: Diagnosis Date Depression (CMS/HCC) Family history of breast cancer Genital warts [...] PAP SMEAR 07/17/2021 negaitve TUBAL LIGATION 2018 REVIEW OF SYSTEMS Review of Systems: Review [...] nursing note reviewed. Exam conducted with a straight cutter machine present. Vitals: Estimated body mass index is [...] behalf of: GLORIA Campoverde documented in this encounterSalem Memorial District HospitalAdxkidtxcw10-11-5248 History of Present illness Narrative* GLORIA Campoverde - 11/23/2024 10:10 AM EST Reason for Appointment: Patient ID: Bonilla Wilder is a 38 y.o. female who [...] Problems Past Medical History: Diagnosis Date Depression (CMS/HCC) Family history of breast cancer Genital warts Gonorrhea History of medical problems HPV (human papilloma virus) infection LGSIL on Pap smear of cervix Phlebitis HISTORY PAST MEDICAL HISTORY SOCIAL HISTORY Past Medical History: Diagnosis Date Depression (CMS/HCC) Family history of breast cancer Genital warts [...] behalf of: GLORIA Campoverde documented in this encounterSalem Memorial District HospitalUowlinprtk94-27-8506 NoteOPERATIVE NOTE OPERATION DATE: 10/02/2022 PROCEDURE: Bilateral laparoscopic salpingectomy with removal of Filshie clip. PREOPERATIVE DIAGNOSIS: Pelvic pain, desires removal of tubes. POSTOPERATIVE DIAGNOSIS: Pelvic pain, desires removal of tubes, pelvic vascular congestion. ANESTHESIA: General. SURGEON: Aden Soriano D.O. MEAT SEAFOOD ASSOCIATE: JOSEY Brown URINE OUTPUT: Yellow and clear. [...] lap and needle counts were correct x2.[facility] 06-13-2022 NoteCONSULTATION CONSULTATION DATE: 06/13/2022 HISTORY [...] does agree with this plan of care.[facility] HospitalEvaluation noteNo assessment information availableChildren'S Hospital For Rehabilitation Work Phone: Evaluation note* Diagnosis Amenorrhea Absence of menstruation Hormone imbalance Night sweats Generalized hyperhidrosis Hormone disorder Unspecified endocrine disorder documented in this encounter [facility] HealthcareEvaluation note* Diagnosis Well woman exam with routine gynecological exam Routine gynecological examination Breast cancer screening by mammogram Screening examination for STI documented in this encounter [facility] HealthcareEvaluation note* Diagnosis Acute bronchitis, unspecified organism- Primary documented in this encounter [facility] HealthcareEvaluation note* Diagnosis Right hand pain- Primary Pain in soft tissues of limb Contusion of right hand, initial encounter Sprain of right ring finger, unspecified site of digit, initial encounter documented in this encounter [facility] HealthcareEvaluation note* Diagnosis Unexplained weight loss- Primary Loss of weight Hair loss Unspecified alopecia Generalized muscle ache Medication reaction, initial encounter Nausea Nausea alone documented in this encounter [facility] Summary Purpose Family History No Family History Records FoundNo Family History Records FoundNo Family History Records FoundNo Family History Records FoundNo Family History Records Found Advance Directives Advance Directive Response Recorded Date/ Time Advance Directives No June 08 11:20am Chief Complaint and Reason for Visit Chief Complaint chest pain Additional Source Comments INFORMATION SOURCE (unrecogn ized section and content) DATE CREATED AUTHOR 07/12/2021 [facility] DATE CREATED AUTHOR AUTHOR'S ORGANIZ ATION 04/01/2023 [facility] DATE CREATED AUTHOR AUTHOR'S ORGANIZ ATION 06/25/2025 [facility] DATE CREATED AUTHOR AUTHOR'S ORGANIZ ATION 09/24/2025 [facility] DATE CREATED AUTHOR AUTHOR'S ORGANIZ ATION 09/26/2025 [facility] EPIC Care Teams (unrecognized sec tion and content) Team Status: Active Member Role Status Dates Francisco Sanches MD Primary Care Provider Active Team Status: Inactive Member Role Status Dates Francisco Sanches MD Primary Care Provider Active Sunil Trevizo MDEmergency ProviderActiveTeam MemberRelationshipSpecialtyStart DateEnd Date Luan Guerra MD [address] [place] [address] PCP - GeneralFamily Medicine08/07/23Team MemberRelationshipSpecialtyStart DateEnd Date Luan Guerra MD [address] [place] [address] PCP - GeneralFamily Medicine08/07/23Team MemberRelationshipSpecialtyStart DateEnd Date Luan Guerra MD [address] [place] [address] PCP - GeneralFamily Medicine08/07/23Te MemberRelationshipSpecialtyStart DateEnd Date Luan Guerra MD [address] [place] [address] [facility] - [facility]08/07/23Team MemberRelationshipSpecialtyStart DateEnd Date Luan Guerra MD PCP - GeneralL[facility]08/07/23Team MemberRelationshipSpecialtyStart DateEnd Luan Guerra MD PCP - GeneralFamiHamilton Medical Center08/07/23Team MemberRelationshipSpecialtyStart DateEnd Luan Guerra MD PCP - Generalmi Medicine08/07/23Team MemberRelationshipSpecialtyStart DateEnd Luan Guerra MD PCP - GeneralFamily [facility]08/07/23 Goals (unrecognized section and content) Goals may [...] BE BASED ON THE PRIMARY CLINICAL RECORDS. [facility] HospitalMoov cc. [facility]. provides no warranty or guarantee of the accuracy or completeness of information in this document.
--- OUTSIDE RECORDS SUMMARY | 2025-10-10 07:09 | XMS_ITS | Clinical Summary ---
Author Organization [facility] Address [address] [place] [address] Care Team Providers Care Nutrition And Dietetics Instructor Name Role Phone Unavailable Primary Care Provider Unavailabl e Social History Tobacco UseTypesPacks/DayYears UsedDateSmoking Tobacco: Never Assessed CommentsUnknownSex and Gender InformationValueDate RecordedSex Assigned at Not on fileLegal CxhTrvvjg68/30/2022 12:21 AM EDTGender IdentityNot on file Sexual OrientationNot on file Last Filed Vital Signs Vital SignReadingTime TakenCommentsBlood Mczhyxhg016/7108 10:19 AM EDT Olvqc269607/10/2021 10:19 AM ZAIJyzqdsbxmkt04.9 ??C (98.5 ??F)07/10/2021 10:19 AM EDTRespiratory Rate--Oxygen Saturation--Inhaled Oxygen Concentration--Kmrioh55.5 kg (166 lb 6.4 oz)07/10/2021 10:12 AM LFPOkaqww591.5 cm (5' 7.5 )07/10/2021 10:12 AM EDTBody Mass Index25.68007/10/2021 10:12 AM EDT Plan of Treatment Not on file
--- OUTSIDE RECORDS SUMMARY | 2025-10-10 07:10 | XMS_ITS | Clinical Summary ---
Author Organization [facility] Healthcare Address [address] [place] [address] Care Team Providers Care Therapy Tech Name Role Phone Alistair Manzanares Primary Care Provider [phone] Allergies Active AllergyReactionsCriticalityNoted JasaMknwrftsDubambsmVshbqBglw68/13/2025 Suicidal ideation Jspoglkwcvmy21/21/2023 Other Reaction(s): Not available Oxycodone-LrpiosmcwatzwObkphim22/19/2023 Other Reaction(s): Not available Medications MedicationSigDispense QuantityRefillsLast FilledStart DateEnd DateStatus ibuprofen 800 MG tablet TAKE 1 TABLET BY MOUTH WITH FOOD OR MILK EVERY 8 HOURS NKNCOA0108/17/2024 09/29/2025Discontinued(Therapy completed) tiZANidine (Zanaflex) 4 MG tablet 4 mg every 6 (six) hours if etnrlw7709/26/2025Discontinued(Therapy completed) albuterol HFA 90 mcg/act inhaler INHALE 2 PUFFS BY MOUTH EVERY 4 HOURS NEEDED FOR SHORTNESS OF BREATH OR INCSMSJR23Discontinued(Therapy completed) albuterol HFA (Ventolin HFA) 90 mcg/act inhaler Indications:Acute bronchitis, unspecified organismInhale 2 puffs every 6 (six) hours if needed for wheezing or shortness of breath 8 g 5111/29/2024Discontinued(Therapy completed) predniSONE (Deltasone) 20 MG tablet Indications:Acute bronchitis, unspecified organismTake 2 tabs orally by mouth once daily for 5 days. 10 tablet Discontinued(Therapy completed) baclofen (Lioresal) 10 MG tablet Take 10 mg by mouth in the morning and 10 mg in the evening and 10 mg before bedtime.09/29/2025Discontinued(Side effects) predniSONE (Deltasone) 20 MG tablet Indications:Generalized muscle ache,Medication reaction, initial encounterTake 3 tabs for 2 days, 2 tabs for 2 days, 1 tab for 2 days, 1/2 tab for 2 days then stop 13 tablet Discontinued(Therapy completed) ondansetron (Zofran) 8 MG tablet Indications:NauseaTake 1 tablet (8 mg) by mouth every 8 (eight) hours if needed for nausea or vomiting for up to 5 days 15 tablet Discontinued(Therapy completed) Active Problems ProblemNoted DateDiagnosed DateSciatica of right side04/18/2025 Encounters DateTypeDepartmentCare AbcfItgjocvwifx01/17/2025 8:00 AM ESTProcedure Visit [facility] [address], [address] [id number] Alistair Manzanares DO Segmental and somatic dysfunction of head region (Primary Dx); Somatic dysfunction of cervical region; Somatic dysfunction of thoracic region; Somatic dysfunction of lumbar region; Somatic dysfunction of sacral region; Somatic dysfunction of pelvis region; Somatic dysfunction of lower extremities; Somatic dysfunction of upper extremities; Rib cage region somatic dysfunction; Spasm of right piriformis muscle; Cervical paraspinal muscle spasm10/03/2025Orders Only [facility] [address], [place] [address] [place] [address] Unallocated, Nguyen Hammond MD 10/03/2025bstract [facility] [address], [facility] [address] [place] [address] Alistair Manzanares DO 09/29/2025 2:20 PM ESTOffice Visit [facility] [address], [facility] [address] [place] [address] Alistair Manzanares DO Unintentional weight loss (Primary Dx); Hair loss; [...] ear pain; Right serous otitis media, unspecified ysuhgtrwxy40/13/2025amboo flowsheet [facility] [address], [address] [place] [address] Alistair Manzanares DO 09/26/2025 10:05 AM ESTOffice Visit [facility] [address] [place] [address] Wendy Ely NP Unexplained weight loss (Primary Dx); Hair loss; Generalized muscle ache; Medication reaction, initial encounter; Tkpihk1209/26/2025Travelfrom Last 3 Months Family History Medical HistoryRelationNameCommentsHypertensionFatherBreast cancerSisterRelation NameStatusCommentsDaughter 1AliveDaughter 2AliveFatherAliveMaternal Grandfather DeceasedMaternal GrandmotherDeceasedMotherAlivePaternal GrandfatherDeceased Paternal GrandmotherDeceasedSisterAliveSonAlive Social History Tobacco UseTypesPacks/DayYears UsedDateSmoking Tobacco: Every DayCigarettes Tobacco Cessation:Ready to Q uit: Not Asked; Counseling Given: Not Answered Alcohol UseStandard Drinks/WeekCommentsNever0 (1 standard drink = 0.6 oz pure alcohol)PHQ-2AnswerDate RecordedPatient Health Questionnaire-2 Kdede52812/03/2024 AUDIT-CAnswerDate RecordedQ1: How often do you have a drink containing alcohol? Never09/29/2025Q2: How many drinks containing alcohol do you have on a typical day when you are drinking?Patient does not drink09/29/2025Q3: How often do you have six or more drinks on one occasion?Never09/29/2025CommentsNoSex and Gender InformationValueDate RecordedSex Assigned at BirthNot on fileLegal Sex Rhlizt8001/29/2023 6:52 PM EDTGender IdentityNot on fileSexual OrientationNot on file Last Filed Vital Signs Vital SignReadingTime TakenCommentsBlood Dmvawafa495/8610/03/2025 8:01 AM EST Fxwdt045310/03/2025 8:01 AM NRWRhlrjsadqgr36.3 ??C (97.3 ??F)10/03/2025 8:01 AM ESTRespiratory Wnlq052311/29/2024 2:45 PM ESTOxygen Bhwhqwnjiy13%10/03/2025 8:01 AM ESTInhaled Oxygen Concentration--Xvrcpu85 kg (143 lb 6.4 oz)10/03/2025 8:01 AM QRWLeoskl557.5 cm (5' 7.5 )10/03/2025 8:01 AM ESTBody Mass Index22.13 10/03/2025 8:01 AM EST Plan of Treatment DateTypeDepartmentCare Team (Latest Contact Info)Kzqbhhnionq29/08/2025 8:40 AM ESTProcedure Visit [facility] [address], [address] [place] [address] Alistair Manzanares DO [address] [place] [address] 10/31/2025 6:30 PM ESTAncillary Procedure [facility] [address] [place] [address] Health MaintenanceDue DateLast DoneCommentsPneumococcal Vaccine: Pediatrics (0 to 5 Years) and At-Risk Patients (6 to 64 Years) (1 of 2 - PCV)2002 HPV/Hjblbb2312/23/20138846Zyyuepkwl51/06/2024COVID-19 Vaccine (1 - 2024- season) 2025Influenza Vaccine (#1)5Cervical Cancer Kgijwhvln50/19/2028Pap Smear802/, 08/25/2023 Procedures Procedure NamePriorityDate/TimeAssociated RhrdkebjqFrcxrhuoBPHLigvqrr37/04/2025 3:31 PM ESTCA 19-6Eutidja68/04/2025 3:31 PM QIYTVHTZKZLagqqjg56/04/2025 3:31 PM ESTXR HAND 3+ VIEWS YOABJJypsaxe51/04/2025 10:15 AM ESTPAP SMEARRoutine 01/05/2025 12:00 AM ESTfrom Last 3 Months or Most Recently Relevant to Health Maintenance Results * Insulin, fasting (09/20/2025 3:31 PM EST)Specimen [...] Provider Unallocated MDLAB BLOOD ORDERABLESFinal Result * CEA (09/20/2025 3:31 PM EST)Specimen (Source)Anatomical Location / Laterality Collection Method / VolumeCollection TimeReceived TimeBloodVenous blood specimen / Unknown Narrative Authorizing ProviderResult TypeResult StatusNoms Provider Unallocated MDLAB BLOOD ORDERABLESFinal Result * XR hand 3+ views right (09/20/2025 10:15 AM EST)Anatomical RegionLaterality ModalityUpper Extremities, HandRightRadiographic Imaging Narrative Authorizing ProviderResult TypeResult StatusNoms Provider Unallocated MDIMG XR PROCEDURESFinal Result * Pap Smear (01/05/2025 12:00 AM EST)Specimen (Source)Anatomical Location / LateralityCollection Method / VolumeCollection TimeReceived TimeSwabCervical swab / Unknown Narrative Authorizing ProviderResult TypeResult StatusFazio Nurse Noms Bcp ObLAB CYTOLOGY ORDERABLESFinal ResultPerforming OrganizationAddressCity/State/ZIP CodePhone Number EXTERNAL LAB from Last 3 Months or Most Recently Relevant to Health Maintenance Insurance Care Teams Team MemberRelationshipSpecialtyStart DateEnd Date Alistair Manzanares DO [address] [address] PCP - GeneralFamily Ngjxjqcb43/13/25
--- OUTSIDE RECORDS SUMMARY | 2025-10-10 07:10 | XMS_ITS | Patient Health Record ---
Author Organization [facility] in [place] Address [address] [place] [address] Care Team Providers Care Human Resources Manager Manufacturing Name Role Phone Matthias Cade Primary Care Provider Allergies Allergen (clinical drug ingredient) Drug/Non Drug Allergy documented on EMR Reaction Allergy Type Onset Date Status LevaquinnauseaDrug AllergyActiveacetaminophen / oxycodonePercocetitchingDrug AllergyActive Results Component Value Reference Range Notes CBC AUTO DIFF Reviewed date:09/20/2025 02:09:20 PM Interpretation: Performing Lab: Notes/Report: [facility] , White Blood Count 7.9 4.0-11.0 10 3/uL Red Blood Count4.534.20-5.40 10 6/wZAsdxifotko19.312.0-16.0 g/qYFeywrqsvcs81.2 36.0-48.0 %Mean Corpuscular Nljama90.481.0-99.0 fLMean Corpuscular Hemoglobin 31.626.7-34.0 pgMean Corpuscular HGB Conc33.129.9-35.2 g/dLRed Cell Distribution Width12.811.0-15.0 %Platelet Ejtcp709646-228 10 3/uLMean Platelet Peardd88.69.5- 13.5 fLNeutrophils Percent Auto70.143.0-75.0 %Lymphocytes Percent Auto24.020.5- 60.0 %Monocytes Percent Auto4.21.7-12.0 %Eosinophils Percent Auto1.00.9-7.0 % Basophils Percent Auto0.40.2-2.0 %Immature Granulocytes Pct Auto0.30.0-0.5 % Neutrophils Absolute Auto5.61.4-6.5 10 3/uLLymphocytes Absolute Auto1.91.2-3.8 10 3/uLMonocytes Absolute Auto0.30.3-0.8 10 3/uLEosinophils Absolute Auto0.10.0- 0.7 10 3/uLBasophils Absolute Auto0.00.0-0.1 10 3/uLImmature Granulocytes Abs Auto0.020.00-0.03 10 3/uLPerforming Lab:see noteML - [facility] LB IRON Reviewed date:09/20/2025 02:09:20 PM Interpretation: Performing Lab: Notes/Report: [facility] ,Iron67.050.0-170.0 ug/dLPerforming Lab:see noteML - [facility] LBTSH Reviewed date:09/20/2025 02:09:20 PM Interpretation: Performing Lab: Notes/Report: [facility] ,Thyroid Stimulating Hormone0.7680.358-3.740 uIU/mLPerforming Lab:see noteML - [facility] LBT4 Reviewed date:09/20/2025 02:09:20 PM Interpretation: Performing Lab: Notes/Report: [facility] ,T4 Thyroxine7.004.80-13.90 ug/dLPerforming Lab:see noteML - [facility] LBPROF 14(COMP METB) Reviewed date:09/20/2025 02:09:20 PM Interpretation: Performing Lab: Notes/Report: [facility] ,Mmnbti397379-393 mmol/LPotassium3.93.5-5.1 mmol/ZVejsezzl42293-890 mmol/LCarbon Uwgyjhn45.721.0-32.0 mmol/LAnion Gap15.7Qlodiwd7079-780 mg/dLBlood Urea Nitrogen 15.07.0-18.0 mg/dLCreatinine0.620.55-1.02 mg/dLEstimated GFR ( Anya>60 >=60 mL/min/1.73m 2Estimated GFR (Non- Parul>60>=60 mL/min/1.73m 2BUN Creatinine Ratio24.9Xburxwb3.18.5-10.1 mg/dLBilirubin Total0.30.2-1.0 mg/dL Aspartate Amino Wjtctewsamn2222-41 U/LAlanine Ipashofsbmqbaujn3283-31 U/L Alkaline Zkrdhgkbtih1794-441 U/LTotal Protein7.86.4-8.2 g/dLAlbumin Level3.93.4- 5.0 g/dLGlobulin3.9Albumin Globulin Ratio1.0Performing Lab:see note - [facility] LBLIPID PROFILE Reviewed date:09/20/2025 02:09:20 PM Interpretation: Performing Lab: Notes/Report: [facility] ,Pzaeidymwboeu94<=150 mg/xRZdcayntbzxp007<=200 mg/dLHDL Pdoujhzodmg2067-68 mg/dL <40 mg/dl - HIGH CARDIOVASCULAR RISK > or =60 mg/dl - LOW CARDIOVASCULAR RISK LDL Cholesterol Irhksdcmem302.0 160-189 mg/dl HIGH >190 mg/dl VERY HIGH 100-129 mg/dl NEAR OR ABOVE OPTIMAL <100 mg/dl OPTIMAL 130-159 mg/dl BORDERLINE HIGH VLDL VPRXURCTPQI79.0Chol HDL Ratio4.2 4.4 - 7.1 AVERAGE RISK 7.1 - 11.0 MODERATE RISK >11.0 HIGH RISK 3.3 - 4.4 LOW RISK Performing [facility] LBGLYCOHEMOGLOBIN A1C Reviewed date:09/20/2025 02:09:20 PM Interpretation: Performing Lab: Notes/Report: [facility] ,Glycohemoglobin A1C5.34.5-6.2 % ACTION SUGGESTED > 7.0 ADA THERAPEUTIC TARGET < 7.0 ADA RECOMMENDED LIMIT 4.0 - 6.0 Estimated Average Cmmmcug336Hlqtytqfhx Lab:see noteML - [facility] LB FREE T3 Reviewed date:09/20/2025 02:09:20 PM Interpretation: Performing Lab: Notes/Report: [facility] ,Free T32.192.18-3.98 pg/mLPerforming Lab:see [facility] LB IGP,Aptima HPV,Age Gdln Reviewed date:01/11/2025 04:16:48 PM Interpretation: Performing Lab: Notes/Report: BRUSH-SPATULA CERVIX ENDOCERVIX [facility] ,Age Gdln ACOG TestingNote. <-Panic Low,>-Panic High,A-Abnormal,AA-Critical Abnormal 01 =G Kelsie Hoyos Age Algo ACOG Anay... 30-65 01 Performed at: Source.............Cervix;Endocervix TESTS RESULT FLAG UNITS REF RANGE LAB Ree Huynh MD, L-Low Normal,H-High Normal,LL-Alert Low,HH-Alert High FLAG LEGEND: No. of containers..01 ThinPrep Vial Clinician Provided Cytology Information [address] [place] [address] IGP, Aptima HPV, rfx 16/18,45Note. should not be used as the sole means of detecting cervical Performed at: uterine cervix. It is not a diagnostic procedure and occur. QC reviewed by: 02 HPV Genotype Reflex Note 02 detection of premalignant and malignant conditions of the the use of an image guided system. Alice Browne, Imaging Services Director ([facility]) FLAG LEGEND: Performed by: 02 NEGATIVE FOR INTRAEPITHELIAL LESION OR MALIGNANCY. Rm Mccoy, Imaging Services Director ([facility]) <-Panic Low,>-Panic High,A-Abnormal,AA-Critical Abnormal TESTS RESULT FLAG UNITS REF RANGE LAB Criteria not met, HPV Genotype not performed. The Pap smear is a screening test designed to aid in the L-Low Normal,H-High Normal,LL-Alert Low,HH-Alert High Test Methodology: Note 02 cells (endocervical component) are present. Ree Huynh MD, [address] [place] [address] Satisfactory for evaluation. Endocervical and/or squamous metaplastic Note: Note 02 THIS SPECIMEN WAS RESCREENED PART OF OUR DINING CAR STEWARD PROGRAM. . 12 19 [facility] DIAGNOSIS: 02 Specimen adequacy: 02 cancer. Both false-positive and false-negative reports do This liquid based ThinPrep(R) pap test was screened with HPV AptimaNegativeNegative This nucleic acid amplification test detects fourteen high- Performed at: =[facility] without differentiation. Junior Estimator: Ree Huynh MD, Phone: [phone] risk HPV types (16,18,31,33,35,39,45,51,52,56,58,59,66,68) [address] [place] [phone] Performed at: [address] [id number] Junior Estimator: Ree Huynh MD, Phone: [phone] Performing Lab[facility] LBXR HAND RT MIN 3V Reviewed date:09/20/2025 02:40:31 PM Interpretation: Performing Lab: Notes/Report: Source Facility: [place] [address] [address] XRay Report Signed Patient: CYNTHIA WILDER MR#: [id number] : 1985 Acct:[id number] Age/Sex: 39 / F ADM Date: 09/20/25 Loc: LAB Attending Dr: Luan Cade M.D. Ordering Physician: Luan Cade M.D. Date of Service: 09/20/25 Procedure(s): XR hand RT min 3V Accession Number(s): [id number] cc: Luan Cade M.D. [address] [address] Patient Name: CYNTHIA WILDER MRN: [id number] date: 1985 Sex: F Assigned Patient Location: LAB Current Patient Location: LAB Accession/Order Number: [id number] Exam Date: 09/20/2025 11:00 Report Date: 09/20/2025 14:31 At the request of: LUAN CADE MD Procedure: XR hand RT min 3V XR hand RT min 3V 09/20/2025 11:15 AM SIGNS AND SYMPTOMS: Right Hand Pain PROTOCOL: 3 views of the right hand COMPARISON: None FINDINGS: The joint spaces are preserved. There is a flexion deformity of the proximal interphalangeal joint of the right fifth digit. There is no evidence of fracture or dislocation. No significant soft tissue swelling. XR/XR hand RT min 3V IMPRESSION: There is no evidence of fracture or dislocation. There is a flexion deformity of the proximal interphalangeal joint of the right fifth digit. Impression dictated by: Jose Carrington M.D. 09/20/2025 2:31 PM Dictation Location: [place] [address] Electronically authenticated by: [id number] Y Date: 09/20/2025 14:31 Dictated By: Jose Carrington M.D. Signed By: 09/20/25 1434 DD/ 1431 TD/TT: High Heel Builder:Cancer Antigen (CA) 125 Reviewed date:09/21/2025 05:00:43 PM Interpretation: Performing Lab: Notes/Report: [facility] ,Cancer Antigen (CA) 1254.60.0-38.1 U/mL absolute evidence of the presence or absence of malignant [address] [place] [phone] Values obtained with different assay methods or kits cannot Performed at: [facility] Junior Estimator: Luis Luis PhD, Phone: [phone] (ECLIA) disease. [facility] Electrochemiluminescence Immunoassay be used interchangeably. Results cannot be interpreted as Performing Lab:see [facility] LBCA 19-9 Reviewed date:09/21/2025 05:00:43 PM Interpretation: Performing Lab: Notes/Report: [facility] ,CA 19-920-35 U/mL [address] [place] [address] [phone] absolute evidence of the presence or absence of malignant (ECLIA) Values obtained with different assay methods or kits cannot Junior Estimator: Luis Luis PhD, Phone: [phone] disease. [facility] Electrochemiluminescence Immunoassay be used interchangeably. Results cannot be interpreted as Performed at: [facility] Performing Lab:see [facility] LBCEA Reviewed date:09/21/2025 05:00:43 PM Interpretation: Performing Lab: Notes/Report: [facility] ,CEA5.50.0-4.7 ng/mL [facility] Electrochemiluminescence Immunoassay cannot be used interchangeably. Results cannot be Values obtained with different assay methods or kits absence of malignant disease. interpreted as absolute evidence of the presence or Nonsmokers <3.9 Smokers <5.6 (ECLIA) Performing Lab:[facility] 25 [place] Reviewed date:09/20/2025 02:09:20 PM Interpretation: Performing Lab: Notes/Report: [facility] ,Vitamin D56.9 20-<30 ng/mL Vit D insufficient >100 ng/mL Potential Toxicity <20 ng/mL Vit D deficient 30-100 ng/mL Vit D sufficient Performing Lab:see note - [facility] LBINSULIN Reviewed date:09/21/2025 05:00:43 PM Interpretation: Performing Lab: Notes/Report: [facility] ,Wogoxvb91.42.6-24.9 uIU/mL Junior Estimator: Luis Luis PhD, Phone: [phone] Performed at: CB - [facility] [address] [id number] Performing Lab:see noteLC - [facility] LB Reason For Referral Diagnosis 1 Hand pain, right (M7 9.641) Referral Organization [facility] Referring Provider First Name Matthias Referring Provider Last Name Mari [facility] Provider Jyoti Larson Referred Provider Specialty Orthopedic S urgery Referral Priority Routine Diagnosis 1 Elevated CEA (R97.0) Referral Organization [facility] Referring Provider First Name Matthias Referring Provider Last Name Mari Referring Provider [facility] Referred Provider Sunil Lanza Referred Provider Specialty General Surg milly Referral Priority Routine Medications Medication SIG (Take, Route, Frequency, Duration) Notes Start Date End Date Status Pristiq 50 MG 1 tablet Orally Once a day; Dura tion: 30 days 5ActivepredniSONE 10 MG5 tabs per day for 3 days, 4 tabs per day for 3 ays, 3 tabs perday for 3 days, 2 tabs per day for 3days, 1 tab a day for 3 days, 1/2 tab a day for 4 days Orally Once a day; Duration: 19 days5Active Ibuprofen 800 MG1 tablet with food or milk as needed Orally every 6 hrs; Duration: 30 days4ActivetiZANidine HCl 4 MG1 tablet Orally 3 times a day PRN; Duration: 30 days5Active Social History Tobacco Use: Social History Observation Description Date Details (start date - stop date) Former Smoker NA - 11/17/2016 Tobacco Use/Smoking Question Answer Notes Patient is a former smoker When did you stop smoking?11/17/2016Alcohol Screen (Audit-C) Question Answer Notes Did you have a drink containing alcohol in the p ast year? No Gdasks0LsdndxqbitaiskFequvwmoQNVIF-H (Standard) Question Answer Notes Did you have a drink containing alcohol in the p ast year? No Jniekn7HztpqhnvjcxdlbKuipoona Problems Problem Type SNOMED Code ICD Code Onset Dates Problem Status W/U Status Risk Notes Problem Anxiety (37051010) Anxiety (F41.9) ActiveconfirmedProblemSpinal stenosis (36101106)Spinal stenosis (M48.00)Active confirmedProblemVaricose vein (22888864)Varicose vein (I86.8)Activeconfirmed ProblemEczema (56115245)Eczema (L30.9)ActiveconfirmedProblemPain in limb (79222625)Hand pain, right (M79.641)ActiveconfirmedProblemLumbar radiculopathy (072874209)Lumbar radiculopathy (M54.16)ActiveconfirmedProblemDisorder of lumbar disc (583056107)Lumbar disc disease (M51.9)ActiveconfirmedProblemWeight gain (087482904)Weight gain (R63.5)ActiveconfirmedProblemWell adult (156407285)Well adult (Z00.00)ActiveconfirmedProblemCarcinoembryonic antigen above reference range (436704771)Elevated CEA (R97.0)ActiveconfirmedProblemNevus (7637451075) Nevus (D22.9)ActiveconfirmedProblemTennis elbow (594051634)Tennis elbow (M77.10) ActiveconfirmedProblemPruritic dermatitis (9920381866)Pruritic dermatitis (L29.9)ActiveconfirmedProblemPure hypercholesterolemia (853271474)Pure hypercholesterolemia, unspecified (E78.00)ActiveconfirmedProblemDisorder of sacrum (53512391)Low back derangement syndrome (M53.86)ActiveconfirmedProblem Depression (051538618)Depression (F32.A)Activeconfirmed Vital Signs Blood pressure diastolic 68 mm Hg 09/19/2025 Xkvafz10.5 in09/19/2025lood pressure qnycownv719 mm Hg09/19/20250065Sqgueq140.4 lbs 09/19/2025BMI23.43 kg/m209/19/2025 Encounters Encounter Location Date Provider Diagnosis [facility] [address] [place] [address] 05/02/2025 Matthias Hoy Right hand pain M79.641 [facility] [address] [place] [address] 09/19/2025 Matthias Hoy [facility] [place] [address] [facility] [place] [facility] [place] [address]/02/2025Doug HoyHand pain, right M79.641[facility] [place] [facility] [place] [address]/03/2025Doug HoyElevated CEA R97.0[facility] [place] [facility] [place] [address]/08/2025Doug HoyHand pain, right M79.641[facility] [place] [place] [address]/08/2025Doug HoyLumbar disc disease M51.9[facility] [place] [place] [address]/09/2025Doug HoyLumbar disc disease M51.9[facility] [place] [place] [address]/[facility] [place] [place] [address]/ Matthias HoyHand pain, right M79.641[facility] [place] [place] [address]/Doug HoySpinal stenosis M48.00[place] [address] [place] [place] [address]/01/2025 Matthias HoyLumbar radiculopathy M54.16 and Lumbar disc disease M51.9[facility] [place] [facility] [place] [address]/06/2025Doug Hoy Lumbar disc disease M51.9 ; Anxiety F41.9 and Depression F32.[facility] [place] [facility] [place] [address]/01/2025Doug Hoy Hand pain, right M79.641 ; Weight gain R63.5 and Depression F32.[place] [address] [place] [address]Doug Hoy Acute bronchitis, unspecified organism J20.9 Assessments Encounter Date Diagnosis (ICD Code) Assessment Notes Treatment Notes Treatment Clinical Notes Section Notes 11/19/2024 Lumbar radiculopathy (ICD-10 - M 54.16) 11/19/2024Lumbar disc disease (ICD-10 - M51.9)03/10/2025ute bronchitis, unspecified organism (ICD-10 - J20.9)Rest and drink more liquids, especially water. You may use a humidifier or vaporizer to help keep the drainage moist. Oueq-vsi-zwfpjcv Nasal Saline may help the stuffy and runny nose. Use Ibuprofen and or Tylenol as needed for fever, chills, body aches or pain. Children 5 years old should not be given seoc-cdz-pwuzmag cough and cold medications such as guaifenesin and dextromethorphan. If you're over age 5, you may try lxan-czn-loyyzss cold medications such as guaifenesin and dextromethorphan, or multi-symptom cold reliever such as Dayquil to help reduce the symptoms. Antibiotics have been prescribed. You should take these until completed and follow the directions. Antibiotics can sometimescause upset stomach, and in rare cases, serious allergic reactions or serious gastrointestinal problems. If you start having severe abdominal pain, severe vomiting, or bloody diarrhea, you should be reevaluated by your physician or urgent care immediately. Follow up with your Primary Care Provider or return to clinic if symptoms do not improve within 3-5 days. If you develop severe symptoms such as shortness of breath, repeated vomiting, coughing up blood, or chest pain you should go to the [facility] room or call [phone] pain, right (ICD-10 - M79.641)07/25/2025 Lumbar disc disease (ICD-10 - M51.9)07/25/2025nxiety (ICD-10 - F41.9)08/11/2025 Spinal stenosis (ICD-10 - M48.00)09/19/2025Hand pain, right (ICD-10 - M79.641) attn 3rd and 4the MP tktupl5809/19/2025Weight gain (ICD-10 - R63.5)09/19/2025 Depression (ICD-10 - F32.A)02/24/2025Lumbar disc disease (ICD-10 - M51.9) 02/25/2025Lumbar disc disease (ICD-10 - M51.9)05/02/2025Right hand pain (ICD-10 - M79.641)09/20/2025Hand pain, right (ICD-10 - M79.641)09/21/2025Elevated CEA (ICD-10 - R97.0)09/26/2025Hand pain, right (ICD-10 - M79.641)07/25/2025 Depression (ICD-10 - F32.A)11/19/2024OtherRecommended to rest and use a heating pad on the area. Take NSAIDs for pain as gvbmib9708/11/2025OtherRecommended to rest and use a heating pad on the area. Take NSAIDs for pain as needed Plan Of Treatment Pending Test Test Name Order Date CMP (COMPLETE METABOLIC PANEL) HEMOGLOBIN A1C (GLYCO) 09/20/2024 HEMOGLOBIN A1C (GLYCO) 09/19/2025 IRON, TOTAL 09/19/2025 LIPID PANEL (CHOL/TRIG/HDL/LDL) 09/19/20 25 LIPID PANEL (CHOL/TRIG/HDL/LDL) 09/20/20 24 CBC WITH DIFF 09/20/2024 VITAMIN D, 25 LEVEL (TOTAL) 09/19/2025 Insulin Level 09/20/2024 Insulin Level 09/19/2025 XR Wrist 2 Views Right 05/02/2025 XR Hand 3 Views Right 09/19/2025 CA 125 09/19/2025 CA 19-9 09/19/2025 CEA 09/19/2025 FSH 09/20/2024 LIPID PROFILE 09/21/2024 LIVER PROFILE 09/21/2024 CT ABD and PELV W CON 09/21/2025 CT CHEST WO CON 09/21/2025 MRI LSPINE WO CON 08/20/2024 XR LSPINE MIN 4 VIEWS 08/20/2024 THYROID PANEL (T4/TSH/FREE T3) THYROID PANEL (T4/TSH/FREE T3) XR HIP LT 2 3V W PELVIS 08/17/2024 XR lumbar spine 2-3V 08/17/2024 CMP (COMP MET VIZCARRA) w/eGFR CKD-EPI 2024 CBC WITH DIFF 09/19/2025 Insurance Providers Payer Name Payer Address Payer Phone Subscriber Number Group Number Insured Name Patient Relationship to Insured Coverage Start Date Coverage End Date [employer] [place] [employer] [address] [address] [place] [address] [id number] Beronica Wilderelf - patient is the insured Medications Administered Medication Instructions Date of Administration Dosage Notes DEPO-Medrol dz150Dsfbrcvzzwupx, 4mg/mL mg12 mgKenalog-40005/05/2023 120 yf257Flfeint-4123/10/948730 mgKenalog-40120 we121Ojsplks-24 20 ts271Rgrckfs-7932/01/3757604 mgKenalog-401/20 mg120 Ketorolac Zxhwmrkqtyea88/19/869025 og18Duaxiwolx Xbzjbbthauad28/10/065822 mg Ketorolac Pwdzsnuvgkmf27/17/948698 yg52Rfzymcmbe Uutkpyodpuxy68/21/4304651 mg Ketorolac Ajlmebfmsswg14/24/270997 eh78Gbuignsht Kuittkmidkmk84/30/116070 mg60 Ketorolac Ykiuccjjkiui10/01/204936 mgKetorolac Uxlgyovssgeq77/04/432035 mg60 Ketorolac Snwrkqwclprx12/03/395402 mgKetorolac Wuwastowkzqc74/24/579849 mg Ketorolac Kmbbcdfahdtu19/25/894902 mgKetorolac Vkmgdbhbwirt92/03/986815 mg Orphenadrine Gqxmpol95/19/438119 tp12Nsdkhifmytiz Dyolwtu67/10/199270 mg Orphenadrine Hpfbppl30/21/372266 pn85Noeggdtexmyw Ycsbwuy77/24/367180 mg60 Orphenadrine Xcinunn32/30/874996 mg60 mgOrphenadrine Dvmotxa47/24/508883 mg Orphenadrine Vfkjffd58/25/227926 mgOrphenadrine Liihbmg70 mg Triamcinolone 40 mg/ml mgTriamcinolone 40 mg/ml mg Triamcinolone 40 mg/ml mgTriamcinolone 40 mg/ml mg Medical (General) History Medical History History ICD Code Constipation K59.00 Insomnia G47.00 Edema R60.9 Varicose vein I86.8 Depression F32.A Spinal stenosis M48.00 Lumbar radiculopathy M54.16 Lumbar disc disease M51.9 Surgical History Surgery Date(Month/Year) Tubal L5-S1 surgery
--- OUTSIDE RECORDS SUMMARY | 2025-10-10 07:10 | XMS_ITS | Encounter Summary ---
Author Organization [facility] Address [address] [facility] [place] [address] Care Team Providers Care Guest Relations Manager Name Role Phone Luis Daniel Guerra MD Primary Care Provider [phone] Encounter Details DateTypeDepartmentCare Team (Latest Contact Info)Zuqxcqaktmf19/10/2025Travel Social History Tobacco UseTypesPacks/DayYears UsedDateSmoking Tobacco: Every DayCigarettes Alcohol UseStandard Drinks/WeekCommentsNever0 (1 standard drink = 0.6 oz pure alcohol)CommentsNoSex and Gender InformationValueDate RecordedSex Assigned at BirthNot on fileLegal FwsGdtylq59/15/2023 6:52 PM EDTGender Identity Not on fileSexual OrientationNot on filedocumented as of this encounter Plan of Treatment DateTypeDepartmentCare Team (Latest Contact Info)Ytasxrcvsff38/08/2025 8:40 AM ESTProcedure Visit [facility] [address] [facility] [address] [place] [address] Alistair Manzanares DO [address] [facility] [address] [place] [address] 10/31/2025 6:30 PM ESTAncillary Procedure [facility] [address] [facility] [address] [place] [address] documented as of this encounter Visit Diagnoses Not on filedocumented in this encounter Care Teams Team MemberRelationshipSpecialtyStart DateEnd Date Luis Daniel Guerra MD PCP - GeneralFamily Medicine08/07/2311documented as of this encounter
--- OUTSIDE RECORDS SUMMARY | 2025-10-10 07:10 | XMS_ITS | Encounter Summary ---
Author Organization [facility] Address [address] [place] [address] Care Team Providers Care Cemetery Vault Installer Name Role Phone Alistair Manzanares DO Primary Care Provider [phone] Encounter Details DateTypeDepartmentCare Team (Latest Contact Info)Ymegdtpaeuu55/17/2025bstract [facility] [address], [facility] 340 [place] [address] Alistair Manzanares DO [address] [facility] 340 [place] [address] Social History Tobacco UseTypesPacks/DayYears UsedDateSmoking Tobacco: Every DayCigarettes Alcohol UseStandard Drinks/WeekCommentsNever0 (1 standard drink = 0.6 oz pure alcohol)PHQ-2AnswerDate RecordedPatient Health Questionnaire-2 Iiiwm63112/03/2024 AUDIT-CAnswerDate RecordedQ1: How often do you have a drink containing alcohol? Never09/29/2025Q2: How many drinks containing alcohol do you have on a typical day when you are drinking?Patient does not drink09/29/2025Q3: How often do you have six or more drinks on one occasion?Never09/29/2025CommentsNoSex and Gender InformationValueDate RecordedSex Assigned at BirthNot on fileLegal Sex Bxpbhc7701/29/2023 6:52 PM EDTGender IdentityNot on fileSexual OrientationNot on filedocumented as of this encounter Functional Status * Over the past 2 weeks, how often have you been bothered by any of the following problems?QuestionAnswerDate of AssessmentAuthorLittle interest or pleasure in doing thingsNot at all10/03/2025 8:28 AM Alistair Reed DO Feeling down, depressed, or hopelessNot at all10/03/2025 8:28 AM Alistair Reed DOPatient Health Questionnaire-2 Kucmo11612/03/2024 8:28 AM Alistair Reed DO documented as of this encounter Plan of Treatment DateTypeDepartmentCare Team (Latest Contact Info)Erhwamtzaug50/08/2025 8:40 AM ESTProcedure Visit [facility] [address], [place] [address] [place] [address] Alistair Manzanares DO [address] [place] [address] [place] [address] 10/31/2025 6:30 PM ESTAncillary Procedure [facility] [address] [place] [address] documented as of this encounter Visit Diagnoses Not on filedocumented in this encounter Care Teams Team MemberRelationshipSpecialtyStart DateEnd Date Alistair Manzanares DO [address] [place] [address] [place] [address] PCP - GeneralFamily Dajjyyrz46/13/25documented as of this encounter
--- OUTSIDE RECORDS SUMMARY | 2025-10-10 07:10 | XMS_ITS | Encounter Summary ---
Author Organization [facility] Address [address] [place] [address] Care Team Providers Care Budget Analyst Name Role Phone Alistair Manzanares DO Primary Care Provider [phone] Encounter Details DateTypeDepartmentCare Team (Latest Contact Info)Fkofznwtxie93/13/2025amboo flowsheet [facility] [address] [facility] , [facility] 340 [place] [address] Alistair Manzanares DO [address] [place] [phone] Social History Tobacco UseTypesPacks/DayYears UsedDateSmoking Tobacco: Every DayCigarettes Alcohol UseStandard Drinks/WeekCommentsNever0 (1 standard drink = 0.6 oz pure alcohol)PHQ-2AnswerDate RecordedPatient Health Questionnaire-2 Bzszk69311/29/2024 AUDIT-CAnswerDate RecordedQ1: How often do you have a drink containing alcohol? Never09/29/2025Q2: How many drinks containing alcohol do you have on a typical day when you are drinking?Patient does not drink09/29/2025Q3: How often do you have six or more drinks on one occasion?Never09/29/2025CommentsNoSex and Gender InformationValueDate RecordedSex Assigned at BirthNot on fileLegal Sex Xbyvwx7601/29/2023 6:52 PM EDTGender IdentityNot on fileSexual OrientationNot on filedocumented as of this encounter Plan of Treatment DateTypeDepartmentCare Team (Latest Contact Info)Qejoudarlbw35/08/2025 8:40 AM ESTProcedure Visit [facility] [address], [place] [address] [place] [address] Alistair Manzanares DO [address] [place] [address] [place] [address] 10/31/2025 6:30 PM ESTAncillary Procedure [facility] [address] [place] [address] documented as of this encounter Visit Diagnoses Not on filedocumented in this encounter Care Teams Team MemberRelationshipSpecialtyStart DateEnd Date Alistair Manzanares DO [address] [place] [address] [place] [address] PCP - GeneralFamily Dynoneaj98/13/25documented as of this encounter
--- NOTE | 2025-10-10 07:11 | CT_ITS ---
The [address] [address] Patient Name: BONILLA WILDER MRN: [id number] date: 1985 Sex: F Assigned Patient Location: CT Current Patient Location: CT Accession/Order Number: [id number] Exam Date: 10/10/2025 08:25 Report Date: 10/10/2025 10:09 At the request of: LUAN CADE MD Procedure: CT abdomen pelvis w con CT CHEST, ABDOMEN AND PELVIS WITH INTRAVENOUS CONTRAST: CLINICAL HISTORY: Elevated CEA and weight loss. COMPARISON: CT abdomen pelvis 08/18/2022 TECHNIQUE: Spiral images were obtained through the chest, abdomen and pelvis following oral and intravenous administration of 100 mL of Omnipaque 300. Images were reviewed using both narrow and wide window settings. This CT exam was performed using one or more following dose reduction techniques: Automated exposure control, adjustment of the mA and/or kV according to patient size, or use of iterative reconstruction technique. FINDINGS: The heart is top normal in size. There is no pericardial effusion. No aortic aneurysm or dissection is seen. There is no mediastinal or hilar lymphadenopathy. The bony structures are intact. Minor endplate spurring is present at the spine. There is some respiratory motion. Mild dependent atelectasis is present. No consolidation, pleural effusion or pneumothorax is seen. A 4 - 5 mm noncalcified nodule is present at the right lower lobe. No calcified gallstones are identified. No intrahepatic masses are seen. The spleen and adrenal glands show no acute findings. The pancreas is similar in size and contour. The head of the pancreas appears more hypodense than the prior though this may be related to differences in timing of bolus. The renal nephrograms are symmetric. No hydronephrosis is seen. The abdominal aorta is normal caliber. Small retroperitoneal lymph nodes are again visualized. There is no ascites. Fluid is seen within the stomach. Small bowel loops are not disproportionately distended. There is moderate stool along the colon. There is subtle levoscoliotic curvature and minor degenerative change at the spine. Images through the pelvis show normal caliber small bowel loops. No appendiceal inflammation is seen. There is air at the rectosigmoid colon. There are sigmoid diverticula, without associated active inflammation. There is a segment of sigmoid colon with apparent wall thickening there is a left adnexal cyst measuring approximately 4 cm in size. The urinary bladder wall is top normal in thickness for the degree of distention. No ascites is seen. CT/CT chest w con IMPRESSION: MINOR DEPENDENT ATELECTASIS AND TINY RIGHT LOWER LOBE PULMONARY NODULE. NO BOWEL OR URINARY TRACT OBSTRUCTION. SUBTLE HYPODENSITY AT THE PANCREAS THAT MAY BE TECHNICAL THOUGH FOLLOW-UP COULD BE OBTAINED IF CLINICALLY WARRANTED. NO BOWEL OR URINARY TRACT OBSTRUCTION. DIVERTICULOSIS. SEGMENT OF SIGMOID COLON WITH WALL THICKENING. GIVEN THE HISTORY, CORRELATION WITH DIRECT VISUALIZATION COULD BE CONSIDERED TO EXCLUDE ANY POSSIBILITY OF COLONIC NEOPLASM. LEFT OVARIAN CYST. Impression dictated by: Corina Sotelo M.D. 10/10/2025 10:09 AM Dictation Location: [place] [address] Electronically authenticated by: [id number] Y Date: 10/10/2025 10:09
--- NOTE | 2025-10-10 07:11 | CT_ITS ---
The [address] [address] Patient Name: BONILLA WILDER MRN: [id number] date: 1985 Sex: F Assigned Patient Location: CT Current Patient Location: CT Accession/Order Number: [id number] Exam Date: 10/10/2025 08:25 Report Date: 10/10/2025 10:09 At the request of: LUAN CADE MD Procedure: CT abdomen pelvis w con CT CHEST, ABDOMEN AND PELVIS WITH INTRAVENOUS CONTRAST: CLINICAL HISTORY: Elevated CEA and weight loss. COMPARISON: CT abdomen pelvis 08/18/2022 TECHNIQUE: Spiral images were obtained through the chest, abdomen and pelvis following oral and intravenous administration of 100 mL of Omnipaque 300. Images were reviewed using both narrow and wide window settings. This CT exam was performed using one or more following dose reduction techniques: Automated exposure control, adjustment of the mA and/or kV according to patient size, or use of iterative reconstruction technique. FINDINGS: The heart is top normal in size. There is no pericardial effusion. No aortic aneurysm or dissection is seen. There is no mediastinal or hilar lymphadenopathy. The bony structures are intact. Minor endplate spurring is present at the spine. There is some respiratory motion. Mild dependent atelectasis is present. No consolidation, pleural effusion or pneumothorax is seen. A 4 - 5 mm noncalcified nodule is present at the right lower lobe. No calcified gallstones are identified. No intrahepatic masses are seen. The spleen and adrenal glands show no acute findings. The pancreas is similar in size and contour. The head of the pancreas appears more hypodense than the prior though this may be related to differences in timing of bolus. The renal nephrograms are symmetric. No hydronephrosis is seen. The abdominal aorta is normal caliber. Small retroperitoneal lymph nodes are again visualized. There is no ascites. Fluid is seen within the stomach. Small bowel loops are not disproportionately distended. There is moderate stool along the colon. There is subtle levoscoliotic curvature and minor degenerative change at the spine. Images through the pelvis show normal caliber small bowel loops. No appendiceal inflammation is seen. There is air at the rectosigmoid colon. There are sigmoid diverticula, without associated active inflammation. There is a segment of sigmoid colon with apparent wall thickening there is a left adnexal cyst measuring approximately 4 cm in size. The urinary bladder wall is top normal in thickness for the degree of distention. No ascites is seen. CT/CT abdomen pelvis w con IMPRESSION: MINOR DEPENDENT ATELECTASIS AND TINY RIGHT LOWER LOBE PULMONARY NODULE. NO BOWEL OR URINARY TRACT OBSTRUCTION. SUBTLE HYPODENSITY AT THE PANCREAS THAT MAY BE TECHNICAL THOUGH FOLLOW-UP COULD BE OBTAINED IF CLINICALLY WARRANTED. NO BOWEL OR URINARY TRACT OBSTRUCTION. DIVERTICULOSIS. SEGMENT OF SIGMOID COLON WITH WALL THICKENING. GIVEN THE HISTORY, CORRELATION WITH DIRECT VISUALIZATION COULD BE CONSIDERED TO EXCLUDE ANY POSSIBILITY OF COLONIC NEOPLASM. LEFT OVARIAN CYST. Impression dictated by: Corina Sotelo M.D. 10/10/2025 10:09 AM Dictation Location: [place] [address] Electronically authenticated by: [id number] Y Date: 10/10/2025 10:09
== END 2025-10-10 07:07 | disposition home or self-care (01) ==
LOC: CT 07:06
PROVIDERS: PCP Family Medicine; Visit Provider Family Medicine
DX: R97.0 Elevated carcinoembryonic antigen [CEA] (principal); R91.1 Solitary pulmonary nodule; K57.90 Diverticulosis of intestine, part unspecified, without perforation or abscess without bleeding; N83.202 Unspecified ovarian cyst, left side
CPT/HCPCS: 71260; 74177; Q9967

== ENCOUNTER 2025-10-14 09:08 | Outpatient (OUT) | payer MEDICAID, SELFPAY ==
--- OUTSIDE RECORDS SUMMARY | 2024-09-13 10:40 | XMS_ITS ---
Author Organization [facility] Address [address] [place] [address] Care Team Providers Care Straightener And Aligner Name Role Phone Dr. Fredo Hussein Primary Care Provider [phone] Chivo Diamond Unavailable [phone] REASON FOR VISIT NEEDS UPDATED EXAM Encounters Encounter Location Date Provider Diagnosis [place] [address] [place] [address] 09/13/2024 Chivo Knapp Plan Of Treatment Next Appt Details Provider Name:Isabelle Hickey , 02/09/2026 09:15:00 AM, [address], [place], [address], Progress Notes * JONATHAN WILDEROB:1985 (39 yo F)Acc No.[id number]:09/13/2024 Patient:?BONILLA WILDER :?Chivo Knapp DDSDOB:1985???Age:38 Y ???Sex:FemaleDate:09/13/2024hone:[phone]:[address] [place], [place]-[address]Pcp:Dr. Fredo Hussein Subjective: * Chief Complaints: * N EEDS UPDATED EXAM * Electronic signature of Chivo Knapp DDS on 10/14/2025 at 09:11 AM ESTSign off status: Pending * Provider: Willem Knapp DDS Date: Generated for Printing/Faxing/eTransmitting on:?10/14/2025 09:11 AM EST
--- OUTSIDE RECORDS SUMMARY | 2024-12-02 09:00 | XMS_ITS ---
Author Organization [facility] Address [address] [place] [address] Care Team Providers Care Sound Mixer Name Role Phone Dr. Fredo Hussein Primary Care Provider [phone] Wilda Rose Unavailable [phone] REASON FOR VISIT FILLING Encounters Encounter Location Date Provider Diagnosis [facility] [address] [place] [address] 12/02/2024 Wilda Mendez Plan Of Treatment Next Appt Details Provider Name:Isabelle Hickey , 02/09/2026 09:15:00 AM, [address], [place], [address], Progress Notes * JONATHAN WILDEROB:1985 (39 yo F)Acc No.[id number]:12/02/2024 Patient:?BONILLA WILDER :?Wilda MendezDOB:1985???Age:38 Y???Sex: FemaleDate:12/02/2024Phone:[phone]:[address] [facility] [place], [place]Tgz:Dr. Fredo Hussein Subjective: * Chief Complaints: * F ILLING * Electronic signature of Wilda Mendez DMD on 10/14/2025 at 09:10 AM ESTSign off status: Pending * Provider: Sita Mendez Date: 0 12/02/2024 Generated for Printing/Faxing/eTransmitting on:?10/14/2025 09:10 AM EST
--- OUTSIDE RECORDS SUMMARY | 2024-12-20 10:30 | XMS_ITS ---
Author Organization [facility] Address [address] [place] [address] Care Team Providers Care [employer] Caretaker Name Role Phone Dr. Fredo Hussein Primary Care Provider [phone] Isabelle May Darrius [phone] REASON FOR VISIT SRP Encounters Encounter Location Date Provider Diagnosis [facility] [address] [place] [address] 12/20/2024 Isabelle Hickey Plan Of Treatment Next Appt Details Provider Name:Isabelle Hickey , 02/09/2026 09:15:00 AM, [address] [place], [address], Progress Notes * JONATHAN WILDEROB:1985 (39 yo F)Acc No.[id number]:12/20/2024 Patient:BONILLA SOTELO :?Isabelle HickeyDOB:1985???Age:38 Y???Sex: FemaleDate:12/20/2024Phone:[phone]:[address] [place]Cbn:Dr. Fredo Hussein Subjective: * Chief Complaints: * S RP * Electronic signature of Isabelle Hickey on 10/14/2025 at 09:10 AM ESTSign off status: Pending * Provider: Jennifer Hickey Date: 0 12/20/2024 Generated for Printing/Faxing/eTransmitting on:?10/14/2025 09:10 AM EST
--- OUTSIDE RECORDS SUMMARY | 2025-03-31 09:00 | XMS_ITS ---
Author Organization [facility] Address [address] [place] [address] Care Team Providers Care Refrigeration Installer Name Role Phone Dr. Fredo Hussein Primary Care Provider [phone] Wilda Rose Unavailable [phone] REASON FOR VISIT FILLING Encounters Encounter Location Date Provider Diagnosis [facility] [address] [place] [address] 03/31/2025 Wilda Mendez Plan Of Treatment Next Appt Details Provider Name:Isabelle Hickey , 02/09/2026 09:15:00 AM, [address], [place], [address], Progress Notes * JONATHAN WILDEROB:1985 (39 yo F)Acc No.[id number]:03/31/2025 Patient:?BONILLA WILDER :?Wilda MendezDOB:1985???Age:39 Y???Sex: FemaleDate:03/31/2025Phone:[phone]:[address] [place], [id number]:Dr. Fredo Hussein Subjective: * Chief Complaints: * F ILLING * Electronic signature of Wilda Mendez DMD on 10/14/2025 at 09:11 AM ESTSign off status: Pending * Provider: Sita Mendez Date: 0 03/31/2025 Generated for Printing/Faxing/eTransmitting on:?10/14/2025 09:11 AM EST
--- OUTSIDE RECORDS SUMMARY | 2025-07-25 03:30 | XMS_ITS ---
Author Organization [facility] Address [address] [place] [address] Care Team Providers Care Legger Press Operator Name Role Phone Dr. Fredo Hussein Primary Care Provider [phone] Wilda Rose Unavailable [phone] REASON FOR VISIT FILLING Encounters Encounter Location Date Provider Diagnosis [facility] [address] [place] [address] 07/25/2025 Wilda Mendez Plan Of Treatment Next Appt Details Provider Name:Isabelle Hickey , 02/09/2026 09:15:00 AM, [address], [place], [address], Progress Notes * JONATHAN WILDEROB:1985 (39 yo F)Acc No.[id number]:07/25/2025 Patient:?BONILLA WILDER :?Wilda MendezDOB:1985???Age:39 Y???Sex: FemaleDate:07/25/2025Phone:[phone]:[address] [facility] [place], [id number]:Dr. Fredo Hussein Subjective: * Chief Complaints: * F ILLING * Electronic signature of Wilda Mendez DMD on 10/14/2025 at 09:11 AM ESTSign off status: Pending * Provider: Sita Mendez Date: 0 07/25/2025 Generated for Printing/Faxing/eTransmitting on:?10/14/2025 09:11 AM EST
--- OUTSIDE RECORDS SUMMARY | 2025-10-03 08:00 | XMS_ITS | Encounter Summary ---
Author Organization [facility] Address [address] [place] [address] Care Team Providers Care Carbon Sequestration Plant Operator Name Role Phone Alistair Manzanares DO Primary Care Provider [phone] Reason for Visit * ReasonCommentsOMT Encounter Details DateTypeDepartmentCare Team (Latest Contact Info)Ympvszykfqo52/17/2025 8:00 AM ESTProcedure Visit [facility] [address] , [facility] [address] [place] [address] Alistair Manzanares DO [address] [facility] [address] [place] [address] Segmental and somatic dysfunction of head region [...] 0.6 oz pure alcohol)PHQ-2AnswerDate RecordedPatient Health Questionnaire-2 Tfjrb58312/03/2024 AUDIT-CAnswerDate RecordedQ1: How often do you have a drink containing alcohol? Never09/29/2025Q2: How many drinks containing alcohol do you have on a typical day when you are drinking?Patient does not drink09/29/2025Q3: How often do you have six or more drinks on one occasion?Never09/29/2025CommentsNoSex and Gender InformationValueDate RecordedSex Assigned at BirthNot on fileLegal Sex Zcwlwr1401/29/2023 6:52 PM EDTGender IdentityNot on fileSexual OrientationNot on filedocumented as of this encounter Last Filed Vital Signs Vital SignReadingTime TakenCommentsBlood Kjrwuyrf220/8610/03/2025 8:01 AM EST Yutwt359010/03/2025 8:01 AM JQQOrwzqeltknh64.3 ??C (97.3 ??F)10/03/2025 8:01 AM ESTRespiratory Rate--Oxygen Fcarkdjuja17%10/03/2025 8:01 AM ESTInhaled Oxygen Concentration--Rzqggc60 kg (143 lb 6.4 oz)10/03/2025 8:01 AM XXWUhsett117.5 cm (5' 7.5 )10/03/2025 8:01 AM ESTBody [...] 8:28 AM Alistair Reed DOPatient Health Questionnaire-2 Dgwtq84312/03/2024 8:28 AM Alistair Reed DO documented as [...] from the original note were not included. [id number] Piriformis Syndrome: Exercises Introduction Here are some [...] this instruction, always ask your healthcare professional. [employer] disclaims any warranty or liability for your use of this information. ?? [phone] [employer]. documented in this encounter Plan of Treatment DateTypeDepartmentCare Team (Latest Contact Info)Gkrttzuqxad69/08/2025 8:40 AM ESTProcedure Visit [facility] [address], [address] [place] [address] Alistair Manzanares DO [address] [place] [address] 10/31/2025 6:30 PM ESTAncillary Procedure [facility] [address] [place] [address] documented as of this encounter Visit [...] Alistair Manzanares DO [address] [address] PCP - GeneralFamily Kwronctf12/13/25documented as of this encounter
--- OUTSIDE RECORDS SUMMARY | 2025-10-10 13:46 | XMS_ITS ---
Author Organization [facility] [place] Address [address] [place] [address] Care Team Providers Care Resident Care Associate Name Role Phone NicholasMatthias harper Primary Care Provider [phone] Reason For Referral Diagnosis 1 Colon abnormality (K 63.9) Referral Organization [facility] Referring Provider First Name Matthias Referring Provider Last Name Mari [facility] Referred Provider Sunil Lanza Referred Provider Specialty General Surg milly Referral Priority Routine REASON FOR VISIT ct results Encounters Encounter Location Date Provider Diagnosis [facility] [address] [place] [address] 10/10/2025 Matthias Mari Pancreas cyst K86.2 Assessments Encounter Date Diagnosis (ICD Code) Assessment Notes Treatment Notes Treatment Clinical Notes Section Notes 10/10/2025 Pancreas cyst (ICD-10 - K86.2) Plan Of Treatment Pending Test Test Name Order Date US Pancreas 10/10/2025 Referrals Referral Date Details 10/11/2025 10/11/2025, Sunil Lanza Progress Notes * Michael WILDERy BDOB:[birth year] (39 yo F)Acc No.[id number]:10/10/2025 Patient:?Cynthia WILDER :1985???Age:39 Y???Sex:FemalePhone:[phone] Address:[address] [place] [address], [address] Subjective: * Chief Complaints: * C t results * Medical History: * Surgical History: * Hospitalization/Major Diagno stic Procedure: * Medications: Objective: * Vitals: * Physical Examination: ??? Assessment: * Assessment: 1.?Pancreas cyst - K86.2 (Primary)??? Plan: * Treatment: ?Imaging: US Pancreas2.?Others? Referral To:Sunil Lanza??General Surgery ?Reason: * Procedure Codes: * true * Date:?Generated for Printing/Faxing/eTransmitting on:?10/14/2025 09:10 AM EST Consultation Request Notes Referral Date Referring Provider Referred Provider Not es 10/11/2025 Matthias Guerra Michael
--- OUTSIDE RECORDS SUMMARY | 2025-10-14 09:10 | XMS_ITS | Clinical Summary ---
Author Organization [facility] Address [address] [place] [address] Care Team Providers Care Motor Coach Supervisor Name Role Phone Unavailable Primary Care Provider Unavailabl e Social History Tobacco UseTypesPacks/DayYears UsedDateSmoking Tobacco: Never Assessed CommentsUnknownSex and Gender InformationValueDate RecordedSex Assigned at Not on fileLegal SkaFpsvfw61/30/2022 12:21 AM EDTGender IdentityNot on file Sexual OrientationNot on file Last Filed Vital Signs Vital SignReadingTime TakenCommentsBlood Ztufxwku537/7108 10:19 AM EDT Syupo749107/10/2021 10:19 AM QVPTjeeznapjkj75.9 ??C (98.5 ??F)07/10/2021 10:19 AM EDTRespiratory Rate--Oxygen Saturation--Inhaled Oxygen Concentration--Riqdkp02.5 kg (166 lb 6.4 oz)07/10/2021 10:12 AM SDQKibsee436.5 cm (5' 7.5 )07/10/2021 10:12 AM EDTBody Mass Index25.68007/10/2021 10:12 AM EDT Plan of Treatment Not on file
--- OUTSIDE RECORDS SUMMARY | 2025-10-14 09:10 | XMS_ITS | Clinical Summary ---
Author Organization [facility] Address [address] [place] [address] Care Team Providers Care Butcher'S Assistant Name Role Phone Alistair Manzanares Primary Care Provider [phone] Allergies No known active allergies Medications MedicationSigDispense QuantityRefillsLast FilledStart DateEnd DateStatus acetaminophen-codeine (TYLENOL-COD #2) 300-15 mg per tablet Take 1 tablet by mouth every 4 hours as needed.Active ibuprofen (MOTRIN) 800 mg tablet Take 800 mg by mouth every 6 hours as needed.Active Active Problems ProblemNoted DateDiagnosed DateSUI (stress urinary incontinence, female) 09/08/2014S/P mvgxnytaox77/23/2014Right leg pain09/08/2014Meralgia paresthetica of right side09/08/2014Smoker Social History Tobacco UseTypesPacks/DayYears UsedDateSmoking Tobacco: Every DayCigarettes0.311 Alcohol UseStandard Drinks/WeekCommentsNo0 (1 standard drink = 0.6 oz pure alcohol)CommentsNoSex and Gender InformationValueDate RecordedSex Assigned at BirthNot on fileLegal PeiZzpakc00/21/2014 12:17 PM EDTGender IdentityNot on fileSexual OrientationNot on fileOccupationIndustryJob Start Date Job End DateserverNot on fileNot on fileNot on file Last Filed Vital Signs Vital SignReadingTime TakenCommentsBlood Nzxmcrpp025/7209/08/2014 2:09 PM EDT Kuwce643809/08/2014 2:09 PM EDTTemperature--Respiratory Kyyn5626 2:09 PM EDTOxygen Saturation--Inhaled Oxygen Concentration--Xvxwdt83.9 kg (185 lb) 09/08/2014 2:09 PM DDHZjbnmg600.2 cm (5' 7 )09/08/2014 2:09 PM EDTBody Mass Index28.9809/08/2014 2:09 PM EDT Plan of Treatment Health MaintenanceDue DateLast DoneCommentsAnxiety Jcknsdyci55/06/2002Depression Oznnghfov80/06/2002HIV Bhobavbvt36/06/2002Hepatitis C Pwlyawgja96/06/2002 DTaP,Tdap,Td Vaccine (1 - Tdap)2002Hepatitis B Vaccine (1 of 3 - 19+ 3- dose series)2002Cervical Cancer Rurqbmswz14/06/2005HPV Vaccine (1 - 3-dose SCDM series)2010Mammogram Yylmctbgi03/06/2024Covid-19 Vaccine ( - 2024- season)2025Influenza Vaccine (#1)2025 Insurance Care Teams Team MemberRelationshipSpecialtyStart DateEnd Date Alistair Manzanares DO [address] [address] PCP - GeneralFamily Qybgwvtk26/14/25
--- OUTSIDE RECORDS SUMMARY | 2025-10-14 09:10 | XMS_ITS | Patient Health Record ---
Author Organization [facility] Address [address] [place] [address] Care Team Providers Care Academic Director Name Role Phone Dr. Fredo Hussein Primary Care Provider Isabelle [place] Unavailable [phone] Wilda Mendez Unavailable [phone] Reason For Referral No Information Encounters Encounter Location Date Provider Diagnosis [facility] [address] [place] [address] 05/24/2025 Fredo Hussein [facility] [address] [place] [address]/31/2025 Isabelle HickeyChronic periodontitis, generalized, slight K05.321[facility] [address] [place] [address]Isabelle Hickey Chronic periodontitis, generalized, slight K05.321[facility] [place] [address]/24/2025Jasmhenrietta MendezDental caries on pit and fissure surface penetrating into dentin K02.52 Assessments Encounter Date Diagnosis (ICD Code) Assessment Notes Treatment Notes Treatment Clinical Notes Section Notes 12/17/2024 Chronic periodontitis, generaliz ed, slight (ICD-10 - K05.321) 05/24/2025hronic periodontitis, generalized, slight (ICD-10 - K05.321) 01/10/2025Dental caries on pit and fissure surface penetrating into dentin (ICD- 10 - K02.52) Plan Of Treatment Next Appt Details Provider Name:Isabelle Hickey , 02/09/2026 09:15:00 AM, [address], [place], [address], Insurance Providers Payer Name Payer Address Payer Phone Subscriber Number Group Number Insured Name Patient Relationship to Insured Coverage Start Date Coverage End Date zDENTAL DQ [employer] -termed 12/17/22 [address] [place] [address] [id number] BONILLA WILDER Self - patient is the insured 1 3 zDental MEDICAID CFC after [employer] -termed 12/17/22 [address] [place] [address] [phone] [id number] BONILLA WILDER Self - patient is the insured 1 3 z[employer]OUN T ADVANTAGE -termed 12/17/22 [address] [place] [address] [id number] BONILLA WILDER Self - patient is the insured 1 3 zMEDICAID CFC after [employer] -termed 12/17/22 [address] [place] [address] [id number] BONILLA WILDER Self - patient is the insured 1 3 Dental [place] DQ Terminated 11/16/24 [address] [place] [address] [id number] Reji WILDER - patient is the xinzakb75/01/2023Dental Wrap CFC [place] BCBS Termed [address] [place] [id number] Reji WILDER - patient is the ukttuyj84/01/2023DENTAL [place] [address] [address] [place] [id number], TIFFANYSelf - patient is the ascodpe0911/17/2024Dental [place] MedicaidPO [address] [address] [place] [id number], TIFFANYSelf - patient is the kqlhwjr8211/17/2024
--- OUTSIDE RECORDS SUMMARY | 2025-10-14 09:10 | XMS_ITS | Encounter Summary ---
Author Organization [facility] Address [address] [place] [address] Care Team Providers Care Manager Molecular Name Role Phone Alistair Manzanares DO Primary Care Provider [phone] Encounter Details DateTypeDepartmentCare Team (Latest Contact Info)Kmhjcpbohsh78/17/2025Orders Only [facility] [address], [facility] [address] [place] [address] Unallocated, [facility] Provider, [address] [place] [address] Social History Tobacco UseTypesPacks/DayYears UsedDateSmoking Tobacco: Every DayCigarettes Alcohol UseStandard Drinks/WeekCommentsNever0 (1 standard drink = 0.6 oz pure alcohol)PHQ-2AnswerDate RecordedPatient Health Questionnaire-2 Huviy19312/03/2024 AUDIT-CAnswerDate RecordedQ1: How often do you have a drink containing alcohol? Never09/29/2025Q2: How many drinks containing alcohol do you have on a typical day when you are drinking?Patient does not drink09/29/2025Q3: How often do you have six or more drinks on one occasion?Never09/29/2025CommentsNoSex and Gender InformationValueDate RecordedSex Assigned at BirthNot on fileLegal Sex Csnhcm8901/29/2023 6:52 PM EDTGender IdentityNot on fileSexual OrientationNot on filedocumented as of this encounter Functional Status * Over the past 2 weeks, how often have you been bothered by any of the following problems?QuestionAnswerDate of AssessmentAuthorLittle interest or pleasure in doing thingsNot at all11/ 8:28 AM Alistair Reed DO Feeling down, depressed, or hopelessNot at all10/03/2025 8:28 AM Alistair Reed DOPatient Health Questionnaire-2 Aycuy11212/03/2024 8:28 AM Alistair Reed DO documented as of this encounter Plan of Treatment DateTypeDepartmentCare Team (Latest Contact Info)Vznrziotasm73/08/2025 8:40 AM ESTProcedure Visit [facility] [address] [place] [address] [place] [address] Alistair Manzanares DO [address] [place] [place] [address] 10/31/2025 6:30 PM ESTAncillary Procedure [facility] [address] [place] [address] documented as of this encounter Procedures Procedure NamePriorityDate/TimeAssociated DiagnosisCommentsINSULINRoutine 09/20/2025 3:31 PM ESTCA 19-8Dhbmtzf48/04/2025 3:31 PM TFFCDAQxanpyy77/04/2025 3:31 PM ESTXR HAND 3+ VIEWS ZADREDziznmc03/04/2025 10:15 AM ESTdocumented in this encounter Results [...] Alistair Manzanares DO [address] [address] PCP - GeneralFamily Ypdsayih77/13/25documented as of this encounter
--- NOTE | 2025-10-14 09:11 | US_ITS ---
The [address] [address] Patient Name: BONILLA WILDER MRN: [id number] date: 1985 Sex: F Assigned Patient Location: Current Patient Location: Accession/Order Number: [id number] Exam Date: 10/14/2025 09:35 Report Date: 10/14/2025 10:11 At the request of: LUAN CADE MD Procedure: US right upper quadrant LIMITED RIGHT UPPER QUADRANT ABDOMINAL ULTRASOUND CLINICAL HISTORY: Equivocal pancreatic finding on recent CT. Weight loss. COMPARISON: CT 10/10/2025 The gallbladder is physiologically distended without shadowing calculi, wall thickening or pericholecystic fluid. No intra- or extrahepatic biliary dilatation is evident. The common duct measures 2 mm. The liver is normal in echogenicity. No intrahepatic masses are seen. There is appropriate hepatopetal flow within the main portal vein. The pancreas is normal in size, contour and echogenicity. No pancreatic lesions are identified. Evaluation of the right kidney reveals no hydronephrosis or fluid within Arthur's pouch. US/US right upper quadrant IMPRESSION: NEGATIVE ULTRASOUND OF THE RIGHT UPPER QUADRANT. Impression dictated by: Corina Sotleo M.D. 10/14/2025 10:11 AM Dictation Location: [place] [address] Electronically authenticated by: [id number] Y Date: 10/14/2025 10:11
--- OUTSIDE RECORDS SUMMARY | 2025-10-14 09:11 | XMS_ITS | Patient Health Record ---
Author Organization [facility] in [place] Address [address] [place] [address] Care Team Providers Care Quality Control Coordinator Name Role Phone Matthias Cade Primary Care Provider [phone] Allergies Allergen (clinical drug ingredient) Drug/Non Drug Allergy documented on EMR Reaction Allergy Type Onset Date Status LevaquinnauseaDrug AllergyActiveacetaminophen / oxycodonePercocetitchingDrug AllergyActive Results Component Value Reference Range Notes IGP,Aptima HPV,Age Gdln Reviewed date:01/11/2025 04:16:48 PM Interpretation: Performing Lab: Notes/Report: BRUSH-SPATULA CERVIX ENDOCERVIX [facility] , Age Gdln ACOG Testing Note . TESTS RESULT FLAG UNITS REF RANGE LAB Clinician Provided Cytology Information Source.............Cervix;Endocer vix No. of containers..01 ThinPrep Vial Age Algo ACOG Anay... 30-65 01 FLAG LEGEND: L-Low Normal,H-High Normal,LL-Alert Low,HH-Alert High <-Panic Low,>-Panic High,A-Abnormal,AA-Critical Abnormal Performed at: 01 =G [facility] [place] [address] [place] [address] Ree Huynh MD, IGP, Aptima HPV, rfx 16/18,45 Note . TESTS RESULT FLAG UNITS REF RANGE LAB DIAGNOSIS: 02 NEGATIVE FOR INTRAEPITHELIAL LESION OR MALIGNANCY. THIS SPECIMEN WAS RESCREENED PART OF OUR TECHNICAL OPERATIONS SPECIALIST PROGRAM. Specimen adequacy: 02 Satisfactory for evaluation. Endocervical and/or squamous metaplastic cells (endocervical component) are present. Performed by: 02 Alice Browne, Donor Services Coordinator (ASC) QC reviewed by: 02 Rm Mccoy, Donor Services Coordinator (ASC) . 02 Note: Note 02 The Pap [...] <-Panic Low,>-Panic High,A-Abnormal,AA-Critical Abnormal Performed at: 02 [facility] [address] Ree Huynh MD, HPV Aptima Negative Negative This nucleic acid amplification test detects fourteen high- risk HPV types (16,18,31,33,35,39,45,51,52,56,58 ,59,66,68) without differentiation. Performed at: = - [facility] [id number] Reimbursement Specialist: Ree Huynh MD, Phone: [phone] Performed at: [facility] [id number] Reimbursement Specialist: Ree Huynh MD, Phone: [phone] Performing Lab: see note - [facility] LBFREE T3 Reviewed date:09/20/2025 02:09:20 PM Interpretation: Performing Lab: Notes/Report: [facility] ,Free T32.192.18-3.98 pg/mLPerforming Lab:see noteML - [facility] LB LIPID PROFILE Reviewed date:09/20/2025 02:09:20 PM Interpretation: Performing Lab: Notes/Report: [facility] ,Nnlupcdybvaxj30<=150 mg/pVFszwhotpgxx440<=200 mg/dLHDL Hsgyliiuxap8944-07 mg/dL > or =60 mg/dl - LOW CARDIOVASCULAR RISK <40 mg/dl - HIGH CARDIOVASCULAR RISK LDL Cholesterol Zeyyifbfcy814.0 <100 mg/dl OPTIMAL 100-129 mg/dl NEAR OR ABOVE OPTIMAL 130-159 mg/dl BORDERLINE HIGH 160-189 mg/dl HIGH >190 mg/dl VERY HIGH VLDL GYBCOSZDVJK86.0Chol HDL Ratio4.2 3.3 - 4.4 LOW RISK 4.4 - 7.1 AVERAGE RISK 7.1 - 11.0 MODERATE RISK >11.0 HIGH RISK Performing Lab:see noteML - [facility] LBPROF 14(COMP METB) Reviewed date:09/20/2025 02:09:20 PM Interpretation: Performing Lab: Notes/Report: [facility] ,Lkjjdq950666-518 mmol/LPotassium3.93.5-5.1 mmol/GHktyjbqy46789-721 mmol/LCarbon Bjeeifz36.721.0-32.0 mmol/LAnion Gap15.1Grwvusk4151-171 mg/dLBlood Urea Nitrogen 15.07.0-18.0 mg/dLCreatinine0.620.55-1.02 mg/dLEstimated GFR ( Anya>60 >=60 mL/min/1.73m 2Estimated GFR (Non- Parul>60>=60 mL/min/1.73m 2BUN Creatinine Ratio24.5Walxzxu7.18.5-10.1 mg/dLBilirubin Total0.30.2-1.0 mg/dL Aspartate Amino Ddsoddtzwce5827-07 U/LAlanine Lkeynphsvvbcqjoy5053-77 U/L Alkaline Pvzjaqwdsex6479-465 U/LTotal Protein7.86.4-8.2 g/dLAlbumin Level3.93.4- 5.0 g/dLGlobulin3.9Albumin Globulin Ratio1.0Performing Lab:see noteML - [facility] LBT4 Reviewed date:09/20/2025 02:09:20 PM Interpretation: Performing Lab: Notes/Report: [facility] ,T4 Thyroxine7.004.80-13.90 ug/dLPerforming Lab:see noteML - [facility] LBTSH Reviewed date:09/20/2025 02:09:20 PM Interpretation: Performing Lab: Notes/Report: [facility] ,Thyroid Stimulating Hormone0.7680.358-3.740 uIU/mLPerforming Lab:see noteML - [facility] LBXR HAND RT MIN 3V Reviewed date:09/20/2025 02:40:31 PM Interpretation: Performing Lab: Notes/Report: Source Facility: [facility]-[address] [place] [address] [place] [address] XRay Report Signed Patient: CYNTHIA WILDER MR#: [id number] : 1985 Acct:[id number] Age/Sex: 39 / F ADM Date: 09/20/25 Loc: LAB Attending Dr: Luan Cade M.D. Ordering Physician: Luan Cade M.D. Date of Service: 09/20/25 Procedure(s): XR hand RT min 3V Accession Number(s): [id number] cc: Luan Cade M.D. [place] [address] Patient Name: CYNTHIA WILDER MRN: [facility]:[id number] date: 1985 Sex: F Assigned Patient Location: LAB Current Patient Location: LAB Accession/Order Number: [id number] Exam Date: 09/20/2025 11:00 Report Date: 09/20/2025 [...] Carrington M.D. 09/20/2025 2:31 PM Dictation Location: [place] [address] Electronically authenticated by: [id number] Y Date: 09/20/2025 14:31 Dictated By: Jose Carrington M.D. Signed By: 09/20/25 1434 DD/ 1431 TD/TT: Family Dinner Service Specialist:Cancer Antigen (CA) 125 Reviewed date:09/21/2025 05:00:43 PM Interpretation: Performing Lab: Notes/Report: [facility] ,Cancer Antigen (CA) 1254.60.0-38.1 U/mL [facility] Electrochemiluminescence Immunoassay (ECLIA) Values obtained with different assay methods or kits cannot be used interchangeably. Results cannot be interpreted as absolute evidence of the presence or absence of malignant disease. Performed at: [address] [id number] Reimbursement Specialist: Luis Luis PhD, Phone: [phone] Performing Lab:see [facility] LBCA 19-9 Reviewed date:09/21/2025 05:00:43 PM Interpretation: Performing Lab: Notes/Report: [facility] ,CA 19-920-35 U/mL [facility] Electrochemiluminescence Immunoassay (ECLIA) Values obtained with different assay methods or kits cannot be used interchangeably. Results cannot be interpreted as absolute evidence of the presence or absence of malignant disease. Performed at: [address] [id number] Reimbursement Specialist: Luis Luis PhD, Phone: [phone] Performing Lab:see [facility] LBCEA Reviewed date:09/21/2025 05:00:43 PM Interpretation: Performing Lab: Notes/Report: [facility] ,CEA5.50.0-4.7 ng/mL Nonsmokers <3.9 Smokers <5.6 [facility] Electrochemiluminescence Immunoassay (ECLIA) Values obtained with different assay methods or kits cannot be used interchangeably. Results cannot be interpreted as absolute evidence of the presence or absence of malignant disease. Performing Lab:[facility] [place] Reviewed date:09/20/2025 02:09:20 PM Interpretation: Performing Lab: Notes/Report: [facility] ,Vitamin D56.9 <20 ng/mL Vit D deficient 20-<30 ng/mL Vit D insufficient 30-100 ng/mL Vit D sufficient >100 ng/mL Potential Toxicity Performing Lab:see note - [facility] LBIRON Reviewed date:09/20/2025 02:09:20 PM Interpretation: Performing Lab: Notes/Report: [facility] ,Iron67.050.0-170.0 ug/dLPerforming Lab:see note - [facility] LB INSULIN Reviewed date:09/21/2025 05:00:43 PM Interpretation: Performing Lab: Notes/Report: [facility] ,Tewunqy97.42.6-24.9 uIU/mL Performed at: [address] [id number] Reimbursement Specialist: Luis Luis PhD, Phone: [phone] Performing Lab:see noteLC - [facility] LBGLYCOHEMOGLOBIN A1C Reviewed date:09/20/2025 02:09:20 PM Interpretation: Performing Lab: Notes/Report: [facility] ,Glycohemoglobin A1C5.34.5-6.2 % ADA RECOMMENDED LIMIT 4.0 - 6.0 ADA THERAPEUTIC TARGET < 7.0 ACTION SUGGESTED > 7.0 Estimated Average Qqmzgwv733Mjfvomcnsi Lab:see noteML - [facility] LB CBC AUTO DIFF Reviewed date:09/20/2025 02:09:20 PM Interpretation: Performing Lab: Notes/Report: [facility] ,White Blood Count7.94.0-11.0 10 3/uLRed Blood Count4.534.20-5.40 10 6/uL Zwqkgdkuiz67.312.0-16.0 g/xMGbtxfvmknu17.236.0-48.0 %Mean Corpuscular Tljbyb99.4 81.0-99.0 fLMean Corpuscular Svzrcxfwpd04.626.7-34.0 pgMean Corpuscular HGB Conc 33.129.9-35.2 g/dLRed Cell Distribution Width12.811.0-15.0 %Platelet Qsmyd858 150-450 10 3/uLMean Platelet Nsevsa00.69.5-13.5 fLNeutrophils Percent Auto70.1 43.0-75.0 %Lymphocytes Percent Auto24.020.5-60.0 %Monocytes Percent Auto4.21.7- 12.0 %Eosinophils Percent Auto1.00.9-7.0 %Basophils Percent Auto0.40.2-2.0 % Immature Granulocytes Pct Auto0.30.0-0.5 %Neutrophils Absolute Auto5.61.4-6.5 10 3/uLLymphocytes Absolute Auto1.91.2-3.8 10 3/uLMonocytes Absolute Auto0.30.3-0.8 10 3/uLEosinophils Absolute Auto0.10.0-0.7 10 3/uLBasophils Absolute Auto0.00.0- 0.1 10 3/uLImmature Granulocytes Abs Auto0.020.00-0.03 10 3/uLPerforming Lab:see noteML - [facility] LBCT abdomen pelvis w con Reviewed date:10/10/2025 06:47:13 PM Interpretation: Performing Lab: Notes/Report: Source Facility: [facility]-[address] [place] [address] [place] [address] CT Scan Report Signed Patient: CYNTHIA WILDER MR#: [id number] : 1985 Acct:[id number] Age/Sex: 39 / F ADM Date: 10/10/25 Loc: CT Attending Dr: Luan Cade M.D. Ordering Physician: Luan Cade M.D. Date of Service: 10/10/25 Procedure(s): CT abdomen pelvis w con Accession Number(s): [id number] cc: Luan Cade M.D. [place] [address] Patient Name: CYNTHIA WILDER MRN: [id number] date: 1985 Sex: F Assigned Patient Location: CT Current Patient Location: CT Accession/Order Number: [id number] Exam Date: 10/10/2025 08:25 Report Date: 10/10/2025 10:09 At the request of: LUAN CADE MD Procedure: CT abdomen pelvis w con CT CHEST, ABDOMEN AND PELVIS WITH INTRAVENOUS CONTRAST: CLINICAL HISTORY: Elevated CEA and weight loss. COMPARISON: CT abdomen pelvis 08/18/2022 TECHNIQUE: Spiral images were obtained through the chest, abdomen and pelvis following oral and intravenous administration of 100 mL of Omnipaque 300. Images were reviewed using both narrow and wide window settings. This CT exam was performed using one or more following dose reduction techniques: Automated exposure control, adjustment of the mA and/or kV according to patient size, or use of iterative reconstruction technique. FINDINGS: The heart is top normal in size. There is no pericardial effusion. No aortic aneurysm or dissection is seen. There is no mediastinal or hilar lymphadenopathy. The bony structures are intact. Minor endplate spurring is present at the spine. There is some respiratory motion. Mild dependent atelectasis is present. No consolidation, pleural effusion or pneumothorax is seen. A 4 - 5 mm noncalcified nodule is present at the right lower lobe. No calcified gallstones are identified. No intrahepatic masses are seen. The spleen and adrenal glands show no acute findings. The pancreas is similar in size and contour. The head of the pancreas appears more hypodense than the prior though this may be related to differences in timing of bolus. The renal nephrograms are symmetric. No hydronephrosis is seen. The abdominal aorta is normal caliber. Small retroperitoneal lymph nodes are again visualized. There is no ascites. Fluid is seen within the stomach. Small bowel loops are not disproportionately distended. There is moderate stool along the colon. There is subtle levoscoliotic curvature and minor degenerative change at the spine. Images through the pelvis show normal caliber small bowel loops. No appendiceal inflammation is seen. There is air at the rectosigmoid colon. There are sigmoid diverticula, without associated active inflammation. There is a segment of sigmoid colon with apparent wall thickening there is a left adnexal cyst measuring approximately 4 cm in size. The urinary bladder wall is top normal in thickness for the degree of distention. No ascites is seen. CT/CT abdomen pelvis w con IMPRESSION: MINOR DEPENDENT ATELECTASIS AND TINY RIGHT LOWER LOBE PULMONARY NODULE. NO BOWEL OR URINARY TRACT OBSTRUCTION. SUBTLE HYPODENSITY AT THE PANCREAS THAT MAY BE TECHNICAL THOUGH FOLLOW-UP COULD BE OBTAINED IF CLINICALLY WARRANTED. NO BOWEL OR URINARY TRACT OBSTRUCTION. DIVERTICULOSIS. SEGMENT OF SIGMOID COLON WITH WALL THICKENING. GIVEN THE HISTORY, CORRELATION WITH DIRECT VISUALIZATION COULD BE CONSIDERED TO EXCLUDE ANY POSSIBILITY OF COLONIC NEOPLASM. LEFT OVARIAN CYST. Impression dictated by: Corina Sotelo M.D. 10/10/2025 10:09 AM Dictation Location: [place] [address] Electronically authenticated by: [id number] Y Date: 10/10/2025 10:09 Dictated By: Corina Sotelo M.D. Signed By: 10/10/25 1012 DD/ 1009 TD/TT: Family Dinner Service Specialist:CT CHEST W CON Reviewed date:10/10/2025 06:47:13 PM Interpretation: Performing Lab: Notes/Report: Source Facility: [facility]-[address] [place] [address] [place] [address] CT Scan Report Signed Patient: CYNTHIA WILDER MR#: [id number] : 1985 Acct:[id number] Age/Sex: 39 / F ADM Date: 10/10/25 Loc: CT Attending Dr: Luan Cade M.D. Ordering Physician: Luan Cade M.D. Date of Service: 10/10/25 Procedure(s): CT chest w con Accession Number(s): [id number] cc: Luan Cade M.D. [facility] [address], [place] [address] Patient Name: CYNTHIA WILDER MRN: [id number] date: 1985 Sex: F Assigned Patient Location: CT Current Patient Location: CT Accession/Order Number: [id number] Exam Date: 10/10/2025 08:25 Report Date: 10/10/2025 10:09 At the request of: LUAN CADE MD Procedure: CT abdomen pelvis w con CT CHEST, ABDOMEN AND PELVIS WITH INTRAVENOUS CONTRAST: CLINICAL HISTORY: Elevated CEA and weight loss. COMPARISON: CT abdomen pelvis 08/18/2022 TECHNIQUE: Spiral images were obtained through the chest, abdomen and pelvis following oral and intravenous administration of 100 mL of Omnipaque 300. Images were reviewed using both narrow and wide window settings. This CT exam was performed using one or more following dose reduction techniques: Automated exposure control, adjustment of the mA and/or kV according to patient size, or use of iterative reconstruction technique. FINDINGS: The heart is top normal in size. There is no pericardial effusion. No aortic aneurysm or dissection is seen. There is no mediastinal or hilar lymphadenopathy. The bony structures are intact. Minor endplate spurring is present at the spine. There is some respiratory motion. Mild dependent atelectasis is present. No consolidation, pleural effusion or pneumothorax is seen. A 4 - 5 mm noncalcified nodule is present at the right lower lobe. No calcified gallstones are identified. No intrahepatic masses are seen. The spleen and adrenal glands show no acute findings. The pancreas is similar in size and contour. The head of the pancreas appears more hypodense than the prior though this may be related to differences in timing of bolus. The renal nephrograms are symmetric. No hydronephrosis is seen. The abdominal aorta is normal caliber. Small retroperitoneal lymph nodes are again visualized. There is no ascites. Fluid is seen within the stomach. Small bowel loops are not disproportionately distended. There is moderate stool along the colon. There is subtle levoscoliotic curvature and minor degenerative change at the spine. Images through the pelvis show normal caliber small bowel loops. No appendiceal inflammation is seen. There is air at the rectosigmoid colon. There are sigmoid diverticula, without associated active inflammation. There is a segment of sigmoid colon with apparent wall thickening there is a left adnexal cyst measuring approximately 4 cm in size. The urinary bladder wall is top normal in thickness for the degree of distention. No ascites is seen. CT/CT chest w con IMPRESSION: MINOR DEPENDENT ATELECTASIS AND TINY RIGHT LOWER LOBE PULMONARY NODULE. NO BOWEL OR URINARY TRACT OBSTRUCTION. SUBTLE HYPODENSITY AT THE PANCREAS THAT MAY BE TECHNICAL THOUGH FOLLOW-UP COULD BE OBTAINED IF CLINICALLY WARRANTED. NO BOWEL OR URINARY TRACT OBSTRUCTION. DIVERTICULOSIS. SEGMENT OF SIGMOID COLON WITH WALL THICKENING. GIVEN THE HISTORY, CORRELATION WITH DIRECT VISUALIZATION COULD BE CONSIDERED TO EXCLUDE ANY POSSIBILITY OF COLONIC NEOPLASM. LEFT OVARIAN CYST. Impression dictated by: Corina Sotelo M.D. 10/10/2025 10:09 AM Dictation Location: [place] [address] Electronically authenticated by: [id number] Y Date: 10/10/2025 10:09 Dictated By: Corina Sotelo M.D. Signed By: 10/10/25 1012 DD/ 1009 TD/TT: Family Dinner Service Specialist: Reason For Referral Diagnosis 1 Hand pain, right (M7 9.641) Referral Organization [facility] Referring Provider First Name Matthias Referring Provider Last Name Mari [facility] icine Referred Provider Jyoti Larson Referred Provider Specialty Orthopedic S urgery Referral Priority Routine Diagnosis 1 Elevated CEA (R97.0) Referral Organization [facility] Referring Provider First Name Matthias Referring Provider Last Name Mari Referring Provider [facility] ki Referred Provider Sunil Lanza Referred Provider Specialty General Surg milly Referral Priority Routine Diagnosis 1 Colon abnormality (K 63.9) Referral Organization [facility] Referring Provider First Name Matthias Referring Provider Last Name Mari Referring Provider Speciality Family Med ki Referred Provider Sunil Lanza Referred Provider Specialty [...] alcohol in the p ast year? No Vkbovg8XmtgggucxbyjrrOblqflxvIFLYP-K (Standard) Question Answer Notes Did you have a drink containing alcohol in the p ast year? No Acauej1VitakphoriosssBlbfepty Problems Problem Type SNOMED Code ICD Code Onset Dates Problem Status W/U Status Risk Notes Problem Anxiety (58312810) Anxiety (F41.9) ActiveconfirmedProblemSpinal stenosis (07558586)Spinal stenosis (M48.00)Active confirmedProblemVaricose vein (08894647)Varicose vein (I86.8)Activeconfirmed ProblemEczema (56169809)Eczema (L30.9)ActiveconfirmedProblemPain in limb (56471217)Hand pain, right (M79.641)ActiveconfirmedProblemLumbar radiculopathy (632986423)Lumbar radiculopathy (M54.16)ActiveconfirmedProblemDisorder of lumbar disc (625180737)Lumbar disc disease (M51.9)ActiveconfirmedProblemWeight gain (114992456)Weight gain (R63.5)ActiveconfirmedProblemWell adult (978074985)Well adult (Z00.00)ActiveconfirmedProblemCarcinoembryonic antigen above reference range (938133163)Elevated CEA (R97.0)ActiveconfirmedProblemNevus (1125304160) Nevus (D22.9)ActiveconfirmedProblemTennis elbow (227493567)Tennis elbow (M77.10) ActiveconfirmedProblemPruritic dermatitis (1581089645)Pruritic dermatitis (L29.9)ActiveconfirmedProblemPure hypercholesterolemia (736210832)Pure hypercholesterolemia, unspecified (E78.00)ActiveconfirmedProblemDisorder of sacrum (75075889)Low back derangement syndrome (M53.86)ActiveconfirmedProblem Depression (288302919)Depression (F32.A)Activeconfirmed Vital Signs Blood pressure diastolic 68 mm Hg 09/19/2025 Nzikxo65.5 in09/19/2025lood pressure dnfqyfuu486 mm Hg09/19/20252639Evqolm332.4 lbs 09/19/2025BMI23.43 kg/m209/19/2025 Encounters Encounter Location Date Provider Diagnosis [address] [address] 08/11/2025 Matthias Hoy Spinal stenosis M48. [address] [address] 05/04/2025 Matthias Hoy Hand pain, right M79 .[address] [address] 07/25/2025 Matthias Hoy Lumbar disc disease M51.9 ; Anxiety F41.9 and Depression F32.A [address] [address] 11/19/2024 Matthias Hoy Lumbar radiculopathy M54.16 and Lumbar disc disease M51.9 [place] [address] [place] [address] 09/19/2025 Matthias Hoy Hand pain, right M79 .641 ; Weight gain R63.5 and Depression F32.A [facility] [address] [place] [address] 03/10/2025 Matthias Hoy Acute bronchitis, unspecified organism J20.9 [facility] [address] [place] [address] 02/24/2025 Matthias Hoy Lumbar disc disease M51.9 [facility] [address] [place] [address] 02/25/2025 Matthias Hoy Lumbar disc disease M51.9 [facility] [address] [place] [address] 03/07/2025 Matthias Hoy [facility] [place] [address] 05/02/2025Doug HoyRight hand pain M79.641[facility] [place] [address]/01/2025[facility] [place] [address]/02/2025[facility] [place] [address]/02/2025 Matthias HoyHand pain, right M79.641[facility] [place] [address]/03/2025Doug HoyElevated CEA R97.0[facility] [place] [address]/08/2025Doug Hoy Hand pain, right M79.641[facility] [place] [address]/Doug HoyPancreas cyst K86.2 Assessments Encounter Date Diagnosis (ICD Code) Assessment Notes Treatment Notes Treatment Clinical Notes Section Notes 11/19/2024 Lumbar radiculopathy (ICD-10 - M 54.16) 11/19/2024Lumbar disc disease (ICD-10 - M51.9)5Acute bronchitis, unspecified organism (ICD-10 - J20.9)Rest and drink more liquids, especially water. You may use a humidifier or vaporizer to help keep the drainage moist. Qtsf-sos-xsmzfvb Nasal Saline may help the stuffy and runny nose. Use Ibuprofen and or Tylenol as needed for fever, chills, body aches or pain. Children 5 years old should not be given zklu-syz-txsrjmz cough and cold medications such as guaifenesin and dextromethorphan. If you're over age 5, you may try sode-hbb-fmhddxu cold medications such as guaifenesin and dextromethorphan, [...] chest pain you should go to the [facility] room or call [id number] pain, right (ICD-10 - M79.641)07/25/2025 Lumbar disc disease (ICD-10 - M51.9)5Anxiety (ICD-10 - F41.9)08/11/2025 Spinal stenosis (ICD-10 - M48.00)09/19/2025Hand pain, right (ICD-10 - M79.641) attn 3rd and 4the MP vykflu7809/19/2025Weight gain (ICD-10 - R63.5)09/19/2025 Depression (ICD-10 - F32.A)02/24/2025Lumbar disc disease (ICD-10 - M51.9) 02/25/2025Lumbar disc disease (ICD-10 - M51.9)05/02/2025Right hand pain (ICD-10 - M79.641)09/20/2025Hand pain, right (ICD-10 - M79.641)09/21/2025Elevated CEA (ICD-10 - R97.0)09/26/2025Hand pain, right (ICD-10 - M79.641)10/10/2025Pancreas cyst (ICD-10 - K86.2)07/25/2025Depression (ICD-10 - F32.A)11/19/2024Other Recommended to rest and use a heating pad on the area. Take NSAIDs for pain as oalodh8008/11/2025OtherRecommended to rest and use a heating pad on the area. Take NSAIDs for pain as needed Plan Of Treatment Pending Test Test Name Order Date CMP (COMPLETE METABOLIC PANEL) HEMOGLOBIN A1C (GLYCO) 09/20/2024 HEMOGLOBIN A1C (GLYCO) 09/19/2025 IRON, TOTAL 09/19/2025 LIPID PANEL (CHOL/TRIG/HDL/LDL) 09/19/20 25 LIPID PANEL (CHOL/TRIG/HDL/LDL) 09/20/20 24 CBC WITH DIFF (EXP 09/2025) 09/20/2024 VITAMIN D, 25 LEVEL (TOTAL) 09/19/2025 Insulin Level 09/20/2024 Insulin Level 09/19/2025 XR Wrist 2 Views Right 05/02/2025 US Pancreas 10/10/2025 XR Hand 3 Views Right 09/19/2025 CA [...] End Date [employer] [place] [employer] [address] [address] [place] [address] [id number] Beronica Wilderelf - patient is the insured Medications Administered Medication Instructions Date of Administration Dosage Notes DEPO-Medrol ma010Diiwwjodmbbzd, 4mg/mL mg12 mgKenalog-40005/05/2023 120 iq802Vqtzxuk-0968/10/466463 mgKenalog-401 sl526Jetldsb-91 pb806Syamdzq-9257/01/2024120 mgKenalog-401 mg120 Ketorolac Kmcwqiorogku58/19/202360 we81Dpecxwrxf Ugxukhybuynr89/10/590259 mg Ketorolac Mecuwbaumqss45/17/202360 rn75Kyiyuobwo Xbelpzehpmxj41/21/4416697 mg Ketorolac Bqgrrknarmgy16/24/613315 mp56Ynrfxbglw Qrcptaavqjqe92/30/755404 mg60 Ketorolac Laqqkphmotyd45/01/378765 mgKetorolac Cvcmdptxwvzu14/04/202460 mg60 Ketorolac Znrsdxnlcjlx72/03/328506 mgKetorolac Qiiqfaffuuwx39/24/758634 mg Ketorolac Dzagwddkxmyw93/25/418559 mgKetorolac Umrmytmlljla75/03/027741 mg Orphenadrine Xzbhnex19/19/152908 as51Vtrhazqxnwnw Iqnzcvb86/10/442432 mg Orphenadrine Nnigpta18/21/382655 zk35Ffhqbuuinewg Zflllyx28/24/085393 mg60 Orphenadrine Viofimi15/30/323576 mg60 mgOrphenadrine Qdglcme61/24/358330 mg Orphenadrine Dukccnt38/25/471364 mgOrphenadrine Fmiuwtk11/03/483393 mg Triamcinolone 40 mg/ml20 mgTriamcinolone 40 mg/ml mg Triamcinolone 40 mg/ml mgTriamcinolone 40 mg/ml mg Medical (General) History Medical History History ICD Code Constipation K59.00 Insomnia G47.00 Edema R60.9 Varicose vein I86.8 Depression F32.A Spinal stenosis M48.00 Lumbar radiculopathy M54.16 Lumbar disc disease M51.9 Surgical History Surgery Date(Month/Year) L5-S1 surgery Tubal
--- OUTSIDE RECORDS SUMMARY | 2025-10-14 09:11 | XMS_ITS | Encounter Summary ---
Author Organization [facility] Address [address] [place] [address] Care Team Providers Care In Home Sales Consultant Name Role Phone Alistair Manzanares DO Primary Care Provider [phone] Encounter Details DateTypeDepartmentCare Team (Latest Contact Info)Slfmhdljzav21/17/2025bstract [facility] [address], [facility] [address] [place] [phone] Alistair Manzanares DO [address] [facility] [address] [place] [address] Social History Tobacco UseTypesPacks/DayYears UsedDateSmoking Tobacco: Every DayCigarettes Alcohol UseStandard Drinks/WeekCommentsNever0 (1 standard drink = 0.6 oz pure alcohol)PHQ-2AnswerDate RecordedPatient Health Questionnaire-2 Lzohi33912/03/2024 AUDIT-CAnswerDate RecordedQ1: How often do you have a drink containing alcohol? Never09/29/2025Q2: How many drinks containing alcohol do you have on a typical day when you are drinking?Patient does not drink09/29/2025Q3: How often do you have six or more drinks on one occasion?Never09/29/2025CommentsNoSex and Gender InformationValueDate RecordedSex Assigned at BirthNot on fileLegal Sex Vekwzc0901/29/2023 6:52 PM EDTGender IdentityNot on fileSexual OrientationNot on filedocumented as of this encounter Functional Status * Over the past 2 weeks, how often have you been bothered by any of the following problems?QuestionAnswerDate of AssessmentAuthorLittle interest or pleasure in doing thingsNot at all10/03/2025 8:28 AM Alistair Reed DO Feeling down, depressed, or hopelessNot at all10/03/2025 8:28 AM Alistair Reed DOPatient Health Questionnaire-2 Cxjub00212/03/2024 8:28 AM Alistair Reed DO documented as of this encounter Plan of Treatment DateTypeDepartmentCare Team (Latest Contact Info)Dujzdnffbmi93/08/2025 8:40 AM ESTProcedure Visit [facility] [address], [place] [address] [place] [address] Alistair Manzanares DO [address] [place] [address] [place] [address] 10/31/2025 6:30 PM ESTAncillary Procedure [facility] [address] [place] [phone] documented as of this encounter Visit Diagnoses Not on filedocumented in this encounter Care Teams Team MemberRelationshipSpecialtyStart DateEnd Date Alistair Manzanares DO [address] [place] [address] [place] [address] PCP - GeneralFamily Tqldbgaq59/13/25documented as of this encounter
--- OUTSIDE RECORDS SUMMARY | 2025-10-14 09:12 | XMS_ITS | Clinical Summary ---
Author Organization [facility] Address [address] [place] [address] Care Team Providers Care Tools Administrator Name Role Phone Alistair Manzanares Primary Care Provider [phone] Allergies Active AllergyReactionsCriticalityNoted LuhuWwqnnqfaKmhjyiraBdbowZipo58/13/2025 Suicidal ideation Fwokbqjgmvtq89/21/2023 Other Reaction(s): Not available Oxycodone-BzcctfrriwfdxRhubwid46/19/2023 Other Reaction(s): Not available Medications MedicationSigDispense QuantityRefillsLast FilledStart DateEnd DateStatus ibuprofen 800 MG tablet TAKE 1 TABLET BY MOUTH WITH FOOD OR MILK EVERY 8 HOURS BWCMFS7108/17/2024 09/29/2025Discontinued(Therapy completed) tiZANidine (Zanaflex) 4 MG tablet 4 mg every 6 (six) hours if pwafdy9309/26/2025Discontinued(Therapy completed) albuterol HFA 90 mcg/act inhaler INHALE 2 PUFFS BY MOUTH EVERY 4 HOURS NEEDED FOR SHORTNESS OF BREATH OR QHNDLMSU19Discontinued(Therapy completed) albuterol HFA (Ventolin HFA) 90 mcg/act [...] DateDiagnosed DateSciatica of right side04/18/2025 Encounters DateTypeDepartmentCare XjekMtieuswikwr74/17/2025 8:00 AM ESTProcedure Visit [facility] [address], [address] [phone] Alistair Manzanares DO Segmental and somatic dysfunction of head region (Primary Dx); Somatic dysfunction of cervical region; Somatic dysfunction of thoracic region; Somatic dysfunction of lumbar region; Somatic dysfunction of sacral region; Somatic dysfunction of pelvis region; Somatic dysfunction of lower extremities; Somatic dysfunction of upper extremities; Rib cage region somatic dysfunction; Spasm of right piriformis muscle; Cervical paraspinal muscle spasm10/03/2025Orders Only [facility] [address], [place] [address] [place] [address] Unallocated, Nguyen Hammond MD 10/03/2025bstract [facility] [address], [facility] [address] [place] [address] Alistair Manzanares DO 09/29/2025 2:20 PM ESTOffice Visit [facility] [address], [facility] [address] [place] [address] Alistair Manzanares DO Unintentional weight loss (Primary [...] ear pain; Right serous otitis media, unspecified zhflkywkjj64/13/2025amboo flowsheet [facility] [address], [place] [address] [place] [address] Alistair Manzanares DO 09/26/2025 10:05 AM ESTOffice Visit [facility] [address] [place] [address] Wendy Ely NP Unexplained weight loss (Primary Dx); Hair loss; Generalized muscle ache; Medication reaction, initial encounter; Crvehm6009/26/2025Travelfrom Last 3 Months Family History Medical HistoryRelationNameCommentsHypertensionFatherBreast cancerSisterRelation NameStatusCommentsDaughter 1AliveDaughter 2AliveFatherAliveMaternal Grandfather DeceasedMaternal GrandmotherDeceasedMotherAlivePaternal GrandfatherDeceased Paternal GrandmotherDeceasedSisterAliveSonAlive Social History Tobacco UseTypesPacks/DayYears UsedDateSmoking Tobacco: Every DayCigarettes Tobacco Cessation:Ready to Q uit: Not Asked; Counseling Given: Not Answered Alcohol UseStandard Drinks/WeekCommentsNever0 (1 standard drink = 0.6 oz pure alcohol)PHQ-2AnswerDate RecordedPatient Health Questionnaire-2 Tznir58412/03/2024 AUDIT-CAnswerDate RecordedQ1: How often do you have a drink containing alcohol? Never09/29/2025Q2: How many drinks containing alcohol do you have on a typical day when you are drinking?Patient does not drink09/29/2025Q3: How often do you have six or more drinks on one occasion?Never09/29/2025CommentsNoSex and Gender InformationValueDate RecordedSex Assigned at BirthNot on fileLegal Sex Emobiv5101/29/2023 6:52 PM EDTGender IdentityNot on fileSexual OrientationNot on file Last Filed Vital Signs Vital SignReadingTime TakenCommentsBlood Qistjmwi013/8610/03/2025 8:01 AM EST Sqrmr380210/03/2025 8:01 AM YFHZiuppgwrpnz37.3 ??C (97.3 ??F)10/03/2025 8:01 AM ESTRespiratory Izhc047511/29/2024 2:45 PM ESTOxygen Zhiyhijkie03%10/03/2025 8:01 AM ESTInhaled Oxygen Concentration--Xcfwpd89 kg (143 lb 6.4 oz)10/03/2025 8:01 AM SBIIqafpw518.5 cm (5' 7.5 )10/03/2025 8:01 AM ESTBody Mass Index22.13 10/03/2025 8:01 AM EST Plan of Treatment DateTypeDepartmentCare Team (Latest Contact Info)Ptvzvehwasj00/08/2025 8:40 AM ESTProcedure Visit [facility] [address], [place] [address] [place] [address] Alistair Manzanares DO [address] [place] [address] [place] [address] 10/31/2025 6:30 PM ESTAncillary Procedure [facility] [address] [place] [address] Health MaintenanceDue DateLast DoneCommentsPneumococcal Vaccine: Pediatrics (0 to 5 Years) and At-Risk Patients (6 to 64 Years) (1 of 2 - PCV)2002 HPV/Ykzujq4912/23/20130789Rspjmkloi82/06/2024COVID-19 Vaccine (1 - 2024- season) 2025Influenza Vaccine (#1)5Cervical Cancer Xjkrarbmy74/19/2028Pap Smear802/, 08/25/2023 Procedures Procedure NamePriorityDate/TimeAssociated YaeamcuygPnsnbooyGWHUtqmmid97/04/2025 3:31 PM ESTCA 19-5Mpcsfdy94/04/2025 3:31 PM MYKCYLZGVEKrmeyhi59/04/2025 3:31 PM ESTXR HAND 3+ VIEWS UZAMUXihjfvl65/04/2025 10:15 AM ESTPAP SMEARRoutine 01/05/2025 12:00 AM [...] Alistair Manzanares DO [address] [address] PCP - GeneralFamily Jdajxknf10/13/25
--- OUTSIDE RECORDS SUMMARY | 2025-10-14 09:23 | XMS_ITS | CCD ---
Author Organization [facility] Care Team Providers Care [employer] Certified [employer] Professional Name Role Phone EDEL ., DR JUNE Elizabeth Admitting Unavailable [place] ., DR JUNE lEizabeth Attending Unavailable HOY ., DR ROLAND Primary [...] Unavailable MD Francisco Sanches Primary Care Provider [phone] MD Sunil Trevizo Emergency Provider Luan Guerra MD Primary Care Provider [phone] Luan Guerra MD Primary Care Provider [phone] Sunil Trevizo Attending Unavailable Sunil Trevizo Admitting Unavailable Francisco Sanches Primary Care Unavailable SHARLENE COOK Attending Unavailable KIMBERLYYASMANIHYACINTH Attending Unavailable LILLY BENNETT Attending Unavailable LILLY BENNETT Referring Unavailable VIRAJ CARIAS Attending Unavailable SHARLENE COOK Attending Unavailable Allergies Allergy ClassificationReported Allergen(s)Allergy TypeDate of OnsetReaction(s) Facility (2 sources)Acetaminophen / oxyCODONEDrug [facility]ergyK[facility] (15 sources)Acetaminophen / oxyCODONEDrug Huduvic86-76-5805KbggunkJMRZ Healthcare (15 sources)levoFLOXacinDrug Fjhlhsz41-05-6508ZBPE [facility] Work Phone: (1 source)Acetaminophen / oxyCODONE; Translations: [Percocet 5/325]Drug Allergy [facility] Repository (1 source)Penicillin; Translations: [penicillin][facility] (1 source)No Known Medication Allergies; Translations: [No Known Medication Allergies]Propensity to adverse reactions (disorder)[facility] Repository Medications Current Medications MedicationDrug Class(es)DatesSig (Normalized)Sig (Original)acetaminophen 325 mg / HYDROcodone bitartrate 5 mg oral tablet (2 sources)Opioid AgonistStart: 92-19-3127avxf 1 tablet by mouth every six hours Hydrocodone-Acetaminophen ([place]) 5-325 mg tablet Active 1 TAB PO Q6H 8 2 October 13, 2019Start: 06-08-2019 End: 92-03-1225sfoh 1 tablet by mouth every four to six hoursHydrocodone- Acetaminophen Discontinued 1 TAB PO EVERY 4-6 HOURS June 08, 2019 12:00am October 13, 2019 7:21bpvlb321603 200 actuat albuterol 0.09 mg/actuat metered dose inhaler (14 sources)beta2-Adrenergic AgonistStart: 04-18-2025 End: 94-74-2776twti 2 puff(s) by inhalation every six hours for wheezing albuterol HFA (Ventolin HFA) 90 mcg/act inhaler Indications: Acute bronchitis, unspecified organismInhale 2 puffs every 6 (six) hours if needed for wheezing or shortness of breath 8 g 04/18/2025 ActiveStart: 87-27-1460fefs 2 puff(s) by mouth every four hours as needed for wheezingalbuterol HFA 90 mcg/act inhaler INHALE 2 PUFFS BY MOUTH EVERY 4 HOURS NEEDED FOR SHORTNESS OF BREATH OR WHEEZING 03/07/2025 Activeamoxicillin 875 mg / clavulanate 125 mg oral tablet (2 sources)Penicillin-class AntibacterialStart: 04-18-2025 End: 89-71-2117gjle 1 tablet by mouth in the morningamoxicillin-clavulanate [...] 500 mg oral capsule (1 source)Cephalosporin AntibacterialStart: 87-02-2062sqeh 1 capsule by mouth four times dailyCephalexin (Keflex) 500 mg capsule Active 500 MG PO Four times daily October 13, 2019 1:00amibuprofen 800 mg oral tablet (11 sources)Nonsteroidal Anti-inflammatory DrugStart: 18-65-6416yqsa 1 tablet by mouth every eight hours at mealtime as neededibuprofen 800 MG tablet TAKE 1 TABLET BY MOUTH WITH FOOD OR MILK EVERY 8 HOURS NEEDED 08/17/2024ctive methylPREDNISolone (3 sources)CorticosteroidStart: 08-28-2023 End: 03-18-8628ktcjbaLNQGZOXpkqcx (Medrol Dospak) 4 MG tablets Indications: Lateral epicondylitis of left elbow Asdirected 21 tablet 08/28/2023 11/23/2024 Discontinued (Therapy completed)Start: 49-79-3649aysifwPTLSZLXbbnrj (Medrol Dospak) 4 MG tablets Indications: Lateral epicondylitis of left elbow Asdirected 21 tablet 08/28/2023 Activeondansetron 8 mg oral tablet (2 sources)Serotonin-3 Receptor AntagonistStart: 09-26-2025 End: 34-37-4772utid 1 tablet by mouth every eight hours as needed for nausea and vomiting and nausea and nauseaondansetron (Zofran) 8 MG tablet Indications: Nausea Take 1 tablet (8 mg) by mouth every 8 (eight) hours if needed for nausea or vomiting for up to 5 days 15 tablet 09/26/2025 10/01/2025 ActivepredniSONE 20 mg oral tablet (9 sources)Start: 51-35-6339qnoizyYDWY (Deltasone) 20 MG tablet Indications: Generalized muscle ache , Medication reaction, initial encounter Take 3 tabs for 2 days, 2 tabs for 2 days, 1 tab for 2 days, 1/2 tab for 2 days then stop 13 tablet 09/26/2025 ActiveStart: 04-18-2025 End: 99-63-4655hrai 2 tablets by mouth once dailypredniSONE (Deltasone) 20 MG tablet Indications: Acute bronchitis, unspecified organism Take 2 tabsorally by mouth once daily for 5 days. 10 tablet 04/18/2025 09/26/2025 Discontinued (Therapy completed) Completed/Discontinued Medications MedicationDrug Class(es)DatesSig (Normalized)Sig (Original)tiZANidine 4 mg oral tablet (11 sources)Central alpha-2 Adrenergic Agonist End: 42-32-1310zgid 1 tablet by mouth every six hours as neededtiZANidine (Zanaflex) 4 MG tablet 4 mg every 6 (six) hours if needed 09/26/2025 Discontinued (Therapy completed) Problems Active Problems Problem ClassificationProblemDateDocumented DateEpisodic/ChronicAcute bronchitis (2 sources)Acute bronchitis; Translations: [Acute bronchitis, unspecified] 52-85-6016NhcpiysyB Codes: Adverse effects of medical drugs (2 sources)Adverse reaction to drug; Translations: [Adverse effect of unspecified drugs, medicaments and biological substances, initial encounter] 47-65-0260KylimmnhBsejlidztczqp and screening for infectious disease (6 sources)Encounter for screening for infections with a predominantly sexual mode of transmission; Translations: [Patient encounter status]Onset: 08-28-2022 EpisodicMenstrual disorders (2 sources)Amenorrhea; Translations: [Amenorrhea, unspecified]53-94-4071Rjupkjk Nausea and vomiting (2 sources)Nausea; Translations: [Nausea]84-10-5570CmublrriUfqa wounds of head; neck; and trunk (1 source)Laceration - injury; Translations: [Laceration]28-80-9741BreyaceqYkbex connective tissue disease (2 sources)Pain in right hand; Translations: [Pain in right hand]05-03-2025 EpisodicOther connective tissue disease (2 sources)Muscle pain; Translations: [Myalgia, unspecified site]09-26-2025 EpisodicOther endocrine disorders (4 sources)Disorder of endocrine system; Translations: [Endocrine disorder, unspecified]54-98-3929GldzfrdxIgedn nutritional; endocrine; and metabolic disorders (2 sources)Unexplained weight loss ; Translations: [Abnormal weight loss] 17-61-1598ErzpjnrlQyfdm screening for suspected conditions (not mental disorders or infectious disease) (2 sources)Patient encounter status; Translations: [Encounter for screening mammogram for malignant neoplasm of breast]48-34-3731TiygeikpMqdxp skin disorders (2 sources)Night sweats; Translations: [Generalized hyperhidrosis]11-23-2024 EpisodicOther skin disorders (2 sources)Loss of hair; Translations: [Nonscarring hair loss, unspecified] 30-22-9239CuwajavcMfqwvcitzcf; intervertebral disc disorders; other back problems (4 sources)Spondylosis without myelopathy or radiculopathy, lumbar region; Translations: [SPONDYLS W/O MYELO-/RADICULOP LUMB]Onset: 98-21-8458Nmkwzsp Sprains and strains (2 sources)Unspecified sprain of right ring finger, initial encounter; Translations: [Sprain of hand, unspecified site]12-62-3066SbkjjdkyJawycwkij- related disorders (1 source)Nicotine dependence, cigarettes, uncomplicated; Translations: [NICOTINE DEPEND CIGARETTES UNCOMP]Onset: 80-42-9288CcyibzhWuqviuefutj injury; contusion (3 sources)Contusion of rib; Translations: [Contusion of right front wall of thorax, initial encounter]46-31-3330WpnxiudmQndnnfvofwbv (1 source)CONTACT W/AND (SUSP) EXPOS COVID-19; Translations: [CONTACT W/AND (SUSP) EXPOS COVID-19]Onset: 10-07-2022 Past or Other Problems Problem ClassificationProblemDateDocumented DateEpisodic/ChronicAbdominal pain (5 sources)Pelvic and perineal pain; Translations: [Unspecified abdominal pain] Onset: 00-47-7994ScqemcloZgetvgrrbbin of device; implant or graft (1 source)Other specified complication of genitourinary prosthetic devices, implants and grafts, initial encounter; Translations: [OTH COMP PROS DEVC IMPL GFT INIT]Onset: 28-76-7418OrqgyetySfbpbslnxpiac and procreative management (5 sources)Encounter for sterilization; Translations: [ENCOUNTER FOR STERILIZATION]Onset: 46-42-8868SmuuvrauShnmcsdhztk chest pain (2 sources)Musculoskeletal chest pain; Translations: [Other chest pain]Onset: 112055-37-0878EaqwqgarInkka female genital disorders (1 source)Other specified conditions associated with female genital organs and menstrual cycle; Translations:[OTH SPEC COND FE GEN ORG MENST CYCL]Onset: 52-97-1967RjeycfpiKmmjy female genital disorders (1 source)Other specified noninflammatory disorders of vagina; Translations: [OTH SPEC NONINFLAMMATORY D/O VAGINA]Onset: 22-44-5666KowmhkaxIfjzi gastrointestinal disorders (1 source)Other ascites; Translations: [OTHER ASCITES]Onset: 00-74-1151Wyfcqctg Spondylosis; intervertebral disc disorders; other back problems (8 sources)Muscle spasm of back; Translations: [Disorder of right sciatic nerve] Onset: 135375-85-9630Psdjzyte Results Test NameValueInterpretationReference RangeFacilityNo Panel Informationon 82-09-5925Znsdlstephenie Nj MA 05/25/2025 12:50 PM Splint Application Date/Time: 05/03/2025 12:52 PM Performed by: Azucena Nj MA Authorized by: Lilly Bennett NP Consent: Consent obtained: Verbal Consent given by: Patient [place] protocol: Patient identity confirmed: Verbally with patient Procedure details: Location: Finger Finger location: R ring finger Splint type: Finger Supplies: Aluminum splint Attestation: Splint applied and adjusted personally by me Post-procedure details: Procedure completion: Tolerated well, no immediate complications Comments: Alumafoam applied to pts R ring finger then wrapped with a 2in dirk wrap. Pt tolerated well.[facility] ClaytonXR HAND 3+ VIEWS RIGHTon 13-38-2547HL HAND 3+ VIEWS RIGHTTITLE OF EXAM: XR [...] radiologist.NormalNot AvailableXR Hand - right 3 Viewson 36-98-6383CGUTS OF EXAM: XR HAND 3+ VIEWS RIGHT [...] signed and approved by the interpreting radiologist. [facility] HealthcareRadiology Study observation (narrative)[facility] Hand - right 3 ViewsOrdered By: Renzo Ordonez on 92-46-8203DOHS [employer] Work Phone: IGP,APTIMA HPV,AGE GDLNon 17-83-8314YXC GDLN ACOG TESTINGNote.[facility] HealthcareComment on above:TESTS RESULT FLAG UNITS REF RANGE LAB Clinician Provided Cytology Information Source.............Cervix;Endocervix No. of containers..01 ThinPrep Vial Age Sachino ACOG Anay... 3065 01 FLAG LEGEND: L-Low Normal,H-High Normal,LL-Alert Low,HH-Alert High <-Panic Low,>-Panic High,A-Abnormal,AA-Critical Abnormal Performed at: 01 =[address] [address] Ree Huynh MD, HPV APTIMANegativeNegativeNOMS HealthcareComment on above:This nucleic acid amplification test detects fourteen high- risk HPV types (16,18,31,33,35,39,45,51,52,56,58,59,66,68) without differentiation. Performed at: =[address] [id number] Hired Worker: Ree Huynh MD, Phone: [phone] Performed at: [address] [id number] Hired Worker: Ree Huynh MD, Phone: [phone] IGP, APTIMA HPV, RFX 16/18,45Note.NOMS HealthcareComment on above:TESTS RESULT FLAG UNITS REF RANGE LAB DIAGNOSIS: 02 NEGATIVE FOR INTRAEPITHELIAL LESION OR MALIGNANCY. THIS SPECIMEN WAS RESCREENED PART OF OUR BLANKING MACHINE OPERATOR PROGRAM. Specimen adequacy: 02 Satisfactory for evaluation. Endocervical and/or squamous metaplastic cells (endocervical component) are present. Performed by: 02 Alice Browne, Ornamental Metalwork Designer ([facility]) QC reviewed by: 02 Rm Mccoy, Ornamental Metalwork Designer ([facility]) . 02 Note: Note 02 The [...] High,A-Abnormal,AA-Critical Abnormal Performed at: 02 [facility] [address] [place] [address] Ree Huynh MD, BRUSH-SPATULA CERVIX ENDOCERVIX CLINISYNCNOGA HealthcareRECURRENT VAGINITIS (HTRX)on 58-33-8371ZJKQOIYKM VAGINAE 30.745AbnormalNOGA HealthcareATOPOBIUM VAGINAEDetectedAbnormalNOGA Healthcare BVAB 2,3 (BACTERIAL VAGINOSIS ASSOCIATED BACTERIA 2, 3); MOBILUNCUS OEK5XJLT HealthcareBVAB 2,3 (BACTERIAL VAGINOSIS ASSOCIATED BACTERIA 2, 3); MOBILUNCUS SPPNot detectedNOMS HealthcareCANDIDA ALBICANS, PARAPSILOSIS, FNSESYURKX7VKVY HealthcareCANDIDA ALBICANS, PARAPSILOSIS, TROPICALISNot detectedNOMS Healthcare FREDIS KKXMJPYN7FNYV HealthcareCANDIDA GLABRATANot detectedNOMS Healthcare FREDIS ENXLAC5JWWZ HealthcareCANDIDA KRUSEINot detectedNOMS HealthcareCHLAMYDIA GDWXBOIXSBM1TOBW HealthcareCHLAMYDIA TRACHOMATISNot detectedNOMS Healthcare GARDNERELLA AQKSGJDPL4LMUU HealthcareGARDNERELLA VAGINALISNot detectedNOMS HealthcareInterpretation and review of laboratory resultsAbnormalNOMS Healthcare MEGASPHAERA (TYPES 1, 2)0NOMS HealthcareMEGASPHAERA (TYPES 1, 2)Not detectedNOMS HealthcareMYCOPLASMA QHGLBOPOIR0BORR HealthcareMYCOPLASMA GENITALIUMNot detected NOMS HealthcareNEISSERIA ONSEFGCLLST5REID HealthcareNEISSERIA GONORRHOEAENot detectedNOMS HealthcareTRICHOMONAS YZUGLNWPB6HZQC HealthcareTRICHOMONAS VAGINALISNot detectedNOMS HealthcareNOMS HealthcareHCG ( test) Ql (U)on 81-64-4276Tlxnrxzgezppzd and review of laboratory resultsNormalNOMS Healthcare Preg Test, UrNegativeNegativeNOMS HealthcareNOMS HealthcareActivated partial thromboplastin time (aPTT) in platelet poor plasma by coagulation aOrdered By: Sunil Trevizo on 08-92-0948nZKZ Coag (PPP) [Time]29.4 s25.1-36.5FCleveland Clinic Mentor HospitalBasophils Auto (Bld) [#/Vol]Ordered By: Sunil Trevizo on 18-98-4514Swypbuzjr (Bld) [#/Vol]0.1 10*3/uL0.0-0.2FCleveland Clinic Mentor HospitalBasophils/100 WBC Auto (Bld)Ordered By: Sunil Trevizo on 05-04-2023 Basophils/100 WBC (Bld)1.0 %.[facility] HospitalCalcium [Mass/volume] in Serum or PlasmaOrdered By: Sunil Trevizo on 41-96-8508Dzfugzz [Mass/Vol]9.4 mg/dL8.6-10.3FCleveland Clinic Mentor HospitalCarbon dioxide, total [Moles/volume] in Serum or PlasmaOrdered By: Sunil Trevizo on 05-04-2023 CO2 [Moles/Vol]23.5 mmol/L21.0-31.0[facility] HospitalChloride [Moles/volume] in Serum or PlasmaOrdered By: Sunil Trevizo on 05-04-2023 Chloride [Moles/Vol]105 mmol/Z49-643RjlgkvqgfFostoria City HospitalCreatine kinase [Enzymatic activity/volume] in Serum or PlasmaOrdered By: Sunil Trevizo on 84-69-2051WH [Catalytic activity/Vol]93 U/U35-223UkcyosysiFostoria City HospitalCreatinine [Mass/volume] in Serum or PlasmaOrdered By: Sunil Trevizo on 88-16-8362Hxscbpkikj [Mass/Vol]0.64 mg/dL0.60-1.20[facility] HospitalEosinophils Auto (Bld) [#/Vol]Ordered By: Sunil Trevizo on 05-04-2023 Eosinophils (Bld) [#/Vol]0.1 10*3/uL0.0-0.45[facility] Eosinophils/100 WBC Auto (Bld)Ordered By: Sunil Trevizo on 05-04-2023 Eosinophils/100 WBC (Bld)0.8 %.[facility] HospitalErythrocyte distribution width Auto (RBC) [Ratio]Ordered By: Sunil Trevizo on 05-04-2023 Erythrocyte distribution width (RBC) [Ratio]13.2 %11.9-15.3FCleveland Clinic Mentor HospitalGlucose [Mass/volume] in Serum or PlasmaOrdered By: Sunil Trevizo on 17-89-9364Kpbcvpm [Mass/Vol]90 mg/vM40-926XzubjmfzlFostoria City Hospital Comment on above:ADA recommended reference rangeRandom Glucose Reference Range is dependent on time and content of last meal. Glucose of more than 200 mg/dL in a nonstressed, ambulatory subject supports the diagnosisof Diabetes Mellitus. Hematocrit Auto (Bld) [Volume fraction]Ordered By: Sunil Trevizo on 05-04-2023 Hematocrit (Bld) [Volume fraction]38.3 %34.0-46.4FCleveland Clinic Mentor HospitalHemoglobin [Mass/volume] in BloodOrdered By: Sunil Trevizo on 05-04-2023 Hemoglobin (Bld) [Mass/Vol]13.0 g/dL11.8-15.4FCleveland Clinic [facility] Hospital Laboratory - CoagulationOrdered By: Sunil Trevizo on 11-24-3958NC Coag (PPP) [Time]14.5 s9.0-12.9[facility] HospitalLeukocytes [#/volume] corrected for nucleated erythrocytes in Blood by Automated counOrdered By: Sunil Trevizo on 96-05-9053PIJ corrected for nucl RBC Auto (Bld) [#/Vol]10.5 10*3/uL3.8-11.6FCleveland Clinic Mentor HospitalLymphocytes Auto (Bld) [#/Vol] Ordered By: Sunil Trevizo on 64-69-2503Frcxxoavkpq (Bld) [#/Vol]2.4 10*3/uL 1.00-4.8[facility] City HospitalLymphocytes/100 WBC Auto (Bld)Ordered By: Sunil Trevizo on 49-54-0209Hkaoealtluo/100 WBC (Bld)22.4 %.[facility] HospitalH Auto (RBC) [Entitic mass]Ordered By: Sunil Trevizo on 67-34-0402BSK (RBC) [Entitic mass]31.5 pg24.7-34.3FC[facility] Clinic Mentor HospitalMCHC Auto (RBC) [Mass/Vol]Ordered By: Sunil Trevizo on 29-44-5541HPOY (RBC) [Mass/Vol]33.9 g/dL32.0-35.0[facility] HospitalMCV Auto (RBC) [Entitic vol]Ordered By: Sunil Trevizo on 99-88-0899DRM (RBC) [Entitic vol]92.7 kL63-899UfcrimdapFostoria City HospitalMonocyte distribution width [Entitic volume] in Blood by AutomatedOrdered By: Sunil Trevizo on 05-04-2023 Monocyte distribution width Auto (Bld) [Entitic vol]16.86 %0.00-20.00[facility] HospitalMonocytes Auto (Bld) [#/Vol]Ordered By: Sunil Trevizo on 02-03-2112Ghqmljmad (Bld) [#/Vol]0.5 10*3/uL0.0-0.8[facility] HospitalMonocytes/100 WBC Auto (Bld)Ordered By: Sunil Trevizo on 05-04-2023 Monocytes/100 WBC (Bld)4.6 %.[facility] HospitalNeutrophils Auto (Bld) [#/Vol]Ordered By: Sunil Trevizo on 13-53-1304Fuznukduthy (Bld) [#/Vol] 7.5 10*3/uL1.8-7.7FCleveland Clinic Ment[facility] HospitalNeutrophils/100 WBC Auto (Bld)Ordered By: Sunil Trevizo on 72-80-5320Ipidflbmeeq/100 WBC (Bld)71.2 %. [facility] HospitalNo Panel InformationOrdered By: Sunil Trevizo on 22-30-4561Z-Dimer Quantitative (PE/DVT)< 200 ng/mL0-243Fostoria City HospitalComment on above:The reference range for D-dimer [...] due toco-morbid conditions.Estimated GFR (CKD-EPI)> 60.0 mL/Min [facility] HospitalPharmacy Creatinine Clearance (Clae651.69 [facility] City HospitalNucleated erythrocytes [Presence] in Blood by Automated countOrdered By: Sunil Trevizo on 52-34-4214Qdakmswjk RBC Auto Ql (Bld)0.1 /100{WBC}0-0.5FCleveland Clinic Mentor HospitalPlatelet mean volume Auto (Bld) [Entitic vol]Ordered By: Sunil Trevizo on 78-15-2343Wttybgff mean volume (Bld) [Entitic vol]9.3 fL6.3-10.7FC[facility] Platelet poor plasma international normalized ratio (INR) by coagulation assay (relatOrdered By: Sunil Trevizo on 13-41-4810MSQ Coag (PPP) [Relative time]1.3 {INR}[facility] HospitalComment on above:INR Therapeutic Range A) Pre- [...] Auto (Bld) [#/Vol]Ordered By: Sunil Trevizo on 42-00-6396Mppqibqbo (Bld) [#/Vol]188 10*3/eK071-679AifjqncevFostoria City HospitalPotassium [Moles/volume] in Serum or PlasmaOrdered By: Sunil Trevizo on 05-04-2023 Potassium [Moles/Vol]3.6 mmol/L3.5-5.1FCleveland Clinic Mentor HospitalRBC Auto (Bld) [#/Vol]Ordered By: Sunil Trevizo on 24-50-9944JCU (Bld) [#/Vol]4.13 10*6/uL3.60-5.00[facility] Hospitalerum or plasma anion gap determinationOrdered By: Sunil Trevizo on 18-57-8641Ddiqh gap [Moles/Vol]12.1 mmol/L6.0-15.0[facility] Hospitalodium [Moles/volume] in Serum or PlasmaOrdered By: Sunil Trevizo on 94-75-9415Pyxyvo [Moles/Vol]137 mmol/L 136-145F[facility] City HospitalTroponin I.cardiac [Mass/volume] in Serum or Plasma by Detection limit <= 0.01 ng/Ordered By: Sunil Trevizo on 94-02-4415Adujqdwm I.cardiac DL <= 0.01 ng/mL [Mass/Vol]4.3 pg/mL0.0-15.0 [facility] HospitalUrea nitrogen [Mass/volume] in Serum or Plasma Ordered By: Sunil Trevizo on 85-20-1782Dknj nitrogen [Mass/Vol]14 mg/dL7-25 [facility] HospitalWBC Auto (Bld) [#/Vol]Ordered By: Sunil Trevizo on 93-37-8172HIZ (Bld) [#/Vol]10.5 10*3/uL3.8-11.6FCleveland Clinic Mentor HospitalCBC AUTO DIFFon 60-77-2137SBUT #0.0 103/ulNormal0.0-0.1The [facility]ma HealthComment on above:Performed By: #### CBC ####[facility] [address] [place], [place] [address]Dr.Colleen ChangBasophils/100 WBC (Bld)0.3 %Normal0.2-2.0The [facility] HealthComment on above:Performed By: #### CBC ####[facility] Rugfrhmbed[address] [place], [place] [address]Dr.Sollan ChangEO #0.1 103/ulNormal0.0-0.7The [facility] HealthComment on above:Performed By: #### CBC ####[facility] Lbdavepmvp[address] [place], [place] [address]Dr.Colleen ChangEosinophils/100 WBC (Bld)1.2 %Normal 0.9-7.0The [facility] HealthComment on above:Performed By: #### CBC ####[facility] Uyzngczofw[address] [place], [place] [address]Dr.Colleen Marshall Erythrocyte distribution width (RBC) [Ratio]12.7 %Pkwvlh10.0-15.0The [facility] HealthComment on above:Performed By: #### CBC ####[facility] Sampsdxgfq[address] [place], [place] [address]Dr.Colleen MarshallHematocrit (Bld) [Volume fraction]41.1 %Ukpnro35.0-48.0The [facility] HealthComment on above:Performed By: #### CBC ####[facility] Vco[address]qs[address] [place], [place] [address]Dr.Colleen MarshallHemoglobin (Bld) [Mass/Vol]13.8 g/dL Nftygy61.0-16.0The [facility] HealthComment on above:Performed By: #### CBC ####[facility] Tjoyvoqiku[address] [place], [place] [address]Dr. Colleen ChangIG #0.02 10e3/ulNormal0.00-0.03The [facility] HealthComment on above: Performed By: #### CBC ####[facility] [address] [address]Dr.Colleen MarshallIG %0.3 %Normal0.0-0.5The [facility] HealthComment on above:Performed By: #### CBC ####[facility] Ifktcxuita[address] [place], [place] [address]Dr.Colleen MarshallLYMPH #2.2 103/ulNormal1.2-3.8The [facility] HealthComment on above:Performed By: #### CBC ####[facility] Bdanhgqazo[address] [place], [place] [address]Dr. Colleen MarshallLymphocytes/100 WBC (Bld)29.6 %Iqsvva95.5-60.0[facility] Comment on above:Performed By: #### CBC ####[facility] Smmkm[address]suf[address] [place], [place] [address]Dr.Colleen MarshallMANUAL DIFF REQNONormalThe [facility]ma HealthComment on above:Performed By: #### CBC ####[facility] Dvcoexcatc[address] [place], [place] [address]Dr.Colleen MarshallGARNET [facility]ALTH [facility] (RBC) [Entitic mass]31.3 ueEcjhiy53.7-34.0[facility] CampusComment on above: Performed By: #### CBC ####[facility] T[address]oltsohtz[address] [place], [place] [address]Dr.Colleen MarshallHC (RBC) [Mass/Vol]33.6 g/dLNormal 29.9-35.2The [facility] HealthComment on above:Performed By: #### CBC ####[facility] Kirmyscnzz[address] [place], [place] [address]Dr. Colleen MarshallV (RBC) [Entitic vol]93.2 xQKzlsxj48.0-99.0[facility] Comment on above:Performed By: #### CBC ####[facility] Vndeuitkww[address] [place], [place] [address]Dr.Colleen MarshallMONO #0.3 103/ulNormal0.3-0.8 The [facility] HealthComment on above:Performed By: #### CBC ####[facility] Xdmsfvlogk[address] [place], [place] [address]Dr.Colleen Marshall Monocytes/100 WBC (Bld)4.4 %Normal1.7-12.0The [facility] HealthComment on above: Performed By: #### CBC ####[facility] [address]yrzsjgjqz[address] [place], [place] [address]Dr.Sollan ChangNEUT #4.7 103/ulNormal1.4-6.5The [facility] HealthComment on above:Performed By: #### CBC ####[facility] [address]ziyuj[address] [place], [place] [address]Dr.Colleen MarshallNeutrophils/100 WBC (Bld)64.2 %Hnouic22.0-75.0The [facility] HealthComment on above:Performed By: #### CBC ####[facility] F[address]jligtbl[address] [place], [place] [address]Dr.Colleen MarshallPlatelet mean volume (Bld) [Entitic vol]10.5 fLNormal9.5-13.5 The [facility] HealthComment on above:Performed By: #### CBC ####[facility] S[address]kcnsmr[address] [place], [place] [address]Dr.Colleen SfbraIQE635 103/odHqhtcq816-508Axr [facility] HealthComment on above:Performed By: #### CBC ####[facility] Zqqusqzjvm[address] [place], [place] [address]Dr. Colleen ChangRBC4.41 106/ulNormal4.20-5.40The [facility] HealthComment on above: Performed By: #### CBC ####[facility] S[address]ocisipu[address] [place], [place] [address]Dr.Sollan ChangWBC7.3 103/ulNormal4.0-11.0The [facility] HealthComment on above:Performed By: #### CBC ####[facility] [address]wx[address]qsb[address] [place], [place] [address]Dr.Yilan ChangPREG HCG QUALon 62-51-8320DKVAINURJ, QUALNegativeNormalNEGATIVEKettering Health Main CampusComment on above:Performed By: #### PREG #### [facility] [address] [address] [address] Colleen MarshallCovid-19 PCR ([facility])on 35-45-6423JDKW-CoV-2 (COVID-19) RNA MARGOT+probe Ql (Unsp spec)Not detectedNormalNOT DETECTEDKettering Health Main Campus Comment on above:Result Comment: This test is not yet approved or cleared by the [place] FDA. When there are no FDA-approved or cleared tests available, and other criteria are met, FDA can make tests available under an emergency access mechanism called an Emergency Use Authorization (EUA). The EUA for this test is supported by the [place] of Health and Human Service's (HHS's) declaration [...] symptoms consistent with SARS-CoV-2.Performed By: #### CVDTBH ####[facility] [address] [address]Dr. Colleen Marshall CHLAMYDIA/GONOCOCCUS MARGOT (SWAB/URINE/PAPon 15-17-5434Aohdsvxyq trachomatis, MARGOT NegativeNormalNegativeThe [facility]ma HealthComment on above:Performed By: #### CT/NGNA #### [facility] [address] [place] [address] Dr. Colleen MarshallNeisseria gonorrhoeae, NAANegativeNormalNegativeThe [facility]ma HealthComment on above:Performed By: #### CT/NGNA #### [facility] [address] [place] [address] Dr. Colleen MarshallVAGINITIS/VAGINOSIS DNA PROBEon 42-49-2687Aeenkxh speciesNegative NormalNegativeKettering Health Main CampusComment on above:Performed By: #### VAGINT ####[facility] [address] [address]Dr. Colleen MarshallGardnerella vaginalisNegativeNormalNegativeK[facility]tering Health [facility] Campus Comment on above:Performed By: #### VAGINT ####[facility] [address] [address]Dr. Colleen MarshallTrichomonas vaginalisNegative NormalNegativeKettering Health Main CampusComment on above:Performed By: #### VAGINT ####[facility] [address] [place], [place] [address]DrLiset MarshallAMYLASEon 96-77-0118Vbjrvgr [Catalytic activity/Vol]47 U/LNormal 25-115The [facility] HealthComment on above:Performed By: #### CMP, SHARLENE, LIPA #### [facility] [address] [place] [address] Dr. Colleen Alva AUTO DIFFon 76-06-7147RCNB #0.0 103/ulNormal0.0-0.1[facility] Main CampusComment on above:Performed By: #### CBC #### [facility] [address] [place] [address] Dr. Colleen MarshallBasophils/100 WBC (Bld)0.4 %Normal0.2-2.0[facility] Comment on above:Performed By: #### CBC #### [facility] [address] [place] [address] Dr. Colleen Arrieta #0.1 103/ulNormal0.0-0.7The [facility] HealthComment on above: Performed By: #### CBC #### [facility] [address] [place] [address] Dr. Colleen Carrollosinophils/100 WBC (Bld)0.7 %Critically low0.9-7.0The [facility] HealthComment on above:Performed By: #### CBC #### [facility] [address] [place] [address] Dr. Colleen Carrollrythrocyte distribution width (RBC) [Ratio]13.3 %Dbprrt87.0-15.0 The [facility]ma HealthComment on above:Performed By: #### CBC #### [facility] [address] [place] [address] Dr. Colleen MarshallHematocrit (Bld) [Volume fraction]44.7 %Blgoro90.0-48.0The [facility] HealthComment on above:Performed By: #### CBC #### [facility] [address] [place] [address] Dr. Colleen MarshallHemoglobin (Bld) [Mass/Vol]14.6 g/sKEnyfdd82.0-16.0The [facility] HealthComment on above:Performed By: #### CBC #### [facility] [address] [place] [address] Dr. Colleen Yepez #0.03 10e3/ulNormal0.00-0.03The [facility] HealthComment on above:Performed By: #### CBC #### [facility] [address] [place] [address] Dr. Colleen Yepez %0.3 %Normal0.0-0.5The [facility] HealthComhutzel [facility] on above: Performed By: #### CBC #### [facility] [address] [place] [address] Dr. Colleen QuispeH #2.2 103/ulNormal1.2-3.8The [facility] HealthComment on above:Performed By: #### CBC #### [facility] [address] [place] [address] Dr. Colleen Saundersmphocytes/100 WBC (Bld)19.7 %Critically low20.5-60.0The [facility] HealthComment on above:Performed By: #### CBC #### [facility] [address] [place] [address] Dr. Colleen RivasUAL DIFF REQNONormalThe [facility]ma HealthComment on above: Performed By: #### CBC #### [facility] [address] [address] [address] Colleen Michaud (RBC) [Entitic mass]31.4 idMkvpsr60.7-34.0The [facility] HealthComment on above:Performed By: #### CBC #### [facility] [address] [place] [address] Dr. Colleen Michaud (RBC) [Mass/Vol]32.7 g/cZUkoqdt73.9-35.2The [facility] HospitalComment on above:Performed By: #### CBC #### [facility] [address] [place] [address] Dr. Colleen Michaud (RBC) [Entitic vol]96.1 sGNijwqm76.0-99.0The [facility] HealthComment on above:Performed By: #### CBC #### [facility] [address] [place] [address] Dr. Colleen Bobo #0.6 103/ulNormal0.3-0.8The [facility] HealthComment on above:Performed By: #### CBC #### [facility] [address] [place] [address] Dr. Colleen Babcockocytes/100 WBC (Bld)5.5 %Normal1.7-12.0[facility] Comment on above:Performed By: #### CBC #### [facility] [address] [place] [address] Dr. Colleen Orr #8.3 103/ulCritically high1.4-6.5The [facility] Comment on above:Performed By: #### CBC #### [facility] [address] [place] [address] Dr. Colleen Willisutrophils/100 WBC (Bld)73.4 %Izgmbg96.0-75.0The [facility] HealthComment on above:Performed By: #### CBC #### [facility] [address] [place] [address] Dr. Colleen Schulz mean volume (Bld) [Entitic vol]10.4 fLNormal9.5-13.5The [facility] HealthComment on above:Performed By: #### CBC #### [facility] [address] [address] [address] Colleen MarshallPLT212 103/zhXlonqk920-007Kue [facility]Comh[facility]zel [facility] on above: Performed By: #### CBC #### [facility] [address] [address] [address] Colleen MarshallRBC4.65 106/ulNormal4.20-5.40The [facility] HealthComment on above:Performed By: #### CBC #### [facility] [address] [address] [address] Colleen MarshallWBC11.2 103/ulCritically high4.0-11.0The [facility] HealthComment on above:Performed By: #### CBC #### [facility] [address] [place] [address] Dr. Colleen MarshallCT ABD/PELV W CONon 11-85-3520TX ABD/PELV W CONEXAMINATION: CT ABD/PELV W CON [...] Electronically authenticated by: DELROY SIDDIQUI Date: 2022-08-18 08:57[facility] URINE PROFILEon 82-95-1407Crzsufrjc Ql (U)NegativeNormal NEGATIVEKettering Health Main CampusComment on above:Performed By: #### ERUR, PREGU #### [facility] [address] [address] [address] Colleen MarshallClarity (U)CLEARNormalCLEARKettering Health Main CampusComment on above: Performed By: #### ERUR, PREGU #### [facility] [address] [address] [address] Colleen Jurado (U)YELLOWNormalYELLOWKettering Health Main CampusComment on above: Performed By: #### ERUR, PREGU #### [facility] [address] [address] [address] Colleen Baumann micrscopic examination will be performed if indicated. NormalKettering Health Main CampusComment on above:Performed By: #### ERUR, PREGU #### [facility] [address] [address] [address] Colleen MarshallGlucose Ql (U)NegativeNormalNEGATIVEKettering Health Main CampusComment on above:Performed By: #### ERUR, PREGU #### [facility] [address] [address] [address] Colleen MarshallHemoglobin Ql (U)NegativeNormalNEGATIVEKettering Health Main Campus Comment on above:Performed By: #### ERUR, PREGU #### [facility] [address] [address] [address] Colleen MarshallKetones Ql (U)NegativeNormalNEGATIVEKettering Health Main CampusComment on above:Performed By: #### ERUR, PREGU #### [facility] [address] [address] [address] Colleen MarshallLEUKOCYTESNegativeNormalNEGATIVEThe [facility] HealthComment on above:Performed By: #### ERUR, PREGU #### [facility] [address] [place] [address] Dr. Colleen Pooletrcooper Ql (U)NegativeNormalNEGATIVEThe [facility] HealthComment on above:Performed By: #### ERUR, PREGU #### [facility] [address] [place] [address] Dr. Colleen MarshallpH (U)7.0 [pH]Normal5-9The [facility] HealthComment on above: Performed By: #### FREDYR, PREGU #### [facility] [address] [place] [address] Dr. Colleen MarshallSPEC GRAVITY1.622Frsbpq4.005-<=1.025The [facility] HealthComment on above:Performed By: #### FREDYR, PREGU #### [facility] [address] [place] [address] Dr. Colleen Oseguera PROTEINNegativeNormalNEGATIVE/ TRACEThe [facility] Comment on above:Performed By: #### FREDYR, PREGU #### [facility] [address] [place] [address] Dr. Colleen Nicole MICRO INDNOT INDICATEDNormalThe [facility] HealthComment on above:Performed By: #### FREDYR, PREGU #### [facility] [address] [place] [address] Dr. Colleen Neil Qn (U)0.2 {Konrad'U}/dLNormal0.2 - 1.0The [facility] HealthComment on above:Performed By: #### ERUR, PREGU #### [facility] [address] [place] [address] Dr. Colleen MarshallLIPASEon 75-72-9510Vncbff [Catalytic activity/Vol]242.0 U/LNormal 73.0-393.0The [facility] HealthComment on above:Performed By: #### CMP, SHARLENE, LIPA #### [facility] [address] [address] [address] Colleen MarshallPREGNANCY URon 87-88-8679JKSRAGOOF, QUALNegativeNormalNEGATIVEThe [facility] HealthComment on above:Performed By: #### ERUR, PREGU #### [facility] [address] [address] [address] Colleen MarshallPROF 14(COMP METB)on 59-31-5909Wwmctzj [Mass/Vol]3.9 g/dLNormal 3.4-5.0The [facility] HealthComment on above:Performed By: #### CMP, SHARLENE, LIPA ####[facility] [address] [address]Dr. Colleen ChangAlbumin/Globulin [Mass ratio]1.1 {ratio}NormalKettering Health Main Campus Comment on above:Performed By: #### CMP, SHARLENE, LIPA ####[facility] [address] [address]Dr. Colleen ChangALP [Catalytic activity/Vol]74 U/YFeshlb13-672Zoq [facility] Hospitalment on above:Performed By: #### CMP, SHARLENE, LIPA ####[facility] [address] [address]Dr. Colleen ChangALT [Catalytic activity/Vol]33 U/L Rczaox48-78Jns [facility] HealthComment on above:Performed By: #### CMP, SHARLENE, LIPA ####[facility] [address] [address]Dr. Colleen ChangAnion gap [Moles/Vol]7.8 mmol/LNormalThe [facility] Comment on above:Performed By: #### CMP, SHARLENE, LIPA ####[facility] [address] [address]Dr. Sollan ChangAST [Catalytic activity/Vol]18 U/ZLzhrsk46-26Crp [facility] Hospitalment on above:Performed By: #### CMP, SHARLENE, LIPA ####[facility] [address] [address]Dr. Colleen ChangBilirubin [Mass/Vol]0.4 mg/dLNormal 0.2-1.0The [facility] HealthComment on above:Performed By: #### CMP, SHARLENE, LIPA ####[facility] [address] [address]Dr. Yilan ChangCalcium [Mass/Vol]8.9 mg/dLNormal8.5-10.1The [facility] HealthComment on above:Performed By: #### CMP, SHARLENE, LIPA ####[facility] [address] [place], [place] [address]Dr. Yilan ChangChloride [Moles/Vol]102 mmol/JBvyjjw36-409Jlg [facility] HealthComment on above:Performed By: #### CMP, SHARLENE, LIPA ####[facility] [address] [place], [place] [address]Dr. Yilan ChangCO2 [Moles/Vol]29.0 mmol/IZyfcxk03.0-32.0The [facility] HealthComment on above:Performed By: #### CMP, SHARLENE, LIPA ####[facility] [address] [place], [place] [address]Dr. Yilan ChangCreatinine [Mass/Vol]0.67 mg/dLNormal0.55-1.02The [facility] HealthComment on above: Performed By: #### CMP, SHARLENE, LIPA ####[facility] [address] [place], [place] [address]Dr. Yilan ChangEGFR-AF THAI>60Normal>=60The [facility] HealthComment on above:Performed By: #### CMP, SHARLENE, LIPA ####[facility] [address] [place], [place] [address]Dr. Yilan Marshall EGFR-NON AF THAI>60Normal>=60The [facility] HealthComment on above:Performed By: #### CMP, SHARLENE, LIPA ####[facility] [address]visp[address] [place], [place] [address]Dr. Yilan ChangGlobulin (S) [Mass/Vol]3.7 g/dLNormal The [facility] HealthComment on above:Performed By: #### CMP, SHARLENE, LIPA ####[facility] [address] [address]Dr. Yilan ChangGlucose [Mass/Vol]65 mg/dLCritically muk55-925Tzn [facility] Comment on above:Performed By: #### CMP, SHARLENE, LIPA ####[facility] [address] [address]Dr. Yilan ChangPotassium [Moles/Vol]3.8 mmol/LNormal3.5-5.1The [facility] HealthComment on above: Performed By: #### CMP, SHARLENE, LIPA ####[facility] [address] [address]Dr. Yilan ChangProtein [Mass/Vol]7.6 g/dLNormal 6.4-8.2The [facility] HealthComment on above:Performed By: #### CMP, SHARLENE, LIPA ####[facility] [address] [address]Dr. Yilan ChangSodium [Moles/Vol]135 mmol/LCritically tlq581-079Ohg [facility] HealthComment on above:Performed By: #### CMP, SHARLENE, LIPA ####[facility] [address] [address]Dr. Yilan ChangUrea nitrogen [Mass/Vol]13.0 mg/dLNormal7.0-18.0The [facility] HealthComment on above: Performed By: #### CMP, SHARLENE, LIPA ####[facility] [address] [address]Dr. Yilan ChangUrea nitrogen/Creatinine [Mass ratio] 19.4 mg/mgNormalThe [facility] HealthComment on above:Performed By: #### CMP, SHARLENE, LIPA ####[facility] [address] [place], [place] [address]Dr. Yilan ChangLUMBAR SPINE 4 OR 5 [facility] [place] [facility] 72-48-6573TJZKXA SPINE 4 OR 5 S [facility] Department of Radiology [address] [place] [id number] Patient Name: BONILLA WILDER : 1985 [...] , Ordering Provider - A ALISHA MUÑOZ JOB COACH/JOB DEVELOPER , Exam: LUMBAR SPINE 4 OR 5 [...] , Ordering Provider - A ALISHA MSN JOB COACH/JOB DEVELOPER , PROTOCOL: AP, Lateral and L5-S1 spot [...] report. Electronically signed: Adrian Caruso. Transcribed by: [email or web address], User Resident: DARREL MANNING Electronically Signed by: ADRIAN CARUSO @ 07/11/2021 10:55 AM I personally read this/these film(s) with this residentAdams County Regional Medical CenterComment on above:Order Comment: evaluate, please do flexion and extension x rays to rule out instability-chronic back pain , Views (X-RAY, LUMBAR SPINE): Radiologic Protocol , please do flexion and extension x rays to rule out instability-chronic back pain , Views (X-RAY, LUMBAR SPINE): Radiologic Protocol , , , Ordering Provider - A ALISHA MUÑOZ JOB COACH/JOB DEVELOPER , Vital Signs Date TimeVital SignValuePerforming LaskfakgoRjgmmeod69-64-4120 10:05-0500Body pngmynbpnup99.01 [degF]Viraj Carias DIMENSION SPECIFICATION INSPECTOR Work Phone: [address] [place], [place] [address]Txphozpwlr82-18-3386 10:05-0500Diastolic blood wrvmzuuj28 mm[Hg]Viraj Carias DIMENSION SPECIFICATION INSPECTOR Work Phone: [address] [place], [place] [address]Nyoewuaolh49-34-7733 10:05-0500Heart rate66 /min Viraj Carias DIMENSION SPECIFICATION INSPECTOR Work Phone: [address] [place], [place] [address]Gzmnudytyk52-11-9502 10:05-0500Respiratory rate20 /minViraj Carias DIMENSION SPECIFICATION INSPECTOR Work Phone: [phone] [place] [address]-10-2025 10:05-6467MrJ6% (BldA) [Mass fraction]98 %Viraj Carias DIMENSION SPECIFICATION INSPECTOR Work Phone: [address] [place], [place] [address]Kiwbdrqfts53-80-6204 10:05-0500Systolic blood dnauqmok385 mm[Hg]Viraj Carias DIMENSION SPECIFICATION INSPECTOR Work Phone: [phone] [place], [place] [address]406-17-2025 11:54-0400Body mass index (BMI) [Ratio]25.62 kg/j9Vizdqkg Donald DIMENSION SPECIFICATION INSPECTOR Work Phone: [phone] JosephEtpriwevxv03-66-3107 11:54-0400Body temperature 97.59 [degF]Lilly Bennett DIMENSION SPECIFICATION INSPECTOR Work Phone: [phone])[facility]-4781[facility] JosephQtxrgsmuqw83-40-6866 11:54-0400Body ucohox75.3 kg Lilly Bennett DIMENSION SPECIFICATION INSPECTOR Work Phone: [phone] [place], [place] [address]Suozdzzpcy21-37-4546 11:54-0400Diastolic blood dpqupuos80 mm[Hg]Lilly Bennett DIMENSION SPECIFICATION INSPECTOR Work Phone: [phone])[facility]-[address] [place], [place] [address]Rmhiavqcfz77-57-4849 11:54-0400Heart rate75 /min Lilly Bennett DIMENSION SPECIFICATION INSPECTOR Work Phone: [phone])[facility]-9162[facility] JosephAdubpchgzk54-00-8807 11:54-3257AzX8% (BldA) [Mass fraction]97 %Lilly Bennett DIMENSION SPECIFICATION INSPECTOR Work Phone: [phone])[facility]-4903[facility] JosephFsjvqcqirc46-97-8669 11:54-0400Systolic blood mm[Hg]Lilly Bennett DIMENSION SPECIFICATION INSPECTOR Work Phone: [facility] JosephKuilhfenuj17-92-2152 09:18-0400Body mass index (BMI) [Ratio]25.62 kg/s6Revklr Workman PA Work Phone: noResearch [facility] HospitalNsoaltyyjo66-48-8920 09:18-0400Body temperature 97.7 [degF]Summer Workman PA Work Phone: [facility] JosephAweujpbbqh98-53-3019 09:18-0400Body gxtind27.3 kg Summer Workman PA Work Phone: noResearch Belton HospitalZcrspnppiy54-19-4165 09:18-0400Diastolic blood rwixsjcl71 mm[Hg][facility] Workman PA Work Phone: noResearch Belton HospitalGhkotxchkm67-50-3077 09:18-0400Heart rate76 /min Summer Workman PA Work Phone: [facility] JosephNinblrrkht14-42-7698 09:18-2308FgO3% (BldA) [Mass fraction]97 %Summer Workman PA Work Phone: noResearch Belton HospitalZkhlzkujlz56-25-9584 09:18-0400Systolic blood ypivyebl216 mm[Hg][facility] Workman PA Work Phone: noResearch Belton HospitalIldwmedgdi37-82-5386 15:20-0500Body mass index (BMI) [Ratio]25.62 kg/m2Sharlene Cook PA Work Phone: noResearch Belton HospitalRcbpqbrkfs95-64-5747 15:20-0500Body kvutqd26.3 kg Sharlene Cook PA Work Phone: noResearch Belton HospitalHmtsrxdwgp32-22-5500 15:20-0500Diastolic blood rohxzgqo78 mm[Hg]Sharlene Cook PA Work Phone: noResearch Belton HospitalKubgocabqc22-11-3628 15:20-0500Systolic blood wnjmjvij264 mm[Hg]Sharlene Cook PA Work Phone: noResearch Belton HospitalShskwbgkgw46-05-5324 10:16-0500Body mass index (BMI) [Ratio]25.77 kg/m2Amy Alvarez PA Work Phone: [facility] JosephEjfiurzxql24-12-0841 10:16-0500Body ammupu47.75 kgSharlene Cook PA Work Phone: [facility] JosephSeirbuaioi36-53-9203 10:16-0500Diastolic blood awysdntg35 mm[Hg]Sharlene Cook PA Work Phone: [facility] JosephWujorcmgcj13-01-7342 10:16-0500Systolic blood lgwyslqu574 mm[Hg]Sharlene Cook PA Work Phone: [facility] JosephObwhozsxyl79-94-7788 15:35-0400Diastolic blood czkuktnx95 mm[Hg]MD Francisco Sanches Work Phone: [phone]06-18-2023 15:35-0400 Heart rate63 /minMD Francisco Sanches Work Phone: [phone] [place], [place] [address]806-18-2023 15:35-0400 Respiratory rate20 /minMD Francisco Sanches Work Phone: [phone] [place], [place] [address]806-18-2023 15:35-0400 SaO2% (BldA) [Mass fraction]97 %MD Francisco Sanches Work Phone: [phone])[address]06-18-2023 15:35-0400 Systolic blood mm[Hg]MD Francisco Sanches Work Phone: [phone]06-18-2023 14:10-0400 Body rydvvx820.91 cmMD Francisco Sanches Work Phone: [phone])[address]06-18-2023 14:10-0400 Body plicernjtbb50.6 [degF]MD Francisco Sanches Work Phone: [phone])[address]06-18-2023 14:10-0400 Body qkupfb59 kgMD Francisco Sanches Work Phone: [phone] [place] [address] Encounters Encounter DateEncounter TypeCare ProviderFacilityStart: 09-26-2025 End: 99-13-5642Pxygsc outpatient visit 25 minutesViraj Carias DIMENSION SPECIFICATION INSPECTOR Work Phone: noms [facility] Urgent CareComment on above:Unexplained weight loss (Primary Dx); Hair loss; Generalized muscle ache; Medication reaction, initial encounter; NauseaStart: 09-26-2025 End: 13-37-9742pygpqhcprjCYZUSSH N AUSTINNot AvailableStart: 09-22-2025 ambulatoryFacility: BellevueStart: 05-03-2025 End: 50-34-1447Ofzbvgnhb encounterLinqi Bennett DIMENSION SPECIFICATION INSPECTOR Work Phone: noms SWS UCStart: 05-03-2025 End: 46-15-6580Jcacrb outpatient visit 25 minutesLinqi Bennett DIMENSION SPECIFICATION INSPECTOR Work Phone: noms SWS UCComment on above:Right hand pain (Primary Dx); Contusion of right hand, initial encounter; Sprain of right ring finger, unspecified site of digit, initial encounterStart: 05-03-2025 End: 91-57-6354tvlpodonmbFPXOASF R LACONISNot AvailableStart: 04-18-2025 End: 59-91-4389Brdwmg outpatient visit 25 minutesSuwendy CASTRO Work Phone: noms SWS UCComment on above:Acute bronchitis, unspecified organism (Primary Dx)Start: 04-18-2025 End: 32-06-4470ctfvdzkxjySLNARE M WORKMANNot AvailableStart: 01-05-2025 End: 38-44-9636Cqhuogj encounter Leslie CASTRO Work Phone: noms HealthcareStart: 01-05-2025 End: 22-21-0831Dxpbasbp preventive med est patient 40-64yrsAmy Alvarez CASTRO Work Phone: noms BCP OBComment on above:Well woman exam with routine gynecological exam; Breast cancer screening by mammogram; Screening examination for STIStart: 01-05-2025 End: 43-13-6502flhteakjzrYUE RAMEYNot AvailableStart: 01-05-2025 End: 51-64-6118Tuigfo flowsCatherine CASTRO Work Phone: [facility] BCP OBStart: 01-05-2025 End: 48-42-9763Dleurt flowsheetSharlene CASTRO Work Phone: [facility] BCP OBStart: 01-05-2025 End: 71-52-2444Gtunsayaa Result EncounterSharlene Alvarez CASTRO Work Phone: [facility] External Department UnsolicitedStart: 01-05-2025 End: 73-51-4647Udmxyvhi Result EncounterAmy Alvarez CASTRO Work Phone: [facility] External Department UnsolicitedStart: 11-23-2024 End: 91-56-6518Vvnyou flowsheetSharlene CASTRO Work Phone: [facility] BCP OBStart: 11-23-2024 End: 72-50-9115Vblrfs kiannaCatherine CASTRO Work Phone: [facility] BCP OBStart: 11-23-2024 End: 28-74-8550Kgqfzu outpatient visit 15 minutesAmy Alvarez CASTRO Work Phone: [facility] BCP OBComment on above:Amenorrhea; Hormone imbalance; Night sweats; Hormone disorderStart: 11-23-2024 End: 48-80-9065fguyjyssxjOEH RAMEYNot AvailableStart: 05-04-2023 End: 39-79-9426Cygzomydy department patient visit Francisco Myron Work Phone: [facility] Work Phone: Start: 29-42-3496Kteqrxkvr for preprocedural laboratory examinationCOREY [facility] Hospitaltart: 10-02-2022 End: 96-66-1266vdzmaenhjdOZIYP FAZIOFacility:T7Orkjg: 86-81-7912acnbiwguxbTJQCC FAZIOFacility:R9Umghr: 09-25-2022 End: 18-01-1352vpaxycuderRGDXY FAZIOFacility:S5Nsnvo: 09-25-2022 End: 37-01-8359Hcgmyqrhi for preprocedural laboratory examinationCOREY MARIE Facility:D9Icdfx: 08-28-2022 End: 74-57-4231spigdwhqflKHGEA FAZIOFacility:P2Pgtdy: 08-18-2022 End: 22-21-6728kvxbaqvvnjDC LUAN GUERRA .Facility:R5Ysfjj: 00-86-6777aysfzfrstc DR JUNE HOLLINGSWORTH .Facility:U3Oxdcc: 06-13-2022 End: 65-40-5444rwsxoqxwvnBK VIMAL S KUMAR .Facility:W3Alpby: 04-08-2022 ambulatoryDavid WestFacility:H1 Procedures DateProcedureProcedure DetailPerforming ClinicianStart: 81-95-1042UW SPLINTING / CASTING / STRAPPINGCamry Clem MAStart: 50-19-1519Mfuxx hand minimum 3 views Lilly Bennett NP Work Phone: Start: 25-49-6589IMEAKWNUK VAGINITIS (HTRX)Sharlene CASTRO Work Phone: Start: 68-52-5186JYG,APTIMA HPV,AGE GDLNAmy Alvarez CASTRO Work Phone: Start: 72-74-7558Iulyl test visual color cmprsn methsAlenka Alvarez CASTRO Work Phone: Start: 30-69-1552Xyxok chest X-rayMD Francisco Sanches Work Phone: Plan of Treatment DateCare ActivityDetailAuthorStart: 09-29-2025 End: 19-43-1597Vwlqbde encounter yqahbahrr31/13/2025 2:20 PM EST Office Visit [facility] [address], [address] [place] [address] Alistair Manzanares DO [address] [place] [address] [facility] 340Start: 01-05-2025 End: 86-95-1874Rdamqdl encounter procedureNOMS BCP OBComment on above:Arrived Start: 01-05-2025 End: 04-12-4364JI Breast - bilateral ScreeningBilateral screening mammogram Imaging Routine Breast cancer screening by mammogram Expected: 01/05/2025 (Approximate), Expires: 03/05/2026[facility] Work Phone: comment on above:Expected: 01/05/2025 (Approximate), Expires: 03/05/2026Start: 11-23-2024 End: 67-06-0985A-peptideC-peptide Lab Routine Hormone disorder Expected: 11/23/2024 (Approximate), Expires: 11/23/2025[facility] HealthcareComment on above: Expected: 11/23/2024 (Approximate), Expires: 11/23/2025Start: 11-23-2024 End: 25-51-9310Fpdggiyo freeCortisol, free Lab Routine Hormone disorder Expected: 11/23/2024 (Approximate), Expires: 11/23/2025[facility] HealthcareComment on above:Expected: 11/23/2024 (Approximate), Expires: 11/23/2025Start: 11-23-2024 End: 57-73-7088Pswnfqs [Mass/volume] in Serum or PlasmaGlucose, random Lab Routine Hormone disorder Expected: 11/23/2024 (Approximate), Expires: 11/23/2025 [facility] HealthcareComment on above:Expected: 11/23/2024 (Approximate), Expires: 11/23/2025Start: 11-23-2024 End: 19-63-7391Hzdqppl, totalInsulin, total Lab Routine Hormone disorder Expected: 11/23/2024 (Approximate), Expires: 11/23/2025[facility] HealthcareComment on above:Expected: 11/23/2024 (Approximate), Expires: 11/23/2025Start: 11-23-2024 End: 11-30-4270Mzvvsqxmt serumSerotonin serum Lab Routine Hormone disorder Expected: 11/23/2024 (Approximate), Expires: 11/23/2025[facility] HealthcareComment on above:Expected: 11/23/2024 (Approximate), Expires: 11/23/2025Start: 11-23-2024 End: 12-77-3859LnqsowhawqnezLhiomfxivpjjb Lab Routine Hormone disorder Expected: 11/23/2024 (Approximate), Expires: 11/23/2025[facility] HealthcareComment on above: Expected: 11/23/2024 (Approximate), Expires: 11/23/2025Start: 11-23-2024 End: 60-86-2866Nlnylttiizapa AntibodyThyroglobulin Antibody Lab Routine Hormone disorder Expected: 11/23/2024 (Approximate), Expires: 11/23/2025[facility] Comment on above:Expected: 11/23/2024 (Approximate), Expires: 11/23/2025Start: 11-23-2024 End: 14-19-5880Kymbugbpmoh [Units/volume] in Serum or PlasmaMosaic Life Care at St. [facility] Comment on above:Ordered: 11/23/2024Expected: 11/23/2024 (Approximate), Expires: 11/23/2025Start: 11-23-2024 End: 25-25-5540MX PelvisUS Pelvis w/ TV Imaging Routine Amenorrhea Expected: 11/23/2024, Expires: 11/23/2025[facility] HealthcareComment on above:Expected: 11/23/2024, Expires: 11/23/2025Start: 11-23-2024 End: 09-75-3735Kuzrwoa encounter jdkrtnous75/07/2025 10:10 AM EST Office Visit [facility] [address] [phone] Sharlene Cook PA [address] [place] [address] [facility] OBComment on above:ArrivedCBC W Auto Differential panel - BloodCBC and differential Lab Routine Amenorrhea Ordered: 11/23/2024[facility] Work Phone: comment on above:Ordered: 11/23/2024HLAMYDIA TRACHOMATIS (GENITO/STI)CHLAMYDIA TRACHOMATIS (GENITO/STI) Lab Routine Screening examination for STI Ordered: 01/05/2025[facility] HealthcareComment on above:Ordered: 01/05/20259965FMLJ-mnkjksuPCUA-dvjjyuf Lab Routine Hormone disorder Ordered: 11/23/2024[facility] HealthcareComment on above:Ordered: 11/23/2024EstradiolEstradiol Lab Routine Hormone disorder Ordered: 11/23/2024[facility] HealthcareComment on above: Ordered: 11/23/2024EstroneEstrone Lab Routine Hormone disorder Ordered: 11/23/2024[facility] HealthcareComment on above:Ordered: 11/23/2024Ferritin [Mass/volume] in Serum or PlasmaFerritin Lab Routine Hormone disorder Ordered: 11/23/2024[facility] HealthcareComment on above:Ordered: 11/23/2024Hemoglobin A1c/Hemoglobin.total in BloodHemoglobin A1c Lab Routine Hormone disorder Ordered: 11/23/2024[facility] HealthcareComment on above:Ordered: 11/23/2024Neisseria gonorrhoeae DNA [Presence] in Unspecified specimen by MARGOT with probe detection Neisseria gonorrhea DNA probe, direct Lab Routine Screening examination for STI Ordered: 01/05/2025[facility] HealthcareComment on above:Ordered: 01/05/2025Patient EducationMuscle and Bone Pain (DC)[facility] Work Phone: [facility] Work Phone: ProgesteroneProgesterone Lab Routine Hormone disorder Ordered: 11/23/2024[facility] HealthcareComment on above:Ordered: 11/23/2024Prolactin Prolactin Lab Routine Amenorrhea Ordered: 11/23/2024[facility] HealthcareComment on above:Ordered: 11/23/2024Sex hormone binding globulinSex hormone binding globulin Lab Routine Hormone disorder Ordered: 11/23/2024[facility] HealthcareComment on above:Ordered: 11/23/2024SURESWAB(R) ADVANCED VAGINITIS PLUS, TMASURESWAB(R) ADVANCED VAGINITIS PLUS, TMA Pathology and Cytology Routine Screening examination for STI Ordered: 01/05/2025[facility] HealthcareComment on above:Ordered: 01/05/2025T3, reverseT3, reverse Lab Routine Hormone disorder Ordered: 11/23/2024[facility] HealthcareComment on above:Ordered: 11/23/2024TESTOSTERONE, FREE TESTOSTERONE, FREE Lab Routine Hormone disorder Ordered: 11/23/2024[facility] HealthcareComment on above:Ordered: 11/23/2024Testosterone, free, total Testosterone, free, total Lab Routine Hormone disorder Ordered: 11/23/2024[facility] HealthcareComment on above:Ordered: 11/23/2024THIN PREP TIS PAP AND HR HPV DNA THIN PREP TIS PAP AND HR HPV DNA Pathology and Cytology Routine Well woman exam with routine gynecological exam Ordered: 01/05/2025[facility] HealthcareComment on above:Ordered: 01/05/2025Thyroid peroxidase antibodyThyroid peroxidase antibody Lab Routine Hormone disorder Ordered: 11/23/2024[facility] HealthcareComment on above: Ordered: 11/23/2024Thyroxine (T4) free [Mass/volume] in Serum or PlasmaT4, free Lab Routine Hormone disorder Ordered: 11/23/2024[facility] HealthcareComment on above: Ordered: 11/23/2024Triiodothyronine (T3) Free [Mass/volume] in Serum or Plasma T3, free Lab Routine Hormone disorder Ordered: 11/23/2024[facility] HealthcareComment on above:Ordered: 11/23/2024Vitamin D 1,25 dihydroxyVitamin D 1,25 dihydroxy Lab Routine Hormone disorder Ordered: 11/23/2024[facility] HealthcareComment on above: Ordered: 11/23/2024 Payers DatePayer CategoryPayerKaleida Health [id number] MedicaidANTHEM BCBS [place]ICAID [place] [id number] 2023Medicaid [id number] [id number] [id number] 2.16.840.1.293959.3.57[id number] 2.16840.1.008346.3.57[id number] 2.16840.1.540618.3.57[id number] 2.16840.1.540092.3.57[id number] 2.840.1.742629.3.579.[id number] 2.16840.1.836130.3.57[id number] 2.16840.1.048616.3.579.[id number] 2.840.1.918744.3.57[id number] 2.16840.1.273694.3.57[id number] 2.16840.1.966579.3.57[id number] 2.16840.1.045294.3.57[id number] 2.16840.1.930007.3.579.2.399882-67-9230Gjuehfc7753760 2.16840.1.052857.3.57[id number] 2..0.1.369974.3.579.2.[id number] 2.16840.1.150933.3.57[id number] 2.840.1.629381.3.579.2.531 Social History DateTypeDetailFacilityStart: 11-21-7878Pgvspus smoking status NHISSmoker (finding)[facility]: 40-88-6933Fav Assigned At FemaleCleveland Clinic Fairview Hospitaltart: 74-39-1759Hjptfkw smoking status NHISSmokes tobacco dailyNOMS HealthcareHistory of tobacco useCigarette Smoker [facility] HealthcareStart: 08-25-2023 End: 77-96-8528Rvpsmrkfy beverage intakeLifetime non-drinker (finding)[facility] HealthcareStart: 08-25-2023 End: 41-45-9396Kqssvfr of Social functionNOMS HealthcareStart: 08-25-2023 End: 59-31-1600Uxbzqtx use panelNOGA HealthcareStart: 92-45-7845Ant assigned at birthNot on fileJORDAN VALLEY [facility]ENTER HealthcareStart: 54-13-9332XvvSbopzcMWFX Healthcare Clinical Notes 06-13-2022 to 09-26-2025 Note Date & IigsKazfEflqiyit81-18-7016 History of Present illness Narrative* Viraj Carias [...] 15 tablet; Refill: 0 documented in this encounterMosaic Life Care at St. JosephFbkdkamieq33-91-2094 Telephone encounter Note* Telephone Encounter - Santo Fleming MA - 05/03/2025 6:36 PM EDT Contacted pt went over results above, pt understood and had no further questions at the time of call. [facility] JosephClqwpxsdne74-51-9730 Miscellaneous Notes* Telephone Encounter - Santo Fleming [...] of her hand. This provider has contacted [facility] imaging multiple times informing them the [...] see ortho JOSE F. documented in this encounterMosaic Life Care at St. JosephZgbtxeagtj34-69-0593 Telephone encounter Note* Telephone Encounter - Jie Deutsch NP - 05/03/2025 6:34 PM EDT Please let the patient know the final read on her hand xray states: No fracture or dislocation. [facility] Healthcare Work Phone: [phone] 818-731606-17-2025 Telephone encounter Note* Telephone Encounter - Lilly Bennett NP - 05/03/2025 4:53 PM EDT Please let pt know we are still waiting on final read from radiologist on xray of her hand. This provider has contacted [facility] imaging multiple times informing them the [...] will need to see ortho JOSE F. [facility] Healthcare Work Phone: [phone] 268-751706-17-2025 History of Present illness Narrative* Lilly Bennett [...] Skin: normal right hand. 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 Pt tolerated well. documented in this encounterMosaic Life Care at St. JosephEmigxaysng21-54-6693 History of Present illness Narrative* GLORIA Chang - 04/18/2025 9:20 AM EDT [address], [address] [facility], [address] P: [phone] F: [phone] HPI Historian of HPI: patient Bonilla Wilder [...] 14 tablet; Refill: 0 documented in this encounterMosaic Life Care at St. JosephJhijzzstud91-19-0864 History of Present illness Narrative* GLORIA Campoverde [...] nursing note reviewed. Exam conducted with a solderer dipper present. Vitals: Estimated body mass index is [...] behalf of: GLORIA Campoverde documented in this encounterMosaic Life Care at St. JosephRprshigvyr74-06-7491 History of Present illness Narrative* GLORIA Campoverde [...] behalf of: GLORIA Campoverde documented in this encounterMosaic Life Care at St. JosephVeylomnnax66-68-2550 NoteOPERATIVE NOTE OPERATION DATE: 10/02/2022 PROCEDURE: Bilateral laparoscopic salpingectomy with removal of Filshie clip. PREOPERATIVE DIAGNOSIS: Pelvic pain, desires removal of tubes. POSTOPERATIVE DIAGNOSIS: Pelvic pain, desires removal of tubes, pelvic vascular congestion. ANESTHESIA: General. SURGEON: Aden Sorinao D.O. BATCH TESTER: JOSEY Brown URINE OUTPUT: Yellow and clear. [...] lap and needle counts were correct x2.[facility] 06-13-2022 NoteCONSULTATION CONSULTATION DATE: 06/13/2022 HISTORY OF [...] does agree with this plan of care.[facility] HealthEvaluation noteNo assessment information availableCleveland Clinic [facility] Work Phone: Evaluation note* Diagnosis Amenorrhea Absence of menstruation Hormone imbalance Night sweats Generalized hyperhidrosis Hormone disorder Unspecified endocrine disorder documented in this encounter [facility] HealthcareEvaluation note* Diagnosis Well woman exam with routine gynecological exam Routine gynecological examination Breast cancer screening by mammogram Screening examination for STI documented in this encounter [facility] HealthcareEvaluation note* Diagnosis Acute bronchitis, unspecified organism- Primary documented in this encounter [facility] HealthcareEvaluation note* Diagnosis Right hand pain- [...] and content) DATE CREATED AUTHOR 07/12/2021 [facility] DATE CREATED AUTHOR AUTHOR'S ORGANIZ ATION 04/01/2023 [facility] DATE CREATED AUTHOR AUTHOR'S ORGANIZ ATION 06/25/2025 [facility] DATE CREATED AUTHOR AUTHOR'S ORGANIZ ATION 09/24/2025 [facility] DATE CREATED AUTHOR AUTHOR'S ORGANIZ ATION 09/26/2025 [facility] EPIC Care Teams (unrecognized sec tion and content) Team Status: Active Member Role Status Dates Francisco Sanches MD Primary Care Provider Active Team Status: Inactive Member Role Status Dates Francisco Sanches MD Primary Care Provider Active Sunil Trevizo MDEmergency ProviderActiveTeam MemberRelationshipSpecialtyStart DateEnd Date Luan Guerra MD [address] [place] [address] PCP - GeneralFamily Medicine08/07/23Team MemberRelationshipSpecialtyStart DateEnd Date Luan Guerra MD [address] [place] [address] PCP - GeneralFamily Medicine08/07/23Team MemberRelationshipSpecialtyStart DateEnd Date Luan Guerra MD [address] [place] [address] PCP - GeneralFamily Medicine08/07/23Te MemberRelationshipSpecialtyStart DateEnd Date Luan Guerra MD [address] [facility] [place] [address] [facility] - [facility]/07/23Team MemberRelationshipSpecialtyStart DateEnd Date Luan Guerra MD [facility]CP - [facility]Cand[facility]08/07/23Team MemberRelationshipSpecialtyStart DateEnd Luan Guerra MD PCP - GeneralFamiCHI [facility] [place]08/07/23Team MemberRelationshipSpecialtyStart DateEnd Luan Guerra MD PCP - Generalmi Medicine08/07/23Team MemberRelationshipSpecialtyStart DateEnd Luan Guerra MD PCP - GeneralFamily [facility]08/07/23 Goals (unrecognized section and content) Goals [...] BE BASED ON THE PRIMARY CLINICAL RECORDS. [email or web address]. provides no warranty or guarantee of the accuracy or completeness of information in this document.
== END 2025-10-14 09:09 | disposition home or self-care (01) ==
LOC: US 09:08
PROVIDERS: PCP Family Medicine; Visit Provider Family Medicine
DX: K86.2 Cyst of pancreas (principal)
CPT/HCPCS: 76705